=== PATIENT | male | born 1955 | race Hispanic/Latino ===

== ENCOUNTER 2020-08-23 08:26 | Inpatient (IN) | payer MEDICARE, OTHER, SELFPAY ==
[2020-08-23] VITALS (32 sets, daily range): BP systolic 115–214; BP diastolic 60–90; PULSE 65–92; RESP 13–21; TEMP 36.1–38.2; O2SAT 93–100; BMI 31.8
--- NOTE | 2020-08-23 08:54 | ED_ITS ---
HPI - General Adult General Chief complaint: Skin/Abscess/Foreign Body Stated complaint: Left foot injury Time Seen by Provider: 08/23/20 08:42 Source: patient Mode of arrival: Ambulatory Limitations: no limitations History of Present Illness HPI narrative: Patient is a 64-year-old male. Diabetic. States that he kicked a tire with his left foot approximately 3 weeks ago. At some point after that incident him before today he started having redness and drainage from his left 3rd toe. He states that it has been there for the past several days if not a couple weeks. Has not been evaluated for it. Is not on antibiotics. He states that he does have decreased sensation in his feet. Was scheduled to get a ?b kamilah button surgery ?done and was told by the surgeon that he needed to be evaluated for his toe. Patient is still ambulatory. Related Data Home Medications Medication Instructions Recorded Confirmed duloxetine 60 mg PO DAILY 08/23/20 08/23/20 fenofibrate nanocrystallized 145 mg PO DAILY 08/23/20 08/23/20 gabapentin 600 mg PO TID 08/23/20 08/23/20 glimepiride 2 mg PO DAILY 08/23/20 08/23/20 lisinopril 5 mg PO DAILY 08/23/20 08/23/20 lovastatin 10 mg PO DAILY 08/23/20 08/23/20 metformin 1,000 mg PO BID 08/23/20 08/23/20 sitagliptin [Januvia] 100 mg PO DAILY 08/23/20 08/23/20 Allergies Allergy/AdvReac Type Severity Reaction Status Date / Time codeine AdvReac Gastrointestinal Verified 08/23/20 10:04 Upset Review of Systems Constitutional Constitutional: Denies fever(s) and Denies headache(s) ENT Ears, Nose, Mouth, and Throat: Denies headache(s) Cardiovascular Cardiovascular: Denies chest pain and Denies dyspnea Respiratory Respiratory: Denies dyspnea Gastrointestinal Gastrointestinal: Denies abdominal pain Musculoskeletal Musculoskeletal: Denies arthralgias and Denies myalgias Integumentary/Breasts Comments: Wound to left 3rd toe Neurologic Neurologic: Denies behavioral changes and Denies headache(s) Psychiatric Psychiatric: Denies behavioral changes Hematologic/Lymphatic Hematologic/Lymphatic: Denies easy bleeding and Denies easy bruising Allergic/Immunologic Allergic/Immunologic: Denies urticaria Patient History Medical History Diabetes (Acute) Hypertension (Acute) Social History marital status: lives independently: Yes Smoking Status: Never smoker Exam Initial Vital Signs Initial Vital Signs: Vital Signs Pulse Rate 80 08/23/20 08:44 Blood Pressure 176/82 H 08/23/20 08:44 Pulse Oximetry 100 08/23/20 08:44 Const General: cooperative and comfortable Limitations: mental status not altered HENMT Head: normal to inspection and normocephalic Skin Other: Abscess to the distal left 3rd toe Neuro Gait: normal gait Other: Decreased sensation to the distal left 3rd toe Extrem Other: Abscess and missing nail of the left distal 3rd toe with redness extending up to the left midfoot. Psych Appearance: grossly normal and well kempt Course Orders Ordered: ED Orders 08/23/20 08:54 XR foot LT min 3V Stat 08/23/20 09:00 Wound Culture and Gram Stain Stat 08/23/20 09:44 Basic Metabolic Panel Stat C-Reactive Protein Quant Stat Complete Blood Count AUTO DIFF Stat Erythrocyte Sedimentation Rate Stat Lactate (Lactic Acid) Stat Procalcitonin Stat 08/23/20 09:50 Blood Culture Stat 08/23/20 10:30 Consult to Orthopedic Surgery Stat 08/23/20 11:34 COVID19 -ED/INPAT/OR/L&D Stat EKG-12 Lead Stat Discontinued Medications Acetaminophen (Tylenol) 650 mg PO NOW ONE Stop: 08/23/20 11:16 Last Admin: 08/23/20 11:25 Dose: 650 mg Documented by: SAIDA Vancomycin HCl (Vancomycin) 1,000 mg in 200 mls @ 200 mls/hr IV NOW ONE Stop: 08/23/20 09:57 Last Admin: 08/23/20 10:45 Dose: 200 mls/hr Documented by: ЕЛЕНА Ceftriaxone Sodium/Dextrose (Rocephin) 2 gm in 50 mls @ 100 mls/hr IV NOW ONE Stop: 08/23/20 10:04 Last Infusion: 08/23/20 10:39 Dose: 0 mls/hr Documented by: ЕЛЕНА Admin: 08/23/20 10:03 Dose: 100 mls/hr Documented by: RSTONE Vital Signs Vital signs: Vital Signs - 8 hr 08/23/20 08:44 08/23/20 08:47 08/23/20 09:00 Temperature 97.7 F 98.6 F Pulse Rate 80 74 Respiratory Rate 15 Blood Pressure 176/82 H 176/82 H Pulse Oximetry 100 99 08/23/20 09:30 08/23/20 09:49 08/23/20 10:00 Temperature Pulse Rate 79 72 75 Respiratory Rate Blood Pressure 178/81 H 178/79 H 157/74 H Pulse Oximetry 99 99 99 08/23/20 10:30 08/23/20 11:14 08/23/20 11:30 Temperature Pulse Rate 74 74 76 Respiratory Rate Blood Pressure 168/77 H 214/88 H 172/82 H Pulse Oximetry 99 99 98 Medical Decision Making Lab Data Lab results reviewed: Yes I reviewed the patient's lab results. Result diagrams: 08/23/20 09:44 08/23/20 09:44 Labs: Lab Results 08/23/20 08/23/20 08/23/20 Range/Units 09:44 09:44 09:44 WBC 14.7 H (4.5-11.0) X10^3/uL RBC 4.35 L (4.5-5.9) X10^6/uL Hgb 13.5 (13.5-17.5) g/dL Hct 40.8 L (41-53) % MCV 93.9 (80-100) fL MCH 31.2 (26-34) PG MCHC 33.2 (30-36) % RDW 13.6 (11.6-14.8) % Plt Count 245 (150-400) X10^3/uL Neut % (Auto) 75.0 (50-75) % Lymph % (Auto) 13.9 L (25-40) % [place] % (Auto) 9.4 (3-14) % Eos % (Auto) 1.2 L (2-4) % Baso % (Auto) 0.5 (0-2) % Neut # (Auto) 79332 H (0781-2260) /uL Lymph # (Auto) 2000 (8000-0567) /uL [place] # (Auto) 1400 H (0-900) /uL Eos # (Auto) 200 (0-450) /uL Baso # (Auto) 100 (0-100) /uL ESR 28 H (0-15) MM/HR Sodium (137-145) mmol/L Potassium (3.4-5.1) mmol/L Chloride (98-107) mmol/L Carbon Dioxide (22-32) mmol/L BUN (9-20) mg/dL Creatinine (0.66-1.25) mg/dL Estimated GFR (>60) mL/min BUN/Creatinine Ratio (6-22) Glucose (80-110) mg/dL Lactate 1.3 (0.7-2.1) mmol/L Calcium (8.4-10.2) mg/dL C-Reactive Protein 6.4 H (<1.0) mg/dL Procalcitonin (<0.5) ng/mL 08/23/20 08/23/20 Range/Units 09:44 09:44 WBC (4.5-11.0) X10^3/uL RBC (4.5-5.9) X10^6/uL Hgb (13.5-17.5) g/dL Hct (41-53) % MCV (80-100) fL MCH (26-34) PG MCHC (30-36) % RDW (11.6-14.8) % Plt Count (150-400) X10^3/uL Neut % (Auto) (50-75) % Lymph % (Auto) (25-40) % [place] % (Auto) (3-14) % Eos % (Auto) (2-4) % Baso % (Auto) (0-2) % Neut # (Auto) (0519-2697) /uL Lymph # (Auto) (6729-7963) /uL [place] # (Auto) (0-900) /uL Eos # (Auto) (0-450) /uL Baso # (Auto) (0-100) /uL ESR (0-15) MM/HR Sodium 135 L (137-145) mmol/L Potassium 4.9 (3.4-5.1) mmol/L Chloride 102 (98-107) mmol/L Carbon Dioxide 28 (22-32) mmol/L BUN 22 H (9-20) mg/dL Creatinine 1.20 (0.66-1.25) mg/dL Estimated GFR > 60.0 (>60) mL/min BUN/Creatinine Ratio 18.3 (6-22) Glucose 251 H (80-110) mg/dL Lactate (0.7-2.1) mmol/L Calcium 9.0 (8.4-10.2) mg/dL C-Reactive Protein (<1.0) mg/dL Procalcitonin < 0.05 (<0.5) ng/mL Imaging Data Extremity x-ray #1: Radiologist's Impression: [address] [address] XRay Report Signed Patient: Сергей Montano TMR#: [id number] : 4Acct:[id number] Age/Sex: 64 / MDate of Service: 08/23/20 Loc: ED Accession Number: [id number] Procedure: XR foot LT min 3V Ordering Provider: Ancelmo Min D.O. PROCEDURE: XR FOOT LT MIN 3V INDICATIONS: L 3rd toe trauma and infection TECHNIQUE: 3 views of the foot were acquired. COMPARISON: None. FINDINGS: Bones: There is moderate focal soft tissue swelling involving the in distal 3rd toe with underlying osseous destruction and erosion of the distal phalanx. No other prominent plantar calcaneal spur. fractures or dislocations. No suspicious bony lesions. Soft tissues: No tibiotalar joint effusion. Achilles tendon appears normal. IMPRESSION: Left 3rd toe soft tissue swelling without underlying osseous erosion/destruction of the distal phalanx. Findings are suspicious for possible underlying osteomyelitis. Dictated by: Roman Sanders M.D. on 08/23/2020 at 8:26 Approved by: Roman Sanders M.D. on 08/23/2020 at 8:28 [facility] Narrative Medical decision making narrative: Patient is a [id number] diabetic with cellulitis to his left 3rd toe. X-ray consistent with osteo. Was given antibiotics here in the ER as well as a wound culture. Dr. Abbott with orthopedics evaluated the patient in the emergency department and recommended a toe amputation. I discussed the case with Dr. hawkins with Medicine who will admit for further evaluation and treatment. Discharge Plan Departure Patient Disposition: Admitted As Inpatient Clinical Impression: Cellulitis Qualifiers: Site of cellulitis: extremity Site of cellulitis of extremity: toe Laterality: left Qualified Code(s): L03.032 - Cellulitis of left toe Osteomyelitis Qualifiers: Osteomyelitis type: unspecified type Osteomyelitis location: foot Laterality: left Qualified Code(s): M86.9 - Osteomyelitis, unspecified Admit Date/Time: 08/23/20 11:40 Admit Provider: Sally Hawkins
[2020-08-23 09:54] LABS: Add Manual Diff / Slide Review NO; Basophils Absolute Auto 100 /uL (0-100); Basophils Percent Auto 0.5 % (0-2); Eosinophils Absolute Auto 200 /uL (0-450); Eosinophils Percent Auto 1.2 % (2-4); Hematocrit 40.8 % (41-53); Hemoglobin 13.5 g/dL (13.5-17.5); Lymphocytes Absolute Auto 2000 /uL (1100-4500); Lymphocytes Percent Auto 13.9 % (25-40); Mean Corpuscular HGB Conc 33.2 % (30-36); Mean Corpuscular Hemoglobin 31.2 PG (26-34); Mean Corpuscular Volume 93.9 fL (80-100); Monocytes Absolute Auto 1400 /uL (0-900); Monocytes Percent Auto 9.4 % (3-14); Neutrophils Absolute Auto 11000 /uL (1500-7000); Platelet Count 245 X10^3/uL (150-400); Red Blood Cell Count 4.35 X10^6/uL (4.5-5.9); Red Cell Distribution Width 13.6 % (11.6-14.8); White Blood Cell Count 14.7 X10^3/uL (4.5-11.0)
[2020-08-23] MEDS: CEFTRIAXONE 2 GM/50 ML FROZ.PIGGY IV (10:03)
[2020-08-23 10:04] LABS: BUN Creatinine Ratio 18.3 (6-22); Blood Urea Nitrogen 22 mg/dL (9-20); Carbon Dioxide 28 mmol/L (22-32); Chloride 102 mmol/L (98-107); Estimated Glomerular Filt Rate > 60.0 mL/min (>60); Glucose 251 mg/dL (80-110); HEMOLYSIS < 15 (0-50); Potassium 4.9 mmol/L (3.4-5.1); Sodium 135 mmol/L (137-145)
[2020-08-23 10:05] LABS: Lactate (Lactic Acid) 1.3 mmol/L (0.7-2.1)
[2020-08-23 10:08] LABS: C-Reactive Protein Quant 6.4 mg/dL (<1.0)
[2020-08-23 10:16] LABS: Erythrocyte Sedimentation Rate 28 MM/HR (0-15)
[2020-08-23 10:18] LABS: Procalcitonin < 0.05 ng/mL (<0.5)
[2020-08-23] MEDS: VANCOMYCIN 1,000 MG/200 ML PIGGYBACK 200 MG IV ×2 (10:45→22:47)
[2020-08-23] MEDS: ACETAMINOPHEN 325 MG TABLET 650 MG PO ×2 (11:25→20:44)
--- NOTE | 2020-08-23 11:41 | PM.HP.1 ---
History of Present Illness History of Present Illness Date Patient Seen: 08/23/20 Time Patient Seen: 11:41 Chief complaint: Left foot injury Narrative: Patient is a 64-year-old male diabetic. He kicked a tire with his left foot approximately 3-4 weeks ago. At some point after that incident he started having redness and drainage from his left 3rd toe, he had been soaking it previously which had some improvement in erythema but he has stoppped doing that recently. He states that it has been there for the past several days if not a couple weeks. Has not been evaluated for it. Is not on antibiotics. He states that he does have decreased sensation in his feet. Patient is still ambulatory. No prior amputations. Patient History Medical History Diabetes (Acute) Hypertension (Acute) Family & Social History Social History: lives independently Yes Safety & Behavioral: Feels Safe in Current Yes Environment Been Physically Hurt or No Threatened By a Person Tobacco & Substance use: Smoking Status Never smoker alcohol intake frequency 0-2 drinks per day Substance Use Type marijuana Meds Home Medications and Allergies Home Medications Medication Instructions Recorded Confirmed Type duloxetine 60 mg PO DAILY 08/23/20 08/23/20 History fenofibrate nanocrystallized 145 mg PO DAILY 08/23/20 08/23/20 History gabapentin 600 mg PO TID 08/23/20 08/23/20 History glimepiride 2 mg PO DAILY 08/23/20 08/23/20 History lisinopril 5 mg PO DAILY 08/23/20 08/23/20 History lovastatin 10 mg PO DAILY 08/23/20 08/23/20 History metformin 1,000 mg PO BID 08/23/20 08/23/20 History sitagliptin [Januvia] 100 mg PO DAILY 08/23/20 08/23/20 History Allergies Allergy/AdvReac Type Severity Reaction Status Date / Time codeine AdvReac Gastrointestinal Verified 08/23/20 10:04 Upset Exam Vital Signs (past 8 hours): - 08/23/20 08:44 08/23/20 08:47 08/23/20 09:00 Temperature 97.7 F 98.6 F Pulse Rate 80 74 Respiratory Rate 15 Blood Pressure 176/82 H 176/82 H Pulse Oximetry 100 99 08/23/20 09:30 08/23/20 09:49 08/23/20 10:00 Temperature Pulse Rate 79 72 75 Respiratory Rate Blood Pressure 178/81 H 178/79 H 157/74 H Pulse Oximetry 99 99 99 08/23/20 10:30 08/23/20 11:14 08/23/20 11:30 Temperature Pulse Rate 74 74 76 Respiratory Rate Blood Pressure 168/77 H 214/88 H 172/82 H Pulse Oximetry 99 99 98 Oxygen Delivery Method Room Air Narrative Exam Narrative: Large swollen erythematus left third toe. Erythema extends to the toe on either side as well as the dorsum of the foot and small degree of the plantar surface. Drainage from the distal aspect of the toe, loss of nail. Objective Labs Result Diagrams: 08/23/20 09:44 08/23/20 09:44 Labs: Laboratory Results - last 24 hr 08/23/20 08/23/20 08/23/20 09:44 09:44 09:44 WBC 14.7 H RBC 4.35 L Hgb 13.5 Hct 40.8 L MCV 93.9 MCH 31.2 MCHC 33.2 RDW 13.6 Plt Count 245 Neut % (Auto) 75.0 Lymph % (Auto) 13.9 L [place] % (Auto) 9.4 Eos % (Auto) 1.2 L Baso % (Auto) 0.5 Neut # (Auto) 23882 H Lymph # (Auto) 2000 [place] # (Auto) 1400 H Eos # (Auto) 200 Baso # (Auto) 100 ESR 28 H Sodium Potassium Chloride Carbon Dioxide BUN Creatinine Estimated GFR BUN/Creatinine Ratio Glucose Lactate 1.3 Calcium C-Reactive Protein 6.4 H Procalcitonin 08/23/20 08/23/20 09:44 09:44 WBC RBC Hgb Hct MCV MCH MCHC RDW Plt Count Neut % (Auto) Lymph % (Auto) [place] % (Auto) Eos % (Auto) Baso % (Auto) Neut # (Auto) Lymph # (Auto) [place] # (Auto) Eos # (Auto) Baso # (Auto) ESR Sodium 135 L Potassium 4.9 Chloride 102 Carbon Dioxide 28 BUN 22 H Creatinine 1.20 Estimated GFR > 60.0 BUN/Creatinine Ratio 18.3 Glucose 251 H Lactate Calcium 9.0 C-Reactive Protein Procalcitonin < 0.05 Assessment & Plan Assessment & Plan narrative: Patient is a 64-year-old male diabetic who stubbed his toe on a tire approximately 3-4 weeks ago. He sustained a wound to the distal tip of his left middle toe. He did not seek any medical attention for this. Over last several weeks it has gotten progressively more erythematous and increasing drainage. He was seen by a surgeon in [facility] for what sounds to be evaluation for umbilical hernia he saw the toe and recommended that he seek medical attention. Patient presents to the ER at [facility] this morning for evaluation of his left middle toe. After exam and discussed with the patient I would recommend amputation of this left 3rd toe. X-rays demonstrate significant osteomyelitis type changes to the distal phalanx of the 3rd toe and in addition to the surrounding erythema and fusiform swelling of the digit I do not think that it is viable at this point. I also think that avoiding amputation may increase the risk of infection leading to amputation surrounding tissues. Plan will be to take the patient to the OR today for amputation of the 3rd digit and then admit to the hospital for IV antibiotics for management of the cellulitis. - NPO - OCTOR for left middle tow amputation - [facility] COVID-19 COVID-19 status: Result pending Time Spent With Patient Time with patient: 15-24 minutes
[2020-08-23 12:11] LABS: COVID19 -Nasal RAPID Negative (Negative)
[2020-08-23] MEDS: LACTATED RINGERS 1,000 ML 42 ML IV (12:45)
--- NOTE | 2020-08-23 13:05 | SUR.OPER ---
Supine on padded OR bed, head on pillow, arms secured on padded arm boards at <90 degrees abduction, legs uncrossed, safety belt at thigh, tape over blanket over lower right leg, left leg draped free.
--- NOTE | 2020-08-23 13:08 | PM.HP.1 ---
History of Present Illness History of Present Illness Date Patient Seen: 08/23/20 Time Patient Seen: 12:28 Chief complaint: Left foot injury Narrative: Patient is a 64-year-old male diabetic. presented in the emergency room for pain and swelling to the left foot most predominantly in the 3rd toe. Pt has recieved tylenol and denies any serious pain as he is up moving around the ER room getting ready to go to surgery and amputation of his 3rd toe left foot. Patient denies chest pain short of breath nausea vomiting diarrhea fever chills cough. He had kicked a tire with his left foot approximately 3-4 weeks ago. He reports that it has been infected ever since. At some point after that incident he started having redness and drainage from his left 3rd toe, he had been soaking it previously which had some improvement in erythema but he has stoppped doing that recently. He states that it has been there for the past several days if not a couple weeks. Has not been evaluated for it. Is not on antibiotics. He states that he does have decreased sensation in his feet. Patient is still ambulatory. No prior amputations. Patient History Medical History Diabetes (Acute) Hypertension (Acute) Family & Social History Social History: household members spouse lives independently Yes Safety & Behavioral: Feels Safe in Current Yes Environment Been Physically Hurt or No Threatened By a Person Tobacco & Substance use: Smoking Status Never smoker alcohol intake current alcohol intake frequency 0-2 drinks per day Substance Use Type marijuana Meds Home Medications and Allergies Home Medications Medication Instructions Recorded Confirmed Type duloxetine 60 mg PO DAILY 08/23/20 08/23/20 History fenofibrate nanocrystallized 145 mg PO DAILY 08/23/20 08/23/20 History gabapentin 600 mg PO TID 08/23/20 08/23/20 History glimepiride 2 mg PO DAILY 08/23/20 08/23/20 History lisinopril 5 mg PO DAILY 08/23/20 08/23/20 History lovastatin 10 mg PO DAILY 08/23/20 08/23/20 History metformin 1,000 mg PO BID 08/23/20 08/23/20 History sitagliptin [Januvia] 100 mg PO DAILY 08/23/20 08/23/20 History Allergies Allergy/AdvReac Type Severity Reaction Status Date / Time codeine AdvReac Gastrointestinal Verified 08/23/20 10:04 Upset Review of Systems Review of Systems ROS: Yes All systems reviewed with the patient and are negative except as otherwise documented Musculoskeletal Musculoskeletal: Reports arthralgias (left foot 3rd toe), Reports joint swelling and Reports numbness Integumentary/Breasts Skin/Breast: Reports change in pigmentation, Reports nail changes, Reports erythema and Reports skin swelling Neurologic Neurologic: Reports numbness Exam Vital Signs (past 8 hours): - 08/23/20 08:44 08/23/20 08:47 08/23/20 09:00 Temperature 97.7 F 98.6 F Pulse Rate 80 74 Respiratory Rate 15 Blood Pressure 176/82 H 176/82 H Pulse Oximetry 100 99 08/23/20 09:30 08/23/20 09:49 08/23/20 10:00 Temperature Pulse Rate 79 72 75 Respiratory Rate Blood Pressure 178/81 H 178/79 H 157/74 H Pulse Oximetry 99 99 99 08/23/20 10:30 08/23/20 11:14 08/23/20 11:30 Temperature Pulse Rate 74 74 76 Respiratory Rate Blood Pressure 168/77 H 214/88 H 172/82 H Pulse Oximetry 99 99 98 08/23/20 12:00 08/23/20 12:40 Temperature 96.9 F L Pulse Rate 71 79 Respiratory Rate 17 Blood Pressure 177/86 H 162/88 H Pulse Oximetry 99 99 Oxygen Delivery Method Room Air Narrative Exam Narrative: General: Alert and cooperative and comfortable adult male , appears stated age, well nourished, in no acute distress. Limitations: mental status not altered HEENT: Unable to assess. External inspection of the ears and nose showed no scars, lesions, or masses. Lips, teeth, and gums WNL. NECK: Supple and symmetric. There was no thyroid enlargement, and no tenderness, or masses were felt. CHEST: Normal AP diameter and normal contour LUNGS: Auscultation of the lungs revealed no wheezes, rhonchi, or rales. CARDIOVASCULAR: There was a regular rate and rhythm without any murmurs, gallops, rubs. Peripheral pulses were 2+ and symmetric. ABDOMEN: Soft and nontender with normal bowel sounds. No ascites was noted. MUSCULOSKELETAL: There was no tenderness or effusions noted. NEUROLOGIC: alert and orientated to time and place. Normal Gait Skin EXT: Abscess to the distal left 3rd toe. Decreased sensation to the distal left 3rd toe Abscess and missing nail of the left distal 3rd toe with redness extending up to the left midfoot. Objective Labs Result Diagrams: 08/23/20 09:44 08/23/20 09:44 Labs: Laboratory Results - last 24 hr 08/23/20 08/23/20 08/23/20 09:44 09:44 09:44 WBC 14.7 H RBC 4.35 L Hgb 13.5 Hct 40.8 L MCV 93.9 MCH 31.2 MCHC 33.2 RDW 13.6 Plt Count 245 Neut % (Auto) 75.0 Lymph % (Auto) 13.9 L [place] % (Auto) 9.4 Eos % (Auto) 1.2 L Baso % (Auto) 0.5 Neut # (Auto) 98425 H Lymph # (Auto) 2000 [place] # (Auto) 1400 H Eos # (Auto) 200 Baso # (Auto) 100 ESR 28 H Sodium Potassium Chloride Carbon Dioxide BUN Creatinine Estimated GFR BUN/Creatinine Ratio Glucose Lactate 1.3 Calcium C-Reactive Protein 6.4 H Procalcitonin COVID-19 PCR 08/23/20 08/23/20 08/23/20 09:44 09:44 11:37 WBC RBC Hgb Hct MCV MCH MCHC RDW Plt Count Neut % (Auto) Lymph % (Auto) [place] % (Auto) Eos % (Auto) Baso % (Auto) Neut # (Auto) Lymph # (Auto) [place] # (Auto) Eos # (Auto) Baso # (Auto) ESR Sodium 135 L Potassium 4.9 Chloride 102 Carbon Dioxide 28 BUN 22 H Creatinine 1.20 Estimated GFR > 60.0 BUN/Creatinine Ratio 18.3 Glucose 251 H Lactate Calcium 9.0 C-Reactive Protein Procalcitonin < 0.05 COVID-19 PCR Negative Assessment & Plan Assessment & Plan narrative: 1. Post-op Amputation Left 3rd toe diabetic foot ulceration with abscess and osteomyelitis. -Acute on Admission -surgeon Dr. Abbott for follow up -NS w/20mEq K+ -PT Consult 2. Diabetes Mellitus Type 2 -Acute on Admission, Chronic- Poorly controlled -Continue Metformin 1,000 PO BIB, Sitaglliptin (Januvia) 100mg PO QD, glimeepride -A1C, BS BID Dietary consult 3. Hypertension-STable on Admission, Chronic -Continue Lisinopril 4. Depression- stable on admission, chronic -Continue Duloxetine 60mg QD Hyperlipidemia- Stable on admission, Chronic -Continue Lovastatin 10mg QD 6. Peripheral Neuropathy -Continue Gabapentin 600mg TID Code Status: Full Code VTE: enoxaparin Diet: Diabetic/Carbo restrictive Patient was admitted to hospital due to the severity osteomyelitis the left foot 3rd toe an acute need for amputation via surgery.
--- NOTE | 2020-08-23 13:46 | SUR.PHASEI ---
Regular insulin not given in pacu. Verbal order received from DR. Zapata to only give if pt blood sugar greater than 250. Blood sugar 210 upon check in pacu.
--- NOTE | 2020-08-23 14:23 | P.OP_ITS ---
Operative Date/Time/Diagnoses Date of procedure: 08/23/20 Time of procedure: 14:23 Pre-op diagnosis: Left third toe diabetic ulcer and osteomyelitis Post-op diagnosis: same Procedure & Clinicians Procedure: Left 3rd toe transphalangeal amputation Same procedure as scheduled: Yes Indications: Left 3rd toe diabetic ulceration with abscess and osteomyelitis Surgeon: Felipe Abbott Click Yes if Unassisted: Yes Anesthesia Type: General Operative Notes Findings: Left 3rd toe diabetic foot ulceration with abscess and osteomyelitis. Parents tracking in the tendon sheath. Closure Type: primary Specimen(s): other (2x cultures) Estimated Blood Loss (mL): 20 Tourniquet time (min): 10 Procedure in detail: Patient was met in the ER where the foot was evaluated and there was a ulceration at the tip of his left 3rd toe with purulence and abscess. X-ray also demonstrated osteomyelitis of the left 3rd toe distal phalanx. I had a long conversation with the patient regarding his symptoms well as x-ray findings and exam findings which are consistent with diabetic foot ulcer with abscess and osteomyelitis. In addition he also had superficial spreading cellulitis. I discussed with him that I think the 3rd toe needs to be amputated to avoid further spread of the infection and the 3rd toe appeared nonviable. Patient agrees with this plan. I discussed the risks and benefits of surgery with him including the risk of need for future surgeries delayed wou nd healing need for future amputations, pain, etc.. The patient demonstrates understanding and wishes to proceed with left 3rd toe amputation. The left 3rd toe was marked by . Patient then brought back in the operating room transferred onto the operating room table he was induced under general anesthesia and a nonsterile tourniquet was placed on left calf the left foot was then prepped and draped in normal sterile fashion. The tourniquet was then insufflated without the use of an Esmarch. A fish-mouth type incision was planned at the base of the 3rd toe skin incision was made using 15. Blade and the distal and middle phalanx were removed along with soft tissue the head of the proximal phalanx was then stripped of soft tissue and a bone cutter was used to remove the distal articular surface of the proximal phalanx. Parents was encountered within the tendon sheath during removal of the toe however no purulence could be expressed from the proximal portion of the wound. A bone rasp were then used to smooth the cut edges of the bone. The wound bed was then irrigated with 2.5 L of normal saline. The tourniquet was then let down and electrocautery was used to gain hemostasis. A 1. Vicryl was then used to tent close the tendon sheath over the stump of the cut bone. Interrupted nylon suture was then used to loosely close the fishmouth incision. Telfa was then placed over the incision followed by Kerlix and a Coban dressing. Complications: none Post-operative Condition: stable Disposition: PACU Plan for aftercare: Nonweightbearing on the left lower extremity, Zosyn for empiric antibiotic coverage will adjust following culture results.
[2020-08-23] MEDS: LACTATED RINGERS 1,000 ML 125 ML IV (14:45)
[2020-08-23] MEDS: GABAPENTIN 600 MG TABLET PO ×2 (14:50→20:44)
[2020-08-23] MEDS: PIPERACILLIN-TAZO 3.375 GM/50 ML FROZ.PIGGY IV ×2 (16:24→21:51)
[2020-08-23] MEDS: KCL 20 MEQ IN NS 1,000 ML 50 MEQ IV (18:01)
[2020-08-23 18:12] LABS: Hematocrit 40.8 % (41-53); Hemoglobin 13.3 g/dL (13.5-17.5)
[2020-08-23] MEDS: LOVASTATIN 20 MG TABLET 10 MG PO (20:41)
[2020-08-23] MEDS: OXYCODONE IR 5 MG TABLET PO ×2 (20:42→23:51)
[2020-08-23] MEDS: DOCUSATE 100 MG CAPSULE PO (20:44)
[2020-08-23] MEDS: INSULIN ASPART 100 UNIT/ML INSULN PEN SUBCUT (20:45)
[2020-08-23] MEDS: INSULIN GLARGINE 100 UNIT/ML 3ML PEN 10 UNIT SUBCUT (20:46)
[2020-08-23] MEDS: lisinopriL 20 MG TABLET 5 MG PO (21:49)
[2020-08-24] VITALS (14 sets, daily range): BP systolic 128–146; BP diastolic 67–78; PULSE 68–92; RESP 16–18; TEMP 36.1–37.1; O2SAT 95–100
[2020-08-24] MEDS: PIPERACILLIN-TAZO 3.375 GM/50 ML FROZ.PIGGY IV ×4 (04:06→21:34)
[2020-08-24 05:35] LABS: Add Manual Diff / Slide Review NO; Basophils Absolute Auto 100 /uL (0-100); Basophils Percent Auto 0.8 % (0-2); Eosinophils Absolute Auto 300 /uL (0-450); Eosinophils Percent Auto 1.9 % (2-4); Hematocrit 40.4 % (41-53); Hemoglobin 13.1 g/dL (13.5-17.5); Lymphocytes Absolute Auto 3000 /uL (1100-4500); Lymphocytes Percent Auto 21.3 % (25-40); Mean Corpuscular HGB Conc 32.5 % (30-36); Mean Corpuscular Hemoglobin 30.8 PG (26-34); Monocytes Absolute Auto 1500 /uL (0-900); Monocytes Percent Auto 10.9 % (3-14); Neutrophils Absolute Auto 9300 /uL (1500-7000); Neutrophils Percent Auto 65.1 % (50-75); Platelet Count 264 X10^3/uL (150-400); Red Blood Cell Count 4.25 X10^6/uL (4.5-5.9); Red Cell Distribution Width 13.5 % (11.6-14.8); White Blood Cell Count 14.2 X10^3/uL (4.5-11.0)
[2020-08-24 05:42] LABS: BUN Creatinine Ratio 14.7 (6-22); Blood Urea Nitrogen 22 mg/dL (9-20); Calcium 8.5 mg/dL (8.4-10.2); Carbon Dioxide 29 mmol/L (22-32); Chloride 101 mmol/L (98-107); Cholesterol 105 mg/dL (140-199); Estimated Glomerular Filt Rate 46.8 mL/min (>60); Glucose 224 mg/dL (80-110); HDL Cholesterol 29 mg/dL (40-60); HEMOLYSIS < 15 (0-50); LDL Cholesterol Calculated 50 mg/dL (<100); Potassium 4.7 mmol/L (3.4-5.1); Sodium 135 mmol/L (137-145); Triglycerides 132 mg/dL (35-150)
[2020-08-24] MEDS: INSULIN ASPART 100 UNIT/ML INSULN PEN SUBCUT ×4 (08:56→21:35)
[2020-08-24] MEDS: FENOFIBRATE 145 MG TABLET PO (09:04)
[2020-08-24] MEDS: DULOXETINE 30 MG CAPSULE 60 MG PO (09:04)
[2020-08-24] MEDS: GABAPENTIN 600 MG TABLET PO ×3 (09:04→21:32)
[2020-08-24] MEDS: DOCUSATE 100 MG CAPSULE PO ×2 (09:04→21:32)
[2020-08-24] MEDS: lisinopriL 5 MG TABLET PO (09:05)
[2020-08-24] MEDS: ENOXAPARIN 30 MG/0.3 ML SYRINGE SUBCUT (09:06)
--- NOTE | 2020-08-24 09:59 | P.PN_ITS ---
Subjective Subjective Date Patient Seen: 08/24/20 Time Patient Seen: 09:59 Interval history: Patient is now postop day 1 from left toe transplant joint amputation patient is a poorly controlled diabetic who stubbed his toe 3-4 weeks ago on a tire. Developed a wound to the tip of his left middle toe which subsequently developed an abscess as well as osteomyelitis at the distal phalanx and spreading cellulitis. Exam Vital Signs (past 8 hours): - 08/24/20 06:00 08/24/20 06:28 08/24/20 09:05 Temperature 97.0 F L Pulse Rate 73 73 Respiratory Rate 18 Blood Pressure 142/78 H 142/78 H Pulse Oximetry 97 97 08/24/20 09:16 Temperature 97.9 F Pulse Rate 68 Respiratory Rate 16 Blood Pressure 134/69 Pulse Oximetry 95 Oxygen Delivery Method Room Air Oxygen Flow Rate 0 Narrative Exam Narrative: Dressings clean dry intact. Sensation is decreased throughout all the remaining toes as his baseline. No tenderness to palpation surrounding toes. Stable erythema Objective Labs Result Diagrams: 08/24/20 04:45 08/24/20 04:45 Labs: Laboratory Results - last 24 hr 08/23/20 08/23/20 08/23/20 09:44 09:44 09:44 WBC 14.7 H RBC 4.35 L Hgb 13.5 Hct 40.8 L MCV 93.9 MCH 31.2 MCHC 33.2 RDW 13.6 Plt Count 245 Neut % (Auto) 75.0 Lymph % (Auto) 13.9 L Webster % (Auto) 9.4 Eos % (Auto) 1.2 L Baso % (Auto) 0.5 Neut # (Auto) 05021 H Lymph # (Auto) 2000 Webster # (Auto) 1400 H Eos # (Auto) 200 Baso # (Auto) 100 ESR 28 H Sodium Potassium Chloride Carbon Dioxide BUN Creatinine Estimated GFR BUN/Creatinine Ratio Glucose Hemoglobin A1c Lactate 1.3 Calcium C-Reactive Protein 6.4 H Triglycerides Cholesterol LDL Cholesterol, Calc HDL Cholesterol Procalcitonin COVID-19 PCR 08/23/20 08/23/20 08/23/20 09:44 09:44 11:37 WBC RBC Hgb Hct MCV MCH MCHC RDW Plt Count Neut % (Auto) Lymph % (Auto) Webster % (Auto) Eos % (Auto) Baso % (Auto) Neut # (Auto) Lymph # (Auto) Webster # (Auto) Eos # (Auto) Baso # (Auto) ESR Sodium 135 L Potassium 4.9 Chloride 102 Carbon Dioxide 28 BUN 22 H Creatinine 1.20 Estimated GFR > 60.0 BUN/Creatinine Ratio 18.3 Glucose 251 H Hemoglobin A1c Lactate Calcium 9.0 C-Reactive Protein Triglycerides Cholesterol LDL Cholesterol, Calc HDL Cholesterol Procalcitonin < 0.05 COVID-19 PCR Negative 08/23/20 08/23/20 08/24/20 18:00 18:00 04:45 WBC 14.2 H RBC 4.25 L Hgb 13.3 L 13.1 L Hct 40.8 L 40.4 L MCV 95.0 MCH 30.8 MCHC 32.5 RDW 13.5 Plt Count 264 Neut % (Auto) 65.1 Lymph % (Auto) 21.3 L Webster % (Auto) 10.9 Eos % (Auto) 1.9 L Baso % (Auto) 0.8 Neut # (Auto) 9300 H Lymph # (Auto) 3000 Webster # (Auto) 1500 H Eos # (Auto) 300 Baso # (Auto) 100 ESR Sodium Potassium Chloride Carbon Dioxide BUN Creatinine Estimated GFR BUN/Creatinine Ratio Glucose Hemoglobin A1c 10.0 H Lactate Calcium C-Reactive Protein Triglycerides Cholesterol LDL Cholesterol, Calc HDL Cholesterol Procalcitonin COVID-19 PCR 08/24/20 04:45 WBC RBC Hgb Hct MCV MCH MCHC RDW Plt Count Neut % (Auto) Lymph % (Auto) Webster % (Auto) Eos % (Auto) Baso % (Auto) Neut # (Auto) Lymph # (Auto) Webster # (Auto) Eos # (Auto) Baso # (Auto) ESR Sodium 135 L Potassium 4.7 Chloride 101 Carbon Dioxide 29 BUN 22 H Creatinine 1.50 H Estimated GFR 46.8 L BUN/Creatinine Ratio 14.7 Glucose 224 H Hemoglobin A1c Lactate Calcium 8.5 C-Reactive Protein Triglycerides 132 Cholesterol 105 L LDL Cholesterol, Calc 50 HDL Cholesterol 29 L Procalcitonin COVID-19 PCR Assessment & Plan Assessment & Plan narrative: Patient is a 64-year-old diabetic male who stubbed his toe 3-4 weeks ago and developed an abscess to the tip of the left middle toe. This developed an abscess as well as osteomyelitis with near total involvement of the distal phalanx. 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 Intraop cultures as well as wound culture from presentation in the ER grew back Staph aureus. - NWB LLE - Daily dressing change, telfa followed by elvi followed by daniel. - DC Zosyn - Continue Vanco - Recommend at least 1 more day in the hospital until significant improvement of the cellulitis - follow-up with Dr. Abbott 2 weeks status post surgery Time Spent With Patient Time with patient: less than 15 minutes
[2020-08-24] MEDS: VANCOMYCIN 1,000 MG/200 ML PIGGYBACK 200 MG IV ×2 (11:18→22:57)
--- NOTE | 2020-08-24 12:25 | PT.IIE ---
Addendum entered and electronically signed by Olive Alvarez PT 08/24/20 17:12: Gait was incorrectly noted as IND on original note but was actually CGA. Original Note: Addendum entered and electronically signed by Olive Alvarez PT 08/24/20 15:15: Treatment was provided by CHRYSTAL Shaw and supervised by Olive Alvarez PT. I personally reviewed this note and agree with its contents. Original Note: Current Diagnoses Type 2 diabetes mellitus with other specified complication (08/23/20) Surgery Performed Operation Date: 08/23/20 12:30 Actual Procedures p left middle toe amputation - Felipe Abbott MD Medical History (Last Reviewed 08/23/20 @ 15:48 by ADRIENNE Christensen-) Diabetes (Acute) Hypertension (Acute) Physical Therapy Inpatient Evaluation/Re-Eval M1 PT/OT-IP Prior Functional Status Start: 08/24/20 09:20 Freq: NEEDED Status: Active Protocol: Document 08/24/20 12:21 DE (Rec: 08/24/20 13:06 PR [id number]) Medical Review Prior Functional Status Medical History Reviewed Yes Diet/Fluid Consistency Regular Communication WNL. No deficits noted. Able to make needs known. Mobility and Gait IND for all mobility and gait without AD or limitations at baseline. Activities of Daily Living and IADL's IND with all ADLs and IADLs at baseline. Social History Household Members spouse Living Arrangements Mobile home Number of Stairs To Enter/Railing? Front entrance has 2 FARIDEH with R handrail ascending. Another entrance has 1 FARIDEH with no handrail. Pt prefers to use the entrance with 1 FARIDEH. Home Environment Standard Height Toilet,Tub/ Shower Home Equipment Straight Cane,Shower Seat without Backrest,Long Handled Shoe Horn Employment Status Retired Additional Social History Comment Pt lives with spouse who will be available to help if needed . M2 PT-IP Current Condition Start: 08/24/20 09:20 Freq: NEEDED Status: Active Protocol: Document 08/24/20 12:21 DE (Rec: 08/24/20 13:06 DE [id number]) Physical Therapy Current Condition Current Condition Evaluation Date 08/24/20 Treatment Diagnosis Diabetic foot ulceration, s/p amputation; Difficulty with walking Onset Date 08/23/20 Weight Bearing Status Weight Bearing Status Non-Weight Bearing M3 PT-IP Subjective Start: 08/24/20 09:20 Freq: NEEDED Status: Active Protocol: Document 08/24/20 12:21 DE (Rec: 08/24/20 13:06 DE [id number]) Subjective Physical Therapy Visit Type Type Initial Evaluation Visit Start Time 10:40 Visit Stop Time 11:08 Total Visit Minutes 28 Notes SPT Blue led the session under direct supervision of PT Oliev throughout the entire session. Number of SIGN LETTERER Visits 0 Physical Therapy Visit Comments Patient Comments Pt is agreeable to do PT. Patient Goals To return home. Therapy Pain Assessment Pain When Pain Assessed During Mobility Pain Present Pain Present Pain Reported Location Left Foot Intensity 6 Scale Used Numeric (0 - 10) Description Aching Pain Behaviors Calling Out Pain Management Techniques Timing of Activity with Medications M4 PT-IP Mobility and Gait Start: 08/24/20 09:20 Freq: NEEDED Status: Active Protocol: Document 08/24/20 12:21 DE (Rec: 08/24/20 13:06 DE [id number]) PT-Bed Mobility Assessment Supine to Sit Supine to Sit Standby Assistance Scooting Scooting to Edge of Bed Standby Assistance PT-Transfer Assessment Sit to and From Stand Sit to and from Stand Contact Guard Assistance,Use of Upper Extremities Equipment Transfer Assistive Device Gait Belt,Front Wheeled Walker Orthotic/Prosthetic Devices or Brace: No Transfers Transfer Destination Chair Transfer Technique Stand Step Pivot Transfer Ability Level of Assist Contact Guard Assistance,Use of Upper Extremities Comments Mobility Comments Pt was lying in bed as PT and SPT arrived. Pt completed supine to sit at R EOB with SBA and use of BUE to push off the bed. Pt then performed sit to stand with CGA and FWW. Pt did not demonstrate any difficulty with sit to stand. Pt requested to use the bathroom. Pt amb ~8 ft and sat down on the toilet with CGA and FWW. Pt demonstrated hopping during amb. After successful bowel movement, pt stood up from the toilet and amb ~6 ft to the chair and sat down with CGA and FWW. Pt rested for ~ 3 min in sitting. When asked about pain, pt reported 6/10. Pt then stood up and amb ~6 ft to the sink counter to wash his hands. Pt was instructed to control his steps instead of hopping and pt was able to follow command. During hand wash, pt demonstrated some trunk lean on the counter. When asked if he could stand without leaning , pt was able to maintain balance for ~3 sec while drying his hands. Pt amb ~6 ft back to the chair and sat down. Pt was NWB on his L foot throughout the entire mobilization. Call light placed in reach. Gait Assessment Gait Gait Assistance Required: Independent Distance (Feet) 8 Able to Maintain Weight Bearing Status Yes During Gait Assistive Devices Assistive Device Gait Belt,Front Wheeled Walker Orthotic/Prosthetic Devices or Brace: No Gait Deviations General Gait Pattern Antalgic,Decreased Stride Length,Flexed Trunk Factors Limiting Gait Function Factors Limiting Gait Function Decreased Sensation,Pain,Poor Balance Comments Gait Comments See mobility comments. Stair Climbing Assessment Comments Stair Climbing Comments Not assessed. PT-Balance Assessment Sitting Balance and Reactions Static Sitting Balance Ability Normal Dynamic Sitting Balance Ability Normal Standing Balance and Reactions Static Standing Balance Ability Good Dynamic Standing Balance Ability Good M5 PT-IP Objective Assessments Start: 08/24/20 09:20 Freq: NEEDED Status: Active Protocol: Document 08/24/20 12:21 DE (Rec: 08/24/20 13:06 PR [id number]) Orientation Orientation/Cognition Level of Alertness Alert Orientation Name,Age,Birthday,Month,Date, Year,Day of Week,Place, Situation Language Function Ability No Deficits Noted Safety Awareness Understands Safety Issues Memory Description No Deficits Noted Gross Range of Motion Lower Extremity ROM Assessment Left Impaired Impairments Pt has limited dorsiflexion in L foot. Strength Lower Extremity Strength Assessment Within Functional Limits Coordination Assessment Gross Coordination Gross Coordination WNL Sensation Assessment Sensation Gross Sensation Left LE Impaired Light Touch Impaired Sensation Description Numbness Comments Sensation Comments Pt reports he has numbess in the lateral aspect of L thigh. Muscle Tone Muscle Tone WNL Yes M6 PT-IP Treatment Start: 08/24/20 09:20 Freq: NEEDED Status: Active Protocol: Document 08/24/20 12:21 DE (Rec: 08/24/20 13:06 DE [id number]) Physical Therapy Treatment Exercises Exercises Ankle Pumps Education Education Provided Precautions,Weight Bearing Status,Safety Other Treatments Other Treatment Performed Pt education was provided on precautions, WB status, safety , and role of PT. M7 PT-IP Assessment and Plan Start: 08/24/20 09:20 Freq: NEEDED Status: Active Protocol: Document 08/24/20 12:21 DE (Rec: 08/24/20 13:06 DE [id number]) PT Summary Assessment and Plan Potential Rehabilitation Potential Excellent Status of Condition at Evaluation Stable Summary Impairments Pain,Strength,Balance, Sensation,Bed Mobility, Transfers,Gait,Activity Tolerance Assessment Summary Сергей is a 64 yo male s/p amputation of L 3rd toe secondary to diabetic foot ulceration with abscess and osteomyelitis post-op day 1. At baseline, pt was IND for all mobility, amb, and ADLs without any limitations or use of assistive device. On evaluation, pt is SBA for bed mobility and CGA for all transfers and amb with use of FWW. Pt is not safe for d/c at this point. Pt will need to improve amb distance and perform 1 step with no railing in order to d/c home safely. PT anticipates that pt will d/ c home with FWW and family assistance once medically cleared, improve amb distance, and complete stair climbing. Goals Bed Mobility Goal Independent Transfer Goal Independent,Front Wheeled Walker Gait Goal Independent,Front Wheel Walker Gait Distance 50 Other Goals Pt will perform 1 step with FWW without handrail. Days to Meet Goals 5 Frequency of Treatment Frequency Of Treatment Twice a Day Treatment Plan Physical Therapy Treatment Plan Bed Mobility Training,Transfer Training,Gait Training, Therapeutic Exercise,Balance Retraining,Post Op Education, Discharge Planning Recommendations To Nursing Amount of Assist Needed 1 Person Assist Discharge Recommendations PT Discharge Recommendations Home with Assistance Equipment Needed for Home Before FWW Discharge Transportation Needs at Discharge Private Vehicle
[2020-08-24] MEDS: ACETAMINOPHEN 325 MG TABLET 650 MG PO ×2 (13:17→22:59)
[2020-08-24] MEDS: OXYCODONE IR 5 MG TABLET PO ×2 (13:18→22:59)
--- NOTE | 2020-08-24 13:29 | CM.DANOTE ---
Patient is a 64 year old male who was admitted on 08/23/20 for Left foot injury. Pt has [facility] for insurance and his PCP is Dr. Saucedo. EMR was reviewed. Per MD, pt with dx of diabetes and infection of toe. Per Ortho Consult, pt showing osteomyelitis and on IV-Abx currently and recommending amputation of 3rd toe and pt was agreeable and surgery took place yesterday afternoon. PT ordered and pending. Per Ortho MD, not anticipating senior care IV-Abx needed but Hospitalist will review and consult to determine IV-Abx vs oral abx at d/c. SW met bedside with pt and explained role and pt confirms that he lives in [place] with his and they have local supportive adult Dtr. Pt is independent at baseline and is not working and does not use equipment to ambulate. Pt states his and dtr are available for assist if needed and transport at d/c and pt currently not complaining of any pain. Plan: SW to follow closely to r/o IV-Abx at d/c and plan of home with spouse assist when medically stable. CHUN Staples Discharge Planning/Care Management CM Discharge Assessment Start: 08/24/20 13:27 Freq: Status: Active Protocol: Document 08/24/20 13:27 BF (Rec: 08/24/20 13:29 BF [id number]) Discharge Planning Assessment Assigned Marketing And Communications Officer CHUN Patel DPOA/Assigned Designee Name none Advance Directives? No History Provided By Patient,Medical Record Has Patient been admitted in last 30 No days? Prior Living Arrangements Mobile home Household Members spouse Type of transporation used prior to Drives own vehicle admit Independent with ADL's Yes Is patient alert and oriented? Yes Caregiver for Another No Barriers to Discharge No Discharge Plan Home Community Services Physical Therapy Transportation Arrangement Patient states spouse or Dtr can provide transport at d/c. Referrals Initiated None needed Whiteboard Updated in Patient Room with Yes name and ext. # of Marketing And Communications Officer Review Status In Process Please Provide Date Initial DC 08/24/20 Assessment Was Performed Next Review Type Continued Stay Review
--- NOTE | 2020-08-24 16:43 | P.PN_ITS ---
Subjective Subjective Date Patient Seen: 08/24/20 Time Patient Seen: 08:14 Interval history: Patient is a 64-year-old diabetic male who stubbed his toe 3-4 weeks ago and developed an abscess to the tip of the left middle toe. This developed an abscess as well as osteomyelitis with near total involvement of the distal phalanx. 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 Intraop cultures as well as wound culture from presentation in the ER grew back Staph aureus. Patient is resting peacfully in bed, reports only mild discomfort to the left foot. dressing in place, missing 3rd toe. Pt denies CP, SOB, Chills, Fever, Nausea, Vomiting. Pt likely to be discharged tomorrow. Exam Vital Signs (past 8 hours): - 08/24/20 09:05 08/24/20 09:16 08/24/20 10:00 Temperature 97.9 F Pulse Rate 73 68 Respiratory Rate 16 Blood Pressure 142/78 H 134/69 Pulse Oximetry 95 97 08/24/20 11:12 08/24/20 12:13 08/24/20 14:00 Temperature 98.8 F Pulse Rate 68 71 Respiratory Rate 16 16 Blood Pressure 143/77 H Pulse Oximetry 97 98 96 Oxygen Delivery Method Room Air Oxygen Flow Rate 0 Narrative Exam Narrative: General: Alert and cooperative and comfortable adult male , appears stated age, well nourished, in no acute distress. Limitations: mental status not altered HEENT: Unable to assess. External inspection of the ears and nose showed no scars, lesions, or masses. Lips, teeth, and gums WNL. NECK: Supple and symmetric. There was no thyroid enlargement, and no tenderness, or masses were felt. CHEST: Normal AP diameter and normal contour LUNGS: Auscultation of the lungs revealed no wheezes, rhonchi, or rales. CARDIOVASCULAR: There was a regular rate and rhythm without any murmurs, gallops, rubs. Peripheral pulses were 2+ and symmetric. ABDOMEN: Soft and nontender with normal bowel sounds. No ascites was noted. MUSCULOSKELETAL: There was no tenderness or effusions noted. NEUROLOGIC: alert and orientated to time and place. Normal Gait Skin Left foot Dressings clean dry intact. Sensation is decreased throughout all the remaining toes as his baseline. No tenderness to palpation surrounding toes. Stable erythema Objective Labs Result Diagrams: 08/24/20 04:45 08/24/20 04:45 Labs: Laboratory Results - last 24 hr 08/23/20 08/23/20 08/24/20 18:00 18:00 04:45 WBC 14.2 H RBC 4.25 L Hgb 13.3 L 13.1 L Hct 40.8 L 40.4 L MCV 95.0 MCH 30.8 MCHC 32.5 RDW 13.5 Plt Count 264 Neut % (Auto) 65.1 Lymph % (Auto) 21.3 L Cavalier % (Auto) 10.9 Eos % (Auto) 1.9 L Baso % (Auto) 0.8 Neut # (Auto) 9300 H Lymph # (Auto) 3000 Cavalier # (Auto) 1500 H Eos # (Auto) 300 Baso # (Auto) 100 Sodium Potassium Chloride Carbon Dioxide BUN Creatinine Estimated GFR BUN/Creatinine Ratio Glucose Hemoglobin A1c 10.0 H Calcium Triglycerides Cholesterol LDL Cholesterol, Calc HDL Cholesterol 08/24/20 04:45 WBC RBC Hgb Hct MCV MCH MCHC RDW Plt Count Neut % (Auto) Lymph % (Auto) Cavalier % (Auto) Eos % (Auto) Baso % (Auto) Neut # (Auto) Lymph # (Auto) Cavalier # (Auto) Eos # (Auto) Baso # (Auto) Sodium 135 L Potassium 4.7 Chloride 101 Carbon Dioxide 29 BUN 22 H Creatinine 1.50 H Estimated GFR 46.8 L BUN/Creatinine Ratio 14.7 Glucose 224 H Hemoglobin A1c Calcium 8.5 Triglycerides 132 Cholesterol 105 L LDL Cholesterol, Calc 50 HDL Cholesterol 29 L Assessment & Plan Assessment & Plan narrative: 1. Post-op Day 1 Amputation Left 3rd toe diabetic foot ulceration with abscess and osteomyelitis. -Acute on Admission -Toe culture positive for Staph - Daily dressing change, telfa followed by kerlex followed by cobdesiree. - DC Zosyn - Continue Vanco - Recommend at least 1 more day in the hospital until significant improvement of the cellulitis - follow-up with Dr. Abbott 2 weeks status post surgery - Pt taking oral fluids- IV stopped, Saline lock in place -PT Consult 2. Diabetes Mellitus Type 2 -Acute on Admission, Chronic- Poorly controlled -Hold- Metformin 1,000 PO BID restart after leaving the hospital, -Stop- Sitaglliptin (Januvia) 100mg PO QD,& glimeepride. -Start patient on Lantus 30 units at bed time, check BS Q 6hrs. Please provide patient the following discharge instructions : Provide prescription for Lantus 30units to start at bed time, then check morning BS, then adjust following night lantus accordingly: Am BS goal 100-120, if over 120 Titrate by adding 5 units per night of Lantus until you reach goal. If under 100 decrease by 5 units per night until you reach goal. Restart metformin 1000mg in am & PM. Pt to schedule DM appt with Dr. Nelson Saucedo at [facility], referral to podiatry ( foot exam once yearly). Eye Exam once Yearly, Repeat A1C every 3 months until 6.5. Provided Patient Diabetes & medication education to patient and . They verbalized understanding. -Pt needs referral for primary to follow up on Diabetes care -A1C 10 , BS BID Dietary consult 3. Hypertension-STable on Admission, Chronic -Continue Lisinopril 4. Depression- stable on admission, chronic -Continue Duloxetine 60mg QD Hyperlipidemia- Stable on admission, Chronic -Continue Lovastatin 10mg QD 6. Peripheral Neuropathy -Continue Gabapentin 600mg TID Code Status: Full Code VTE: enoxaparin Diet: Diabetic/Carbo restrictive Patient was admitted to hospital due to the severity osteomyelitis the left foot 3rd toe an acute need for amputation via surgery.
[2020-08-24] MEDS: KCL 20 MEQ IN NS 1,000 ML 50 MEQ IV (16:51)
--- NOTE | 2020-08-24 17:09 | PT.IPTN ---
Current Diagnoses Type 2 diabetes mellitus with other specified complication (08/23/20) Surgery Performed Operation Date: 08/23/20 12:30 Actual Procedures p left middle toe amputation - Felipe Abbott MD Physical Therapy Treatment Note M2 PT-IP Current Condition Start: 08/24/20 09:20 Freq: NEEDED Status: Active Protocol: Document 08/24/20 12:21 DE (Rec: 08/24/20 13:06 DE [id number]) Physical Therapy Current Condition Current Condition Evaluation Date 08/24/20 Treatment Diagnosis Diabetic foot ulceration, s/p amputation; Difficulty with walking Onset Date 08/23/20 Weight Bearing Status Weight Bearing Status Non-Weight Bearing M3 PT-IP Subjective Start: 08/24/20 09:20 Freq: NEEDED Status: Active Protocol: Document 08/24/20 16:39 DE (Rec: 08/24/20 17:07 DE [id number]) Subjective Physical Therapy Visit Type Type Treatment Note Visit Start Time 16:21 Visit Stop Time 16:32 Total Visit Minutes 11 Notes SPT Blue led the session under direct supervision of PT Olive throughout the entire session. Number of ORIGINATION SPECIALIST Visits 0 Physical Therapy Visit Comments Patient Comments Pt is agreeable to do PT. Patient Goals To return home. M4 PT-IP Mobility and Gait Start: 08/24/20 09:20 Freq: NEEDED Status: Active Protocol: Document 08/24/20 16:39 DE (Rec: 08/24/20 17:07 DE [id number]) PT-Transfer Assessment Sit to and From Stand Sit to and from Stand Contact Guard Assistance,Use of Upper Extremities Equipment Transfer Assistive Device Gait Belt,Front Wheeled Walker Orthotic/Prosthetic Devices or Brace: No Transfers Transfer Destination Chair Transfer Technique Stand Step Pivot Transfer Ability Level of Assist Contact Guard Assistance,Use of Upper Extremities Comments Mobility Comments Pt was sitting in chair as PT and SPT arrived. Pt completed sit to stand with CGA and FWW. Pt amb ~60 ft with CGA and FWW. As pt walked further, his stride length and gait speed slightly decreased d/t fatigue . After amb ~60 ft, pt had to stop to take a break in standing. Pt was offered to sit down on w/c and he did. Pt was then wheeled back to the room and performed stand step pivot to the chair with CGA and FWW. Pt was able to maintain NWB on LLE throughout the entire session. Call light placed within reach. Pt' s walked into the room as PT and SPT were leavhing. Gait Assessment Gait Gait Assistance Required: Contact Guard Assist Distance (Feet) 60 Able to Maintain Weight Bearing Status Yes During Gait Assistive Devices Assistive Device Gait Belt,Front Wheeled Walker Orthotic/Prosthetic Devices or Brace: No Gait Deviations General Gait Pattern Antalgic,Decreased Stride Length,Flexed Trunk Factors Limiting Gait Function Factors Limiting Gait Function Decreased Sensation,Pain,Poor Balance Comments Gait Comments See mobility comments. Stair Climbing Assessment Comments Stair Climbing Comments Not assessed. PT-Balance Assessment Sitting Balance and Reactions Static Sitting Balance Ability Normal Dynamic Sitting Balance Ability Normal Standing Balance and Reactions Static Standing Balance Ability Good Dynamic Standing Balance Ability Good M6 PT-IP Treatment Start: 08/24/20 09:20 Freq: NEEDED Status: Active Protocol: Document 08/24/20 16:39 DE (Rec: 08/24/20 17:07 DC [id number]) Physical Therapy Treatment Exercises Exercises Ankle Pumps Education Education Provided Precautions,Weight Bearing Status,Safety Other Treatments Other Treatment Performed Pt education was provided on precautions, WB status, safety , and role of PT. M7 PT-IP Assessment and Plan Start: 08/24/20 09:20 Freq: NEEDED Status: Active Protocol: Document 08/24/20 16:39 DE (Rec: 08/24/20 17:07 DC [id number]) PT Summary Assessment and Plan Potential Rehabilitation Potential Excellent Status of Condition at Evaluation Stable Summary Impairments Pain,Strength,Balance, Sensation,Bed Mobility, Transfers,Gait,Activity Tolerance Assessment Summary Pt tolerated treatment well. Pt amb ~60 ft with CGA and FWW . Pt did get slightly tired towards the end of the walk but did not demonstrate any labored breathing, loss of balance, or severe gait deviations. Pt will need to perform 1 PF step with FWW without handrail while maintaining NWB LLE in order to d/c. PT anticipates pt will d/c home with family assistance and FWW once medically cleared. Goals Bed Mobility Goal Independent Transfer Goal Independent,Front Wheeled Walker Gait Goal Independent,Front Wheel Walker Gait Distance 50 Other Goals Pt will perform 1 step with FWW without handrail. Days to Meet Goals 5 Frequency of Treatment Frequency Of Treatment Twice a Day Treatment Plan Physical Therapy Treatment Plan Bed Mobility Training,Transfer Training,Gait Training, Therapeutic Exercise,Balance Retraining,Post Op Education, Discharge Planning Other Recommendations and Next Treatment PF step with FWW without Focus handrail while maintaining NWB LLE. Recommendations To Nursing Amount of Assist Needed 1 Person Assist Discharge Recommendations PT Discharge Recommendations Home with Assistance Equipment Needed for Home Before FWW Discharge Transportation Needs at Discharge Private Vehicle Treatment was provided by Blue Terry, SPT and supervised by Olive Alvarez, PT. I personally reviewed this note and agree with its contents.
[2020-08-24] MEDS: LOVASTATIN 20 MG TABLET 10 MG PO (21:33)
[2020-08-24] MEDS: INSULIN GLARGINE 100 UNIT/ML 3ML PEN 20 UNIT SUBCUT (21:58)
--- NOTE | 2020-08-25 01:32 | PC.NURSE ---
Patient seen and assessed at 2330. Is alert and oriented. Breath sounds CTA with RA sat of 96%. HRR w/elevated BP of 140/74 which is consistent with previous documented BP. Denies nausea. BT present and states he had a BM earlier. Voiding per urinal; denies dysuria, frequency or urgency. Is able to turn himself in bed. Reports he gets up with walker and SBA as is NWB on left LE. Dressing to left foot is CDI. Wearing bilateral calf SCD's. Is on contact isolation for possible MRSA. Fall risk score is high and bed alarm is activated. Was medicated for pain at 2259 for 8/10 throbbing pain and now states it is starting to subside and is currently at 7/10. CMS is intact; has chronic neuropathy but denies any tingling/numbness in either foot at this time. rooming in.
[2020-08-25] MEDS: PIPERACILLIN-TAZO 3.375 GM/50 ML FROZ.PIGGY IV ×2 (04:00→10:17)
[2020-08-25 04:13] VITALS: BP 135/70; PULSE 63; RESP 18; TEMP 36.6; O2SAT 98
[2020-08-25] MEDS: OXYCODONE IR 5 MG TABLET PO ×2 (04:49→08:40)
[2020-08-25 06:35] LABS: Add Manual Diff / Slide Review NO; Basophils Absolute Auto 100 /uL (0-100); Basophils Percent Auto 0.9 % (0-2); Eosinophils Absolute Auto 500 /uL (0-450); Eosinophils Percent Auto 4.8 % (2-4); Hematocrit 38.4 % (41-53); Hemoglobin 12.7 g/dL (13.5-17.5); Lymphocytes Absolute Auto 2300 /uL (1100-4500); Lymphocytes Percent Auto 22.1 % (25-40); Mean Corpuscular HGB Conc 33.1 % (30-36); Mean Corpuscular Hemoglobin 31.3 PG (26-34); Mean Corpuscular Volume 94.5 fL (80-100); Monocytes Absolute Auto 900 /uL (0-900); Monocytes Percent Auto 8.9 % (3-14); Neutrophils Absolute Auto 6600 /uL (1500-7000); Neutrophils Percent Auto 63.3 % (50-75); Platelet Count 256 X10^3/uL (150-400); Red Blood Cell Count 4.07 X10^6/uL (4.5-5.9); Red Cell Distribution Width 13.1 % (11.6-14.8); White Blood Cell Count 10.4 X10^3/uL (4.5-11.0)
[2020-08-25 06:40] LABS: BUN Creatinine Ratio 12.9 (6-22); Blood Urea Nitrogen 18 mg/dL (9-20); Calcium 8.8 mg/dL (8.4-10.2); Carbon Dioxide 31 mmol/L (22-32); Chloride 103 mmol/L (98-107); Estimated Glomerular Filt Rate 51.1 mL/min (>60); Glucose 201 mg/dL (80-110); Sodium 135 mmol/L (137-145)
[2020-08-25 07:00] LABS: Potassium 5.1 mmol/L (3.4-5.1)
[2020-08-25 07:50] VITALS: BP 160/78; PULSE 62; RESP 17; TEMP 36.3; O2SAT 97
[2020-08-25 08:00] VITALS: O2SAT 97
[2020-08-25 08:07] LABS: C-Reactive Protein Quant 17.1 mg/dL (<1.0); HEMOLYSIS 51 (0-50)
[2020-08-25] MEDS: FENOFIBRATE 145 MG TABLET PO (08:39)
[2020-08-25] MEDS: ACETAMINOPHEN 325 MG TABLET 650 MG PO (08:39)
[2020-08-25] MEDS: ENOXAPARIN 30 MG/0.3 ML SYRINGE SUBCUT (08:39)
[2020-08-25 08:40] VITALS: BP 160/78; PULSE 62
[2020-08-25] MEDS: DULOXETINE 30 MG CAPSULE 60 MG PO (08:40)
[2020-08-25] MEDS: DOCUSATE 100 MG CAPSULE PO (08:40)
[2020-08-25] MEDS: lisinopriL 5 MG TABLET PO (08:40)
[2020-08-25] MEDS: GABAPENTIN 600 MG TABLET PO (08:40)
[2020-08-25] MEDS: INSULIN ASPART 100 UNIT/ML INSULN PEN SUBCUT ×2 (08:41→12:24)
--- NOTE | 2020-08-25 10:05 | PT.IPTN ---
Current Diagnoses Type 2 diabetes mellitus with other specified complication (08/23/20) Surgery Performed Operation Date: 08/23/20 12:30 Actual Procedures p left middle toe amputation - Felipe Abbott MD Physical Therapy Treatment Note M2 PT-IP Current Condition Start: 08/24/20 09:20 Freq: NEEDED Status: Active Protocol: Document 08/24/20 12:21 DE (Rec: 08/24/20 13:06 DE [id number]) Physical Therapy Current Condition Current Condition Evaluation Date 08/24/20 Treatment Diagnosis Diabetic foot ulceration, s/p amputation; Difficulty with walking Onset Date 08/23/20 Weight Bearing Status Weight Bearing Status Non-Weight Bearing M3 PT-IP Subjective Start: 08/24/20 09:20 Freq: NEEDED Status: Active Protocol: Document 08/25/20 09:42 CLB (Rec: 08/25/20 13:11 CLB [id number]) Subjective Physical Therapy Visit Type Type Treatment Note Visit Start Time 09:42 Visit Stop Time 10:05 Total Visit Minutes 23 Number of HEEL BUFFER Visits 1 Physical Therapy Visit Comments Patient Comments Pt is agreeable to do PT. Patient Goals To return home. M4 PT-IP Mobility and Gait Start: 08/24/20 09:20 Freq: NEEDED Status: Active Protocol: Document 08/25/20 09:42 CLB (Rec: 08/25/20 13:11 CLB [id number]) PT-Bed Mobility Assessment Supine to Sit Supine to Sit Standby Assistance Sit to Supine Sit to Supine Standby Assistance PT-Transfer Assessment Sit to and From Stand Sit to and from Stand Standby Assistance,Contact Guard Assistance,1 Person Assistance,Use of Upper Extremities Equipment Transfer Assistive Device Gait Belt,Front Wheeled Walker ,Axillary Crutches Orthotic/Prosthetic Devices or Brace: No Transfers Transfer Destination Bed,Chair Transfer Ability Level of Assist Standby Assistance,Contact Guard Assistance,Use of Upper Extremities Comments Mobility Comments Pt in bed upon arrival and required SBA for supine-sit. Pt stood CGA and ambulated with crutches Min A then CGA after crutches were adjusted for better fit. Pt attempted to climb one platform step with crutches but didn't feel he would be able. Pt then trialed stairs with FWW going up backwards and down forwards CGA the first time then able to perform stair climbing with SBA with cues to go slowly. Pt then ambulated with FWW SBA . Pt returned to bed SBA. Pt left in bed with all needs within reach and bed alarm on. Gait Assessment Gait Gait Assistance Required: Standby Assistance,Contact Guard Assist Distance (Feet) 60 Able to Maintain Weight Bearing Status Yes During Gait Assistive Devices Assistive Device Gait Belt,Front Wheeled Walker Orthotic/Prosthetic Devices or Brace: No Gait Deviations General Gait Pattern Antalgic,Decreased Stride Length,Flexed Trunk Factors Limiting Gait Function Factors Limiting Gait Function Decreased Sensation,Pain,Poor Balance Comments Gait Comments Pt ambulated with crutches requiring Min A then CGA but was less stable with crutches. Pt ambulated with FWW/SBA with hopping on right foot with heavy use of UE's. Stair Climbing Assessment Evaluation Level of Assist On Stairs Standby Assistance,Contact Guard Assistance Devices Stair Climbing Assistive Devices Front Wheel Walker Technique/Endurance Stair Climbing Direction Ascend and Descend Stair Climbing Technique Step to Step Number of Steps Climbed 2 Stair Climbing Set # Repetitions (reps) 2 Comments Stair Climbing Comments Pt able to climb platform step going up backwards with CGA first set then able to climb second set SBA with good sequencing and carry over. M5 PT-IP Objective Assessments Start: 08/24/20 09:20 Freq: NEEDED Status: Active Protocol: Document 08/24/20 12:21 DE (Rec: 08/24/20 13:06 DE [id number]) Orientation Orientation/Cognition Level of Alertness Alert Orientation Name,Age,Birthday,Month,Date, Year,Day of Week,Place, Situation Language Function Ability No Deficits Noted Safety Awareness Understands Safety Issues Memory Description No Deficits Noted Gross Range of Motion Lower Extremity ROM Assessment Left Impaired Impairments Pt has limited dorsiflexion in L foot. Strength Lower Extremity Strength Assessment Within Functional Limits Coordination Assessment Gross Coordination Gross Coordination WNL Sensation Assessment Sensation Gross Sensation Left LE Impaired Light Touch Impaired Sensation Description Numbness Comments Sensation Comments Pt reports he has numbess in the lateral aspect of L thigh. Muscle Tone Muscle Tone WNL Yes M6 PT-IP Treatment Start: 08/24/20 09:20 Freq: NEEDED Status: Active Protocol: Document 08/24/20 16:39 DE (Rec: 08/24/20 17:07 PA [id number]) Physical Therapy Treatment Exercises Exercises Ankle Pumps Education Education Provided Precautions,Weight Bearing Status,Safety Other Treatments Other Treatment Performed Pt education was provided on precautions, WB status, safety , and role of PT. M7 PT-IP Assessment and Plan Start: 08/24/20 09:20 Freq: NEEDED Status: Active Protocol: Document 08/25/20 09:42 CLB (Rec: 08/25/20 13:11 CLB [id number]) PT Summary Assessment and Plan Potential Rehabilitation Potential Excellent Status of Condition at Evaluation Stable Summary Impairments Pain,Strength,Balance, Sensation,Bed Mobility, Transfers,Gait,Activity Tolerance Assessment Summary Pt improved with all mobility requiring SBA for bed mobility and transfers with FWW. Pt able to climb stairs SBA-CGA with FWW. Pt able to ambulate ~60ft SBA with FWW while hopping on RLE. Pt seems able to d/c home with assist from when medically stable. Goals Bed Mobility Goal Independent Transfer Goal Independent,Front Wheeled Walker Gait Goal Independent,Front Wheel Walker Gait Distance 50 Other Goals Pt will perform 1 step with FWW without handrail. Days to Meet Goals 5 Frequency of Treatment Frequency Of Treatment Twice a Day Treatment Plan Physical Therapy Treatment Plan Bed Mobility Training,Transfer Training,Gait Training, Therapeutic Exercise,Balance Retraining,Post Op Education, Discharge Planning Recommendations To Nursing Amount of Assist Needed 1 Person Assist Discharge Recommendations PT Discharge Recommendations Home with Assistance Equipment Needed for Home Before Dispensed FWW to pt. Discharge Transportation Needs at Discharge Private Vehicle
[2020-08-25] MEDS: SODIUM CHLORIDE 0.9% FLUSH 10 ML IV (10:21)
[2020-08-25] MEDS: VANCOMYCIN 1,000 MG/200 ML PIGGYBACK 200 MG IV (11:31)
[2020-08-25 11:39] LABS: Vancomycin Trough 10.6 ug/mL (10-20)
--- NOTE | 2020-08-25 11:51 | DIET.PN ---
Dietary Progress Note Assessment: Mt. Montano is a 64-year-old male with PMHx of type 2 diabetes who stubbed his toe 3-4 weeks ago and developed an abscess to the tip of the left middle toe which required amputation. Intraop cultures as well as wound culture from presentation in the ER grew back Staph aureus. Pt reports feeling in extremities with some discomfort to left foot. He reports good appetite. Generally consumes large amounts of ramen and other soft starches. Due to poor dentition, he is unable to consume several protein options. He states he sometimes checks his glucose with numbers ranging between 200-270. HT: 66in WT: 197lb UBW: BMI: 32 Labs: A1c: 10.0 Gluc: 251, 224, 201 eGFR: 46.8, 51.1 MNA: 14 Bharat: 18 Nutrition Diagnosis: Altered Nutrition related labs related to impaired glucose metabolism, lack of previous exposure to accurate nutrition information as evidenced by pt report, dx of diabetes, previous diet high in refined carbohydrates.? Interventions: 1. Discussed pathophysiology of diabetes. Reviewed A1c and its correlation to blood glucose numbers. Discussed recommended BG ranges. 2. Discussed importance of self-monitoring, how often, and when to check. 3. Discussed impact of nutrition/diet on blood sugar control.? Discussed fed versus non-fed state.?? 4. Discussed the effect of carbohydrates/protein/fat on blood sugar control.? Stressed importance of consistent carbohydrate intake at each meal and provided instructions for recommended servings/portions of carbohydrates/protein per meal. Provided pt with educational material. 5. Reviewed carbohydrate counting and measuring carbohydrate content via serving sizes and reading nutrition labels.? Provided handouts.?? 6. Stressed importance of meal timing and not going >4-5 hours between meals. Encouraged adding protein to each meal to support glucose control. 7. Discussed ONS for increased protein and easy chew. Diet Order: CCD EER: 1800 pavan (20cal/kg) 90-107g (1-1.2) Monitoring/Evaluations: PO's, glucose, referral for outpatient diabetes program
[2020-08-25 11:53] VITALS: BP 131/68; PULSE 60; RESP 16; TEMP 36.2; O2SAT 96
[2020-08-25 12:00] VITALS: O2SAT 98
--- NOTE | 2020-08-25 12:07 | PM.PN.1 ---
Subjective Subjective Date Patient Seen: 08/25/20 Time Patient Seen: 12:07 Interval history: Patient is POD#2 left 3rd toe transphalangeal amputation with Dr. Abbott. Doing well today. Pain controlled. No complaints. Exam Vital Signs (past 8 hours): - 08/25/20 04:13 08/25/20 07:50 08/25/20 08:00 Temperature 97.9 F 97.3 F L Pulse Rate 63 62 Respiratory Rate 18 17 Blood Pressure 135/70 160/78 H Pulse Oximetry 98 97 97 08/25/20 08:40 Temperature Pulse Rate 62 Respiratory Rate Blood Pressure 160/78 H Pulse Oximetry Oxygen Delivery Method Room Air Oxygen Flow Rate 0 Narrative Exam Narrative: 64 year old male resting in bed alert and oriented in no acute distress. Dressing in place is CDI. Patient able to flex/extend the toes and ankle. Mild swelling in the toes. Sensation intact to light touch. Objective Labs Result Diagrams: 08/25/20 05:45 08/25/20 05:45 Labs: Laboratory Results - last 24 hr 08/25/20 08/25/20 08/25/20 05:45 05:45 11:00 WBC 10.4 RBC 4.07 L Hgb 12.7 L Hct 38.4 L MCV 94.5 MCH 31.3 MCHC 33.1 RDW 13.1 Plt Count 256 Neut % (Auto) 63.3 Lymph % (Auto) 22.1 L [place] % (Auto) 8.9 Eos % (Auto) 4.8 H Baso % (Auto) 0.9 Neut # (Auto) 6600 Lymph # (Auto) 2300 [place] # (Auto) 900 Eos # (Auto) 500 H Baso # (Auto) 100 Sodium 135 L Potassium 5.1 Chloride 103 Carbon Dioxide 31 BUN 18 Creatinine 1.39 H Estimated GFR 51.1 L BUN/Creatinine Ratio 12.9 Glucose 201 H Calcium 8.8 C-Reactive Protein 17.1 H Vancomycin Trough 10.6 Assessment & Plan Assessment & Plan narrative: Patient doing well postoperatively. Plan is for him to be transitioned to oral antibiotics, per medicine they have decided on Doxycycline x2 weeks. He is to remain nonweightbearing in postop shoe. Follow up with Dr. Abbott in 2 weeks for postop check up.
--- NOTE | 2020-08-25 12:37 | PM.DS.1 ---
History of Present Illness History of Present Illness Date Patient Seen: 08/25/20 Time Patient Seen: 10:30 Chief complaint: Left foot injury Narrative: As per ADRIENNE Christensen: Patient is a 64-year-old male diabetic. presented in the emergency room for pain and swelling to the left foot most predominantly in the 3rd toe. Pt has recieved tylenol and denies any serious pain as he is up moving around the ER room getting ready to go to surgery and amputation of his 3rd toe left foot. Patient denies chest pain short of breath nausea vomiting diarrhea fever chills cough. He had kicked a tire with his left foot approximately 3-4 weeks ago. He reports that it has been infected ever since. At some point after that incident he started having redness and drainage from his left 3rd toe, he had been soaking it previously which had some improvement in erythema but he has stoppped doing that recently. He states that it has been there for the past several days if not a couple weeks. Has not been evaluated for it. Is not on antibiotics. He states that he does have decreased sensation in his feet. Patient is still ambulatory. No prior amputations. Discharge Providers Provider Date of admission: 08/23/20 11:40 Discharge Date: 08/25/20 Consults: 08/23/20 10:30 Consult to Orthopedic Surgery Stat Comment: Consulting Provider: Felipe Abbott Reason for consultation: Osteomyelitis Has provider been notified: Yes 08/23/20 14:08 Consult to Discharge Planning Routine Comment: Consult to Physical Therapy Evaluate & Treat Comment: Physician Instructions: Evaluate and Treat Consult to Respiratory Therapy Evaluate & Treat Comment: Physician Instructions: Evaluate and treat 08/23/20 16:30 Consult to Dietitian, Adult Routine Comment: Reason For Exam: uncontrolled DMII Consult to Discharge Planning Routine Comment: Consult to Physical Therapy Evaluate & Treat Comment: Physician Instructions: Evaluate and Treat 08/25/20 11:28 Consult to Home Health Routine Comment: DX: Left foot injury Reason For Exam: FWW for home use Discharge provider: Jeo Nava DO Summary Hospital Course Discharge Diagnosis: 1. Left 3rd toe diabetic foot ulceration with abscess, corresponding cellulitis, and osteomyelitis, acute, present on admission, improved after amputation. 2. Type 2 diabetes, poorly controlled, chronic 3. Hypertension, chronic, stable 4. Depression, chronic, stable 5. Peripheral neuropathy, chronic, secondary to type 2 diabetes 6. Hyperlipidemia Hospital Course: Сергей Montano is a 64-year-old male with a past medical history of hypertension, depression, hyperlipidemia, and diabetes who presented with a left 3rd toe diabetic foot ulceration and abscess. He was also noted to have osteomyelitis. He underwent amputation with Orthopedic surgery. Cultures ultimately returned MSSA. Patient was initially treated with IV antibiotics, vancomycin and Zosyn initially, until cultures resulted. At discharge she was changed to doxycycline based on susceptibility. He will continue this until for another 2 weeks at this time. Patient also had poorly controlled diabetes, although control was decent with his home Lantus therapy. He does endorse continuing to have Lantus at home and will continue this at 30 units nightly. I did recommend that he follow-up with his primary care provider for further adjustment of his medications. His A1c was 10% on admission. No other medication changes were recommended. Exam Vital Signs (past 8 hours): - 08/25/20 07:50 08/25/20 08:00 08/25/20 08:40 Temperature 97.3 F L Pulse Rate 62 62 Respiratory Rate 17 Blood Pressure 160/78 H 160/78 H Pulse Oximetry 97 97 08/25/20 12:00 Temperature Pulse Rate Respiratory Rate Blood Pressure Pulse Oximetry 98 Oxygen Delivery Method Room Air Oxygen Flow Rate 0 Narrative Exam Narrative: General: Alert and cooperative and comfortable adult male , appears stated age, well nourished, in no acute distress. NECK: Supple and symmetric. There was no thyroid enlargement, and no tenderness, or masses were felt. CHEST: Normal AP diameter and normal contour LUNGS: Auscultation of the lungs revealed no wheezes, rhonchi, or rales. CARDIOVASCULAR: There was a regular rate and rhythm without any murmurs, gallops, rubs. Peripheral pulses were 2+ and symmetric. ABDOMEN: Soft and nontender with normal bowel sounds. No ascites was noted. MUSCULOSKELETAL: There was no tenderness or effusions noted. NEUROLOGIC: alert and orientated to time and place. Normal Gait Skin: Left foot Dressings clean dry intact. Sensation is decreased throughout all the remaining toes as his baseline. No tenderness to palpation surrounding toes. No significant erythema on exam today. Objective Labs Result Diagrams: 08/25/20 05:45 08/25/20 05:45 Labs: Laboratory Results - last 24 hr 08/25/20 08/25/20 08/25/20 05:45 05:45 11:00 WBC 10.4 RBC 4.07 L Hgb 12.7 L Hct 38.4 L MCV 94.5 MCH 31.3 MCHC 33.1 RDW 13.1 Plt Count 256 Neut % (Auto) 63.3 Lymph % (Auto) 22.1 L [place] % (Auto) 8.9 Eos % (Auto) 4.8 H Baso % (Auto) 0.9 Neut # (Auto) 6600 Lymph # (Auto) 2300 [place] # (Auto) 900 Eos # (Auto) 500 H Baso # (Auto) 100 Sodium 135 L Potassium 5.1 Chloride 103 Carbon Dioxide 31 BUN 18 Creatinine 1.39 H Estimated GFR 51.1 L BUN/Creatinine Ratio 12.9 Glucose 201 H Calcium 8.8 C-Reactive Protein 17.1 H Vancomycin Trough 10.6 Discharge Plan Discharge Plan Patient Disposition: Home Provider Discharge Comment: You were admitted to the hospital with an infection in your foot. Please continue antibiotics until your follow up with orthopedic surgery in approximately two weeks. Please follow up with your PCP for further diabetes control. No other medication changes are currently recommended. Discharge orders & Medications Prescriptions: New acetaminophen 325 mg Tablet 650 mg PO Q6HR 14 Days Qty: 120 RF: 0 docusate sodium [DOK] 100 mg Capsule 100 mg PO BID 14 Days Qty: 28 RF: 0 oxycodone 5 mg Tablet 5 mg PO Q6HR PRN (Reason: pain) 7 Days Qty: 20 RF: 0 doxycycline hyclate 100 mg tablet 100 mg PO BID 14 Days Qty: 28 RF: 0 Continued gabapentin 600 mg tablet 600 mg PO TID RF: 0 lovastatin 10 mg tablet 10 mg PO DAILY RF: 0 glimepiride 2 mg tablet 2 mg PO DAILY RF: 0 metformin 1,000 mg tablet 1,000 mg PO BID RF: 0 lisinopril 5 mg tablet 5 mg PO DAILY RF: 0 duloxetine 60 mg capsule,delayed release(DR/EC) 60 mg PO DAILY RF: 0 fenofibrate nanocrystallized 145 mg tablet 145 mg PO DAILY RF: 0 Januvia 100 mg tablet 100 mg PO DAILY RF: 0 Follow up/Referrals: Felipe Abbott MD [Physician] - 08/29/20 10:20 am (appointment 11/13 @ 10:20 please check in at 10:00 for your appointment with dr abbott @ [phone]) Discharge Health Status Multidrug resistant organism: No MDRO Diet/Activity/Treatments Diet: Diet as Tolerated and Carb-consistent/Diabetic Activity: As tolerated Visit Report/Discharge Packet Instructions: How to Take Care of Your Feet If You Have Diabetes, Type 2 Diabetes, Doxycycline, Oxycodone Visit Report Forms: Patient Portal/API, Stroke Signs & Symptoms Discharges patient from system. Discharge Date/Time: 08/25/20 13:20
--- NOTE | 2020-08-25 14:12 | PC.NURSE ---
Patient educated about new medications, ss of infection, diabetic education given and taking care of feet, activity. Patient given a walker to bring home and home health was ordered. Patient left facility with watch, medications from home, and wallet, along with cell phone and pleating supervisor. Patient was educated about making follow up appointment with Dr. Abbott and his PCP. Patient left facility via wheelchair with [facility] and privarte vehicle. All prescriptions were sent to [facility] in [place] via escript.
--- NOTE | 2020-08-25 16:46 | CM.DPC ---
DCP continued: Received referral from therapy that patient would benefit from FWW for home use. Spoke with provider/Dr. Nava and order obtained. No additional d/c planning needs identified. P: Home today. CHUN ARNOLD
== END 2020-08-25 13:20 | disposition home or self-care (01) | DRG 617 ==
LOC: ED 09:36 → AC 11:40
PROVIDERS: Nurse Practitioner Adult Health; Nurse Practitioner Family; Orthopaedic Surgery Adult Reconstructive Orthopaedic Surgery; Admitting Provider Internal Medicine; Emergency Provider Emergency Medicine; Referring Provider Emergency Medicine; Visit Provider Internal Medicine
PROC: 0Y6U0Z1 Detachment at Left 3rd Toe, High, Open Approach (ICD-10-PCS; principal; 2020-08-23 12:30)
DX: E11.69 Type 2 diabetes mellitus with other specified complication (principal); M86.8X7 Other osteomyelitis, ankle and foot; E11.42 Type 2 diabetes mellitus with diabetic polyneuropathy; E11.621 Type 2 diabetes mellitus with foot ulcer; L97.529 Non-pressure chronic ulcer of other part of left foot with unspecified severity; L03.032 Cellulitis of left toe; A49.01 Methicillin susceptible Staphylococcus aureus infection, unspecified site; I10 Essential (primary) hypertension; Z79.84 Long term (current) use of oral hypoglycemic drugs; F32.9 Major depressive disorder, single episode, unspecified; E78.5 Hyperlipidemia, unspecified; Z11.59 Encounter for screening for other viral diseases
CPT/HCPCS: 36415; 73630; 80048; 80061; 80202; 81003; 82962; 83036; 83605; 84145; 85014; 85018; 85025; 85651; 86140; 87040; 87070; 87075; 87077; 87147; 87186; 87205; 87635; 93005; 94760; 97116; 97162; 97530; 99285; J0330; J0696; J1650; J2405; J2543; J2704; J3010

== ENCOUNTER → 2020-09-24 10:41 | Outpatient (CLI) | payer MEDICARE, OTHER, SELFPAY ==
[2020-08-23 14:15] VITALS: BMI 31.8
== END ==
PROVIDERS: PCP Family Medicine Sports Medicine; Referring Provider Orthopaedic Surgery Adult Reconstructive Orthopaedic Surgery; Visit Provider Family Medicine
DX: E11.621 Type 2 diabetes mellitus with foot ulcer (principal); L97.526 Non-pressure chronic ulcer of other part of left foot with bone involvement without evidence of necrosis; R60.0 Localized edema; E11.40 Type 2 diabetes mellitus with diabetic neuropathy, unspecified
CPT/HCPCS: 11043; 99203

== ENCOUNTER → 2020-10-01 09:58 | Outpatient (CLI) | payer MEDICARE, OTHER, SELFPAY ==
[2020-08-23 14:15] VITALS: BMI 31.8
== END ==
PROVIDERS: PCP Family Medicine Sports Medicine; Referring Provider Family Medicine Sports Medicine; Visit Provider Family Medicine
DX: E11.621 Type 2 diabetes mellitus with foot ulcer (principal); L97.524 Non-pressure chronic ulcer of other part of left foot with necrosis of bone; E11.40 Type 2 diabetes mellitus with diabetic neuropathy, unspecified; M86.672 Other chronic osteomyelitis, left ankle and foot; R60.0 Localized edema
CPT/HCPCS: 11044; 36415; 80053; 83036; 84134; 85025; 85651; 86140; 87070; 87075; 87077; 87147; 87176; 87186; 87205; 99214

== ENCOUNTER → 2020-10-01 10:51 | Outpatient (CLI) | payer MEDICARE, OTHER, SELFPAY ==
[2020-08-23 14:15] VITALS: BMI 31.8
[2020-10-01 11:45] LABS: Add Manual Diff / Slide Review NO; Basophils Absolute Auto 100 /uL (0-100); Basophils Percent Auto 0.7 % (0-2); Eosinophils Absolute Auto 300 /uL (0-450); Eosinophils Percent Auto 2.2 % (2-4); Hematocrit 46.9 % (41-53); Hemoglobin 15.2 g/dL (13.5-17.5); Lymphocytes Absolute Auto 3300 /uL (1100-4500); Lymphocytes Percent Auto 26.8 % (25-40); Mean Corpuscular HGB Conc 32.5 % (30-36); Mean Corpuscular Hemoglobin 30.5 PG (26-34); Mean Corpuscular Volume 93.8 fL (80-100); Monocytes Absolute Auto 900 /uL (0-900); Monocytes Percent Auto 7.4 % (3-14); Neutrophils Absolute Auto 7800 /uL (1500-7000); Neutrophils Percent Auto 62.9 % (50-75); Platelet Count 217 X10^3/uL (150-400); Red Cell Distribution Width 14.2 % (11.6-14.8); White Blood Cell Count 12.4 X10^3/uL (4.5-11.0)
[2020-10-01 11:58] LABS: Hemoglobin A1C% w Est Avg Glu 9.8 % (4.0-6.0)
[2020-10-01 12:04] LABS: Alanine Aminotransferase 26 IU/L (<50); Albumin 4.3 g/dL (3.5-5.0); Albumin Globulin Ratio 1.1 (1.0-2.8); Alkaline Phosphatase 107 U/L (38-126); Aspartate Aminotransferase 25 IU/L (17-59); BUN Creatinine Ratio 24.8 (6-22); Bilirubin Total 0.5 mg/dL (0.2-1.3); Blood Urea Nitrogen 35 mg/dL (9-20); C-Reactive Protein Quant 3.5 mg/dL (<1.0); Calcium 9.5 mg/dL (8.4-10.2); Carbon Dioxide 26 mmol/L (22-32); Chloride 101 mmol/L (98-107); Estimated Glomerular Filt Rate 50.3 mL/min (>60); Globulin 3.9 g/dL (1.7-4.1); Glucose 348 mg/dL (80-110); HEMOLYSIS < 15 (0-50); Potassium 4.8 mmol/L (3.4-5.1); Sodium 136 mmol/L (137-145); Total Protein 8.2 g/dL (6.3-8.2)
[2020-10-01 12:10] LABS: Prealbumin 24.6 mg/dL (17.6-36.0)
[2020-10-01 12:29] LABS: Erythrocyte Sedimentation Rate 9 MM/HR (0-15)
== END ==
PROVIDERS: PCP Family Medicine Sports Medicine; Referring Provider Family Medicine; Visit Provider Family Medicine
DX: E11.40 Type 2 diabetes mellitus with diabetic neuropathy, unspecified (principal); L97.524 Non-pressure chronic ulcer of other part of left foot with necrosis of bone
CPT/HCPCS: 36415; 80053; 83036; 84134; 85025; 85651; 86140

== ENCOUNTER → 2020-10-08 10:02 | Outpatient (CLI) | payer MEDICARE, OTHER, SELFPAY ==
[2020-08-23 14:15] VITALS: BMI 31.8
== END ==
PROVIDERS: PCP Family Medicine Sports Medicine; Referring Provider Family Medicine Sports Medicine; Visit Provider Family Medicine
DX: E11.621 Type 2 diabetes mellitus with foot ulcer (principal); L97.524 Non-pressure chronic ulcer of other part of left foot with necrosis of bone; R60.0 Localized edema
CPT/HCPCS: 99212

== ENCOUNTER → 2020-10-22 09:04 | Outpatient (CLI) | payer MEDICARE, OTHER, SELFPAY ==
[2020-08-23 14:15] VITALS: BMI 31.8
== END ==
PROVIDERS: PCP Family Medicine Sports Medicine; Referring Provider Family Medicine Sports Medicine; Visit Provider Family Medicine
DX: E11.621 Type 2 diabetes mellitus with foot ulcer (principal); L97.521 Non-pressure chronic ulcer of other part of left foot limited to breakdown of skin; T87.89 Other complications of amputation stump; M86.172 Other acute osteomyelitis, left ankle and foot; E11.40 Type 2 diabetes mellitus with diabetic neuropathy, unspecified; Z79.2 Long term (current) use of antibiotics
CPT/HCPCS: 11042; 99214

== ENCOUNTER → 2020-10-29 08:55 | Outpatient (CLI) | payer MEDICARE, OTHER, SELFPAY ==
[2020-08-23 14:15] VITALS: BMI 31.8
[2020-10-29 09:51] LABS: Add Manual Diff / Slide Review NO; Basophils Absolute Auto 100 /uL (0-100); Basophils Percent Auto 0.8 % (0-2); Eosinophils Absolute Auto 400 /uL (0-450); Eosinophils Percent Auto 3.3 % (2-4); Hematocrit 46.9 % (41-53); Hemoglobin 15.4 g/dL (13.5-17.5); Lymphocytes Absolute Auto 3900 /uL (1100-4500); Lymphocytes Percent Auto 33.8 % (25-40); Mean Corpuscular HGB Conc 32.8 % (30-36); Mean Corpuscular Hemoglobin 30.5 PG (26-34); Mean Corpuscular Volume 92.9 fL (80-100); Monocytes Absolute Auto 1000 /uL (0-900); Monocytes Percent Auto 8.2 % (3-14); Neutrophils Absolute Auto 6300 /uL (1500-7000); Neutrophils Percent Auto 53.9 % (50-75); Platelet Count 218 X10^3/uL (150-400); Red Blood Cell Count 5.04 X10^6/uL (4.5-5.9); Red Cell Distribution Width 14.4 % (11.6-14.8); White Blood Cell Count 11.6 X10^3/uL (4.5-11.0)
[2020-10-29 10:15] LABS: Erythrocyte Sedimentation Rate 1 MM/HR (0-15)
[2020-10-29 10:16] LABS: Alanine Aminotransferase 30 IU/L (<50); Albumin 4.3 g/dL (3.5-5.0); Albumin Globulin Ratio 1.3 (1.0-2.8); Alkaline Phosphatase 102 U/L (38-126); Aspartate Aminotransferase 28 IU/L (17-59); BUN Creatinine Ratio 22.7 (6-22); Bilirubin Total 0.3 mg/dL (0.2-1.3); Blood Urea Nitrogen 34 mg/dL (9-20); Carbon Dioxide 28 mmol/L (22-32); Chloride 101 mmol/L (98-107); Estimated Glomerular Filt Rate 46.8 mL/min (>60); Globulin 3.2 g/dL (1.7-4.1); Glucose 217 mg/dL (80-110); HEMOLYSIS < 15 (0-50); Potassium 4.7 mmol/L (3.4-5.1); Sodium 136 mmol/L (137-145); Total Protein 7.5 g/dL (6.3-8.2)
[2020-10-29 10:22] LABS: C-Reactive Protein Quant < 0.5 mg/dL (<1.0)
== END ==
PROVIDERS: PCP Family Medicine Sports Medicine; Referring Provider Family Medicine; Visit Provider Family Medicine
DX: N18.30 Chronic kidney disease, stage 3 unspecified (principal); M86.172 Other acute osteomyelitis, left ankle and foot; Z79.2 Long term (current) use of antibiotics
CPT/HCPCS: 36415; 80053; 85025; 85651; 86140

== ENCOUNTER → 2020-10-29 09:54 | Outpatient (CLI) | payer MEDICARE, OTHER, SELFPAY ==
[2020-08-23 14:15] VITALS: BMI 31.8
== END ==
PROVIDERS: PCP Family Medicine Sports Medicine; Referring Provider Family Medicine Sports Medicine; Visit Provider Family Medicine
DX: E11.621 Type 2 diabetes mellitus with foot ulcer (principal); M86.172 Other acute osteomyelitis, left ankle and foot; E11.40 Type 2 diabetes mellitus with diabetic neuropathy, unspecified; Z89.422 Acquired absence of other left toe(s); Z79.2 Long term (current) use of antibiotics; N18.31 Chronic kidney disease, stage 3a
CPT/HCPCS: 99212; 99213

== ENCOUNTER 2022-07-12 16:04 | Observation (INO) | payer MEDICARE, OTHER, SELFPAY ==
[2020-08-23 14:15] VITALS: BMI 31.8
[2022-07-12] VITALS (9 sets, daily range): BP systolic 123–202; BP diastolic 70–100; PULSE 67–93; RESP 17–24; TEMP 36.2–36.9; O2SAT 95–98; BMI 30.9
--- NOTE | 2022-07-12 16:31 | DI.RAD.S_ITS ---
PROCEDURE: XR CHEST 1V INDICATIONS: chest pain TECHNIQUE: One view of the chest was acquired. COMPARISON: [facility], CT, CT ANGIO HEAD AND NECK, 07/12/2022, 16:46. FINDINGS: Surgical changes and devices: Thecal lead. Cholecystectomy clips. Lungs and pleura: Calcified right upper lobe pulmonary nodule. Low lung volumes. Prominent pulmonary markings. No pleural effusions or pneumothorax. Mediastinum: Mediastinal contours appear normal. Heart size is normal. Bones and chest wall: No suspicious bony lesions. Overlying soft tissues appear unremarkable. IMPRESSION: Low lung volumes. Prominent pulmonary markings. This could be due to fluid overload/CHF. Calcified right upper lobe pulmonary nodule. Dictated by: Mesfin Rebolledo M.D. on 07/12/2022 at 17:06 Approved by: Mesfin Rebolledo M.D. on 07/12/2022 at 17:09
--- NOTE | 2022-07-12 16:31 | DI.CT.S_ITS ---
PROCEDURE: CT ANGIO HEAD AND NECK INDICATIONS: speech facial droop left ataxia LKW unknown TECHNIQUE: Noncontrast images were performed earlier in the day and not repeated. After the administration of intravenous contrast, 1 mm thick sections acquired from the aortic arch through the [place]. Post-contrast 4.5 mm thick sections then re-acquired from the foramen magnum to the vertex. 3-dimensional ifrlrzx-uqeyeexte-kwqbihbcxw (MIP) and/or volume rendering reformats were acquired of the central intracranial vasculature and neck separately. For radiation dose reduction, the following was used: automated exposure control, adjustment of mA and/or kV according to patient size. COMPARISON: [facility], CR, XR CHEST 1V, 07/12/2022, 16:39. [facility], CT, CT HEAD/BRAIN WO CON, 07/12/2022, 16:46. FINDINGS: Image quality: Excellent. BRAIN: CSF spaces: Ventricles are normal in size and shape. Basal cisterns are patent. No extra-axial fluid collections. Brain: No midline shift. No intracranial bleeds or masses. Monreal-white matter interface appears intact. Skull and face: Calvarium and facial bones appear intact, without suspicious lesions. Orbits appear normal. Sinuses: Sinuses and mastoids are clear. HEAD CT ANGIOGRAPHY: Anterior circulation: Intracranial internal carotid arteries are normal in size and flow. The flow within the paired anterior cerebral arteries is normal and symmetric. The flow within the middle cerebral arteries is normal and symmetric. The anterior communicating artery is seen. No aneurysms are seen. Posterior circulation: Visualized portions of the vertebral arteries demonstrate normal caliber, and join to form a normal appearing basilar artery. Flow within the posterior cerebral arteries is normal and symmetric. No aneurysms are seen. NECK CT ANGIOGRAPHY: Carotid system: The great vessels demonstrate a conventional anatomy as they arise from the aortic arch. The origins of the common carotid arteries appear patent. The common carotid arteries demonstrate normal caliber and courses. The bifurcation regions demonstrate mild atherosclerotic calcification and irregularity. No hemodynamically significant stenosis can be seen at the carotid bifurcations. The more distal internal carotid arteries demonstrate normal course and caliber. Posterior circulation: The origins of the vertebral arteries both appear widely patent. The more superior extracranial portions of both vertebral arteries also demonstrate normal courses and calibers. They join to form a normal appearing basilar artery. Soft tissues: Visualized neck soft tissues demonstrate no suspicious abnormalities. Bones: No suspicious bony lesions. Visualized cervical spine appears normally aligned. IMPRESSION: No significant intracranial arterial abnormality is seen. Within the arteries of the neck, no hemodynamically significant stenosis can be seen. Any quantitative measurements of stenosis were performed using NASCET criteria. Dictated by: Kleber Gaming M.D. on 07/12/2022 at 16:10 Approved by: Kleber Gaming M.D. on 07/12/2022 at 16:11
--- NOTE | 2022-07-12 16:32 | DI.CT.S_ITS ---
PROCEDURE: CT HEAD/BRAIN WO CON INDICATIONS: left facial droop ataxia TECHNIQUE: Noncontrast 4.5 mm thick angled axial sections acquired from the foramen magnum to the vertex, with coronal and sagittal reformats. For radiation dose reduction, the following was used: automated exposure control, adjustment of mA and/or kV according to patient size. COMPARISON: None. FINDINGS: Image quality: Excellent. CSF spaces: Basal cisterns are patent. No extra-axial fluid collections. The ventricles are symmetric in size and shape. Brain: No intracranial bleeds or masses. There is cerebral volume loss for age, with resultant ventricular and sulcal prominence. There are periventricular and deep white matter chronic small vessel ischemic changes. There is intracranial internal carotid artery atherosclerosis. Skull and face: Calvarium and visualized facial bones appear intact, without suspicious lesions. Sinuses: Visualized sinuses and mastoids are clear. IMPRESSION: No acute finding. Dictated by: Tad Briceno M.D. on 07/12/2022 at 17:05 Approved by: Tad Briceno M.D. on 07/12/2022 at 17:05
[2022-07-12 16:51] LABS: Add Manual Diff / Slide Review NO; Basophils Absolute Auto 100 /uL (0-100); Basophils Percent Auto 1.1 % (0-2); Eosinophils Absolute Auto 200 /uL (0-450); Hematocrit 48.6 % (41-53); Hemoglobin 16.5 g/dL (13.5-17.5); Lymphocytes Absolute Auto 2600 /uL (1100-4500); Lymphocytes Percent Auto 26.9 % (25-40); Mean Corpuscular HGB Conc 33.8 % (30-36); Mean Corpuscular Hemoglobin 31.3 PG (26-34); Mean Corpuscular Volume 92.6 fL (80-100); Monocytes Absolute Auto 700 /uL (0-900); Neutrophils Absolute Auto 6200 /uL (1500-7000); Platelet Count 183 X10^3/uL (150-400); Red Blood Cell Count 5.25 X10^6/uL (4.5-5.9); Red Cell Distribution Width 15.3 % (11.6-14.8); White Blood Cell Count 9.8 X10^3/uL (4.5-11.0)
[2022-07-12 17:06] LABS: Prothrombin Time 10.9 SECONDS (10.1-12.7)
[2022-07-12 17:08] LABS: PTT Partial Thromboplastin Tim 30 SECONDS (26-36)
[2022-07-12 17:15] LABS: Alanine Aminotransferase 30 IU/L (<50); Albumin 3.8 g/dL (3.5-5.0); Albumin Globulin Ratio 1.1 (1.0-2.8); Alkaline Phosphatase 110 U/L (38-126); Aspartate Aminotransferase 27 IU/L (17-59); BUN Creatinine Ratio 17.7 (6-22); Bilirubin Total 0.5 mg/dL (0.2-1.3); Blood Urea Nitrogen 17 mg/dL (9-20); Calcium 8.7 mg/dL (8.4-10.2); Carbon Dioxide 22 mmol/L (22-32); Chloride 98 mmol/L (98-107); Creatine Kinase 46 U/L (55-170); Estimated Glomerular Filt Rate > 60 mL/min (>60); Globulin 3.5 g/dL (1.7-4.1); HEMOLYSIS 17 (0-50); Lipase 81 U/L (23-300); Potassium 4.5 mmol/L (3.4-5.1); Sodium 132 mmol/L (137-145); Total Protein 7.3 g/dL (6.3-8.2)
[2022-07-12 17:17] LABS: Glucose 539 mg/dL (80-110)
--- NOTE | 2022-07-12 17:25 | ED_ITS ---
HPI - Neuro Symptoms/Deficit General Chief Complaint: Neuro Symptoms/Deficit Stated Complaint: Thinks poss. stroke Time Seen by Provider: 07/12/22 16:31 Source: patient Mode of arrival: Ambulatory History of Present Illness HPI Narrative: Patient is a 66-year-old male history of diabetes hypertension presenting with concern for CVA. Last known well is unknown. Daughter who is at bedside states that she has not seen him for about a week and half all saw him maybe 2 days ago. He has had difficulty ambulating and walking some difficulty finding words and speech is sometimes slurred. He also or double facial droop but she can not remember what side at this time I do not appreciate obvious facial droop. He is able to answer questions and follow commands but overall a poor historian. Patient has a back stimulator for chronic back pain. On Anticoagulants: No Related Data Home Medications Medication Instructions Recorded Confirmed duloxetine 60 mg capsule,delayed 60 mg PO DAILY 08/23/20 08/23/20 release fenofibrate nanocrystallized 145 145 mg PO DAILY 08/23/20 08/23/20 mg tablet gabapentin 600 mg tablet 600 mg PO TID 08/23/20 08/23/20 glimepiride 2 mg tablet 2 mg PO DAILY 08/23/20 08/23/20 lisinopril 5 mg tablet 5 mg PO DAILY 08/23/20 08/23/20 lovastatin 10 mg tablet 10 mg PO DAILY 08/23/20 08/23/20 metformin 1,000 mg tablet 1,000 mg PO BID 08/23/20 08/23/20 sitagliptin 100 mg tablet (Januvia) 100 mg PO DAILY 08/23/20 08/23/20 Allergies Allergy/AdvReac Type Severity Reaction Status Date / Time codeine AdvReac Gastrointestinal Verified 07/12/22 16:28 Upset Review of Systems Review of Systems ROS Unobtainable: All systems reviewed & are unremarkable except as noted in HPI and below Hematologic/Lymphatic On Anticoagulants: No Patient History Medical History (Updated 07/12/22 @ 19:54 by Niki Grant DO) Diabetes Hypertension Social History marital status: household members: none lives independently: Yes Smoking Status: Never smoker alcohol intake: never Smoking Status: Never smoker alcohol intake frequency: 0-2 drinks per day Substance Use Type: does not use and other Exam Initial Vital Signs Initial Vital Signs: Vital Signs Temperature 98.5 F 07/12/22 16:23 Pulse Rate 93 H 07/12/22 16:23 Respiratory Rate 24 07/12/22 16:23 Blood Pressure 202/95 H 07/12/22 16:23 Pulse Oximetry 98 07/12/22 16:23 Oxygen Delivery Method 07/12/22 16:23 GENERAL: Alert 66-year-old male appear slightly unwell HEENT: Head atraumatic,EOMI, pupils reactive, face symmetric, moist mucous membranes CARDIOVASCULAR: Regular rate and rhythm without murmurs, rubs or gallops. RESPIRATORY: Breath sounds equal bilaterally, no wheezes rales or rhonchi. ABDOMEN: Soft, nontender. Normoactive bowel sounds all 4 quadrants. No guarding or rebound. EXTREMITIES: Normal range of motion, no clubbing or edema. Neurovascularly intact NEUROLOGICAL: Alert and oriented x3.Normal gait and speech. Cranial nerves II through XII grossly intact. Good sezlwe-bw-sffd, good qekw-nu-vtpy, strength equal bilaterally, no dysarthria or aphasia, sensation in tact to soft touch bilaterally, no visual changes, no facial droop speech is noted to be slightly slow SKIN: Warm, dry, no laceration, no petechiae, no rashes or lesions. Scores NIH Stroke Scale Level of Conciousness: Alert, keenly responsive Ask month/age: Answers both questions correctly. Open/close eyes, close hand: Performs both tasks correctly Best gaze horizontal: Normal Visual contreras: No visual loss Facial palsy: Normal symetrical movement Left arm drift: No drift for full 10 sec Right arm drift: No drift for full 10 sec Left leg drift: No drift for full 5 sec Right leg drift: No drift for full 5 sec Limb ataxia: Absent Sensory on face/arms/legs: Normal, no sensory loss Best language: No aphasia, normal Dysarthria: Normal Extinction or inattention: No abnormality Total NIH Stroke scale score: 0 Course Orders Ordered: ED Orders 07/12/22 16:31 CT angio head and neck Stat XR chest 1V Stat EKG-12 Lead Stat 07/12/22 16:32 CT head/brain wo con Stat 07/12/22 16:40 COVID19 -Nasal RAPID/Pre-Proc Stat Complete Blood Count AUTO DIFF Stat Comprehensive Metabolic Panel Stat Lipase Stat Partial Thromboplastin Time Stat Prothrombin Time INR Stat Troponin & CK Cardiac Panel Stat 07/12/22 17:37 UA Complete [Urinalysis and Microscopic] Stat Vital Signs Vital signs: Vital Signs - 8 hr 07/12/22 16:23 07/12/22 17:12 07/12/22 17:12 Temperature 98.5 F Pulse Rate 93 H 69 Respiratory Rate 24 Blood Pressure 202/95 H 186/100 H Pulse Oximetry 98 98 Oxygen Delivery Method Room Air Room Air 07/12/22 17:30 07/12/22 17:30 07/12/22 18:00 Temperature Pulse Rate 72 Respiratory Rate 21 Blood Pressure 143/74 H 123/70 Pulse Oximetry 98 Oxygen Delivery Method Room Air 07/12/22 18:00 Temperature Pulse Rate 71 Respiratory Rate 20 Blood Pressure Pulse Oximetry 96 Oxygen Delivery Method MDM - Neuro Symptoms/Deficit Differential Diagnosis Differential diagnosis: Likely cerebrovascular accident and transient cerebral ischemia Lab Data Result diagrams: 07/12/22 16:40 07/12/22 16:40 Labs: Lab Results 07/12/22 07/12/22 07/12/22 Range/Units 16:40 16:40 16:40 WBC 9.8 (4.5-11.0) X10^3/uL RBC 5.25 (4.5-5.9) X10^6/uL Hgb 16.5 (13.5-17.5) g/dL Hct 48.6 (41-53) % MCV 92.6 (80-100) fL MCH 31.3 (26-34) PG MCHC 33.8 (30-36) % RDW 15.3 H (11.6-14.8) % Plt Count 183 (150-400) X10^3/uL Neut % (Auto) 63.0 (50-75) % Lymph % (Auto) 26.9 (25-40) % [place] % (Auto) 7.0 (3-14) % Eos % (Auto) 2.0 (2-4) % Baso % (Auto) 1.1 (0-2) % Neut # (Auto) 6200 (3531-6362) /uL Lymph # (Auto) 2600 (8690-0650) /uL [place] # (Auto) 700 (0-900) /uL Eos # (Auto) 200 (0-450) /uL Baso # (Auto) 100 (0-100) /uL PT 10.9 (10.1-12.7) SECONDS INR 1.0 (0.9-1.3) APTT 30 (26-36) SECONDS Sodium 132 L (137-145) mmol/L Potassium 4.5 (3.4-5.1) mmol/L Chloride 98 (98-107) mmol/L Carbon Dioxide 22 (22-32) mmol/L BUN 17 (9-20) mg/dL Creatinine 0.96 (0.66-1.25) mg/dL Estimated GFR > 60 (>60) mL/min BUN/Creatinine Ratio 17.7 (6-22) Glucose 539 H* (80-110) mg/dL Calcium 8.7 (8.4-10.2) mg/dL Total Bilirubin 0.5 (0.2-1.3) mg/dL AST 27 (17-59) IU/L ALT 30 (<50) IU/L Alkaline Phosphatase 110 (38-126) U/L Total Creatine Kinase 46 L (55-170) U/L CK-MB (CK-2) TNP CK-MB (CK-2) Rel Index TNP Troponin I < 0.012 (0.01-0.034) ng/mL NT-Pro-B Natriuret Pep (<125) pg/mL Total Protein 7.3 (6.3-8.2) g/dL Albumin 3.8 (3.5-5.0) g/dL Globulin 3.5 (1.7-4.1) g/dL Albumin/Globulin Ratio 1.1 (1.0-2.8) Lipase 81 (23-300) U/L Urine Color Urine Appearance Urine pH (4.5-8.0) Ur Specific [place] (1.000-1.035) Urine Protein (Negative) Urine Glucose (UA) (Negative) g/dL Urine Ketones (NEGATIVE) Urine Occult Blood (Negative) Urine Nitrate (Negative) Urine Bilirubin (NEGATIVE) Urine Urobilinogen (0.2) E.U./dL Ur Leukocyte Esterase (NEGATIVE) Urine RBC (0-5/HPF) Urine WBC (0-5/HPF) Urine Bacteria (None) Ur Culture Indicated? SARS-CoV-2 (PCR) (Negative) 07/12/22 07/12/22 07/12/22 Range/Units 16:40 16:40 17:37 WBC (4.5-11.0) X10^3/uL RBC (4.5-5.9) X10^6/uL Hgb (13.5-17.5) g/dL Hct (41-53) % MCV (80-100) fL MCH (26-34) PG MCHC (30-36) % RDW (11.6-14.8) % Plt Count (150-400) X10^3/uL Neut % (Auto) (50-75) % Lymph % (Auto) (25-40) % [place] % (Auto) (3-14) % Eos % (Auto) (2-4) % Baso % (Auto) (0-2) % Neut # (Auto) (3909-9441) /uL Lymph # (Auto) (9100-2223) /uL [place] # (Auto) (0-900) /uL Eos # (Auto) (0-450) /uL Baso # (Auto) (0-100) /uL PT (10.1-12.7) SECONDS INR (0.9-1.3) APTT (26-36) SECONDS Sodium (137-145) mmol/L Potassium (3.4-5.1) mmol/L Chloride (98-107) mmol/L Carbon Dioxide (22-32) mmol/L BUN (9-20) mg/dL Creatinine (0.66-1.25) mg/dL Estimated GFR (>60) mL/min BUN/Creatinine Ratio (6-22) Glucose (80-110) mg/dL Calcium (8.4-10.2) mg/dL Total Bilirubin (0.2-1.3) mg/dL AST (17-59) IU/L ALT (<50) IU/L Alkaline Phosphatase (38-126) U/L Total Creatine Kinase (55-170) U/L CK-MB (CK-2) CK-MB (CK-2) Rel Index Troponin I (0.01-0.034) ng/mL NT-Pro-B Natriuret Pep 117 (<125) pg/mL Total Protein (6.3-8.2) g/dL Albumin (3.5-5.0) g/dL Globulin (1.7-4.1) g/dL Albumin/Globulin Ratio (1.0-2.8) Lipase (23-300) U/L Urine Color Yellow Urine Appearance Clear Urine pH 6.0 (4.5-8.0) Ur Specific [place] <=1.005 (1.000-1.035) Urine Protein Negative (Negative) Urine Glucose (UA) 3+ H (Negative) g/dL Urine Ketones Negative (NEGATIVE) Urine Occult Blood Negative (Negative) Urine Nitrate Negative (Negative) Urine Bilirubin Negative (NEGATIVE) Urine Urobilinogen 0.2 (0.2) E.U./dL Ur Leukocyte Esterase Negative (NEGATIVE) Urine RBC None seen (0-5/HPF) Urine WBC None seen (0-5/HPF) Urine Bacteria None seen (None) Ur Culture Indicated? Cult not indicated SARS-CoV-2 (PCR) Negative (Negative) Point of Care Testing Glucose POC 386 Imaging Data Chest x-ray: Radiologist's Impression: Signed Patient: Сергей Montano MR#: [id number] : 1955 Acct:[id number] Age/Sex: 66 / M Date of Service: 07/12/22 Loc: ED Accession Number: [id number] ?? Procedure: XR chest 1V Ordering Provider: Niki Grant D.O. PROCEDURE:? XR CHEST 1V ? INDICATIONS:? chest pain ? TECHNIQUE:? One view of the chest was acquired.? ? COMPARISON:? [facility], CT, CT ANGIO HEAD AND NECK, 07/12/2022, 16:46. ? FINDINGS:? ? Surgical changes and devices:? Thecal lead.? Cholecystectomy clips. ? Lungs and pleura:? Calcified right upper lobe pulmonary nodule.? Low lung volumes.? Prominent pulmonary markings.? No pleural effusions or pneumothorax.? ? Mediastinum:? Mediastinal contours appear normal.? Heart size is normal.? ? Bones and chest wall:? No suspicious bony lesions.? Overlying soft tissues appear unremarkable.? ? IMPRESSION:? Low lung volumes.? Prominent pulmonary markings.? This could be due to fluid overload/CHF. ? Calcified right upper lobe pulmonary nodule.? ? Dictated by: Mesfin Rebolledo M.D. on 07/12/2022 at 17:06 ? ? CT scan - head: Radiologist's Impression: Сергей cash MR#: [id number] : 1955 Acct:[id number] Age/Sex: 66 / M Date of Service: 07/12/22 Loc: ED Accession Number: [id number] ?? Procedure: CT head/brain wo con Ordering Provider: Niki Grant D.O. PROCEDURE:? CT HEAD/BRAIN WO CON ? INDICATIONS:? left facial droop ataxia ? TECHNIQUE:? Noncontrast 4.5 mm thick angled axial sections acquired from the foramen magnum to the vertex, with coronal and sagittal reformats.? For radiation dose reduction, the following was used:? automated exposure control, adjustment of mA and/or kV according to patient size.? ? COMPARISON:? None. ? FINDINGS:? Image quality:? Excellent.? ? CSF spaces:? Basal cisterns are patent.? No extra-axial fluid collections.? The ventricles are symmetric in size and shape.? ? Brain:? No intracranial bleeds or masses.? There is cerebral volume loss for age, with resultant ventricular and sulcal prominence.? There are periventricular and deep white matter chronic small vessel ischemic changes.? There is intracranial internal carotid artery atherosclerosis.? ? Skull and face:? Calvarium and visualized facial bones appear intact, without suspicious lesions.? ? Sinuses:? Visualized sinuses and mastoids are clear.? ? IMPRESSION:? No acute finding. ? ? Dictated by: Tad Briceno M.D. on 07/12/2022 at 17:05 ? ? CTA - brain/neck: Radiologist's Impression: ?Сергей Montano MR#: [id number] : 1955 Acct:[id number] Age/Sex: 66 / M Date of Service: 07/12/22 Loc: ED Accession Number: [id number] ?? Procedure: CT angio head and neck Ordering Provider: Niki Grant D.O. PROCEDURE:? CT ANGIO HEAD AND NECK ? INDICATIONS:? speech facial droop left ataxia LKW unknown ? TECHNIQUE:? Noncontrast images were performed earlier in the day and not repeated.? ? After the administration of intravenous contrast, 1 mm thick sections acquired from the aortic arch through the [place].? Post-contrast 4.5 mm thick sections then re- acquired from the foramen magnum to the vertex.? 3-dimensional nexypjn-fsstqnbuv-rmuntuoeck (M IP) and/or volume rendering reformats were acquired of the central intracranial vasculature and neck separately. For radiation dose reduction, the following was used:? automated exposure control, adjustment of mA and/or kV according to patient size.? ? COMPARISON:? [facility], CR, XR CHEST 1V, 07/12/2022, 16:39.? [facility], CT, CT HEAD/BRAIN WO CON, 07/12/2022, 16:46. ? FINDINGS:? Image quality:? Excellent.? ? BRAIN:? CSF spaces:? Ventricles are normal in size and shape.? Basal cisterns are patent.? No extra-axial fluid collections.? ? Brain:? No midline shift.? No intracranial bleeds or masses.? [place]-white matter interface appears intact.? ? Skull and face:? Calvarium and facial bones appear intact, without suspicious lesions.? Orbits appear normal.? ? Sinuses:? Sinuses and mastoids are clear.? ? HEAD CT ANGIOGRAPHY:? Anterior circulation:? Intracranial internal carotid arteries are normal in size and flow.? The flow within the paired anterior cerebral arteries is normal and symmetric.? The flow within the middle cerebral arteries is normal and symmetric.? The anterior communicating artery is seen.? No aneurysms are seen.? ? Posterior circulation:? Visualized portions of the vertebral arteries demonstrate normal caliber, and join to form a normal appearing basilar artery.? Flow within the posterior cerebral arteries is normal and symmetric.? No aneurysms are seen.? ? NECK CT ANGIOGRAPHY:? Carotid system:? The great vessels demonstrate a conventional anatomy as they arise from the aortic arch.? The origins of the common carotid arteries appear patent.? The common carotid arteries demonstrate normal caliber and courses.? The bifurcation regions demonstrate mild atherosclerotic calcification and irregularity.? No hemodynamically significant stenosis can be seen at the carotid bifurcations. The more distal internal carotid arteries demonstrate normal course and caliber.? ? Posterior circulation:? The origins of the vertebral arteries both appear widely patent.? The more superior extracranial portions of both vertebral arteries also demonstrate normal courses and calibers.? They join to form a normal appearing basilar artery.? ? Soft tissues:? Visualized neck soft tissues demonstrate no suspicious abnormalities.? ? Bones:? No suspicious bony lesions.? Visualized cervical spine appears normally aligned.? IMPRESSION:? No significant intracranial arterial abnormality is seen.? ? Within the arteries of the neck, no hemodynamically significant stenosis can be seen. ? ? Any quantitative measurements of stenosis were performed using NASCET criteria.? ? ? Dictated by: Kleber Gaming M.D. on 07/12/2022 at 16:10? ECG Data Interpretation: Sinus rhythm rate 67 SC interval 158 QRS 146 QTC 473 no branch block noted similar from previous EKG in 2019, he does have T-wave inversions noted in V2 and V3 new from previous EKG no ST elevation MDM Narrative Medical decision making narrative: Patient is not a tPA candidate last known well is unknown. He some obvious slurring speech but able to still understand him. He is able to do ataxia moves however he has difficulty ambulating. Concerns certainly for a CVA. However other causes include, hyperglycemia or infection He is found to be hyperglycemic but no sign of DKA. Urinalysis and chest x-ray are negative for infection. Dr. Nava accepts patient Discharge Plan Departure Patient Disposition: Admitted as Observation Clinical Impression: CVA (cerebral vascular accident), Acute hyperglycemia Admit Date/Time: 07/12/22 18:17 Admit Provider: Joe Nava
[2022-07-12 17:26] LABS: COVID19 -Nasal RAPID Negative (Negative)
[2022-07-12 17:27] LABS: Troponin I < 0.012 ng/mL (0.01-0.034)
[2022-07-12 18:41] LABS: Appearance Urine UA CLEAR; Bilirubin Urine UA NEGATIVE (NEGATIVE); Color Urine UA YELLOW; Glucose Urine UA 3+ g/dL (Negative); Ketones Urine UA NEGATIVE (NEGATIVE); Leukocyte Esterase Urine UA NEGATIVE (NEGATIVE); Nitrite Urine UA NEGATIVE (Negative); Occult Blood Urine UA NEGATIVE (Negative); Protein Urine UA NEGATIVE (Negative); Specific Gravity Urine UA <=1.005 (1.000-1.035); Urobilinogen Urine UA 0.2 E.U./dL (0.2)
[2022-07-12 18:54] LABS: Bacteria Urine None Seen; Culture Indicated Urine Cult Not Indicated; RBC Urine None Seen (0-5/HPF); WBC Urine None Seen (0-5/HPF)
[2022-07-12 19:24] LABS: NT-proBNP (BNP-Adult 18+) 117 pg/mL (<125)
--- NOTE | 2022-07-12 19:49 | DI.ECHO.S_ITS ---
[facility] +---------+ : : [address] : : : : [id number] : : : : Phone: [phone]+ Echocardiogram Report + + :Name: RODRIGO JONES Study Date: 07/13/2022 Height: 66 in : :[facility] ReadingLocation: Weight: 192 lb : : Gender: Male BSA: 2.0 m2 : :: 1955 Age: 66 yrs BP: 174/76 mmHg: :Reason For Study: POSSIBLE CHF/STROKE : :Ordering Physician: LOBO, : :FRANTZ Performed By: Jennie Chavez : :Referring: FRANTZ DIAMOND : + + Interpretation Summary The patient was in sinus rhythm with heart rates between 60-63 bpm during the exam. Hypertensive during exam There is mild concentric left ventricular hypertrophy. Diastolic parameters suggest probable normal left ventricular diastolic function and normal filling pressures. Right ventricular systolic function is borderline reduced. Injection of contrast documented no interatrial shunt. There is mild to moderate aortic regurgitation. No prior study for comparison. Procedure: A two-dimensional transthoracic echocardiogram with color flow and Doppler was performed. The study quality was technically adequate. There is no prior echocardiogram noted for this patient. A saline contrast injection was performed to assess for cardiac shunting. The injection was performed through an intravenous line in the left arm. The patient was in sinus rhythm with heart rates between 60-63 bpm during the exam. Hypertensive during exam. Left Ventricle: The left ventricle is normal in size. There is mild concentric left ventricular hypertrophy. The ejection fraction is estimated to be 55-60%. Diastolic parameters suggest probable normal left ventricular diastolic function and normal filling pressures. Right Ventricle: The right ventricle is at the upper limits of normal in size. Right ventricular systolic function is borderline reduced. Atria: The left atrial size is normal. Right atrial size is normal. There is no Doppler evidence for an interatrial shunt. Injection of contrast documented no interatrial shunt. Mitral Valve: The mitral valve is normal in structure and function. There is trace mitral regurgitation. Aortic Valve: The aortic valve is trileaflet. The aortic valve opens well. There is no aortic valve stenosis. There is mild to moderate aortic regurgitation. Tricuspid Valve: The tricuspid valve is normal in structure and function. There is trace tricuspid regurgitation. Pulmonic Valve: The pulmonic valve leaflets are thin and pliable; valve motion is normal. There is no pulmonic valvular regurgitation. Great Vessels: The aortic root is mildly dilated. The ascending aorta is at the upper limits of normal in size. The inferior vena cava was not well visualized. Pericardium/ Pleura There is no pericardial effusion. There is no pleural effusion. MMode/2D Measurements & Calculations LVIDd: 4.4 cm LVOT diam: 2.6 cm LVIDs: 3.3 cm Ao root diam: 4.1 cm FS: 23.7 % asc Aorta Diam: 3.8 cm EPSS: 2.0 cm Ao Arch Diam (Prox Trans): 3.4 cm IVSd: 1.1 cm LVPWd: 1.2 cm LV mccabe. diameter/BSA (cm/m^2): 2.2 LV sys. diameter/BSA (cm/m^2): 1.7 LA A2 area: 18.0 cm2 RA long axis: 4.8 cm LA A4 area: 14.1 cm2 RA area: 12.8 cm2 LA length (vol): 5.0 cm RA vol: 28.9 ml LA vol: 43.0 ml RA : 14.7 ml/m2 LA vol index: 21.9 ml/m2 RVD1 (basal): 3.9 cm RVD2 (mid): 3.4 cm TAPSE: 1.3 cm Doppler Measurements & Calculations Ao V2 max: 112.6 cm/sec LVOT Max Massimo: 93.9 cm/sec Ao V2 mean: 82.1 cm/sec LV V1 max P.5 mmHg Ao max P.1 mmHg LV V1 VTI: 19.7 cm Ao mean P.0 mmHg EDOUARD(I,D): 4.5 cm2 Ao V2 VTI: 23.4 cm EDOUARD(V,D): 4.4 cm2 sev ratio: 0.84 EDOUARD indexed to BSA (cm^2/m^2): 2.3 MV E max massimo: 66.1 cm/sec PA V2 max: 77.1 cm/sec MV A max massimo: 75.0 cm/sec PA V2 mean: 55.0 cm/sec MV E/A: 0.88 PA mean P.3 mmHg Med Peak E' Massimo: 4.9 cm/sec PA pr(Accel): 34.5 mmHg E/E' med: 13.6 Lat Peak E' Massimo: 6.7 cm/sec E/E' lat: 9.9 E/e' average: 11.7 MV dec time: 0.34 sec SV(LVOT): 105.0 ml Reading Physician:RAFI
[2022-07-12 20:29] LABS: Magnesium 2.1 mg/dL (1.6-2.3)
[2022-07-12] MEDS: SODIUM CHLORIDE 0.9% 1,000 ML 60 ML IV (21:18)
[2022-07-12] MEDS: ASPIRIN 325 MG TABLET PO (21:19)
[2022-07-12] MEDS: GABAPENTIN 600 MG TABLET PO (21:19)
[2022-07-12] MEDS: CLOPIDOGREL 75 MG TABLET PO (21:19)
[2022-07-12] MEDS: INSULIN GLARGINE 100 UNIT/ML 3ML PEN 20 UNIT SUBCUT (21:34)
[2022-07-12] MEDS: INSULIN LISPRO 100 UNIT/ML 3ML VIAL SUBCUT (22:35)
[2022-07-13] VITALS (13 sets, daily range): BP systolic 134–178; BP diastolic 73–93; PULSE 58–77; RESP 16–18; TEMP 35.4–36.3; O2SAT 95–98
--- NOTE | 2022-07-13 02:56 | PM.HP.1 ---
History of Present Illness History of Present Illness Date Patient Seen: 07/12/22 Time Patient Seen: 19:52 Chief complaint: Thinks poss. 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 Last known well is unknown.? Daughter who is at bedside states that she has not seen him for about a week and half, his saw him maybe 2 days ago.? He has had difficulty ambulating and walking some difficulty finding words and speech is sometimes slurred.? He is able to answer questions and follow commands but overall a poor historian.? Patient has a back stimulator for chronic back pain, which I was able to discern that he has lost the controller in [place]. ED workup essentially ruled out stroke,NIH:0, normal exam, Head Neck CTA was negative for any intracranial processes, Head CT was negative for any intracranial processes, patient unable to undergo an MRI due to spinal stimulator. Patient is confused, unable to accurately answer questions, incoherent thought process, unable to obtain appropriate HPI, ROS, family history or medication reconciliation during admit exam. On admit temp 98.5?, BP 148/72, HR 67, R 18, O2 saturation 96% on room air. Patient is in no distress, unable to perform NIH accurately but no facial droop weakness appreciated upon exam. Patient's glucose on admit 539-suspect hyperglycemia to be the cause of patient's confusion. Urine is positive for glucose no signs of UTI, troponins negative, chest x-ray demonstrates low lung volumes possible fluid overload/CHF-BNP normal. EKG demonstrates sinus rhythm of 67 without BBB, there is a T-wave inversion in leads V2/V3 this is new from prior EKG. Admitting patient for possible stroke versus altered mental status due to hyperglycemia. Patient History Medical History (Updated 07/13/22 @ 03:14 by JENNIFER Christensen) Chronic back pain Depression Diabetes Essential hypertension Hyperlipidemia associated with type 2 diabetes mellitus Hypertension Knowledge deficit on spinal cord stimulator Surgical History (Updated 07/13/22 @ 03:14 by JENNIFER Christensen) Back pain with history of spinal surgery Family & Social History Social History: household members none lives independently Yes Safety & Behavioral: Feels Safe in Current Yes Environment Been Physically Hurt or No Threatened By a Person Tobacco & Substance use: Smoking Status Never smoker alcohol intake never alcohol intake frequency 0-2 drinks per day Substance Use Type other,does not use Meds Home Medications and Allergies Home Medications Medication Instructions Recorded Confirmed Type duloxetine 60 mg capsule,delayed 60 mg PO DAILY 08/23/20 08/23/20 History release fenofibrate nanocrystallized 145 145 mg PO DAILY 08/23/20 07/12/22 History mg tablet gabapentin 600 mg tablet 600 mg PO TID 08/23/20 07/12/22 History glimepiride 2 mg tablet 8 mg PO DAILY 08/23/20 07/12/22 History lisinopril 5 mg tablet 5 mg PO DAILY 08/23/20 08/23/20 History lovastatin 10 mg tablet 10 mg PO DAILY 08/23/20 08/23/20 History metformin 1,000 mg tablet 1,000 mg PO BID 08/23/20 07/12/22 History sitagliptin 100 mg tablet (Januvia) 100 mg PO DAILY 08/23/20 08/23/20 History atorvastatin 20 mg tablet 20 mg PO DAILY 07/12/22 07/12/22 History empagliflozin 25 mg tablet 12.5 mg PO DAILY 07/12/22 07/12/22 History (Jardiance) insulin glargine 100 unit/mL (3 25 unit SUBCUT BEDTIME 07/12/22 07/12/22 History mL) subcutaneous pen (Lantus Solostar U-100 Insulin) polymyxin B sulfate 10,000 1 drp EYE-LEFT Q4H 07/12/22 07/12/22 History unit-trimethoprim 1 mg/mL eye drops Allergies Allergy/AdvReac Type Severity Reaction Status Date / Time codeine AdvReac Gastrointestinal Verified 07/12/22 16:28 Upset Review of Systems Review of Systems Narrative: All 12 point systems reviewed with the patient and are negative except otherwise documented. Unable to obtain accurate ROS due to patient's confusion. Exam Vital Signs (past 8 hours): - 07/12/22 19:00 07/12/22 19:00 07/12/22 19:51 Temperature 97.1 F L Pulse Rate 67 69 Respiratory Rate 18 20 Blood Pressure 148/72 H 174/76 H Pulse Oximetry 96 97 Oxygen Flow Rate 0 07/12/22 19:35 07/13/22 00:03 Temperature 97.1 F L 96.0 F L Pulse Rate 69 61 Respiratory Rate 20 17 Blood Pressure 176/76 H 174/78 H Pulse Oximetry 97 97 Oxygen Flow Rate 0 0 Oxygen Delivery Method Room Air Oxygen Flow Rate 0 Narrative Exam Narrative: General: Patient is a confused chronically ill-appearing male, who appears older than stated age, in no distress at this time. HEENT: Normocephalic, atraumatic, extraocular muscles intact, oral pharynx is clear and mucous membranes are dry. Neck is supple and symmetric, trachea is midline, no adenopathy, no thyroid enlargement, nontender, no masses palpated. Negative for JVD Chest: Breathing without nasal flaring, retractions, tachypneic or labored breathing. Lungs: Auscultation of all lung contreras are clear without adventitious sounds, wheezes, rhonchi, or rales. Cardio: regular rate and rhythm without murmur, rubs, or gallops, no carotid bruit, no cardiac pulsations present. Abdomen: Soft nontender, negative for organomegaly, or masses. Bowel sounds are present in all 4 quadrants without guarding or rebound, no CVA tenderness. Musculoskeletal: Muscle strength and tone appear equal within normal limits, no deformity, crepitus, effusions, cyanosis, clubbing or edema present. Full range of motion intact radial and pedal pulses are normal. Skin: Warm dry and intact without rashes, ulcerations or petechiae. Neuro: Alert and orientated to person and place, strength is +5/5 in all extremities, sensation to touch intact, no gross deficits noted of cranial nerves.NIH:1 Psych: Patient has a chronically appearance, confused. Objective Labs Result Diagrams: 07/12/22 16:40 07/12/22 16:40 Labs: Laboratory Results - last 24 hr 07/12/22 07/12/22 07/12/22 16:40 16:40 16:40 WBC 9.8 RBC 5.25 Hgb 16.5 Hct 48.6 MCV 92.6 MCH 31.3 MCHC 33.8 RDW 15.3 H Plt Count 183 Neut % (Auto) 63.0 Lymph % (Auto) 26.9 Ransom % (Auto) 7.0 Eos % (Auto) 2.0 Baso % (Auto) 1.1 Neut # (Auto) 6200 Lymph # (Auto) 2600 Ransom # (Auto) 700 Eos # (Auto) 200 Baso # (Auto) 100 PT 10.9 INR 1.0 APTT 30 Sodium 132 L Potassium 4.5 Chloride 98 Carbon Dioxide 22 BUN 17 Creatinine 0.96 Estimated GFR > 60 BUN/Creatinine Ratio 17.7 Glucose 539 H* Calcium 8.7 Magnesium Total Bilirubin 0.5 AST 27 ALT 30 Alkaline Phosphatase 110 Total Creatine Kinase 46 L CK-MB (CK-2) TNP CK-MB (CK-2) Rel Index TNP Troponin I < 0.012 NT-Pro-B Natriuret Pep Total Protein 7.3 Albumin 3.8 Globulin 3.5 Albumin/Globulin Ratio 1.1 Lipase 81 Urine Color Urine Appearance Urine pH Ur Specific [place] Urine Protein Urine Glucose (UA) Urine Ketones Urine Occult Blood Urine Nitrate Urine Bilirubin Urine Urobilinogen Ur Leukocyte Esterase Urine RBC Urine WBC Urine Bacteria Ur Culture Indicated? SARS-CoV-2 (PCR) 07/12/22 07/12/22 07/12/22 16:40 16:40 16:40 WBC RBC Hgb Hct MCV MCH MCHC RDW Plt Count Neut % (Auto) Lymph % (Auto) Ransom % (Auto) Eos % (Auto) Baso % (Auto) Neut # (Auto) Lymph # (Auto) Ransom # (Auto) Eos # (Auto) Baso # (Auto) PT INR APTT Sodium Potassium Chloride Carbon Dioxide BUN Creatinine Estimated GFR BUN/Creatinine Ratio Glucose Calcium Magnesium 2.1 Total Bilirubin AST ALT Alkaline Phosphatase Total Creatine Kinase CK-MB (CK-2) CK-MB (CK-2) Rel Index Troponin I NT-Pro-B Natriuret Pep 117 Total Protein Albumin Globulin Albumin/Globulin Ratio Lipase Urine Color Urine Appearance Urine pH Ur Specific [place] Urine Protein Urine Glucose (UA) Urine Ketones Urine Occult Blood Urine Nitrate Urine Bilirubin Urine Urobilinogen Ur Leukocyte Esterase Urine RBC Urine WBC Urine Bacteria Ur Culture Indicated? SARS-CoV-2 (PCR) Negative 07/12/22 17:37 WBC RBC Hgb Hct MCV MCH MCHC RDW Plt Count Neut % (Auto) Lymph % (Auto) Ransom % (Auto) Eos % (Auto) Baso % (Auto) Neut # (Auto) Lymph # (Auto) Ransom # (Auto) Eos # (Auto) Baso # (Auto) PT INR APTT Sodium Potassium Chloride Carbon Dioxide BUN Creatinine Estimated GFR BUN/Creatinine Ratio Glucose Calcium Magnesium Total Bilirubin AST ALT Alkaline Phosphatase Total Creatine Kinase CK-MB (CK-2) CK-MB (CK-2) Rel Index Troponin I NT-Pro-B Natriuret Pep Total Protein Albumin Globulin Albumin/Globulin Ratio Lipase Urine Color Yellow Urine Appearance Clear Urine pH 6.0 Ur Specific Phoenix <=1.005 Urine Protein Negative Urine Glucose (UA) 3+ H Urine Ketones Negative Urine Occult Blood Negative Urine Nitrate Negative Urine Bilirubin Negative Urine Urobilinogen 0.2 Ur Leukocyte Esterase Negative Urine RBC None seen Urine WBC None seen Urine Bacteria None seen Ur Culture Indicated? 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 Patient admitted for altered mental status stroke verses hyperglycemia. 1. Altered mental status, acute, present on admission -suspect this is likely secondary to hyperglycemia with a glucose of 139 on admit secondary to uncontrolled type 2 diabetes. -stroke rule out-NIH:1 on admit -ED workup essentially ruled out stroke,NIH:0, normal exam, Head Neck CTA was negative for any intracranial processes, Head CT was negative for any intracranial processes, patient unable to undergo an MRI due to spinal stimulator. -Plavix, ASA, Lipitor -NIH Qshift-continue to monitor for signs and symptoms of stroke -or the stats Q 4 while awake -Echo, Lipids, TSH/T4 orderd -monitor on telemedicine 2. Hyperglycemia in the setting type 2 diabetes uncontrolled on orals, with complications, peripheral neuropathy, acute on chronic, present on admission? -ComplicationLeft 3rd toe diabetic foot amputation, due to osteomyelitis, MSSA Culture -admitting blood sugar 539 -blood sugar checks Q hour until blood sugar< 300-then change to a.c. HS -patient admitted under diabetic protocols -holding Jardiance, glyburide, and metformin -ordered A1c -NS at 60 cc/HR -starting Lantus 20units now, then 20 units Lantus q.h.s. -placed on low-dose sliding scale -dietary consult: Regarding uncontrolled diabetes -patient needs close follow-up with PCP to obtain better control of diabetes. 3. Hypertension, essential, chronic, present on admission -admitting BP 148/72 -continue fenofibrate, lisinopril 4. Depression, chronic, present on admission -continue duloxetine 6. Hyperlipidemia, secondary to type 2 diabetes, chronic, present on admission -holding lovastatin, patient placed on Lipitor while in hospital 7. Chronic back pain, with spinal stimulator placement, poorly managed, chronic, present on admission -patient unable identify type of stimulator, or who placed it, was able to communicate that he had lost the control or for his stimulator somewhere in [place]. Code status:Full Surrogate decision maker: Michelle ZARCO PCR:Negative DVT/VTE prophylaxis: Lovenox and SCDs Disposition: Patient admitted for observation expected length of stay less than 2 midnights I have utilized all available immediate resources to obtain, update, or review the patient's current medications. I confirmed that the patient's advanced care plan is present, Code status is documented and/or surrogate decision maker is listed in the patient's medical record. Time Spent With Patient Critical Care time: I spent a total of [] minutes of critical care time on this patient's care today; this time is exclusive of procedural time. Scores GCS Cher coma scale eye opening: Spontaneous Trinidad coma scale verbal response: Confused Cher coma scale motor response: Obey commands Cher coma scale total score: 14 NIHSS Level of Conciousness: Not alert, but arousable by minor stim to obey, answer or respond Ask month/age: Answers both questions correctly. Open/close eyes, close hand: Performs both tasks correctly Best gaze horizontal: Normal Visual contreras: No visual loss Facial palsy: Normal symetrical movement Left arm drift: No drift for full 10 sec Right arm drift: No drift for full 10 sec Left leg drift: No drift for full 5 sec Right leg drift: No drift for full 5 sec Limb ataxia: Absent Sensory on face/arms/legs: Normal, no sensory loss Best language: No aphasia, normal Dysarthria: Normal Extinction or inattention: No abnormality Total NIH Stroke scale score: 1 Quality VTE Deep Vein Thrombosis/Pulmonary Embolism Present on Admission: No
[2022-07-13 07:39] LABS: Add Manual Diff / Slide Review NO; Basophils Absolute Auto 100 /uL (0-100); Basophils Percent Auto 0.6 % (0-2); Eosinophils Absolute Auto 400 /uL (0-450); Eosinophils Percent Auto 4.6 % (2-4); Hematocrit 45.7 % (41-53); Hemoglobin 15.5 g/dL (13.5-17.5); Lymphocytes Absolute Auto 2800 /uL (1100-4500); Lymphocytes Percent Auto 32.9 % (25-40); Mean Corpuscular Hemoglobin 31.1 PG (26-34); Mean Corpuscular Volume 91.4 fL (80-100); Monocytes Absolute Auto 600 /uL (0-900); Monocytes Percent Auto 7.6 % (3-14); Neutrophils Absolute Auto 4600 /uL (1500-7000); Neutrophils Percent Auto 54.3 % (50-75); Platelet Count 162 X10^3/uL (150-400); Red Cell Distribution Width 15.3 % (11.6-14.8); White Blood Cell Count 8.5 X10^3/uL (4.5-11.0)
[2022-07-13 07:57] LABS: BUN Creatinine Ratio 17.4 (6-22); Blood Urea Nitrogen 15 mg/dL (9-20); Calcium 8.2 mg/dL (8.4-10.2); Carbon Dioxide 26 mmol/L (22-32); Chloride 102 mmol/L (98-107); Cholesterol 225 mg/dL (140-199); Estimated Glomerular Filt Rate > 60 mL/min (>60); Glucose 246 mg/dL (80-110); HDL Cholesterol 30 mg/dL (40-60); HEMOLYSIS < 15 (0-50); Potassium 3.7 mmol/L (3.4-5.1); Sodium 137 mmol/L (137-145)
[2022-07-13 08:09] LABS: Triglycerides 659 mg/dL (35-150)
[2022-07-13] MEDS: INSULIN LISPRO 100 UNIT/ML 3ML VIAL SUBCUT ×4 (08:09→21:13)
[2022-07-13] MEDS: ENOXAPARIN 40 MG/0.4 ML SYRINGE SUBCUT (08:11)
[2022-07-13] MEDS: GABAPENTIN 600 MG TABLET PO ×2 (08:12→21:13)
[2022-07-13] MEDS: ASPIRIN EC 325 MG TABLET PO (08:12)
[2022-07-13] MEDS: FENOFIBRATE, MICRONIZED 67 MG CAPSULE 201 MG PO (08:12)
[2022-07-13] MEDS: ATORVASTATIN 20 MG TABLET PO (08:13)
[2022-07-13] MEDS: CLOPIDOGREL 75 MG TABLET PO (08:13)
[2022-07-13 08:22] LABS: TSH w/ Reflex to FT4 3.14 uIU/mL (0.47-4.68)
[2022-07-13 10:50] LABS: Hemoglobin A1C% w Est Avg Glu > 14.0 % (4.0-6.0)
--- NOTE | 2022-07-13 11:30 | ST-OP ANOTE ---
Physical, Occupational & Speech Therapy At [facility] Speech Therapy Note Orders received. Attempted SLUMS with pt. Pt was unable to complete the SLUMS as he was too confused and lethargic. Will attempt again
--- NOTE | 2022-07-13 11:36 | PT.IIE ---
Surgical History (Last Updated 07/13/22 @ 03:14 by Tamara Rosenthal [facility]) Back pain with history of spinal surgery Medical History (Last Updated 07/13/22 @ 03:14 by Tamara Rosenthal [facility]) Chronic back pain Depression Diabetes Essential hypertension Hyperlipidemia associated with type 2 diabetes mellitus Hypertension Knowledge deficit on spinal cord stimulator Physical Therapy Inpatient Evaluation/Re-Eval M1 PT/OT-IP Prior Functional Status Start: 07/13/22 13:26 Freq: NEEDED Status: Active Protocol: Document 07/13/22 11:36 AB (Rec[facility]13[facility]22 13:[facility] Medical Review Prior Functional Status Medical History Reviewed Yes Communication able to answer question but speech is unclear Mobility and Gait pt stated that he is independent with all mobilities and ambulation without AD Social History Household Members none Living Arrangements Mobile home Number of Floors (Floors) One Floor Number of Stairs To Enter/Railing? 2 steps without rails to enter Home Environment Standard Height Toilet,Walk in Shower Home Equipment Front Wheel Walker,Straight Cane,Hand Held Shower,Grab Bars Near Toilet Additional Social History Comment pt stated that his step son checks on him M2 PT-IP Current Condition Start: 07/13/22 13:26 Freq: NEEDED Status: Active Protocol: Document 07/13/22 11:36 AB (Rec: 07/13/22 13:39 [facility] Physical Therapy Current Condition Current Condition Evaluation Date 07/13/22 Treatment Diagnosis altered mental status; r/o CVA ; difficulty in walking Onset Date 07/12/22 M3 PT-IP Subjective Start: 07/13/22 13:26 Freq: NEEDED Status: Active Protocol: Document 07/13/22 11:36 AB (Rec: 07/13/22 13:39 AB [id number]) Subjective Physical Therapy Visit Type Type Initial Evaluation Visit Start Time 11:36 Visit Stop Time 11:56 Total Visit Minutes 20 Number of LUMBER PLANER Visits 0 Physical Therapy Visit Comments Patient Comments agreable to do PT M4 PT-IP Mobility and Gait Start: 07/13/22 13:26 Freq: NEEDED Status: Active Protocol: Document 07/13/22 11:36 AB (Rec: 07/13/22 13:39 AB [id number]) PT-Bed Mobility Assessment Supine to Sit Supine to Sit Standby Assistance PT-Transfer Assessment Sit to and From Stand Sit to and from Stand Moderate Assistance,1 Person Assistance,Use of Upper Extremities Equipment Transfer Assistive Device Gait Belt,Front Wheeled Walker Orthotic/Prosthetic Devices or Brace: No Transfers Transfer Destination Chair Transfer Technique ambulated Transfer Ability Level of Assist Moderate Assistance,Maximum Assistance,1 Person Assistance ,Use of Upper Extremities Comments Mobility Comments completed supine to sit SBA. Able to sit on EOB SBA. completeds sit to stand mod A and cues. requires mod A for standing blance. pt can be impulsive. ambulated in room using FWW mod to max A and max cues. increase R sided leaning and slight R knee buckling and dragging gait. pt agreed to sit on the chair. positioned on the chair. call light and table placed within reach. Gait Assessment Gait Gait Assistance Required: Moderate Assistance,Maximum Assistance,1 Person Assist Distance (Feet) 10 Able to Maintain Weight Bearing Status Yes During Gait Assistive Devices Assistive Device Gait Belt,Front Wheeled Walker Orthotic/Prosthetic Devices or Brace: No Gait Deviations General Gait Pattern Antalgic,Decreased Stride Length,Decreased Feet Clearance,Step-to Gait Factors Limiting Gait Function Factors Limiting Gait Function Decreased Activity Tolerance, Decreased Strength,Difficulty Following Directions,Limited Range of Motion,Poor Balance, Poor Safety Awareness PT-Balance Assessment Sitting Balance and Reactions Static Sitting Balance Ability Good Dynamic Sitting Balance Ability Good Standing Balance and Reactions Static Standing Balance Ability Poor Dynamic Standing Balance Ability Poor Device Used FWW M5 PT-IP Objective Assessments Start: 07/13/22 13:26 Freq: NEEDED Status: Active Protocol: Document 07/13/22 11:36 AB (Rec: 07/13/22 13:39 AB [email or web address]) Orientation Orientation/Cognition Level of Alertness Alert Orientation Name Safety Awareness Decreased Safety Awareness Memory Description Short Term Impaired Gross Range of Motion Lower Extremity ROM Assessment Within Functional Limits Strength Lower Extremity Strength Assessment Right Impaired Hip 3+/5 Knee 3+/5 Muscle Tone Muscle Tone WNL Yes M6 PT-IP Treatment Start: 07/13/22 13:26 Freq: NEEDED Status: Active Protocol: Document 07/13/22 11:36 AB (Rec: 07/13/22 13:39 AB [email or web address]) Physical Therapy Treatment Education Education Provided Safety M7 PT-IP Assessment and Plan Start: 07/13/22 13:26 Freq: NEEDED Status: Active Protocol: Document 07/13/22 11:36 AB (Rec: 07/13/22 13:39 AB [id number]) PT Summary Assessment and Plan Potential Rehabilitation Potential Fair Status of Condition at Evaluation Evolving Summary Impairments Pain,ROM,Strength,Balance, Coordination,Sensation,Tone, Cognition,Bed Mobility, Transfers,Gait,Activity Tolerance Assessment Summary pt requiring mod to max A with mobility using FWW. presents with unsteady gait with increase R sided lean and dragging gait. pt lives alone and needs to be more independent than current level to safely go home. At this time, pt will require SNF rehab. Goals Bed Mobility Goal Independent Transfer Goal Standby Assistance,Front Wheeled Walker Gait Goal Standby Assistance,Front Wheel Walker Gait Distance 150 Other Goals up/down 2 steps without rails SBA Days to Meet Goals 10 Frequency of Treatment Frequency Of Treatment Once a Day Treatment Plan Physical Therapy Treatment Plan Bed Mobility Training,Transfer Training,Gait Training, Therapeutic Exercise,Balance Retraining,Discharge Planning, Hot or Cold Pack,Neuromuscular Re-ed,Coordination Retraining ,Manual Therapy Precautions Other Precautions falls Recommendations To Nursing Amount of Assist Needed 1 Person Assist Discharge Recommendations PT Discharge Recommendations SNF Rehab Transportation Needs at Discharge Wheelchair/Cabulance
--- NOTE | 2022-07-13 14:20 | ST.IPIE ---
Visit Care Team Role Provider Type Paulino Saucedo MD Primary Care Provider Non-Staff Specialty: Family Practice Address: [address] , [place], [address] Email: Niki Grant DO Emergency Provider Physician Referring Provider Specialty: Emergency Medicine Address: [address] [place] [address], [address] Email: [email or web address] Joe Nava DO Admit Provider Physician Attending Provider Specialty: Internal Medicine Address: [address] [place] [address], [address] Email: [email or web address] Past Medical History (Last Updated 07/13/22 @ 03:14 by ADRIENNE [facility] Chronic back pain (Medical) Depression (Medical) Diabetes (Medical) Essential hypertension (Medical) Hyperlipidemia associated with type 2 diabetes mellitus (Medical) Hypertension (Medical) Knowledge deficit on spinal cord stimulator (Medical) pt reports he has lost the controller for stimulator. 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 Head CT was negative for any intracranial processes, patient unable to undergo an MRI due to spinal stimulator. Patient is confused, unable to accurately answer questions , incoherent thought process, unable to obtain appropriate HPI, ROS, family history or medication reconciliation during admit exam. atient is in no distress, unable to perform NIH accurately but no facial droop weakness appreciated upon exam. Patient's glucose on admit 539 -suspect hyperglycemia to be the cause of patient's confusion. Urine is positive for glucose. Vision Vision Status Impaired Comments pt appears to have difficulty focusing Assessment Oral Motor Examination Completed No Results Pt was edentulous. Difficulty following directions Informal Assessment Receptive Language Impairment(s) Following 1-step commands, Following 2-step commands, Reading comprehension,Picture/ Object identification, Comprehension of conversation Expressive Language Impairment(s) Sentence closure/completion, Confrontation naming,Divergent naming,Expression of complex thoughts/ideas Speech Impairment(s) Imprecise articulation Formal Assessment Standardized Test/Screener Type [facility] Mental Status ([facility]) Administration Complete Results The results of the SLUMS indicated a score of 17/30 ( moderate to severe cognitive dysfunction) Pt was oriented too [place] but thought he was in [place]. He was unaware of the day, could remember 1 of 5 words/objects and mentally calculate a word problem. He identified a triangle by putting an x on it as well as identifying the largest shape from 3 provided. His clock drawing was poorly executed and he remembered 0 of 4 questions regarding a short story read to him. Pt's s baseline is unknown at this time and it is unknown if this level of cognition is a change for the pt or not. More information from family is needed. Findings/Results Cognitive Function Moderately-severely impaired Cognitive Communication Deficits Self-awareness of Cognitive- No awareness Communication Deficits Impact on Functioning Activity Limits/Particip.Rest. Mod: Interpersonal Interactions Sev: General Tasks and Demands Household Tasks Employment Community Safety Risks Sev: Being Left Alone at Home Reacting to Emergency Managing Medication Traveling Alone in Community Prognosis Prognosis Fair Based on Cognitive status,Family support Plan of Care Speech-Language Treatment Yes Frequency 1x/day while inpatient Short Term Goals 1. ST to re-evaluate pt as status improves 2. Pt to improve orientation and awareness of situation with minimal assistance as pt status improves Discharge Recommendations Home,care home care facility, Home with Home Health
--- NOTE | 2022-07-13 14:22 | CM.DANOTE ---
Initial DCP Assessment Note Pt is a 66 yo male, resident of [place], arrives with alt mental status and concern for stroke, admitted observation with what is suspected to be Altered mental status likely secondary to hyperglycemia with a glucose of 139 on admit secondary to uncontrolled type 2 diabetes PCP: Paulino Mcfarlane: MCR/Syed Reviewed chart, pt discussed in multidisciplinary rounds this morning. Therapy is recommending SNF per the initial PT eval; patient is indp at base and currently requiring mod-max assist with therapy Attempted assessment with patient at bedside this morning and he was unable to provide any meaningful participation; speech somewhat garbled. Patient nods when asked if team can place call to spouse Needs f/u. Expect discharge home w/family and HH because patient is observation and has MCR, however needs review with spouse/family CHUN Chong Discharge Planning/Care Management CM Discharge Assessment Start: 07/13/22 14:18 Freq: Status: Active Protocol: Document 07/13/22 14:18 PHILLIP (Rec: 07/13/22 14:22 PHILLIP [id number]) Discharge Planning Assessment Assigned Chemical Educator CHUN Cm DPOA/Assigned Designee Name Michelle Santos, spouse Contact Information [phone] Advance Directives? No History Provided By Significant Other,Medical Record Prior Living Arrangements Mobile home Household Members none Type of transporation used prior to Drives own vehicle admit Independent with ADL's Yes Is patient alert and oriented? Yes Patient/Family Preference Home with Home Health Barriers to Discharge Yes Comment Currently patient requiring mod to max A with mobility using FWW w/PT, so rec is SNF Discharge Plan Home Transportation Arrangement Patient states spouse or Dtr can provide transport at d/c. Referrals Initiated None needed,Home Health Additional Comment Likely home w/family, and HH
[2022-07-13] MEDS: SODIUM CHLORIDE 0.9% 1,000 ML 60 ML IV (14:40)
--- NOTE | 2022-07-13 18:26 | PM.PN.1 ---
Subjective Subjective Date Patient Seen: 07/13/22 Interval history: Improved speech today, discussed with family and he is doing quite a bit better. He does have some lateral wall chest pain. They also report some cognitive decline over the past 6 months or so. They report they think he has not been taking his medications appropriately. Exam Vital Signs (past 8 hours): - 07/13/22 11:00 07/13/22 12:00 07/13/22 12:00 Temperature 97.1 F L Pulse Rate 63 Pulse Rate [Orthostatic Lying] 63 Pulse Rate [Orthostatic Sitting] 66 Pulse Rate [Orthostatic Standing] 76 Respiratory Rate 18 Blood Pressure 146/73 H Blood Pressure [Orthostatic Lying] 146/73 H Blood Pressure [Orthostatic Sitting] 151/93 H Blood Pressure [Orthostatic Standing] 141/78 H Pulse Oximetry 95 97 Oxygen Delivery Method Room Air Oxygen Flow Rate 0 0 07/13/22 15:00 07/13/22 16:00 Temperature Pulse Rate 64 Pulse Rate [Orthostatic Lying] Pulse Rate [Orthostatic Sitting] Pulse Rate [Orthostatic Standing] Respiratory Rate 16 Blood Pressure 162/82 H Blood Pressure [Orthostatic Lying] Blood Pressure [Orthostatic Sitting] Blood Pressure [Orthostatic Standing] Pulse Oximetry 97 98 Oxygen Delivery Method Room Air Oxygen Flow Rate 0 0 Oxygen Delivery Method Room Air Oxygen Flow Rate 0 Narrative Exam Narrative: General: Patient is a confused chronically ill-appearing male, who appears older than stated age, in no distress at this time. HEENT: Normocephalic, atraumatic, extraocular muscles intact, oral pharynx is clear and mucous membranes are dry. Neck is supple and symmetric, trachea is midline, no adenopathy Chest: Breathing without nasal flaring, retractions, tachypneic or labored breathing. Lungs: Auscultation of all lung contreras are clear without adventitious sounds, wheezes, rhonchi, or rales. Cardio: regular rate and rhythm without murmur, rubs, or gallops, no carotid bruit, no cardiac pulsations present. Abdomen: S NT ND Musculoskeletal: Muscle strength and tone appear equal within normal limits, no deformity, crepitus, effusions, cyanosis, clubbing or edema present. Full range of motion intact radial and pedal pulses are normal. Skin: Warm dry and intact without rashes, ulcerations or petechiae. Neuro: Alert and orientated to person and place, strength is +5/5 in all extremities, sensation to touch intact, no gross deficits noted of cranial nerves. Psych: calm and cooperative with stable behavior. Objective Labs Result Diagrams: 07/13/22 06:55 07/13/22 06:55 Labs: Laboratory Results - last 24 hr 07/12/22 07/12/22 07/12/22 16:40 16:40 17:37 WBC RBC Hgb Hct MCV MCH MCHC RDW Plt Count Neut % (Auto) Lymph % (Auto) [place] % (Auto) Eos % (Auto) Baso % (Auto) Neut # (Auto) Lymph # (Auto) [place] # (Auto) Eos # (Auto) Baso # (Auto) Sodium Potassium Chloride Carbon Dioxide BUN Creatinine Estimated GFR BUN/Creatinine Ratio Glucose Hemoglobin A1c Calcium Magnesium 2.1 NT-Pro-B Natriuret Pep 117 Triglycerides Cholesterol LDL Cholesterol, Calc HDL Cholesterol TSH Urine Color Yellow Urine Appearance Clear Urine pH 6.0 Ur Specific Stanton <=1.005 Urine Protein Negative Urine Glucose (UA) 3+ H Urine Ketones Negative Urine Occult Blood Negative Urine Nitrate Negative Urine Bilirubin Negative Urine Urobilinogen 0.2 Ur Leukocyte Esterase Negative Urine RBC None seen Urine WBC None seen Urine Bacteria None seen Ur Culture Indicated? Cult not indicated 07/13/22 07/13/22 07/13/22 06:55 06:55 06:55 WBC 8.5 RBC 5.00 Hgb 15.5 Hct 45.7 MCV 91.4 MCH 31.1 MCHC 34.0 RDW 15.3 H Plt Count 162 Neut % (Auto) 54.3 Lymph % (Auto) 32.9 [place] % (Auto) 7.6 Eos % (Auto) 4.6 H Baso % (Auto) 0.6 Neut # (Auto) 4600 Lymph # (Auto) 2800 [place] # (Auto) 600 Eos # (Auto) 400 Baso # (Auto) 100 Sodium 137 Potassium 3.7 Chloride 102 Carbon Dioxide 26 BUN 15 Creatinine 0.86 Estimated GFR > 60 BUN/Creatinine Ratio 17.4 Glucose 246 H D Hemoglobin A1c > 14.0 H Calcium 8.2 L Magnesium 2.0 NT-Pro-B Natriuret Pep Triglycerides 659 H Cholesterol 225 H LDL Cholesterol, Calc TNP HDL Cholesterol 30 L TSH Urine Color Urine Appearance Urine pH Ur Specific Stanton Urine Protein Urine Glucose (UA) Urine Ketones Urine Occult Blood Urine Nitrate Urine Bilirubin Urine Urobilinogen Ur Leukocyte Esterase Urine RBC Urine WBC Urine Bacteria Ur Culture Indicated? 07/13/22 06:55 WBC RBC Hgb Hct MCV MCH MCHC RDW Plt Count Neut % (Auto) Lymph % (Auto) [place] % (Auto) Eos % (Auto) Baso % (Auto) Neut # (Auto) Lymph # (Auto) [place] # (Auto) Eos # (Auto) Baso # (Auto) Sodium Potassium Chloride Carbon Dioxide BUN Creatinine Estimated GFR BUN/Creatinine Ratio Glucose Hemoglobin A1c Calcium Magnesium NT-Pro-B Natriuret Pep Triglycerides Cholesterol LDL Cholesterol, Calc HDL Cholesterol TSH 3.14 Urine Color Urine Appearance Urine pH Ur Specific Stanton Urine Protein Urine Glucose (UA) Urine Ketones Urine Occult Blood Urine Nitrate Urine Bilirubin Urine Urobilinogen Ur Leukocyte Esterase Urine RBC Urine WBC Urine Bacteria Ur Culture Indicated? [facility] Medical History (Updated 07/13/22 @ 03:14 by ADRIENNE Christensen-NAYELI) Chronic back pain Depression Diabetes Essential hypertension Hyperlipidemia associated with type 2 diabetes mellitus Hypertension Knowledge deficit on spinal cord stimulator Surgical History (Updated 07/13/22 @ 03:14 by JENNIFER Christensen) Back pain with history of spinal surgery Social History marital status: household members: none lives independently: Yes Smoking Status: Never smoker alcohol intake: never Assessment & Plan Assessment & Plan narrative: Сергей Montano is a 66-year-old male with a history of 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 Patient admitted for altered mental status stroke verses hyperglycemia. 1. acute metabolic encephalopathy in setting of likely chronic dementia, acute, present on admission -suspect this is likely secondary to hyperglycemia with a glucose of >500 on admit secondary to uncontrolled type 2 diabetes. -stroke rule out-NIH:1 on admit, unable to perform MRI given spinal stimulator. Unclear if this represents an acute CVA at this time so will manage as such as he likely needs prevention measures given his diabetes anyway. -Continue Plavix, ASA, Lipitor -NIH Qshift-continue to monitor for signs and symptoms of stroke -Echo with LVH, no shunt, EF was normal. -continue tele -infectious workup unremarkable. 2. Hyperglycemia in the setting type 2 diabetes uncontrolled on orals, with complications, peripheral neuropathy, acute on chronic, present on admission? -Complication: Left 3rd toe diabetic foot amputation, due to osteomyelitis, MSSA Culture in the past. -admitting blood sugar 539 -patient admitted under diabetic protocols -holding Jardiance, glyburide, and metformin -A1c > 14. -NS at 60 cc/HR for HHS was continued. Now stopped. -Increase to 30 Units lantus. Patient was not compliant likely with home therapies, possibly due to cognitive decline. -placed on sliding scale -dietary consult: Regarding uncontrolled diabetes -will likely need additional resources at home for DM control. -hypertriglyceridemia also likely due to lack of insulin. Should improve with treatment, but recommend repeat lipids in a few months with PCP. 3. Hypertension, essential, chronic, present on admission -admitting BP 148/72 -continue fenofibrate, lisinopril 4. Depression, chronic, present on admission -continue duloxetine 6. Hyperlipidemia, secondary to type 2 diabetes, chronic, present on admission -holding lovastatin, patient placed on Lipitor while in hospital 7. Chronic back pain, with spinal stimulator placement, poorly managed, chronic, present on admission -patient unable identify type of stimulator, or who placed it, was able to communicate that he had lost the control or for his stimulator somewhere in [place]. Code status:Full Surrogate decision maker: Michelle ZARCO PCR:Negative DVT/VTE prophylaxis: Lovenox and SCDs Disposition: likely discharge home in 1-2 days. Time Spent With Patient Critical Care time: I spent a total of [] minutes of critical care time on this patient's care today; this time is exclusive of procedural time. Quality VTE Deep Vein Thrombosis/Pulmonary Embolism Present on Admission: No
[2022-07-13] MEDS: INSULIN GLARGINE 100 UNIT/ML 3ML PEN 30 UNIT SUBCUT (21:15)
[2022-07-14] VITALS (7 sets, daily range): BP systolic 132–183; BP diastolic 68–99; PULSE 63–90; RESP 16–17; TEMP 35.7–36.2; O2SAT 95–97
[2022-07-14] MEDS: SODIUM CHLORIDE 0.9% 1,000 ML 60 ML IV (04:41)
[2022-07-14 06:17] LABS: Add Manual Diff / Slide Review NO; Basophils Absolute Auto 100 /uL (0-100); Basophils Percent Auto 0.7 % (0-2); Eosinophils Absolute Auto 300 /uL (0-450); Eosinophils Percent Auto 3.9 % (2-4); Hematocrit 46.5 % (41-53); Hemoglobin 15.7 g/dL (13.5-17.5); Lymphocytes Absolute Auto 2900 /uL (1100-4500); Lymphocytes Percent Auto 33.8 % (25-40); Mean Corpuscular HGB Conc 33.8 % (30-36); Mean Corpuscular Hemoglobin 31.3 PG (26-34); Mean Corpuscular Volume 92.6 fL (80-100); Monocytes Absolute Auto 700 /uL (0-900); Neutrophils Absolute Auto 4600 /uL (1500-7000); Neutrophils Percent Auto 53.6 % (50-75); Platelet Count 167 X10^3/uL (150-400); Red Blood Cell Count 5.02 X10^6/uL (4.5-5.9); Red Cell Distribution Width 15.3 % (11.6-14.8); White Blood Cell Count 8.6 X10^3/uL (4.5-11.0)
[2022-07-14 06:23] LABS: BUN Creatinine Ratio 18.2 (6-22); Blood Urea Nitrogen 16 mg/dL (9-20); Calcium 8.3 mg/dL (8.4-10.2); Carbon Dioxide 24 mmol/L (22-32); Chloride 105 mmol/L (98-107); Estimated Glomerular Filt Rate > 60 mL/min (>60); Glucose 199 mg/dL (80-110); HEMOLYSIS < 15 (0-50); Magnesium 1.8 mg/dL (1.6-2.3); Potassium 3.6 mmol/L (3.4-5.1); Sodium 137 mmol/L (137-145)
[2022-07-14] MEDS: INSULIN LISPRO 100 UNIT/ML 3ML VIAL SUBCUT ×2 (08:20→12:12)
[2022-07-14] MEDS: FENOFIBRATE, MICRONIZED 67 MG CAPSULE 201 MG PO (08:30)
[2022-07-14] MEDS: ENOXAPARIN 40 MG/0.4 ML SYRINGE SUBCUT (08:30)
[2022-07-14] MEDS: ATORVASTATIN 20 MG TABLET 40 MG PO (08:31)
[2022-07-14] MEDS: CLOPIDOGREL 75 MG TABLET PO (08:31)
[2022-07-14] MEDS: GABAPENTIN 600 MG TABLET PO ×2 (08:31→14:08)
[2022-07-14] MEDS: ASPIRIN EC 81 MG TABLET PO (08:36)
--- NOTE | 2022-07-14 10:57 | DIET.CONS ---
Dietary Consultation Note Admission Date: 07/12/2022 18:17 Assessment: 66y M admitted for possible stroke with hyperglycemia (>500 on admission, A1c >14) referred to nutrition for the same. RD spoke c pt at bedside this morning. Pt with some ongoing cognitive impairment, however, pt able to give rough outline of habits to RD for review. Pt lives alone in his trailer with pet sandra. Pt is , but lives in [place] with son, not with pt. Pt states he will stay with that family after d/c until stronger at which point he prefers to live alone. Usual Day: B: ramen L: 3 eggs D: meat and one Elias Light beer Lily: watermelon water though RD suspects this is [place] Watermelon drink which is high in added sugars r/t hyperglycemia Pt does all own grocery shopping. Pt states he was dx c DM2 20y ago, takes DM meds daily but has not checked BG in a long time. Pt DM Rx include: glimeperide 2mg daily metformin 1,000mg bid Januvia 100mg daily Pt endorses polydipsia and polyuria. Pts triglycerides elevated at 659 which may indicate high intake sugar sweetened beverages or etoh. RD unable to provide meaningful education to pt due to mental status, pt would benefit from home health for meal oversight and BG management help, pt would benefit from initiation of insulin therapy, however, pt unsafe to manage on own unless mental status greatly improves. Ht: 167.64 cm Wt: 86.2 kg BMI: 30.9 ) MNA: Bharat Score: 21 Diet: 07/12/22 Breakfast Carbohydrate Consistent Diet Diet Modifications: Carbohydrate level: Small (2 CHO) Bedtime snack: Yes Nutrition Percent Meal Consumed 100% 07/14/22 09:01 Percent Meal Consumed 100% 07/13/22 09:17 Labs: RBC 5.02 X10^6/uL (4.5-5.9) 07/14/22 05:34 Hgb 15.7 g/dL (13.5-17.5) 07/14/22 05:34 Hct 46.5 % (41-53) 07/14/22 05:34 Creatinine 0.88 mg/dL (0.66-1.25) 07/14/22 05:34 Hemoglobin A1c > 14.0 % (4.0-6.0) H 07/13/22 06:55 NT-Pro-B Natriuret Pep 117 pg/mL (<125) 07/12/22 16:40 Nutrition Diagnosis: 1. altered nutrition related laboratory values (A1c, BG) r/t undesirable food choices aeb pt with A1c >14, admit BG >500, pt reports drinking watermelon drink that likely high in added sugars, pt lives alone with low intake dietary fiber, high intake refined carbs. [facility]: [facility] for assistance with meal prep and DM med management, pt likely to benefit from insulin therapy. Electronically Signed by: Dorys Nolasco 07/14/22 10:57 Clinical [address] [address]
--- NOTE | 2022-07-14 11:08 | ST.IPTN ---
Visit Care Team Role Provider Type Paulino Saucedo MD Primary Care Provider Non-Staff Address: [address] , [place], [address] Niki Grant DO Emergency Provider Physician Referring Provider Address: [address] [place] [address], [address] Joe Nava DO Admit Provider Physician Attending Provider Address: [address] [place] [address], [id number] RATING SPECIALIST Treatment Note RATING SPECIALIST Treatment Note Start: 07/13/22 13:58 Freq: Status: Active Protocol: Document 07/14/22 10:49 BELL (Rec: 07/14/22 11:08 BELL [id number]) Speech Pathology Treatment Note Session Time Visit Start Time 10:10 Visit Stop Time 10:30 Total Visit Minutes 20 Setting Treatment Setting Acute Care Visit Type Note Type Re-Evaluation General Information Patient History Сергей Montano is a 66-year- old male with a history of 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 Head CT was negative for any intracranial processes, patient unable to undergo an MRI due to spinal stimulator. Patient is confused, unable to accurately answer questions , incoherent thought process, unable to obtain appropriate HPI, ROS, family history or medication reconciliation during admit exam. Patient is in no distress, unable to perform NIH accurately but no facial droop weakness appreciated upon exam. Patient's glucose on admit 539 -suspect hyperglycemia to be the cause of patient's confusion. Urine is positive for glucose. Subjective Identification Type Name,ID Wristband Observations/Patient Presentation Pt is in his room, reclined in bed, watching TV. According to records reviewed pt's family reported that pt has been demonstrating cognitive decline/dementia over the past 6 months or so. They also noted that pt has not been taking his medications as prescribed for some time. Chief Complaint(s) Cognitive Patient Knowledge/Awareness of RATING SPECIALIST Role Poor in Treatment Objective Short Term Goals 1. ST to re-evaluate pt as status improves 2. Pt to improve orientation and awareness of situation with minimal assistance as pt status improves Treatment Activities Pt was more alert and responsive today. Improved orientation today from yesterday. When asked where he was he stated [place] and then said the state was [place]. He quickly self- corrected to say the state was [place]. He initially reported the month a being August, but self-corrected and stated it is June. Pt needed a verbal cue to accurately state the day (i.e. , Yesterday was Tuesday). Short term memory remains impaired, unable to immediately recall 5 words ( he was able to remember 2 of 5 ). Recommend discharge to Skilled rehab facility, or if SNF not possible, home with Home Health. Assessment Patient Response to Treatment Good Rehab Potential Fair Impairments Identified Cognitive communication Progress Towards Goals Slow Progress Assessment of Overall Progress Improving Plan Comment daily while inpatient
--- NOTE | 2022-07-14 11:46 | PT.IPTN ---
Physical Therapy Treatment Note M2 PT-IP Current Condition Start: 07/13/22 13:26 Freq: NEEDED Status: Active Protocol: Document 07/13/22 11:36 AB (Rec: 07/13/22 13:39 AB [id number]) Physical Therapy Current Condition Current Condition Evaluation Date 07/13/22 Treatment Diagnosis altered mental status; r/o CVA ; difficulty in walking Onset Date 07/12/22 M3 PT-IP Subjective Start: 07/13/22 13:26 Freq: NEEDED Status: Active Protocol: Document 07/14/22 11:29 KS (Rec: 07/14/22 12:39 KS [id number]) Subjective Physical Therapy Visit Type Type Treatment Note Visit Start Time 11:29 Visit Stop Time 11:46 Total Visit Minutes 17 Notes BP Sitting EOB: 177/99 Standin/74 (feeling foggy) Number of SALON DESIGNER Visits 1 Physical Therapy Visit Comments Patient Comments agreable to do PT M4 PT-IP Mobility and Gait Start: 07/13/22 13:26 Freq: NEEDED Status: Active Protocol: Document 07/14/22 11:29 [place] (Rec: 07/14/22 12:39 [place] [id number]) PT-Bed Mobility Assessment Supine to Sit Supine to Sit Standby Assistance Sit to Supine Sit to Supine Standby Assistance Scooting Scooting to Edge of Bed Standby Assistance PT-Transfer Assessment Sit to and From Stand Sit to and from Stand Contact Guard Assistance,1 Person Assistance,Use of Upper Extremities Equipment Transfer Assistive Device Gait Belt,Front Wheeled Walker Orthotic/Prosthetic Devices or Brace: No Transfers Transfer Destination Bed Transfer Technique ambulated Transfer Ability Level of Assist Contact Guard Assistance, Minimal Assistance,1 Person Assistance,Use of Upper Extremities Comments Mobility Comments Pt in bed upon arrival and agreeable to mobilize. Very impuslively sat EOB and required cues to wait to stand up. Pt does not want to use FWW and ambulated ~20 ft w/o AD Min A and presented w/ unsteady gait. He then ambulated additional 40 ft w/ FWW CGA to Min A w/ improved balance but remains unsteady and impulsive and requiring FWW mgmt cues - increased risk of falls. Pt returned to bed. DIRECTOR FACILITIES MAINTENANCE arrived for BP readings - 177/99 sitting EOB, 144/74 standing and pt denied dizziness but did admit his head felt foggy. SBA for return to supine. Gait Assessment Gait Gait Assistance Required: Contact Guard Assist,Minimum Assistance,1 Person Assist Distance (Feet) 50 Able to Maintain Weight Bearing Status Yes During Gait Assistive Devices Assistive Device Gait Belt,Front Wheeled Walker Orthotic/Prosthetic Devices or Brace: No Gait Deviations General Gait Pattern Antalgic,Decreased Stride Length,Decreased Feet Clearance,Step-to Gait Factors Limiting Gait Function Factors Limiting Gait Function Decreased Activity Tolerance, Decreased Strength,Difficulty Following Directions,Limited Range of Motion,Poor Balance, Poor Safety Awareness Comments Gait Comments Please refer to mobility section for details. Pt has increased risk for falling, not safe to ambulate w/o assistance. Stair Climbing Assessment Comments Stair Climbing Comments Did not assess - pt states no stairs at wifes house and reports he is able to stay there however typically they live separately. PT-Balance Assessment Sitting Balance and Reactions Static Sitting Balance Ability Good Dynamic Sitting Balance Ability Good Standing Balance and Reactions Static Standing Balance Ability Fair Dynamic Standing Balance Ability Poor Device Used FWW M5 PT-IP Objective Assessments Start: 07/13/22 13:26 Freq: NEEDED Status: Active Protocol: Document 07/13/22 11:36 AB (Rec: 07/13/22 13:39 AB [id number]) Orientation Orientation/Cognition Level of Alertness Alert Orientation Name Safety Awareness Decreased Safety Awareness Memory Description Short Term Impaired Gross Range of Motion Lower Extremity ROM Assessment Within Functional Limits Strength Lower Extremity Strength Assessment Right Impaired Hip 3+/5 Knee 3+/5 Muscle Tone Muscle Tone WNL Yes M6 PT-IP Treatment Start: 07/13/22 13:26 Freq: NEEDED Status: Active Protocol: Document 07/14/22 11:29 [place] (Rec: 07/14/22 12:39 [place] [id number]) Physical Therapy Treatment Education Education Provided Safety M7 PT-IP Assessment and Plan Start: 07/13/22 13:26 Freq: NEEDED Status: Active Protocol: Document 07/14/22 11:29 [place] (Rec: 07/14/22 12:39 [place] [id number]) PT Summary Assessment and Plan Potential Rehabilitation Potential Fair Summary Impairments Pain,ROM,Strength,Balance, Coordination,Sensation,Tone, Cognition,Bed Mobility, Transfers,Gait,Activity Tolerance Progress Towards Goals Slow Progress due to Medical Issues Assessment Summary Pt requiring less assist today , however remains high fall risk due to poor balance and impulsivity. CGA to Min A w/ FWW w/ frequent safety cues and FWW mgmt. Pt lives alone at baseline, unclear if he can stay with his as reported. At this time, he is not safe to ambulate alone and would at least need 24/7 assist due to high fall risk. If that is not a possibility, he will require SNF. Goals Bed Mobility Goal Independent Transfer Goal Standby Assistance,Front Wheeled Walker Gait Goal Standby Assistance,Front Wheel Walker Gait Distance 150 Other Goals up/down 2 steps without rails SBA Days to Meet Goals 10 Frequency of Treatment Frequency Of Treatment Once a Day Treatment Plan Physical Therapy Treatment Plan Bed Mobility Training,Transfer Training,Gait Training, Therapeutic Exercise,Balance Retraining,Discharge Planning, Hot or Cold Pack,Neuromuscular Re-ed,Coordination Retraining ,Manual Therapy Precautions Other Precautions falls Recommendations To Nursing Amount of Assist Needed 1 Person Assist Discharge Recommendations PT Discharge Recommendations Home with 24/7 Assist Available,Home Health,SNF Rehab Transportation Needs at Discharge Private Vehicle,Wheelchair/ Cabulance
--- NOTE | 2022-07-14 12:26 | CM.DPC ---
Addendum entered by Ade Guidry R.N. 07/14/22 15:28: Spoke to patient's daughter, Judit. She will leaf size picker patient at discharge, and patient will be staying with her on [facility]. Discussed home health services, they have no preferences upon any home health agencies. [facility] is on calendar for this week. Called Susannah at [facility], and faxed her over the face sheet, face to face, orders, H&P, and therapy notes. They will just need DC Summary. Gave agueda Sánchez nurse, daughter's phone number, for it will take he an hour to get here, and gave hospitalist the note. Original Note: DCP Cont: P.T. indicated that patient needs some assist when going home. Did see patient walk to the rest room with his FWW. Patient does live in a trailer, not with spouse. Attempted to reach patient's spouse, Michelle Santos, but her phone is not taking messages. Patient indicated, can call his son, Randy Lieberman. His phone number is: [phone]. Did reach son, Randy. Stated that patient lives in a trailer on his property in [place], spouse is next door. He also gave his daughter, Judit's phone number. Her number is: [phone]. Son indicated, he should be able to stay with his spouse, or daughter. He will reach out to other family members to see if he will stay wih spouse versus daughter. Mentioned that patient may benefit with home health as well. If patient is medically ready for discharge today, can contact him. He indicated that patient is his step father. He also mentioned that patient's may be driving, which is why she is not taking calls at this time. P: DCP to continue to follow. Patient does have supportive family members at home, it is still undermined who he will be staying with at discharge. May also consider home health. Ade Guidry RN/Electrical Linesworker
--- NOTE | 2022-07-14 13:34 | OT.IP.EVAL ---
Past Medical History (Last Updated 07/13/22 @ 03:14 by Tamara Rosenthal [facility]) Chronic back pain Depression Diabetes Essential hypertension Hyperlipidemia associated with type 2 diabetes mellitus Hypertension Knowledge deficit on spinal cord stimulator Surgical History (Last Updated 07/13/22 @ 03:14 by Tamara Rosenthal [facility]) Back pain with history of spinal surgery Occupational Therapy Inpatient Evaluation/Re-Eval M1 PT/OT-IP Prior Functional Status Start: 07/13/22 13:26 Freq: NEEDED Status: Active Protocol: Document 07/14/22 13:37 [facility] (Rec: 07/14/22 14:03 [facility] [id number]) Medical Review Prior Functional Status Medical History Reviewed Yes Communication able to answer question but speech is unclear Mobility and Gait pt stated that he is independent with all mobilities and ambulation without AD Activities of Daily Living and IADL's Pt states able to care for himself prior for all ADl and IADL needs without a device. Pt states also was able to drive. Prior Functional Level (Other details) Information on home set-up based on 's house in which pt plans to live with initially. Social History Household Members spouse,none Living Arrangements House Number of Stairs To Enter/Railing? Pt's spouse house has no steps to enter. Home Environment Standard Height Toilet,Walk in Shower Home Equipment Front Wheel Walker,Straight Cane,Shower Seat with Backrest ,Hand Held Shower,Grab Bars Near Toilet,Grab Bars In Shower Additional Social History Comment Pt plans to go to his 's house to live with initially. M2 OT-IP Current Condition Start: 07/14/22 13:37 Freq: Status: Active Protocol: Document 07/14/22 13:37 [facility] (Rec: 07/14/22 14:03 [facility] [id number]) Occupational Therapy Current Condition Current Condition Evaluation Date 07/14/22 Treatment Diagnosis altered mental status, r/o CVA Diagnosis Onset Date 07/12/22 M3 OT- IP Subjective and Pain Start: 07/14/22 13:37 Freq: Status: Active Protocol: Document 07/14/22 13:37 [facility] (Rec: 07/14/22 14:03 [facility] [id number]) OT- Subjective Occupational Therapy Visit Type Type Initial Evaluation Visit Start Time 13:08 Visit Stop Time 13:34 Total Visit Minutes 26 Occupational Therapy Visit Comments Patient Comments Pt agreed to get up for OT eval. Patient/Caregiver Goals To go home. OT Pain Assessment Pain When Pain Assessed At Rest Pain Present Pain Present Pain Reported Location Left Ribs Intensity 10 Scale Used Numeric (0 - 10) M4 OT- IP ADL's Start: 07/14/22 13:37 Freq: Status: Active Protocol: Document 07/14/22 13:37 [facility] (Rec: 07/14/22 14:03 [facility] [id number]) OT JEV-Pkoy-Tgfexza Devices Self-Feeding Devices Plate Guard Comments OT Self-Feeding Comments NOt at meal time. OT ADL-Grooming Comments OT Grooming Comments Pt refusing. OT ADL-Oral Care Comments Oral Care Comments Pt refused as pt states has no teeth. Suggested would still be good to rinse out his mouth , pt still not wanting to do any oral care needs. OT ADL-Dressing General Eval Lower Body Dressing Ability Standby Assistance Areas Needing Assistance Shoes Comments OT Dressing Comments Pt able to put in his shoes while seated with increased time and CGA for balance when leaning forwards. OT ADL-Toileting General Evaluation Toileting Ability Minimal Assistance Areas Needing Assistance Manage Clothing Comments OT Toileting Comments KAYLA to help put on his brief over his shoes. Pt was incontinent, brief was wet and still having to use the bathroom. OT ADL-Bathing Comments OT Bathing Comments Pt refusing to shower at this time. M5 OT- IP IADL's Start: 07/14/22 13:37 Freq: Status: Active Protocol: Document 07/14/22 13:37 [facility] (Rec: 07/14/22 14:03 [facility] [id number]) OT-Instrumental Activities of Daily Living Deficits IADL Deficits Identified Deficits Home Safety Awareness Awareness of Need for Assistance at Home Decreased Awareness Ability to Problem Solve Emergency Able to Problem Solve Situations Home Safety Comments Pt is a bit impulsive and decreased safety awareness and would benefit from 24/ available assist at home for his safety for ADL,IADL, and mobility needs. Medication Management Medication Management Comments At this time concerns for pt's ability to perform safely, suggest pt to have assist. Money Management Money Management Comments At this time concerns for pt's ability to perform safely, suggest pt to have assist. Meal Preparation Meal Preparation Comments At this time concerns for pt's ability to perform safely, suggest pt to have assist. Latex Foam Worker Latex Foam Worker Comments At this time concerns for pt's ability to perform safely, suggest pt to have assist. Driving Driving Concerns Identified Regarding Safety Driving Comments Pt is well aware that he is not safe to drive at this time . M6 OT- IP Functional Cognition Start: 07/14/22 13:37 Freq: Status: Active Protocol: Document 07/14/22 13:37 [facility] (Rec: 07/14/22 14:03 [facility] [id number]) Cognitive Factors Limiting Selfcare Function Cognitive Ability Level of Alertness Alert Patient Orientation Name,Place,Situation Attention Span Ability Capable of Focused Attention, Capable of Sustained Attention Ability to Follow Commands Able to Follow One Step Commands Memory Description Working Impaired Safety Awareness Underestimates Need for Assistance Executive Function Ability Unable to Organize Plans Cognitive Comments Cognitive Assessment Comments Pt able to answer home safety situations with increased time . Pt a bit impulsive and decreased safety awareness for ADL needs as insisting on standing to [place] his brief and putting on his shoes. Pt needing cues to sit down due to decreased dynamic balance at this time. Attempted to do [place] Making A with the pt and needing increased time to find and numbers in sequence and at times missing some numbers. Suggested no driving at this time and pt agreed but also states plans to drive when feeling better. OT- Vision and Hearing OT- Hearing Assessment OT- Hearing Assessment WFL OT- Vision Assessment Visual Acuity WFL Visual Attentiveness WFL Occular Pursuits WFL Visual Convergence WFL Visual Fay WFL Diplopia Absent M7 OT- IP Mobility and Balance Start: 07/14/22 13:37 Freq: Status: Active Protocol: Document 07/14/22 13:37 [facility] (Rec: 07/14/22 14:03 [facility] [id number]) OT- Bed Mobility Assessment Supine to Sit Supine to Sit Assist Independent Sit to Supine Sit to Supine Assist Independent OT-Transfer Assessment Sit to and From Stand Sit to and from Stand Standby Assistance Transfers Transfer Ability Standby Assistance Technique Transfer Destination Bed,Chair,Toilet Transfer Technique Stand Step Pivot Devices Transfer Assistive Devices None Comments Mobility Comments Pt able to do be mobility independently on his own and SBA in the room with no device . Pt however had his shoes on. OT- Balance Assessment Sitting Balance and Reactions Static Sitting Balance Ability Normal Dynamic Sitting Balance Ability Good Standing Balance and Reactions Static Standing Balance Ability Fair Dynamic Standing Balance Ability Poor M8 OT- IP Objective Assessments Start: 07/14/22 13:37 Freq: Status: Active Protocol: Document 07/14/22 13:37 [facility] (Rec: 07/14/22 14:03 [facility] [id number]) OT Gross Range of Motion Upper Extremity Range of Motion ROM Impairments groosly WFL L>R OT Strength Upper Extremity Strength Assessment Right Impaired Comments Strength Comments RUE 4-/5 to 4/5 LUE 4/5 to 4+/5 OT- Coordination Assessment Upper Extremity Finger to Nose Test Within Functional Limits Comments Coordination Comments Pt decreased for diadochokinesis right hand lagging behind. OT-Muscle Tone Assessment Muscle Tone WNL Yes OT Sensation Assessment Location Right Upper Extremity Light Touch Intact/Normal Deep Pressure Intact/Normal Left Upper Extremity Light Touch Intact/Normal Deep Pressure Intact/Normal Comments Summary Comments RUE pt states feels numb during light touch. Edema Edema Absent M9 OT- IP Assessment and Plan Start: 07/14/22 13:37 Freq: Status: Active Protocol: Document 07/14/22 13:37 [facility] (Rec: 07/14/22 14:03 [facility] [id number]) OT Summary Assessment and Plan Potential Rehabilitation Potential Good Analytic Complexity at Evaluation Moderate Summary OT Impairments Pain,Balance,Coordination, Sensation,Functional Cognition ,Functional Mobility,Dressing, Toileting,Bathing,Toilet Transfers,Shower Transfers Progress Towards Goals Slow Progress due to Pain,Slow Progress due to Medical Issues,Slow Progress due to Cognition Assessment Summary Pt MOD complexity and main barriers are decreased dynamic balance, coordination for right hand, decreased initiation at times for pt , decreased safety awareness, and decreased executive functioning. Pt would benefit from home health and to have 24/7 assist at home due to pt is a bit impulsive, poor safety awareness, and dynamic balance at this time. Pt aware his is not thinking as well at this time and knows not to drive. Goals Self-Feeding Goal Independent Grooming Goal Independent Dressing Goal Independent Toileting Goal Independent Bathing Goal Independent Toilet Transfer Goal Independent Shower Transfer Goal Independent Days to Meet Goals 10 Frequency of Treatment Frequency Of Treatment Once a Day Treatment Plan OT Treatment Plan ADL Training,Functional Cognition Training,Functional Mobility,Patient/Family Education,Discharge Planning Other Treatment Recommendations and Next shower Treatment Focus Discharge Recommendations OT Discharge Recommendations Home with 24/7 Assist Available,Home Health Transportation Needs at Discharge Private Vehicle
[2022-07-14] MEDS: ACETAMINOPHEN 325 MG TABLET 975 MG PO (14:07)
--- NOTE | 2022-07-14 15:39 | PM.DS.1 ---
History of Present Illness History of Present Illness Date Patient Seen: 07/14/22 Chief complaint: Thinks poss. 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 Last known well is unknown.? Daughter who is at bedside states that she has not seen him for about a week and half, his saw him maybe 2 days ago.? He has had difficulty ambulating and walking some difficulty finding words and speech is sometimes slurred.? He is able to answer questions and follow commands but overall a poor historian.? Patient has a back stimulator for chronic back pain, which I was able to discern that he has lost the controller in [place]. ED workup essentially ruled out stroke,NIH:0, normal exam, Head Neck CTA was negative for any intracranial processes, Head CT was negative for any intracranial processes, patient unable to undergo an MRI due to spinal stimulator. Patient is confused, unable to accurately answer questions, incoherent thought process, unable to obtain appropriate HPI, ROS, family history or medication reconciliation during admit exam. On admit temp 98.5?, BP 148/72, HR 67, R 18, O2 saturation 96% on room air. Patient is in no distress, unable to perform NIH accurately but no facial droop weakness appreciated upon exam. Patient's glucose on admit 539-suspect hyperglycemia to be the cause of patient's confusion. Urine is positive for glucose no signs of UTI, troponins negative, chest x-ray demonstrates low lung volumes possible fluid overload/CHF-BNP normal. EKG demonstrates sinus rhythm of 67 without BBB, there is a T-wave inversion in leads V2/V3 this is new from prior EKG. Admitting patient for possible stroke versus altered mental status due to hyperglycemia. Discharge Providers Provider Date of admission: 07/12/22 18:17 Discharge Date: 07/14/22 Primary care physician: Paulino Saucedo MD Consults: 07/12/22 19:41 Consult to Dietitian, Adult Urgent Comment: Reason For Exam: uncontrolled DM, BMI 31 07/12/22 19:50 Consult to Occupational Therapy Evaluate & Treat Comment: Physician Instructions: Evaluate and treat Consult to Physical Therapy Evaluate & Treat Comment: Physician Instructions: Evaluate and Treat Consult to Speech Therapy Evaluate & Treat Comment: Physician Instructions: Evaluate and treat 07/14/22 15:22 Consult to Home Health Routine Comment: Reason For Exam: Home Health RN, P.T, O.T. Discharge provider: Joe Nava DO Summary Hospital Course Discharge Diagnosis: Please see hospital course by problem list noted below. 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 He was found to have an acute encephalopathy, likely secondary to his hyperglycemia and in the setting of chronic dementia. It is possible an acute infarct occurred as well, however given his spinal stimulator MRI was unable to be performed. 1. acute metabolic encephalopathy in setting of likely chronic dementia, acute, present on admission -suspect this is likely secondary to hyperglycemia with a glucose of >500 on admit secondary to uncontrolled type 2 diabetes. -stroke rule out-NIH:1 on admit, unable to perform MRI given spinal stimulator. Unclear if this represents an acute CVA at this time so will manage as such as he likely needs prevention measures given his diabetes anyway. -Continued Plavix, ASA, Lipitor for possible secondary prevention as we are not able to definitively rule out an acute infarction. -Echo with LVH, no shunt, EF was normal. -infectious workup unremarkable. 2. Hyperglycemia in the setting type 2 diabetes uncontrolled on orals, with complications, peripheral neuropathy, acute on chronic, present on admission? -Complication: Left 3rd toe diabetic foot amputation, due to osteomyelitis, MSSA Culture in the past. -admitting blood sugar 539, A1c > 14. He was started on IV fluids for his hyperglycemia and encephalopathy. He improved quickly with insulin therapy and fluids, fluids were then stopped. -Increase to 30 Units lantus. Patient was not compliant likely with home therapies, probably due to cognitive decline. Recommend comprehensive medication review for him and his family to find ways to increase his compliance with home therapy. -hypertriglyceridemia also likely due to lack of insulin. Should improve with treatment, but recommend repeat lipids in a few months with PCP. 3. Hypertension, essential, chronic, present on admission -continued fenofibrate, lisinopril 4. Depression, chronic, present on admission -continued duloxetine 6. Hyperlipidemia, secondary to type 2 diabetes, chronic, present on admission -held lovastatin, patient placed on Lipitor while in hospital 7. Chronic back pain, with spinal stimulator placement, poorly managed, chronic, present on admission -patient unable identify type of stimulator, or who placed it, was able to communicate that he had lost the control or for his stimulator somewhere in [place]. Time Spent with Patient Time spent: Greater than 30 minutes Exam Vital Signs (past 8 hours): - 07/14/22 08:20 07/14/22 08:20 07/14/22 11:00 Temperature 96.3 F L Pulse Rate 70 Pulse Rate [Orthostatic Lying] Pulse Rate [Orthostatic Sitting] Pulse Rate [Orthostatic Standing] Respiratory Rate 17 Blood Pressure 132/68 Blood Pressure [Orthostatic Lying] Blood Pressure [Orthostatic Sitting] Blood Pressure [Orthostatic Standing] Pulse Oximetry 95 96 Oxygen Delivery Method Room Air Room Air Oxygen Flow Rate 0 07/14/22 11:28 07/14/22 11:00 07/14/22 15:00 Temperature 96.6 F L Pulse Rate 68 Pulse Rate [Orthostatic Lying] 70 Pulse Rate [Orthostatic Sitting] 78 Pulse Rate [Orthostatic Standing] 82 Respiratory Rate 16 Blood Pressure 148/80 H Blood Pressure [Orthostatic Lying] 132/68 Blood Pressure [Orthostatic Sitting] 177/99 H Blood Pressure [Orthostatic Standing] 144/74 H Pulse Oximetry 96 95 Oxygen Delivery Method Room Air Oxygen Flow Rate 0 07/14/22 15:00 Temperature Pulse Rate Pulse Rate [Orthostatic Lying] 68 Pulse Rate [Orthostatic Sitting] 73 Pulse Rate [Orthostatic Standing] 82 Respiratory Rate Blood Pressure Blood Pressure [Orthostatic Lying] 148/80 H Blood Pressure [Orthostatic Sitting] 147/78 H Blood Pressure [Orthostatic Standing] 135/80 Pulse Oximetry Oxygen Delivery Method Oxygen Flow Rate Oxygen Delivery Method Room Air Oxygen Flow Rate 0 Narrative Exam Narrative: General: Patient is a confused chronically ill-appearing male, who appears older than stated age, in no distress at this time. HEENT: Normocephalic, atraumatic, extraocular muscles intact, oral pharynx is clear and mucous membranes are dry. Neck is supple and symmetric, trachea is midline, no adenopathy Chest: Breathing without nasal flaring, retractions, tachypneic or labored breathing. Lungs: Auscultation of all lung contreras are clear without adventitious sounds, wheezes, rhonchi, or rales. Cardio: regular rate and rhythm without murmur, rubs, or gallops, no carotid bruit, no cardiac pulsations present. Abdomen: S NT ND Musculoskeletal: Muscle strength and tone appear equal within normal limits, no deformity, crepitus, effusions, cyanosis, clubbing or edema present. Full range of motion intact radial and pedal pulses are normal. Skin: Warm dry and intact without rashes, ulcerations or petechiae. Neuro: Alert and orientated to person and place, strength is +5/5 in all extremities, sensation to touch intact, no gross deficits noted of cranial nerves. Psych: calm and cooperative with stable behavior. Objective Labs Result Diagrams: 07/14/22 05:34 07/14/22 05:34 Labs: Laboratory Results - last 24 hr 07/14/22 07/14/22 05:34 05:34 WBC 8.6 RBC 5.02 Hgb 15.7 Hct 46.5 MCV 92.6 MCH 31.3 MCHC 33.8 RDW 15.3 H Plt Count 167 Neut % (Auto) 53.6 Lymph % (Auto) 33.8 [place] % (Auto) 8.0 Eos % (Auto) 3.9 Baso % (Auto) 0.7 Neut # (Auto) 4600 Lymph # (Auto) 2900 [place] # (Auto) 700 Eos # (Auto) 300 Baso # (Auto) 100 Sodium 137 Potassium 3.6 Chloride 105 Carbon Dioxide 24 BUN 16 Creatinine 0.88 Estimated GFR > 60 BUN/Creatinine Ratio 18.2 Glucose 199 H Calcium 8.3 L Magnesium 1.8 COUNTS INCLUDE 234 BEDS AT THE [facility] Medical History (Updated 07/13/22 @ 03:14 by JENNIFER Christensen) Chronic back pain Depression Diabetes Essential hypertension Hyperlipidemia associated with type 2 diabetes mellitus Hypertension Knowledge deficit on spinal cord stimulator Surgical History (Updated 07/13/22 @ 03:14 by JENNIFER Christensen) Back pain with history of spinal surgery Social History marital status: household members: spouse and none lives independently: Yes Smoking Status: Never smoker alcohol intake: never Discharge Plan Discharge Plan Patient Disposition: Home Provider Discharge Comment: You were admitted to the hospital with some confusion. Probably due to high blood sugar, you possibly also had a stroke, though MRI could not be performed. Please follow up with your PCP as soon as possible after hospitalization. Home health on discharge to assess home needs. Discharge orders & Medications Prescriptions: New clopidogrel 75 mg Tablet 75 mg PO DAILY 20 Days Qty: 20 0RF aspirin 81 mg Tablet,Delayed Release (Dr/Ec) 81 mg PO DAILY 30 Days Qty: 30 0RF atorvastatin 40 mg tablet 40 mg PO BEDTIME 30 Days Qty: 30 0RF Continued Jardiance 25 mg tablet 12.5 mg PO DAILY Label Comments: TAKE 1/2 (ONE-HALF) TABLET BY MOUTH ONCE DAILY insulin glargine [Lantus Solostar U-100 Insulin] 100 unit/mL (3 mL) insulin pen 25 unit SUBCUT BEDTIME Label Comments: INJECT 25 UNITS SUBCUTANEOUSLY NIGHTLY polymyxin B sulf-trimethoprim 10,000 unit- 1 mg/mL drops 1 drp EYE-LEFT Q4H Label Comments: INSTILL 1 DROP INTO AFFECTED EYE EVERY 4 HOURS gabapentin 600 mg tablet 600 mg PO TID Label Comments: TAKE 1 TABLET BY MOUTH THREE TIMES DAILY glimepiride 2 mg tablet 8 mg PO DAILY Label Comments: takes 2x 4mg tab/day metformin 1,000 mg tablet 1,000 mg PO BID Label Comments: TAKE 1 TABLET BY MOUTH TWICE DAILY WITH MEALS duloxetine 60 mg capsule,delayed release(DR/EC) 60 mg PO DAILY Label Comments: TAKE 1 CAPSULE BY MOUTH ONCE DAILY fenofibrate nanocrystallized 145 mg tablet 145 mg PO DAILY Label Comments: TAKE 1 TABLET BY MOUTH ONCE DAILY Januvia 100 mg tablet 100 mg PO DAILY Label Comments: TAKE 1 TABLET BY MOUTH ONCE DAILY Discontinued atorvastatin 20 mg tablet 20 mg PO DAILY Label Comments: TAKE 1 TABLET BY MOUTH ONCE DAILY Medication counseling provided by Pharmacist: Yes Follow up/Referrals: Paulino Saucedo MD [Primary Care Provider] - Diet/Activity/Treatments Diet: Diet as Tolerated and Carb-consistent/Diabetic Activity: As tolerated Visit Report/Discharge Packet Instructions: Strokes: Prevention (Alternative Therapy), Type 2 Diabetes, DI for Stroke-Ischemic, How to Prevent Falls Discharge Data Primary Care Provider: Paulino Saucedo Attending Provider: Joe Nava VTE Deep Vein Thrombosis/Pulmonary Embolism Present on Admission: No
== END 2022-07-14 17:06 | disposition home or self-care (01) ==
LOC: ED 16:31 → AC 18:17
PROVIDERS: Nurse Practitioner Family; Admitting Provider Internal Medicine; Emergency Provider Emergency Medicine; PCP Family Medicine Sports Medicine; Referring Provider Emergency Medicine; Visit Provider Internal Medicine
DX: R29.818 Other symptoms and signs involving the nervous system (principal); I10 Essential (primary) hypertension; Z79.84 Long term (current) use of oral hypoglycemic drugs; R29.700 NIHSS score 0; E11.42 Type 2 diabetes mellitus with diabetic polyneuropathy; G93.41 Metabolic encephalopathy; E78.5 Hyperlipidemia, unspecified; F32.A Depression, unspecified; M54.9 Dorsalgia, unspecified; G89.29 Other chronic pain; Z96.82 Presence of neurostimulator; Z20.822 Contact with and (suspected) exposure to COVID-19
CPT/HCPCS: 36415; 70450; 70496; 70498; 71045; 80048; 80053; 80061; 81001; 82550; 82962; 83036; 83690; 83735; 83880; 84443; 84484; 85025; 85610; 85730; 87635; 92507; 92523; 93005; 93306; 96360; 96361; 96372; 97162; 97166; 97530; 99284; C9803; G0378; J1650; J1815; Q9967

== ENCOUNTER 2022-12-21 14:37 | Inpatient (IN) | payer MEDICARE, OTHER, SELFPAY ==
[2022-07-12 18:40] VITALS: BMI 30.9
[2022-12-21] VITALS (16 sets, daily range): BP systolic 127–146; BP diastolic 69–76; PULSE 72–85; RESP 18; TEMP 36.4; O2SAT 91–100; BMI 29.3
--- NOTE | 2022-12-21 14:57 | DI.RAD.S_ITS ---
PROCEDURE: XR FOOT RT MIN 3V INDICATIONS: wound on second toe TECHNIQUE: 3 views of the foot were acquired. COMPARISON: [facility], CR, XR FOOT LT MIN 3V, 08/23/2020, 8:56. FINDINGS: Bones: Slight osteopenia along the lateral base of the 2nd distal phalanx. Soft tissues: No tibiotalar joint effusion. Achilles tendon appears normal. IMPRESSION: Slight osteopenia along the lateral base of the 2nd distal phalanx, concerning for early osteomyelitis. Dictated by: Charlie March M.D. on 12/21/2022 at 16:40 Approved by: Charlie March M.D. on 12/21/2022 at 16:41
[2022-12-21 15:11] LABS: Add Manual Diff / Slide Review NO; Basophils Absolute Auto 100 /uL (0-100); Eosinophils Absolute Auto 200 /uL (0-450); Eosinophils Percent Auto 1.4 % (2-4); Hematocrit 42.1 % (41-53); Hemoglobin 13.8 g/dL (13.5-17.5); Lymphocytes Absolute Auto 2200 /uL (1100-4500); Lymphocytes Percent Auto 16.7 % (25-40); Mean Corpuscular HGB Conc 32.8 % (30-36); Mean Corpuscular Hemoglobin 32.2 PG (26-34); Mean Corpuscular Volume 98.1 fL (80-100); Monocytes Absolute Auto 1300 /uL (0-900); Monocytes Percent Auto 10.2 % (3-14); Neutrophils Absolute Auto 9300 /uL (1500-7000); Neutrophils Percent Auto 70.7 % (50-75); Platelet Count 272 X10^3/uL (150-400); Red Blood Cell Count 4.29 X10^6/uL (4.5-5.9); Red Cell Distribution Width 13.2 % (11.6-14.8); White Blood Cell Count 13.2 X10^3/uL (4.5-11.0)
[2022-12-21 15:23] LABS: Alanine Aminotransferase 24 IU/L (<50); Albumin 4.3 g/dL (3.5-5.0); Albumin Globulin Ratio 1.1 (1.0-2.8); Alkaline Phosphatase 83 U/L (38-126); Aspartate Aminotransferase 29 IU/L (17-59); BUN Creatinine Ratio 22.7 (6-22); Bilirubin Total 0.6 mg/dL (0.2-1.3); Blood Urea Nitrogen 30 mg/dL (9-20); Calcium 9.1 mg/dL (8.4-10.2); Carbon Dioxide 28 mmol/L (22-32); Chloride 95 mmol/L (98-107); Estimated Glomerular Filt Rate 58 mL/min (>60); Globulin 3.8 g/dL (1.7-4.1); Glucose 138 mg/dL (80-110); HEMOLYSIS < 15 (0-50); Potassium 4.8 mmol/L (3.4-5.1); Sodium 131 mmol/L (137-145); Total Protein 8.1 g/dL (6.3-8.2)
--- NOTE | 2022-12-21 18:28 | ED_ITS ---
HPI - Wound/Laceration General Chief Complaint: Wound/Laceration Stated Complaint: 2nd toe on RT foot is putrid Time Seen by Provider: 12/21/22 18:03 Source: patient and family Mode of arrival: Ambulatory Limitations: no limitations History of Present Illness HPI narrative: Patient is a 67-year-old male. Is a zlu-gopyjge-sanqvlayo diabetic although patient's states that they do have insulin available that they give him occasionally specifically around times when his diet changes such as the holidays. He does have neuropathy. He is here for evaluation of discolored and red 2nd toe on his right foot. They were sent to the emergency department by home health. Unsure as to how long it has looked like this although the redness on the top of his foot was outlined by the home health nurse today. Patient states he does not feel any discomfort in this toe. His just learned about the discoloration today as well. The patient reports no ankle pain. He has had to have a toe amputated in the past because of infections secondary to his diabetes. He denies any fevers. Not currently on any antibiotics. Denies any trauma to his foot. Related Data Home Medications Medication Instructions Recorded Confirmed duloxetine 60 mg capsule,delayed 60 mg PO DAILY 08/23/20 12/21/22 release glimepiride 2 mg tablet 8 mg PO DAILY 08/23/20 12/21/22 metformin 1,000 mg tablet 1,000 mg PO BID 08/23/20 12/21/22 insulin glargine 100 unit/mL (3 25 unit SUBCUT BEDTIME 07/12/22 07/12/22 mL) subcutaneous pen (Lantus Solostar U-100 Insulin) aspirin 81 mg tablet,delayed 81 mg PO DAILY 11/24/22 12/21/22 release atorvastatin 40 mg tablet 40 mg PO DAILY 11/24/22 12/21/22 clopidogrel 75 mg tablet 75 mg PO DAILY 11/24/22 12/21/22 fenofibrate nanocrystallized 145 145 mg PO DAILY 11/24/22 12/21/22 mg tablet gabapentin 600 mg tablet 600 mg PO TID 11/24/22 12/21/22 lisinopril 5 mg tablet 5 mg PO DAILY 11/24/22 12/21/22 Previous Rx's Medication Instructions Recorded 4 wheel walker with seat #1 ea 11/24/22 Allergies Allergy/AdvReac Type Severity Reaction Status Date / Time codeine AdvReac Gastrointestinal Verified 11/24/22 12:42 Upset Review of Systems Constitutional Constitutional: Reports system reviewed and no additional complaints, except as documented Musculoskeletal Musculoskeletal: Reports system reviewed and no additional complaints, except as documented Integumentary/Breasts Skin/Breast: Reports system reviewed and no additional complaints, except as documented Neurologic Neurologic: Reports system reviewed and no additional complaints, except as documented Hematologic/Lymphatic On Anticoagulants: No Patient History Medical History Aphasia Chronic back pain Depression Diabetes Diabetic peripheral neuropathy associated with type 2 diabetes mellitus Essential hypertension Fall at home Gait instability Hypertension Knowledge deficit on spinal cord stimulator Type 2 diabetes mellitus without complication, with no history of insulin use Surgical History Back pain with history of spinal surgery Social History marital status: household members: spouse and none lives independently: Yes Smoking Status: Former smoker alcohol intake: never Smoking Status: Never smoker alcohol intake frequency: 0-2 drinks per day Substance Use Type: does not use and other Exam Initial Vital Signs Initial Vital Signs: Vital Signs Temperature 97.6 F 12/21/22 14:46 Pulse Rate 82 12/21/22 14:46 Respiratory Rate 18 12/21/22 14:46 Blood Pressure 144/72 H 12/21/22 14:46 Pulse Oximetry 100 12/21/22 14:46 Oxygen Delivery Method Room Air 12/21/22 14:46 HENMN Head: normal to inspection Cardio Pulses: dorsalis pedis present on the right Skin Other: Patient has redness on the dorsum of his right foot. Has a complete discoloration/black 2nd toe of his right foot. Neuro Other: Patient reports decreased/limited sensation to the toes of his right foot. Extrem Other: Second toe of right foot has obvious gangrene. Is foul-smelling. Course Orders Ordered: ED Orders 12/21/22 18:37 Consult to Orthopedic Surgery Stat Acetaminophen (Acetaminophen 325 Mg Tablet) 650 mg PO Q6H PRN PRN Reason: Fever/Mild Pain (1-3) Hydrocodone Bitart/Acetaminophen (Hydrocodone/Acet 5/325 Tablet) 1 tab PO Q4H PRN PRN Reason: Pain, Moderate (4-6) Atorvastatin Calcium (Atorvastatin 20 Mg Tablet) 40 mg PO DAILY [facility] Duloxetine HCl (Duloxetine 30 Mg Capsule) 60 mg PO DAILY [facility] Heparin Sodium (Porcine) (Heparin 5,000 Unit/Ml Vial) 5,000 unit SUBCUT BID [facility] Last Admin: 12/21/22 22:13 Dose: 5,000 unit Documented By: AKJemal Vancomycin HCl/Dextrose (Vancomycin) 1,500 mg in 300 mls @ 200 mls/hr IV Q24H [facility]1983 Ceftriaxone Sodium 2,000 mg/ (Sodium Chloride) 100 mls @ 200 mls/hr IV Q24H [facility] Sodium Chloride (Normal Saline 0.9%) 250 mls @ 21 mls/hr IV Q24H PRN PRN Reason: Flush Naloxone HCl (Naloxone 0.4 Mg/Ml Vial) 0.2 mg IV Q2MIN PRN PRN Reason: Opiate Reversal Ondansetron HCl (Ondansetron 4 Mg/2 Ml Inj) 4 mg IV Q8HR PRN PRN Reason: Nausea And Vomiting Sodium Chloride (Sodium Chloride 0.9% Flush) 10 ml IV PRN PRN PRN Reason: Flush Sodium Chloride (Sodium Chloride 0.9% Flush) 10 ml IV BID [facility] Vancomycin HCl (Vancomycin Per Pharmacy) 1 request [facility] Stop: 12/21/22 21:30 Discontinued Medications Sodium Chloride (Normal Saline 0.9%) 1,000 mls @ 125 mls/hr IV CONT [facility] Last Infusion: 12/21/22 21:11 Dose: 0 mls/hr Documented By: Admin: 12/21/22 18:41 Dose: 125 mls/hr Documented By: RB Vancomycin HCl (Vancomycin) 1,000 mg in 200 mls @ 200 mls/hr IV NOW ONE Stop: 12/21/22 19:27 Last Infusion: 12/21/22 20:33 Dose: 0 mls/hr Documented By: Admin: 12/21/22 19:20 Dose: 200 mls/hr Documented By: RB Ceftriaxone Sodium 1,000 mg/ (Sodium Chloride) 100 mls @ 200 mls/hr IV NOW ONE Stop: 12/21/22 18:29 Last Infusion: 12/21/22 19:17 Dose: 0 mls/hr Documented By: Admin: 12/21/22 18:40 Dose: 200 mls/hr Documented By: RB Ceftriaxone Sodium 1,000 mg/ (Sodium Chloride) 100 mls @ 200 mls/hr IV Q24H [facility] Vital Signs Vital signs: Vital Signs - 8 hr 12/21/22 19:00 12/21/22 19:30 Pulse Rate 81 76 Pulse Oximetry 98 98 MDM - Wound/Laceration Lab Data Attestation: I reviewed the patient's lab results. 12/21/22 15:02 12/21/22 15:02 Labs: Lab Results 12/21/22 12/21/22 12/21/22 Range/Units 15:02 15:02 15:02 WBC 13.2 H (4.5-11.0) X10^3/uL RBC 4.29 L (4.5-5.9) X10^6/uL Hgb 13.8 (13.5-17.5) g/dL Hct 42.1 (41-53) % MCV 98.1 (80-100) fL MCH 32.2 (26-34) PG MCHC 32.8 (30-36) % RDW 13.2 (11.6-14.8) % Plt Count 272 (150-400) X10^3/uL Neut % (Auto) 70.7 (50-75) % Lymph % (Auto) 16.7 L (25-40) % [place] % (Auto) 10.2 (3-14) % Eos % (Auto) 1.4 L (2-4) % Baso % (Auto) 1.0 (0-2) % Neut # (Auto) 9300 H (7815-3053) /uL Lymph # (Auto) 2200 (6529-5301) /uL [place] # (Auto) 1300 H (0-900) /uL Eos # (Auto) 200 (0-450) /uL Baso # (Auto) 100 (0-100) /uL ESR 42 H (0-15) MM/HR Sodium 131 L (137-145) mmol/L Potassium 4.8 (3.4-5.1) mmol/L Chloride 95 L (98-107) mmol/L Carbon Dioxide 28 (22-32) mmol/L BUN 30 H (9-20) mg/dL Creatinine 1.32 H (0.66-1.25) mg/dL Estimated GFR 58 L (>60) mL/min BUN/Creatinine Ratio 22.7 H (6-22) Glucose 138 H (80-110) mg/dL Calcium 9.1 (8.4-10.2) mg/dL Total Bilirubin 0.6 (0.2-1.3) mg/dL AST 29 (17-59) IU/L ALT 24 (<50) IU/L Alkaline Phosphatase 83 (38-126) U/L C-Reactive Protein (<1.0) mg/dL Total Protein 8.1 (6.3-8.2) g/dL Albumin 4.3 (3.5-5.0) g/dL Globulin 3.8 (1.7-4.1) g/dL Albumin/Globulin Ratio 1.1 (1.0-2.8) Procalcitonin (<0.5) ng/mL 12/21/22 Range/Units 15:02 WBC (4.5-11.0) X10^3/uL RBC (4.5-5.9) X10^6/uL Hgb (13.5-17.5) g/dL Hct (41-53) % MCV (80-100) fL MCH (26-34) PG MCHC (30-36) % RDW (11.6-14.8) % Plt Count (150-400) X10^3/uL Neut % (Auto) (50-75) % Lymph % (Auto) (25-40) % [place] % (Auto) (3-14) % Eos % (Auto) (2-4) % Baso % (Auto) (0-2) % Neut # (Auto) (2444-7015) /uL Lymph # (Auto) (7861-1267) /uL [place] # (Auto) (0-900) /uL Eos # (Auto) (0-450) /uL Baso # (Auto) (0-100) /uL ESR (0-15) MM/HR Sodium (137-145) mmol/L Potassium (3.4-5.1) mmol/L Chloride (98-107) mmol/L Carbon Dioxide (22-32) mmol/L BUN (9-20) mg/dL Creatinine (0.66-1.25) mg/dL Estimated GFR (>60) mL/min BUN/Creatinine Ratio (6-22) Glucose (80-110) mg/dL Calcium (8.4-10.2) mg/dL Total Bilirubin (0.2-1.3) mg/dL AST (17-59) IU/L ALT (<50) IU/L Alkaline Phosphatase (38-126) U/L C-Reactive Protein 7.9 H (<1.0) mg/dL Total Protein (6.3-8.2) g/dL Albumin (3.5-5.0) g/dL Globulin (1.7-4.1) g/dL Albumin/Globulin Ratio (1.0-2.8) Procalcitonin 0.32 (<0.5) ng/mL Imaging Data Extremity x-ray #1: Radiologist's Impression: PROCEDURE:? XR FOOT RT MIN 3V ? INDICATIONS:? wound on second toe ? TECHNIQUE:? 3 views of the foot were acquired.? ? COMPARISON:? [facility], CR, XR FOOT LT MIN 3V, 08/23/2020, 8:56. ? FINDINGS:? ? Bones:? Slight osteopenia along the lateral base of the 2nd distal phalanx. ? Soft tissues:? No tibiotalar joint effusion.? Achilles tendon appears normal.? ? ? IMPRESSION:? Slight osteopenia along the lateral base of the 2nd distal phalanx, concerning for early osteomyelitis.? MDM Narrative Medical decision making narrative: Patient has fairly obvious necrosis to the 2nd toe of his right foot with what appears to be cellulitic changes to the dorsum of the foot. He is limited sensation in this area. X-ray concerning for osteo. Patient started on antibiotics. Cultures obtained. Discussed the case with Dr. Fleming on-call with orthopedics who recommended a MRI. Discussed the case with Dr. Radford on-call for Hospital Medicine who will admit. The request for MRI was relayed to admitting provider. Discussed the need for admission with the patient and at bedside. They expressed understanding and agreement. Discharge Plan Departure Patient Disposition: Admitted As Inpatient Clinical Impression: Osteomyelitis, Cellulitis Admit Date/Time: 12/21/22 19:40 Admit Provider: Janusz Radford
[2022-12-21] MEDS: cefTRIAXone 1,000 MG in SODIUM CHLORIDE 0.9% 100 ML 200 MG IV (18:40)
[2022-12-21] MEDS: SODIUM CHLORIDE 0.9% 1,000 ML 125 ML IV (18:41)
[2022-12-21 18:47] LABS: C-Reactive Protein Quant 7.9 mg/dL (<1.0)
[2022-12-21 18:55] LABS: Erythrocyte Sedimentation Rate 42 MM/HR (0-15)
[2022-12-21 19:01] LABS: Procalcitonin 0.32 ng/mL (<0.5)
[2022-12-21] MEDS: VANCOMYCIN 1,000 MG/200 ML PIGGYBACK 200 MG IV (19:20)
--- NOTE | 2022-12-21 19:36 | PC.NURSE ---
Patient arrives with a second toe on her right foot completely black from knuckle through the top of the digit. From the knuckle down the skin is red with slightly bumpy. Patient redness is encircled using a skin marker. Patient has neuropathy in his legs and denies having any pain.
[2022-12-21 20:36] LABS: COVID19 -Nasal RAPID Negative (Negative)
[2022-12-21] MEDS: HEPARIN 5,000 UNIT/ML VIAL 5000 UNIT SUBCUT (22:13)
--- NOTE | 2022-12-21 22:23 | PC.WOUNDPHOT ---
Addendum entered by Natty Veronica RShannon 12/21/22 22:24: more Addendum entered by Natty Veronica R.N. 12/21/22 22:23: 2 Original Note:
--- NOTE | 2022-12-21 23:04 | PC.ADMIT ---
Addendum entered by Natty Veronica R.N. 12/22/22 03:10: Patient's nail of right 2nd toe is now bent forward away from toe and patient picking at toe so covered with non adherent pad and wrapped with kerlix. Original Note: [address] Admission Note: The patient,Сергей Montano,67 y/o, was given written information regarding hospital policies, unit procedures and contact persons. Patient's smoking status: Former smoker. Vital Signs - 8 hr 12/21/22 17:47 12/21/22 18:00 12/21/22 18:30 Temperature Pulse Rate 80 80 85 Respiratory Rate Blood Pressure Pulse Oximetry 98 100 97 Oxygen Delivery Method 12/21/22 19:00 12/21/22 19:30 12/21/22 19:43 Temperature Pulse Rate 81 76 Respiratory Rate Blood Pressure 142/70 H Pulse Oximetry 98 98 Oxygen Delivery Method 12/21/22 19:43 12/21/22 19:45 12/21/22 19:45 Temperature Pulse Rate 77 74 Respiratory Rate Blood Pressure 137/69 Pulse Oximetry 99 100 Oxygen Delivery Method 12/21/22 20:00 12/21/22 20:00 12/21/22 20:15 Temperature Pulse Rate 73 Respiratory Rate Blood Pressure 136/71 127/69 Pulse Oximetry 99 Oxygen Delivery Method 12/21/22 20:15 12/21/22 20:27 12/21/22 20:30 Temperature Pulse Rate 72 72 Respiratory Rate Blood Pressure 128/70 Pulse Oximetry 99 98 Oxygen Delivery Method 12/21/22 20:33 12/21/22 20:45 12/21/22 20:45 Temperature Pulse Rate 73 72 Respiratory Rate Blood Pressure 129/73 Pulse Oximetry 91 99 Oxygen Delivery Method 12/21/22 21:00 12/21/22 21:00 12/21/22 22:07 Temperature Pulse Rate 77 Respiratory Rate Blood Pressure 134/76 Pulse Oximetry 100 99 Oxygen Delivery Method Room Air 12/21/22 22:07 12/21/22 22:58 Temperature 97.6 F Pulse Rate 74 Respiratory Rate 18 Blood Pressure 146/69 H Pulse Oximetry 99 Oxygen Delivery Method Room Air Patient admitted earlier to room 214. Assisted to bathroom to urinate. Is oriented to self, birthdate, age, year, place and situation. Is very soft spoken and has some word finding difficulty as well as delayed responses which is normal per . Breath sounds CTA with RA sat of 99%. HRR w/BP of 146/69. Denies nausea. BT present and abdomen is soft. Denies dysuria, frequency or urgency with urination and is continent of B&B per patient. Is able to turn himself in bed. Has amputated left 3rd toe. Right 2nd toe is blackened with redness extending from toe to ankle anteriorly; was outlined in ER. Scabbed abrasions to right knee and lateral lower leg. Has neuropathy in bilateral LE but is able to feel when touched. Denies pain. Oriented to call light and bed controls. Fall risk score is high and bed alarm is activated.
--- NOTE | 2022-12-21 23:48 | PM.HP.1 ---
History of Present Illness History of Present Illness Date Patient Seen: 12/21/22 Time Patient Seen: 22:30 Chief complaint: 2nd toe on RT foot is putrid Narrative: Mr. Montano is a 67M with PMH Type 2 Diabetes intermittently using insulin, depression, HTN who presents to the hospital with an erythematous foot and black toe. He notes that he has had a black 2nd toe on his right foot for he says the last day. Prior to this he had redness for some prolonged period of time, which he is unable to quantify. He has a remote history of osteomyelitis in his left 3rd toe and is s/p amputation. He is supposed to take insulin, but does this inconsistently. His last a1c was greater than assay in June of 2022. He has had progressing redness up his foot over the last few days, he thinks 3 days approximately. His was unaware of any issues with his toe. He was told to come in by home health. He has no pain, no fever/chills. In the ED workup was done, vitals notable for afebrile, blood pressure 140s/70s. Labs notable for WBC 13.2, hgb 13.8. Na 131, creatinine 1.32. ESR 42, CRP 7.9. Procal 0.32. Foot xray read as slight osteopenia along lateral base of 2nd distal phalanx concerning for osteomyelitis. He was given antibiotics and admitted for further treatment. Patient History Medical History Aphasia Chronic back pain Depression Diabetes Diabetic peripheral neuropathy associated with type 2 diabetes mellitus Essential hypertension Fall at home Gait instability Hypertension Knowledge deficit on spinal cord stimulator Type 2 diabetes mellitus without complication, with no history of insulin use Surgical History Back pain with history of spinal surgery Family & Social History Social History: household members spouse,none lives independently Yes Safety & Behavioral: Feels Safe in Current Yes Environment Been Physically Hurt or No Threatened By a Person Tobacco & Substance use: Smoking Status Former smoker alcohol intake never alcohol intake frequency 0-2 drinks per day Substance Use Type other,does not use Meds Home Medications and Allergies Home Medications Medication Instructions Recorded Confirmed Type duloxetine 60 mg capsule,delayed 60 mg PO DAILY 08/23/20 12/21/22 History release glimepiride 2 mg tablet 8 mg PO DAILY 08/23/20 12/21/22 History metformin 1,000 mg tablet 1,000 mg PO BID 08/23/20 12/21/22 History insulin glargine 100 unit/mL (3 25 unit SUBCUT BEDTIME 07/12/22 07/12/22 History mL) subcutaneous pen (Lantus Solostar U-100 Insulin) 4 wheel walker with seat #1 ea 11/24/22 11/24/22 Rx aspirin 81 mg tablet,delayed 81 mg PO DAILY 11/24/22 12/21/22 History release atorvastatin 40 mg tablet 40 mg PO DAILY 11/24/22 12/21/22 History clopidogrel 75 mg tablet 75 mg PO DAILY 11/24/22 12/21/22 History fenofibrate nanocrystallized 145 145 mg PO DAILY 11/24/22 12/21/22 History mg tablet gabapentin 600 mg tablet 600 mg PO TID 11/24/22 12/21/22 History lisinopril 5 mg tablet 5 mg PO DAILY 11/24/22 12/21/22 History Allergies Allergy/AdvReac Type Severity Reaction Status Date / Time codeine AdvReac Gastrointestinal Verified 11/24/22 12:42 Upset Review of Systems Review of Systems Narrative: 14 systems reviewed and negative aside from what is noted in HPI Exam Vital Signs (past 8 hours): - 12/21/22 17:47 12/21/22 18:00 12/21/22 18:30 Temperature Pulse Rate 80 80 85 Respiratory Rate Blood Pressure Pulse Oximetry 98 100 97 Oxygen Delivery Method 12/21/22 19:00 12/21/22 19:30 12/21/22 19:43 Temperature Pulse Rate 81 76 Respiratory Rate Blood Pressure 142/70 H Pulse Oximetry 98 98 Oxygen Delivery Method 12/21/22 19:43 12/21/22 19:45 12/21/22 19:45 Temperature Pulse Rate 77 74 Respiratory Rate Blood Pressure 137/69 Pulse Oximetry 99 100 Oxygen Delivery Method 12/21/22 20:00 12/21/22 20:00 12/21/22 20:15 Temperature Pulse Rate 73 Respiratory Rate Blood Pressure 136/71 127/69 Pulse Oximetry 99 Oxygen Delivery Method 12/21/22 20:15 12/21/22 20:27 12/21/22 20:30 Temperature Pulse Rate 72 72 Respiratory Rate Blood Pressure 128/70 Pulse Oximetry 99 98 Oxygen Delivery Method 12/21/22 20:33 12/21/22 20:45 12/21/22 20:45 Temperature Pulse Rate 73 72 Respiratory Rate Blood Pressure 129/73 Pulse Oximetry 91 99 Oxygen Delivery Method 12/21/22 21:00 12/21/22 21:00 12/21/22 22:07 Temperature Pulse Rate 77 Respiratory Rate Blood Pressure 134/76 Pulse Oximetry 100 99 Oxygen Delivery Method Room Air 12/21/22 22:07 12/21/22 22:58 Temperature 97.6 F Pulse Rate 74 Respiratory Rate 18 Blood Pressure 146/69 H Pulse Oximetry 99 Oxygen Delivery Method Room Air Oxygen Delivery Method Room Air Narrative Exam Narrative: GEN: no acute distress HEENT: moist mucous membranes, PERRL NECK: trachea midline, no JVD PULM: clear bilaterally, no wheezes, rhonchi rales CV: regular rate and rhythm, no murmurs ABD: soft, nontender, nondistended, no organoemgaly EXT: warm and well perfused, right foot with 2nd toe distal half of toe with black necrotic tissue, more proximally there is erythema and warmth that extends up to forefoot, very poor sensation NEURO: awake, alert, oriented, no focal deficits noted Objective Labs 12/22/22 05:50 12/22/22 05:50 Labs: Laboratory Results - last 24 hr 12/21/22 12/21/22 12/21/22 15:02 15:02 15:02 WBC 13.2 H RBC 4.29 L Hgb 13.8 Hct 42.1 MCV 98.1 MCH 32.2 MCHC 32.8 RDW 13.2 Plt Count 272 Neut % (Auto) 70.7 Lymph % (Auto) 16.7 L [place] % (Auto) 10.2 Eos % (Auto) 1.4 L Baso % (Auto) 1.0 Neut # (Auto) 9300 H Lymph # (Auto) 2200 [place] # (Auto) 1300 H Eos # (Auto) 200 Baso # (Auto) 100 ESR 42 H Sodium 131 L Potassium 4.8 Chloride 95 L Carbon Dioxide 28 BUN 30 H Creatinine 1.32 H Estimated GFR 58 L BUN/Creatinine Ratio 22.7 H Glucose 138 H Calcium 9.1 Total Bilirubin 0.6 AST 29 ALT 24 Alkaline Phosphatase 83 C-Reactive Protein Total Protein 8.1 Albumin 4.3 Globulin 3.8 Albumin/Globulin Ratio 1.1 Procalcitonin SARS-CoV-2 (PCR) 12/21/22 12/21/22 15:02 20:19 WBC RBC Hgb Hct MCV MCH MCHC RDW Plt Count Neut % (Auto) Lymph % (Auto) [place] % (Auto) Eos % (Auto) Baso % (Auto) Neut # (Auto) Lymph # (Auto) [place] # (Auto) Eos # (Auto) Baso # (Auto) ESR Sodium Potassium Chloride Carbon Dioxide BUN Creatinine Estimated GFR BUN/Creatinine Ratio Glucose Calcium Total Bilirubin AST ALT Alkaline Phosphatase C-Reactive Protein 7.9 H Total Protein Albumin Globulin Albumin/Globulin Ratio Procalcitonin 0.32 SARS-CoV-2 (PCR) Negative Assessment & Plan Assessment & Plan narrative: 1. Right lower extremity cellulities with diabetic infected 2nd toe with necrosis and probable osteomyelitis -start antibiotics with vancomycin and ceftriaxone 2gm daily -follow up cultures -xray concerning for 2nd toe osteomyelitis -ordered for right foot MRI to further evaluate for osteomyelitis -consult orthopedic surgery for consideration of amputation 2. Type 2 Diabetes on insulin, poorly controlled -check a1c -patient inconsistently uses insulin -for now insulin sliding scale -hold oral medications given li -will likely need long acting insulin 3. LI -likely secondary to infection -hold glimperide, lisinopril, metformin for now 4. 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 Hypertension -restart tiffany inhibitor once li improved 6. Depression -continue duloxetine 7. Chronic back pain, s/p spinal stimular I have discussed plan with patient. I have discussed care of patient with ED physician and bedside nurse. I have reviewed labs and xray imaging CODE: Full Proxy: Judit Lieberman, daughter Time Spent With Patient Critical Care time: I spent a total of [] minutes of critical care time on this patient's care today; this time is exclusive of procedural time. Quality MIPS - Meds 'Current medications' to include all prescriptions, [id number] products, herbals, cannabis/cannabidiol products, and vitamin/mineral/dietary (nutritional) supplements. I have utilized all available resources to obtain, update, or review the patient?s current medications. [If Yes, STOP here]: Yes
[2022-12-22] VITALS (16 sets, daily range): BP systolic 104–156; BP diastolic 51–83; PULSE 64–82; RESP 14–20; TEMP 36.2–36.7; O2SAT 95–99; BMI 29.3
[2022-12-22 06:09] LABS: Add Manual Diff / Slide Review NO; Basophils Absolute Auto 100 /uL (0-100); Eosinophils Absolute Auto 300 /uL (0-450); Eosinophils Percent Auto 2.9 % (2-4); Hemoglobin 12.9 g/dL (13.5-17.5); Lymphocytes Absolute Auto 2400 /uL (1100-4500); Lymphocytes Percent Auto 21.5 % (25-40); Mean Corpuscular HGB Conc 33.9 % (30-36); Mean Corpuscular Volume 97.4 fL (80-100); Monocytes Absolute Auto 1200 /uL (0-900); Monocytes Percent Auto 10.9 % (3-14); Neutrophils Absolute Auto 7000 /uL (1500-7000); Neutrophils Percent Auto 63.7 % (50-75); Platelet Count 263 X10^3/uL (150-400); Red Cell Distribution Width 13.4 % (11.6-14.8)
[2022-12-22 06:15] LABS: Hemoglobin A1C% w Est Avg Glu 4.9 % (4.0-6.0)
[2022-12-22 06:17] LABS: Blood Urea Nitrogen 24 mg/dL (9-20); Calcium 8.5 mg/dL (8.4-10.2); Carbon Dioxide 26 mmol/L (22-32); Chloride 101 mmol/L (98-107); Estimated Glomerular Filt Rate > 60 mL/min (>60); Glucose 151 mg/dL (80-110); HEMOLYSIS < 15 (0-50); Sodium 134 mmol/L (137-145)
[2022-12-22] MEDS: SODIUM CHLORIDE 0.9% FLUSH 10 ML IV ×3 (06:20→19:45)
[2022-12-22] MEDS: SODIUM CHLORIDE 0.9% 250 ML 21 ML IV (06:20)
[2022-12-22] MEDS: VANCOMYCIN 1,500 MG/300 ML PIGGYBACK 200 MG IV (06:20)
--- NOTE | 2022-12-22 07:31 | DI.MRI.S_ITS ---
PROCEDURE: MR FOOT RT WO/W CON INDICATIONS: r/o osteo TECHNIQUE: Noncontrast sagittal T1 spin echo and T2 fast spin echo with fat saturation, long-axis T1 spin echo and T2 fast spin echo with fat saturation; short-axis T1 spin echo, proton density fast spin echo, and T2 fast spin echo with fat saturation through the forefoot. Post-contrast short axis, long axis, and sagittal T1 spin echo with fat saturation through the forefoot. COMPARISON: [facility], CR, XR FOOT RT MIN 3V, 12/21/2022, 15:41. FINDINGS: Image quality: There is motion artifact Bones: Scattered degenerative changes. Soft tissue indistinctness surrounding the 2nd toe knee, without clear delineation of the scan overlying the bone. However, there is no convincing low T1 signal. There is some signal void in the area, that may be due to gas. No other areas of suspicious edema or enhancement. Soft tissues: No drainable abscess is identified. There is soft tissue loss in the tip of the 2nd toe. Subcutaneous edema and high T2 signal in the plantar musculature, possibly myositis or myopathy. IMPRESSION: There is soft tissue loss surrounding the second toe distal phalanx with artifact and signal void limiting evaluation of the underlying bone, that may be due to gas. Findings remain concerning for osteomyelitis especially if clinically the wound probes to bone. No definite involvement of the middle phalanx. Dictated by: Ben Lopez M.D. on 12/22/2022 at 13:40 Approved by: Ben Lopez M.D. on 12/22/2022 at 13:52
--- NOTE | 2022-12-22 07:35 | P.CONS_ITS ---
History of Present Illness Consult details Date Patient Seen: 12/22/22 Time Patient Seen: 07:20 Chief complaint: 2nd toe on RT foot is putrid Reason for consult: Diabetic gangrene right 2nd toe Requesting provider: Ancelmo Min Narrative: еСргей Montano is a 67-year-old gentleman with diabetes mellitus. His right 2nd toe has recently begun to turn black and become increasingly putrid smelling. He presented to the emergency room yesterday evening with a black toe and redness extending over the dorsum of his foot. He was admitted to the medical service for diabetes management and an orthopedic consult was obtained for the foot. Meds Home Medications and Allergies Home Medications Medication Instructions Recorded Confirmed Type duloxetine 60 mg capsule,delayed 60 mg PO DAILY 08/23/20 12/21/22 History release glimepiride 2 mg tablet 8 mg PO DAILY 08/23/20 12/21/22 History metformin 1,000 mg tablet 1,000 mg PO BID 08/23/20 12/21/22 History insulin glargine 100 unit/mL (3 25 unit SUBCUT BEDTIME 07/12/22 07/12/22 History mL) subcutaneous pen (Lantus Solostar U-100 Insulin) 4 wheel walker with seat #1 ea 11/24/22 11/24/22 Rx aspirin 81 mg tablet,delayed 81 mg PO DAILY 11/24/22 12/21/22 History release atorvastatin 40 mg tablet 40 mg PO DAILY 11/24/22 12/21/22 History clopidogrel 75 mg tablet 75 mg PO DAILY 11/24/22 12/21/22 History fenofibrate nanocrystallized 145 145 mg PO DAILY 11/24/22 12/21/22 History mg tablet gabapentin 600 mg tablet 600 mg PO TID 11/24/22 12/21/22 History lisinopril 5 mg tablet 5 mg PO DAILY 11/24/22 12/21/22 History Allergies Allergy/AdvReac Type Severity Reaction Status Date / Time codeine AdvReac Gastrointestinal Verified 11/24/22 12:42 Upset Review of Systems Review of Systems Narrative: The patient reports no significant changes in his normal medical status. Exam Vital Signs (past 8 hours): - 12/22/22 02:00 12/22/22 02:00 12/22/22 06:00 Temperature 97.8 F 97.7 F Pulse Rate 82 79 Respiratory Rate 17 17 Blood Pressure 104/59 L 111/60 Pulse Oximetry 96 96 96 Oxygen Delivery Method Room Air Oxygen Flow Rate 0 0 0 12/22/22 06:00 Temperature Pulse Rate Respiratory Rate Blood Pressure Pulse Oximetry 96 Oxygen Delivery Method Room Air Oxygen Flow Rate 0 Oxygen Delivery Method Room Air Oxygen Flow Rate 0 Narrative Exam Narrative: The right 2nd toe is blackish purple to the base of the toe. There is a distinctly necrotic odor. There is erythema extending over the 2nd metatarsal on the dorsum of the foot. There is minimal swelling of the foot itself. He has trace positive pulses in the dorsalis pedis and posterior tibial arteries. Objective Labs 12/22/22 05:50 12/22/22 05:50 Labs: Laboratory Results - last 24 hr 12/21/22 12/21/22 12/21/22 15:02 15:02 15:02 WBC 13.2 H RBC 4.29 L Hgb 13.8 Hct 42.1 MCV 98.1 MCH 32.2 MCHC 32.8 RDW 13.2 Plt Count 272 Neut % (Auto) 70.7 Lymph % (Auto) 16.7 L [place] % (Auto) 10.2 Eos % (Auto) 1.4 L Baso % (Auto) 1.0 Neut # (Auto) 9300 H Lymph # (Auto) 2200 [place] # (Auto) 1300 H Eos # (Auto) 200 Baso # (Auto) 100 ESR 42 H Sodium 131 L Potassium 4.8 Chloride 95 L Carbon Dioxide 28 BUN 30 H Creatinine 1.32 H Estimated GFR 58 L BUN/Creatinine Ratio 22.7 H Glucose 138 H Hemoglobin A1c Calcium 9.1 Total Bilirubin 0.6 AST 29 ALT 24 Alkaline Phosphatase 83 C-Reactive Protein Total Protein 8.1 Albumin 4.3 Globulin 3.8 Albumin/Globulin Ratio 1.1 Procalcitonin SARS-CoV-2 (PCR) 12/21/22 12/21/22 12/22/22 15:02 20:19 05:50 WBC 11.0 RBC 3.90 L Hgb 12.9 L Hct 38.0 L MCV 97.4 MCH 33.0 MCHC 33.9 RDW 13.4 Plt Count 263 Neut % (Auto) 63.7 Lymph % (Auto) 21.5 L [place] % (Auto) 10.9 Eos % (Auto) 2.9 Baso % (Auto) 1.0 Neut # (Auto) 7000 Lymph # (Auto) 2400 [place] # (Auto) 1200 H Eos # (Auto) 300 Baso # (Auto) 100 ESR Sodium Potassium Chloride Carbon Dioxide BUN Creatinine Estimated GFR BUN/Creatinine Ratio Glucose Hemoglobin A1c Calcium Total Bilirubin AST ALT Alkaline Phosphatase C-Reactive Protein 7.9 H Total Protein Albumin Globulin Albumin/Globulin Ratio Procalcitonin 0.32 SARS-CoV-2 (PCR) Negative 12/22/22 12/22/22 05:50 05:50 WBC RBC Hgb Hct MCV MCH MCHC RDW Plt Count Neut % (Auto) Lymph % (Auto) [place] % (Auto) Eos % (Auto) Baso % (Auto) Neut # (Auto) Lymph # (Auto) [place] # (Auto) Eos # (Auto) Baso # (Auto) ESR Sodium 134 L Potassium 4.0 Chloride 101 Carbon Dioxide 26 BUN 24 H Creatinine 1.00 Estimated GFR > 60 BUN/Creatinine Ratio 24.0 H Glucose 151 H Hemoglobin A1c 4.9 Calcium 8.5 Total Bilirubin AST ALT Alkaline Phosphatase C-Reactive Protein Total Protein Albumin Globulin Albumin/Globulin Ratio Procalcitonin SARS-CoV-2 (PCR) Radiographs of the foot were obtained in the emergency room last night. These were interpreted by the radiologist as showing a periosteal reaction in the distal phalanx potentially consistent with osteomyelitis. I do not see any evidence for more proximal osteomyelitis. [facility] Medical History Aphasia Chronic back pain Depression Diabetes Diabetic peripheral neuropathy associated with type 2 diabetes mellitus Essential hypertension Fall at home Gait instability Hypertension Knowledge deficit on spinal cord stimulator Type 2 diabetes mellitus without complication, with no history of insulin use Surgical History Back pain with history of spinal surgery Social History marital status: household members: spouse and none lives independently: Yes Tobacco & Substance Use Smoking Status: Former smoker alcohol intake: never Assessment & Plan Assessment & Plan narrative: The patient has a necrotic 2nd right toe. There is likely underlying osteomyelitis in the digit itself. We will obtain an MRI to ascertain whether the infection extends into the foot more proximally. If there is no proximal infection, a digital amputation will be performed later this evening. If the infection does extend proximally consideration will have to be given to mid foot or below-knee amputation. I have made the patient NPO for likely surgery later this evening. I will return for formal consent after the MRI has been obtained and the surgical plan has been solidified. Time Spent With Patient Time with patient: less than 30 minutes Critical Care time: I spent a total of [] minutes of critical care time on this patient's care today; this time is exclusive of procedural time.
[2022-12-22] MEDS: DULOXETINE 30 MG CAPSULE 60 MG PO (09:27)
[2022-12-22] MEDS: ATORVASTATIN 20 MG TABLET 40 MG PO (09:27)
--- NOTE | 2022-12-22 10:17 | PC.NURSE ---
Day shift: Dr Nava made aware of gram pos cocci in first bottle per lab.
[2022-12-22 10:52] LABS: Acinetobacter baumannii Not Detected (Not Detect); Candida albicans Not Detected (Not Detect); Candida glabrata Not Detected (Not Detect); Candida krusei Not Detected (Not Detect); Candida parapsilosis Not Detected (Not Detect); Candida tropicalis Not Detected (Not Detect); E. coli Not Detected (Not Detect); Enterobacter cloacae complex Not Detected (Not Detect); Enterobacteriaceae species Not Detected (Not Detect); Enterococcus species Not Detected (Not Detect); Haemophilus influenzae Not Detected (Not Detect); Listeria monocytogenes Not Detected (Not Detect); Methicillin-resistant gene Not Detected (Not Detect); Neisseria meningitidis Not Detected (Not Detect); Proteus species Not Detected (Not Detect); Pseudomonas aeruginosa Not Detected (Not Detect); Serratia marcescens Not Detected (Not Detect); Staphylococcus species Detected (Not Detect); Streptococcus agalactiae (Gr B Not Detected (Not Detect); Streptococcus pneumonia Not Detected (Not Detect); Streptococcus pyogenes (Gr A) Not Detected (Not Detect); Streptococcus species Not Detected (Not Detect)
--- NOTE | 2022-12-22 11:36 | P.PN_ITS ---
Subjective Subjective Interval history: 67 M admitted with a diabetic foot infection on his R 2nd toe, plan for a mputation later with orthopedics. MRI pending. He denies pain today. Blood cultures 1/4 positive thus far, possibly contaminant but asked for speciation and sensitivities to determine if will need longer antibiotic duration in this clinical setting with necrotic foot. Exam Vital Signs (past 8 hours): - 12/22/22 06:00 12/22/22 06:00 12/22/22 08:07 Temperature 97.7 F 97.9 F Pulse Rate 79 67 Respiratory Rate 17 18 Blood Pressure 111/60 124/65 Pulse Oximetry 96 96 98 Oxygen Delivery Method Room Air Oxygen Flow Rate 0 0 0 12/22/22 10:24 Temperature Pulse Rate Respiratory Rate Blood Pressure Pulse Oximetry 96 Oxygen Delivery Method Room Air Oxygen Flow Rate Oxygen Delivery Method Room Air Oxygen Flow Rate 0 Narrative Exam Narrative: GEN: no acute distress HEENT: moist mucous membranes, PERRL NECK: trachea midline, no JVD PULM: clear bilaterally, no wheezes, rhonchi, rales CV: regular rate and rhythm, no murmurs ABD: soft, nontender, nondistended, no organoemgaly EXT: right foot with 2nd toe distal half of toe with black necrotic tissue, more proximally there is erythema and warmth that extends up to forefoot, very poor sensation NEURO: awake, alert, oriented, no focal deficits noted other than poor sensation to light touch bilateral lower extremities. Objective Labs 12/22/22 05:50 12/22/22 05:50 Labs: Laboratory Results - last 24 hr 12/21/22 12/21/22 12/21/22 15:02 15:02 15:02 WBC 13.2 H RBC 4.29 L Hgb 13.8 Hct 42.1 MCV 98.1 MCH 32.2 MCHC 32.8 RDW 13.2 Plt Count 272 Neut % (Auto) 70.7 Lymph % (Auto) 16.7 L [place] % (Auto) 10.2 Eos % (Auto) 1.4 L Baso % (Auto) 1.0 Neut # (Auto) 9300 H Lymph # (Auto) 2200 [place] # (Auto) 1300 H Eos # (Auto) 200 Baso # (Auto) 100 ESR 42 H Sodium 131 L Potassium 4.8 Chloride 95 L Carbon Dioxide 28 BUN 30 H Creatinine 1.32 H Estimated GFR 58 L BUN/Creatinine Ratio 22.7 H Glucose 138 H Hemoglobin A1c Calcium 9.1 Total Bilirubin 0.6 AST 29 ALT 24 Alkaline Phosphatase 83 C-Reactive Protein Total Protein 8.1 Albumin 4.3 Globulin 3.8 Albumin/Globulin Ratio 1.1 Procalcitonin A. baumannii (PCR) [place] albicans (PCR) C. glabrata (PCR) C. krusei (PCR) C. parapsilosis (PCR) C. tropicalis (PCR) SARS-CoV-2 (PCR) Enterobacteriac sp PCR E. cloacae complex PCR Enterococcus sp PCR E. coli (PCR) H. influenzae (PCR) Klebsiella oxytoca PCR Klebsiella pneumoniae List. monocytogenes PCR N. meningitidis (PCR) Proteus species (PCR) Serratia marcescens PCR Staphylococcus sp PCR Staph aureus (PCR) mecA-Methicil Res Gene Streptococcus sp PCR Group A Strep (PCR) Strep agalactiae (PCR) Strep pneumoniae (PCR) P. aeruginosa (PCR) KPC-Carbap Res Gene PCR 12/21/22 12/21/22 12/21/22 15:02 15:02 20:19 WBC RBC Hgb Hct MCV MCH MCHC RDW Plt Count Neut % (Auto) Lymph % (Auto) [place] % (Auto) Eos % (Auto) Baso % (Auto) Neut # (Auto) Lymph # (Auto) [place] # (Auto) Eos # (Auto) Baso # (Auto) ESR Sodium Potassium Chloride Carbon Dioxide BUN Creatinine Estimated GFR BUN/Creatinine Ratio Glucose Hemoglobin A1c Calcium Total Bilirubin AST ALT Alkaline Phosphatase C-Reactive Protein 7.9 H Total Protein Albumin Globulin Albumin/Globulin Ratio Procalcitonin 0.32 A. baumannii (PCR) Not detected [place] albicans (PCR) Not detected C. glabrata (PCR) Not detected C. krusei (PCR) Not detected C. parapsilosis (PCR) Not detected C. tropicalis (PCR) Not detected SARS-CoV-2 (PCR) Negative Enterobacteriac sp PCR Not detected E. cloacae complex PCR Not detected Enterococcus sp PCR Not detected E. coli (PCR) Not detected H. influenzae (PCR) Not detected Klebsiella oxytoca PCR Not detected Klebsiella pneumoniae Not detected List. monocytogenes PCR Not detected N. meningitidis (PCR) Not detected Proteus species (PCR) Not detected Serratia marcescens PCR Not detected Staphylococcus sp PCR Detected H Staph aureus (PCR) Detected H mecA-Methicil Res Gene Not detected Streptococcus sp PCR Not detected Group A Strep (PCR) Not detected Strep agalactiae (PCR) Not detected Strep pneumoniae (PCR) Not detected P. aeruginosa (PCR) Not detected KPC-Carbap Res Gene PCR Not Reportable 12/22/22 12/22/22 12/22/22 05:50 05:50 05:50 WBC 11.0 RBC 3.90 L Hgb 12.9 L Hct 38.0 L MCV 97.4 MCH 33.0 MCHC 33.9 RDW 13.4 Plt Count 263 Neut % (Auto) 63.7 Lymph % (Auto) 21.5 L [place] % (Auto) 10.9 Eos % (Auto) 2.9 Baso % (Auto) 1.0 Neut # (Auto) 7000 Lymph # (Auto) 2400 [place] # (Auto) 1200 H Eos # (Auto) 300 Baso # (Auto) 100 ESR Sodium 134 L Potassium 4.0 Chloride 101 Carbon Dioxide 26 BUN 24 H Creatinine 1.00 Estimated GFR > 60 BUN/Creatinine Ratio 24.0 H Glucose 151 H Hemoglobin A1c 4.9 Calcium 8.5 Total Bilirubin AST ALT Alkaline Phosphatase C-Reactive Protein Total Protein Albumin Globulin Albumin/Globulin Ratio Procalcitonin A. baumannii (PCR) [place] albicans (PCR) C. glabrata (PCR) C. krusei (PCR) C. parapsilosis (PCR) C. tropicalis (PCR) SARS-CoV-2 (PCR) Enterobacteriac sp PCR E. cloacae complex PCR Enterococcus sp PCR E. coli (PCR) H. influenzae (PCR) Klebsiella oxytoca PCR Klebsiella pneumoniae List. monocytogenes PCR N. meningitidis (PCR) Proteus species (PCR) Serratia marcescens PCR Staphylococcus sp PCR Staph aureus (PCR) mecA-Methicil Res Gene Streptococcus sp PCR Group A Strep (PCR) Strep agalactiae (PCR) Strep pneumoniae (PCR) P. aeruginosa (PCR) KPC-Carbap Res Gene PCR [facility] Medical History Aphasia Chronic back pain Depression Diabetes Diabetic peripheral neuropathy associated with type 2 diabetes mellitus Essential hypertension Fall at home Gait instability Hypertension Knowledge deficit on spinal cord stimulator Type 2 diabetes mellitus without complication, with no history of insulin use Surgical History Back pain with history of spinal surgery Social History marital status: household members: spouse and none lives independently: Yes Smoking Status: Former smoker alcohol intake: never Assessment & Plan Assessment & Plan narrative: 1. Right lower extremity cellulities with diabetic infected 2nd toe with necrosis and probable osteomyelitis -continue antibiotics with vancomycin and ceftriaxone 2gm daily -follow up cultures, blood with 1/4 positive, possible contaminant but in this clinical scenario may indicate blood stream infection with necrosis. -xray concerning for 2nd toe osteomyelitis -ordered for right foot MRI to further evaluate for osteomyelitis -plan for amputation later today, continue NPO, IV fluids 2. Type 2 Diabetes on insulin, poorly controlled -A1c 4.9%, some concern for hypoglycemia at home. -patient inconsistently uses insulin, will continue only sliding scale for now given A1c. -for now insulin sliding scale -hold oral medications given li -will likely need long acting insulin 3. LI -likely secondary to infection -hold glimperide, lisinopril, metformin for now 4. 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 Hypertension -restart tiffany inhibitor once li improved and after surgery, likely tomorrow. 6. Depression -continue duloxetine 7. Chronic back pain, s/p spinal stimular I have discussed plan with patient. Reviewed imaging, plan of care with orthopedics, and relevant blood work along with ordering continued laboratory evaluations. CODE: Full Proxy: Judit Sheltonle, daughter Time Spent With Patient Critical Care time: I spent a total of [] minutes of critical care time on this patient's care today; this time is exclusive of procedural time.
--- NOTE | 2022-12-22 15:32 | CM.DANOTE ---
Patient is a 67 yo male who was admitted on 12/21/22 for Osteomyelitis. Pt has MCR for insurance and his PCP is Dr Eriberto Candelaria. EMR was reviewed. Per MD, pt admitted with necrotic toe and has remote hx of toe amputation in the past and has type 2 Diabetes. Per Ortho Consult, pt with osteomyelits and awaiting MRI results to determine toe amputation, partial foot amputation, BKA. Pt may need ferry terminal agent IV-Abx pending MRI results and surgery needs. SW met bedside with pt, who is not the best historian but able to participate and provide some information and he confirms he still does live in a trailer, not with spouse but on his step son's property [address] ([phone]) in [place]. Spouse is next door living with their Dtr Judit ([phone]). Pt denies any hx of SNF but confirms he is currently open with [facility] for nursing. Pt is not currently driving and typically his step son drives him or his Dtr and spouse can drive. SW discussed potential for ferry terminal agent IV-Abx and maybe SNF need but pt wants to wait until after surgery to determine plan and would be agreeable with SW coordinating with his family. He is hopeful for home with [facility]. SW called K[facility] at [facility] and confirmed pt is open with HH RN/PT. Updated her on plan of surgery but unknown how much will need to be amputated. Faxed clinicals to review and follow for possible [facility] at d/c pending needs. Plan: SW to follow for plan of surgery this evening and then to determine d/c planning needs based on amount needed to be amputated and if IV-Abx needed at d/c. CHUN Staples Discharge Planning/Care Management CM Discharge Assessment Start: 12/22/22 15:25 Freq: Status: Active Protocol: Document 12/22/22 15:26 BF (Rec: 12/22/22 15:31 BF [id number]) Discharge Planning Assessment Assigned Quarry Worker CHUN Patel DPOA/Assigned Designee Name Dtr Judit Advance Directives? No Advance Directives on File No History Provided By Patient,Significant Other, Medical Record Has Patient been admitted in last 30 No days? Prior Living Arrangements Mobile home Household Members none Type of transporation used prior to Relies on Others admit Comment Step son drives currently Independent with ADL's Yes: somewhat Is patient alert and oriented? Yes: somewhat Needs Assistance With Managing Medications,Home Chores / Shopping Caregiver for Another No Community Services used prior to Physical Therapy,Home Health admission: Nurse Comment Open with [facility] since Dec 02 2022 Patient/Family Preference Custodial Facility,Home with Home Health Comment SNF vs HH pending surgery and IV-Abx needs Barriers to Discharge No Discharge Plan Custodial Facility Transportation Arrangement Patient states spouse or Dtr can provide transport at d/c if safe for home Referrals Initiated Custodial,Home Health Additional Comment Pending surgery and antibiotic needs at d/c Whiteboard Updated in Patient Room with Yes name and ext. # of Quarry Worker Review Status In Process Please Provide Date Initial DC 12/22/22 Assessment Was Performed Next Review Type Continued Stay Review
--- NOTE | 2022-12-22 17:02 | PC.NURSE ---
Day shift: Pt off unit for procedure at approx 1700.
[2022-12-22] MEDS: LACTATED RINGERS 1,000 ML 42 ML IV (17:24)
--- NOTE | 2022-12-22 17:35 | PC.NURSE ---
Day shift:talked with Matthew in pharmacy and he said OK to hang IV antibiotics when Pt back in room and there is no need to re-time them.
--- NOTE | 2022-12-22 18:36 | SUR.OPER ---
Supine on padded OR bed, head on pillow, Foam wedge under patients torso per Anesthesia. Bilateral arms secured on padded arm boards at <90 degrees abduction, padded with folded blanket and gel pad under bilateral arms. legs uncrossed, safety belt at hips, tape over blanket over left lower legs. Right leg in control of the Surgeon
[2022-12-22] MEDS: BUPIVACAINE 0.25% (PF) VIAL 10 ML SUBCUT (18:41)
--- NOTE | 2022-12-22 19:04 | PM.OP.1 ---
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 Same procedure as scheduled: Yes Indications: The patient is a 67-year-old gentleman with diabetes mellitus who has had progressive necrosis of the 2nd toe of his right foot. He presented to the emergency room last night with a necrotic toe. Orthopedic consultation was obtained for amputation. He agreed to this after discussion the risks benefits and alternatives. Risks discussed included but were not limited to: Potential failure of healing with need for further surgery, potential failure to eradicate the infection, chronic pain, deep venous thrombosis, pulmonary embolism, stroke, myocardial infarction, permanent paralysis and . Surgeon: Raji Fleming Click Yes if Unassisted: Yes Anesthesia Type: General and Local Operative Notes Findings: Necrotic 2nd toe of the right foot. Closure Type: primary Specimen(s): other (Two culture swabs were sent from the base of the wound.) Prosthetic devices, grafts, tissues, transplants, or devices: None Estimated Blood Loss (mL): 0 Blood products transfused: none Tourniquet time (min): 15 Procedure in detail: The patient was taken to the operating room and placed on the operating room table in a supine position where he underwent the induction of a general anesthetic. As the toe was visibly necrotic, it was not marked specifically. A tourniquet was placed around his proximal calf on the right. A time stamp assembler-out was performed. The leg was prepared from the toes to the tourniquet with Betadine in the usual fashion and draped through sterile drapes. The leg was elevated to exsanguinated and the tourniquet inflated to 250 mmHg. A digital block was performed with 10 mL of 0.25% Marcaine without epinephrine. An elliptical incision was created in the web spaces on either side of the 2nd toe and carried to the base of the proximal phalangeal shaft. The periosteum was elevated to the metatarsophalangeal joint and this joint was disarticulated. The toe was removed. Culture swabs were taken from the base of the wound. The wound was then extensively irrigated with sterile saline solution. Hemostasis was obtained with electrocautery. A [id number] repair of the elliptical incision was performed with 3-0 nylon horizontal mattress sutures. Dressings of Xeroform, sterile gauze, sterile fluffs, Kerlix and bias-cut stockinette was applied. The tourniquet was deflated during dressing placement for total tourniquet time of 15 minutes. The patient was then transported to the recovery room in good condition having tolerated the procedure well. Complications: none Post-operative Condition: stable Disposition: PACU Plan for aftercare: The patient will be maintained in the hospital for IV antibiotics as he is undergoing a workup for potential sepsis. He will follow up my office in 2-3 weeks for suture removal.
[2022-12-22] MEDS: cefTRIAXone 2,000 MG in SODIUM CHLORIDE 0.9% 100 ML 200 MG IV (19:42)
[2022-12-22] MEDS: VANCOMYCIN 1,000 MG/200 ML PIGGYBACK 200 MG IV (20:28)
[2022-12-22] MEDS: GABAPENTIN 600 MG TABLET PO (20:39)
[2022-12-22] MEDS: HEPARIN 5,000 UNIT/ML VIAL 5000 UNIT SUBCUT (20:39)
[2022-12-22] MEDS: METFORMIN HCL 500 MG TABLET 1000 MG PO (20:39)
[2022-12-23] VITALS (10 sets, daily range): BP systolic 108–128; BP diastolic 52–74; PULSE 68–84; RESP 16–18; TEMP 36.2–36.7; O2SAT 97–99
--- NOTE | 2022-12-23 00:17 | PC.NURSE ---
Patient returned from PACU during shift change. Is alert and oriented to self, place and situation. Soft spoken with delayed responses and some word finding difficulty. Breath sounds CTA with RA sat of 97%. HRR. Denies nausea and given dinner upon return and tolerated well. BT present and had large BM. Voiding without dysuria. Is able to turn himself in bed. Assisted to BSC with walker and 1 assist. Instructed to bear weight only on heel of right foot per order but patient forgetful. Dressing to right foot intact with some bright red blood around toes on plantar surface. Toes warm to touch and able to wiggle them; capillary refill < 2 sec. Denies pain in foot. Does have chronic neuropathy in bilateral feet. Calf SCD placed to left leg but tolerated only a couple hours and then refused to have back on. Fall risk score is high and patient does not call for staff assist and tries to get out of bed on his own; bed alarm is activated.
[2022-12-23] MEDS: VANCOMYCIN TROUGH 1 REQUEST MISC (05:30)
[2022-12-23 05:49] LABS: Alanine Aminotransferase 26 IU/L (<50); Albumin 3.4 g/dL (3.5-5.0); Alkaline Phosphatase 66 U/L (38-126); Aspartate Aminotransferase 28 IU/L (17-59); BUN Creatinine Ratio 20.8 (6-22); Bilirubin Total 0.3 mg/dL (0.2-1.3); Blood Urea Nitrogen 21 mg/dL (9-20); Calcium 8.3 mg/dL (8.4-10.2); Carbon Dioxide 25 mmol/L (22-32); Chloride 102 mmol/L (98-107); Estimated Glomerular Filt Rate > 60 mL/min (>60); Globulin 3.5 g/dL (1.7-4.1); Glucose 146 mg/dL (80-110); HEMOLYSIS < 15 (0-50); Magnesium 1.7 mg/dL (1.6-2.3); Potassium 4.1 mmol/L (3.4-5.1); Sodium 135 mmol/L (137-145); Total Protein 6.9 g/dL (6.3-8.2)
[2022-12-23 05:52] LABS: Add Manual Diff / Slide Review NO; Basophils Absolute Auto 100 /uL (0-100); Eosinophils Absolute Auto 500 /uL (0-450); Eosinophils Percent Auto 4.8 % (2-4); Hematocrit 36.5 % (41-53); Hemoglobin 12.4 g/dL (13.5-17.5); Lymphocytes Absolute Auto 2100 /uL (1100-4500); Lymphocytes Percent Auto 19.9 % (25-40); Mean Corpuscular HGB Conc 33.9 % (30-36); Mean Corpuscular Hemoglobin 32.8 PG (26-34); Mean Corpuscular Volume 96.9 fL (80-100); Monocytes Absolute Auto 1100 /uL (0-900); Monocytes Percent Auto 10.9 % (3-14); Neutrophils Absolute Auto 6700 /uL (1500-7000); Neutrophils Percent Auto 63.4 % (50-75); Platelet Count 251 X10^3/uL (150-400); Red Blood Cell Count 3.77 X10^6/uL (4.5-5.9); Red Cell Distribution Width 13.3 % (11.6-14.8); White Blood Cell Count 10.5 X10^3/uL (4.5-11.0)
[2022-12-23 06:00] LABS: Vancomycin Trough 15.2 ug/mL (10-20)
[2022-12-23] MEDS: VANCOMYCIN 1,000 MG/200 ML PIGGYBACK 200 MG IV ×2 (06:06→18:10)
[2022-12-23] MEDS: DULOXETINE 30 MG CAPSULE 60 MG PO (09:51)
[2022-12-23] MEDS: HEPARIN 5,000 UNIT/ML VIAL 5000 UNIT SUBCUT ×2 (09:51→21:14)
[2022-12-23] MEDS: ATORVASTATIN 20 MG TABLET 40 MG PO (09:52)
[2022-12-23] MEDS: GABAPENTIN 600 MG TABLET PO ×3 (09:52→21:14)
[2022-12-23] MEDS: FENOFIBRATE, MICRONIZED 67 MG CAPSULE 201 MG PO (09:52)
[2022-12-23] MEDS: METFORMIN HCL 500 MG TABLET 1000 MG PO ×2 (09:53→21:14)
[2022-12-23] MEDS: SODIUM CHLORIDE 0.9% FLUSH 10 ML IV ×2 (09:53→21:54)
[2022-12-23] MEDS: GLIMEPIRIDE 2 MG TABLET 8 MG PO (09:53)
[2022-12-23] MEDS: MAGNESIUM CHLORIDE 64 MG TABLET 128 MG PO (10:33)
[2022-12-23 10:43] LABS: Vancomycin Peak 24.5 ug/mL (20-40)
--- NOTE | 2022-12-23 14:43 | PM.PN.1 ---
Subjective Subjective Interval history: 67 M admitted with a diabetic foot infection on his R 2nd toe, now s/p amputation. Patient with no complaints today. Denies fever, chills, chest pain, palpitations, or abdominal pain. Exam Vital Signs (past 8 hours): - 12/23/22 07:00 12/23/22 11:00 12/23/22 09:42 Temperature 98.1 F Pulse Rate 77 Respiratory Rate 18 Blood Pressure 120/69 Pulse Oximetry 99 99 99 Oxygen Delivery Method Room Air Room Air Oxygen Flow Rate 0 0 0 12/23/22 14:00 Temperature 97.9 F Pulse Rate 84 Respiratory Rate 18 Blood Pressure 128/74 Pulse Oximetry 97 Oxygen Delivery Method Oxygen Flow Rate 0 Oxygen Delivery Method Room Air Oxygen Flow Rate 0 Narrative Exam Narrative: GEN: no acute distress HEENT: moist mucous membranes, PERRL NECK: trachea midline, no JVD PULM: clear bilaterally, no wheezes, rhonchi, rales CV: regular rate and rhythm, no murmurs ABD: soft, nontender, nondistended, no organoemgaly EXT: right foot wrapped, sanguinous drainage on dressing, NEURO: awake, alert, oriented, no focal deficits noted other than poor sensation to light touch bilateral lower extremities. Objective Labs 12/23/22 05:30 12/23/22 05:30 Labs: Laboratory Results - last 24 hr 12/23/22 12/23/22 12/23/22 05:30 05:30 05:30 WBC 10.5 RBC 3.77 L Hgb 12.4 L Hct 36.5 L MCV 96.9 MCH 32.8 MCHC 33.9 RDW 13.3 Plt Count 251 Neut % (Auto) 63.4 Lymph % (Auto) 19.9 L [place] % (Auto) 10.9 Eos % (Auto) 4.8 H Baso % (Auto) 1.0 Neut # (Auto) 6700 Lymph # (Auto) 2100 [place] # (Auto) 1100 H Eos # (Auto) 500 H Baso # (Auto) 100 Sodium 135 L Potassium 4.1 Chloride 102 Carbon Dioxide 25 BUN 21 H Creatinine 1.01 Estimated GFR > 60 BUN/Creatinine Ratio 20.8 Glucose 146 H Calcium 8.3 L Magnesium 1.7 Total Bilirubin 0.3 AST 28 ALT 26 Alkaline Phosphatase 66 Total Protein 6.9 Albumin 3.4 L Globulin 3.5 Albumin/Globulin Ratio 1.0 Vancomycin Peak Vancomycin Trough 15.2 12/23/22 09:50 WBC RBC Hgb Hct MCV MCH MCHC RDW Plt Count Neut % (Auto) Lymph % (Auto) [place] % (Auto) Eos % (Auto) Baso % (Auto) Neut # (Auto) Lymph # (Auto) [place] # (Auto) Eos # (Auto) Baso # (Auto) Sodium Potassium Chloride Carbon Dioxide BUN Creatinine Estimated GFR BUN/Creatinine Ratio Glucose Calcium Magnesium Total Bilirubin AST ALT Alkaline Phosphatase Total Protein Albumin Globulin Albumin/Globulin Ratio Vancomycin Peak 24.5 Vancomycin Trough [facility] Medical History Aphasia Chronic back pain Depression Diabetes Diabetic peripheral neuropathy associated with type 2 diabetes mellitus Essential hypertension Fall at home Gait instability Hypertension Knowledge deficit on spinal cord stimulator Type 2 diabetes mellitus without complication, with no history of insulin use Surgical History Back pain with history of spinal surgery Social History marital status: household members: none lives independently: Yes Smoking Status: Former smoker alcohol intake: never Assessment & Plan Assessment & Plan narrative: 1. Right lower extremity cellulities with diabetic infected 2nd toe with necrosis and probable osteomyelitis -continue antibiotics with vancomycin and ceftriaxone 2gm daily -follow up cultures, blood with 1/4 positive, possible contaminant but in this clinical scenario may indicate blood stream infection with necrosis. -xray concerning for 2nd toe osteomyelitis, but now with amputation. -now s/p amputation with orthopedics. Continue antibiotics for now, if no bacteremia consider shorter duration after amputation. 2. Type 2 Diabetes on insulin, poorly controlled -A1c 4.9%, some concern for hypoglycemia at home. -patient inconsistently uses insulin, will continue only sliding scale for now given A1c. -for now insulin sliding scale -hold oral medications given li -consider stopping insulin with his A1c. 3. LI -likely secondary to infection, improved today from 1.3 to 1.0. -hold glimperide, lisinopril, metformin for now 4. 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 Hypertension -restart tiffany inhibitor once li improved and after surgery, likely tomorrow. 6. Depression -continue duloxetine 7. Chronic back pain, s/p spinal stimular I have discussed plan with patient. Reviewed imaging, plan of care with orthopedics, and relevant blood work along with ordering continued laboratory evaluations. CODE: Full Proxy: Judit Mio, daughter Time Spent With Patient Critical Care time: I spent a total of [] minutes of critical care time on this patient's care today; this time is exclusive of procedural time.
--- NOTE | 2022-12-23 15:27 | CM.DPC ---
DCP Cont: Per MD, pt was taken to OR last night and had toe amputation but did not need to do further partial foot amputation. Pt remains on IV-Abx and some concern for sepsis so awaiting further cultures to determine if IV-Abx needed at d/c and duration if needed. PT ordered and pending. Per RN, pt able to bear weight on his heel but somewhat forgetful on precautions. Plan: SW to follow closely on possible need for IV-Abx and to determine how pt does with PT eval to confirm if pt needs SNF vs home with family and [facility]. Amanda Patel, TRADE PROMOTION ANALYST
--- NOTE | 2022-12-23 16:00 | PT.IIE ---
Current Diagnoses Type 2 diabetes mellitus with other skin complications (12/21/22) Surgery Performed Operation Date: 12/22/22 16:45 Actual Procedures p 2nd Toe Amputation (Right) - Raji Fleming MD Surgical History (Last Reviewed 12/22/22 @ 07:37 by Raji Fleming MD) Back pain with history of spinal surgery Medical History (Last Reviewed 12/22/22 @ 07:37 by Raji Fleming MD) Aphasia Chronic back pain Depression Diabetes Diabetic peripheral neuropathy associated with type 2 diabetes mellitus Essential hypertension Fall at home Gait instability Hypertension Knowledge deficit on spinal cord stimulator Type 2 diabetes mellitus without complication, with no history of insulin use Physical Therapy Inpatient Evaluation/Re-Eval M1 PT/OT-IP Prior Functional Status Start: 12/23/22 15:25 Freq: NEEDED Status: Active Protocol: Document 12/23/22 16:00 DLM (Rec: 12/23/22 16:19 DLM [id number]) Medical Review Prior Functional Status Medical History Reviewed Yes Diet/Fluid Consistency Regular Communication hx aphasia Mobility and Gait Independent in home with FWW Activities of Daily Living and IADL's Independent toileting, unable to get more details at this time Social History Household Members spouse Living Arrangements Mobile home Number of Floors (Floors) One Floor Number of Stairs To Enter/Railing? one Home Environment Standard Height Toilet,Walk in Shower Home Equipment Front Wheel Walker,Four Wheel Walker,Shower Seat with Backrest,Grab Bars In Shower Additional Social History Comment he reports his is at home to help, he reports his Son drives him to appointments M2 PT-IP Current Condition Start: 12/23/22 15:25 Freq: NEEDED Status: Active Protocol: Document 12/23/22 16:00 DLM (Rec: 12/23/22 16:19 DLM [id number]) Physical Therapy Current Condition Current Condition Evaluation Date 12/23/22 Treatment Diagnosis right second toe amputation, impaired gait Onset Date 12/21/22 M3 PT-IP Subjective Start: 12/23/22 15:25 Freq: NEEDED Status: Active Protocol: Document 12/23/22 16:00 DLM (Rec: 12/23/22 16:19 DLM [id number]) Subjective Physical Therapy Visit Type Type Initial Evaluation Visit Start Time 15:20 Visit Stop Time 16:00 Total Visit Minutes 40 Number of ANODIC TREATER Visits 0 Physical Therapy Visit Comments Patient Comments He reports no pain at this time. He reports he wore a post-op shoe on left foot after surgery on that foot Patient Goals he did not state Therapy Pain Assessment Pain When Pain Assessed During Mobility Pain Present Pain Present Denied Pain M4 PT-IP Mobility and Gait Start: 12/23/22 15:25 Freq: NEEDED Status: Active Protocol: Document 12/23/22 16:00 DLM (Rec: 12/23/22 16:19 DL [id number]) PT-Bed Mobility Assessment Rolling Level of Assist Independent Supine to Sit Supine to Sit Independent Sit to Supine Sit to Supine Independent Scooting Scooting to Edge of Bed Independent Scooting Up and Down in Bed Independent PT-Transfer Assessment Sit to and From Stand Sit to and from Stand Independent,Use of Upper Extremities Equipment Transfer Assistive Device Gait Belt,Front Wheeled Walker Transfers Transfer Destination Bed Transfer Technique Stand Step Pivot Transfer Ability Level of Assist Standby Assistance,Use of Upper Extremities Comments Mobility Comments bed alarm in use, nursing reports he gets up without assistance to use the bathroom Gait Assessment Gait Gait Assistance Required: Standby Assistance Distance (Feet) 80 Able to Maintain Weight Bearing Status No During Gait Assistive Devices Assistive Device Gait Belt,Front Wheeled Walker Gait Deviations General Gait Pattern Antalgic Comments Gait Comments he has difficulty clearing right foot for swing phase of gait with post-op shoe in place and often drags the toe of the shoe, he is not able to keep his weight on his heel, he is eager to ambulate in the [place] this visit, he has no pain in right foot to help him protect the foot PT-Balance Assessment Sitting Balance and Reactions Static Sitting Balance Ability Normal Dynamic Sitting Balance Ability Normal Standing Balance and Reactions Static Standing Balance Ability Good Dynamic Standing Balance Ability Good Device Used FWW M5 PT-IP Objective Assessments Start: 12/23/22 15:25 Freq: NEEDED Status: Active Protocol: Document 12/23/22 16:00 DLM (Rec: 12/23/22 16:19 DL [id number]) Orientation Orientation/Cognition Level of Alertness Alert Orientation Name,Month,Year,Place, Situation Safety Awareness Decreased Safety Awareness Comments his speech can be difficult to understand, he will repeat things to improve communication Gross Range of Motion Upper Extremity ROM Assessment Within Functional Limits Lower Extremity ROM Assessment Within Functional Limits Strength Upper Extremity Strength Assessment Within Functional Limits Lower Extremity Strength Assessment Within Functional Limits Coordination Assessment Gross Coordination Gross Coordination WNL Sensation Assessment Sensation Gross Sensation Right LE Impaired,Left LE Impaired Light Touch Impaired Muscle Tone Muscle Tone WNL Yes M6 PT-IP Treatment Start: 12/23/22 15:25 Freq: NEEDED Status: Active Protocol: Document 12/23/22 16:00 DLM (Rec: 12/23/22 16:19 DLM [id number]) Physical Therapy Treatment Education Education Provided Weight Bearing Status,Safety Equipment Issued Equipment Type and Company [place] [employer] post-op shoe issued size large, pt reports his shoe size is 10 mens Other Treatments Other Treatment Performed no family present to discuss discharge issues M7 PT-IP Assessment and Plan Start: 12/23/22 15:25 Freq: NEEDED Status: Active Protocol: Document 12/23/22 16:00 DLM (Rec: 12/23/22 16:19 DLM [id number]) PT Summary Assessment and Plan Potential Rehabilitation Potential Good Status of Condition at Evaluation Evolving Summary Impairments Transfers,Gait Progress Towards Goals Safe For Discharge Assessment Summary Mikey is resting in bed and wakes up easily to participate in physical therapy. He has no pain in his right foot post -op amputation of 2nd toe. Post-op shoe issued to help protect his right foot. He is able to ambulate with the FWW but is unable to keep his weight on his heel of right foot and has difficulty clearing the floor with the post-op shoe. He will need family support at home to manage his fall risks and to protect his right foot. He has no pain in right foot to help with right foot protection. Recommend home health at discharge to continue safety education in his home environment to decreased his fall risks. Will discharge physical therapy while in the hospital. Recommend he have nursing supervision when up to decrease his fall risks and help protect his right foot. Goals Other Goals training completed this visit Frequency of Treatment Frequency Of Treatment Discharge Treatment Plan Other Recommendations and Next Treatment training completed this visit, Focus recommend nursing reinforce use of post-op shoe and protection of right foot during gait, limit gait to basic ADL's to protect his foot Precautions Other Precautions wound right foot Weight Bearing Status Weight Bearing Status Partial Weight Bearing Allowed Weight Bearing Amount (enter % weight bear on right heel to or #) (%) protect wound, post-op shoe ordered Recommendations To Nursing Amount of Assist Needed Standby Assistance Discharge Recommendations PT Discharge Recommendations Home with Assistance,Home Health Other Discharge Recommendations assistance from family Transportation Needs at Discharge Private Vehicle
[2022-12-23] MEDS: cefTRIAXone 2,000 MG in SODIUM CHLORIDE 0.9% 100 ML 200 MG IV (17:29)
[2022-12-24] VITALS (12 sets, daily range): BP systolic 117–143; BP diastolic 63–71; PULSE 64–78; RESP 16–18; TEMP 36.1–36.9; O2SAT 95–100
[2022-12-24 05:33] LABS: Bacteria Urine None Seen; Culture Indicated Urine Cult Not Indicated; RBC Urine 5-10/HPF (0-5/HPF); WBC Urine 0-1/HPF (0-5/HPF)
[2022-12-24] MEDS: VANCOMYCIN 1,000 MG/200 ML PIGGYBACK 200 MG IV (05:43)
[2022-12-24 05:59] LABS: Add Manual Diff / Slide Review NO; Basophils Absolute Auto 100 /uL (0-100); Basophils Percent Auto 0.5 % (0-2); Eosinophils Absolute Auto 500 /uL (0-450); Eosinophils Percent Auto 4.9 % (2-4); Hematocrit 35.8 % (41-53); Lymphocytes Absolute Auto 2600 /uL (1100-4500); Lymphocytes Percent Auto 24.7 % (25-40); Mean Corpuscular HGB Conc 33.5 % (30-36); Mean Corpuscular Hemoglobin 32.5 PG (26-34); Monocytes Absolute Auto 900 /uL (0-900); Monocytes Percent Auto 8.7 % (3-14); Neutrophils Absolute Auto 6400 /uL (1500-7000); Neutrophils Percent Auto 61.2 % (50-75); Platelet Count 281 X10^3/uL (150-400); Red Blood Cell Count 3.69 X10^6/uL (4.5-5.9); Red Cell Distribution Width 13.2 % (11.6-14.8); White Blood Cell Count 10.5 X10^3/uL (4.5-11.0)
[2022-12-24 06:02] LABS: Alanine Aminotransferase 23 IU/L (<50); Albumin 3.2 g/dL (3.5-5.0); Alkaline Phosphatase 61 U/L (38-126); Aspartate Aminotransferase 22 IU/L (17-59); BUN Creatinine Ratio 19.6 (6-22); Bilirubin Total 0.3 mg/dL (0.2-1.3); Blood Urea Nitrogen 21 mg/dL (9-20); Calcium 8.5 mg/dL (8.4-10.2); Carbon Dioxide 26 mmol/L (22-32); Chloride 103 mmol/L (98-107); Estimated Glomerular Filt Rate > 60 mL/min (>60); Globulin 3.3 g/dL (1.7-4.1); Glucose 49 mg/dL (80-110); HEMOLYSIS < 15 (0-50); Magnesium 1.7 mg/dL (1.6-2.3); Potassium 3.8 mmol/L (3.4-5.1); Sodium 136 mmol/L (137-145); Total Protein 6.5 g/dL (6.3-8.2)
[2022-12-24] MEDS: ATORVASTATIN 20 MG TABLET 40 MG PO (07:48)
[2022-12-24] MEDS: GABAPENTIN 600 MG TABLET PO ×3 (07:48→20:22)
[2022-12-24] MEDS: FENOFIBRATE, MICRONIZED 67 MG CAPSULE 201 MG PO (07:48)
[2022-12-24] MEDS: DULOXETINE 30 MG CAPSULE 60 MG PO (07:48)
[2022-12-24] MEDS: HEPARIN 5,000 UNIT/ML VIAL 5000 UNIT SUBCUT ×2 (07:49→20:21)
[2022-12-24] MEDS: SODIUM CHLORIDE 0.9% FLUSH 10 ML IV ×2 (07:52→20:25)
[2022-12-24] MEDS: METFORMIN HCL 500 MG TABLET 1000 MG PO ×2 (10:08→17:05)
[2022-12-24] MEDS: MAGNESIUM CHLORIDE 64 MG TABLET 128 MG PO (10:32)
[2022-12-24] MEDS: INSULIN LISPRO 100 UNIT/ML 3ML VIAL SUBCUT ×3 (11:24→20:21)
--- NOTE | 2022-12-24 14:20 | P.PN_ITS ---
Subjective Subjective Date Patient Seen: 12/24/22 Time Patient Seen: 09:15 Interval history: The patient has no complaints regarding his toe amputation. He is working with physical therapy and utilizing a postop shoe. Denies any new numbness or tingling. Exam Vital Signs (past 8 hours): - 12/24/22 07:34 12/24/22 07:45 12/24/22 11:13 Temperature 97.0 F L Pulse Rate 64 Respiratory Rate 18 Blood Pressure 122/63 Pulse Oximetry 96 99 97 Oxygen Delivery Method Room Air Room Air Oxygen Flow Rate 0 12/24/22 12:33 Temperature 98.1 F Pulse Rate 78 Respiratory Rate 18 Blood Pressure 143/71 H Pulse Oximetry 99 Oxygen Delivery Method Oxygen Flow Rate 0 Oxygen Delivery Method Room Air Oxygen Flow Rate 0 Narrative Exam Narrative: Pleasant 67year old male, resting comfortably in bed, no acute distress. Left foot dressing is saturated with dried blood. Dressing was changed today, no active signs of bleeding, mild surrounding erythema, no induration or zaid pus. Bliateral lower extremities: motor functions are grossly intact, sensation is grossly intact to light touch, calves are soft and nontender to palpation. Objective Labs 12/24/22 05:30 12/24/22 05:30 Labs: Laboratory Results - last 24 hr 12/24/22 12/24/22 12/24/22 04:25 05:30 05:30 WBC 10.5 RBC 3.69 L Hgb 12.0 L Hct 35.8 L MCV 97.0 MCH 32.5 MCHC 33.5 RDW 13.2 Plt Count 281 Neut % (Auto) 61.2 Lymph % (Auto) 24.7 L [place] % (Auto) 8.7 Eos % (Auto) 4.9 H Baso % (Auto) 0.5 Neut # (Auto) 6400 Lymph # (Auto) 2600 [place] # (Auto) 900 Eos # (Auto) 500 H Baso # (Auto) 100 Sodium 136 L Potassium 3.8 Chloride 103 Carbon Dioxide 26 BUN 21 H Creatinine 1.07 Estimated GFR > 60 BUN/Creatinine Ratio 19.6 Glucose 49 L Calcium 8.5 Magnesium 1.7 Total Bilirubin 0.3 AST 22 ALT 23 Alkaline Phosphatase 61 Total Protein 6.5 Albumin 3.2 L Globulin 3.3 Albumin/Globulin Ratio 1.0 Urine RBC 5-10/hpf H Urine WBC 0-1/hpf Urine Bacteria None seen Ur Culture Indicated? Cult not indicated PFSH Medical History Aphasia Chronic back pain Depression Diabetes Diabetic peripheral neuropathy associated with type 2 diabetes mellitus Essential hypertension Fall at home Gait instability Hypertension Knowledge deficit on spinal cord stimulator Type 2 diabetes mellitus without complication, with no history of insulin use Surgical History Back pain with history of spinal surgery Social History marital status: household members: spouse lives independently: Yes Smoking Status: Former smoker alcohol intake: never Assessment & Plan Post-op Postoperative Procedures: Procedures Operation Date: 12/22/22 16:45 Actual Procedure Side Surgeon p 2nd Toe Amputation Right Raji Fleming MD Postoperative day: 2 Postoperative status: doing well Postoperative status narrative: -stable status post right 2nd toe amputation -h/o poorly controlled diabetes, LI, HTN Postoperative plan narrative: The patient will be maintained in the hospital for IV antibiotics as he is undergoing a workup for potential sepsis. 1. Right lower extremity cellulitis with diabetic infected 2nd toe with necrosis and probable osteomyelitis -continue antibiotics with vancomycin and ceftriaxone 2gm daily -follow up cultures, blood with 1/4 positive, possible contaminant but in this clinical scenario may indicate blood stream infection with necrosis. -xray concerning for 2nd toe osteomyelitis, now s/p amputation. -now s/p amputation with orthopedics. Continue antibiotics for now, if no bacteremia consider shorter duration after amputation. 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 Appreciate Hospitalist's help managing all medical issues -follow up with ortho in 2-3 weeks for suture removal. -disposition, per primary team
--- NOTE | 2022-12-24 16:49 | PM.PN.1 ---
Subjective Subjective Interval history: 67-year-old gentleman with type 2 diabetes who intermittently uses insulin, chronic back pain status post spinal stimulator placement, depression, and hypertension who was admitted with a gangrenous right 2nd toe and associated right lower extremity cellulitis. Was also found to have LI. Previous history of left 3rd toe amputation. Blood cultures drawn on December 21 were positive for MSSA in 2/. Patient underwent amputation of the right 2nd toe on 12/22/2022. Last echocardiogram done in June of 2022 did not reveal any valvular disease. Follow-up blood cultures being drawn today. Patient reports he is not having any pain at his surgical site. He states he has no history of difficulty emptying his bladder or previously requiring a catheter. He states he is moving his bowels regularly. No new complaints. Exam Vital Signs (past 8 hours): - 12/24/22 11:13 12/24/22 12:33 12/24/22 16:07 Temperature 98.1 F Pulse Rate 78 Respiratory Rate 18 Blood Pressure 143/71 H Pulse Oximetry 97 99 96 Oxygen Delivery Method Room Air Room Air Oxygen Flow Rate 0 Oxygen Delivery Method Room Air Oxygen Flow Rate 0 Narrative Exam Narrative: GEN: Elderly male, Alert and oriented x 3, NAD HEENT:NC, Face symmetric CHEST: Respiratory excursions symmetric, CTAB CV: RRR, no M/R/G ABD: Soft, NT/ND, BT present in all 4 quadrants, no organomegaly or masses EXTR: warm, well perfused, no C/C/E, there is a blister noted on his right great toe, remainder of his foot and ankle could not be visualized secondary to surgical dressing SKIN: warm and dry, no rash NEURO: Alert and oriented x 3, nonfocal Objective Labs 12/24/22 05:30 12/24/22 05:30 Labs: Laboratory Results - last 24 hr 12/24/22 12/24/22 12/24/22 04:25 05:30 05:30 WBC 10.5 RBC 3.69 L Hgb 12.0 L Hct 35.8 L MCV 97.0 MCH 32.5 MCHC 33.5 RDW 13.2 Plt Count 281 Neut % (Auto) 61.2 Lymph % (Auto) 24.7 L [place] % (Auto) 8.7 Eos % (Auto) 4.9 H Baso % (Auto) 0.5 Neut # (Auto) 6400 Lymph # (Auto) 2600 [place] # (Auto) 900 Eos # (Auto) 500 H Baso # (Auto) 100 Sodium 136 L Potassium 3.8 Chloride 103 Carbon Dioxide 26 BUN 21 H Creatinine 1.07 Estimated GFR > 60 BUN/Creatinine Ratio 19.6 Glucose 49 L Calcium 8.5 Magnesium 1.7 Total Bilirubin 0.3 AST 22 ALT 23 Alkaline Phosphatase 61 Total Protein 6.5 Albumin 3.2 L Globulin 3.3 Albumin/Globulin Ratio 1.0 Urine RBC 5-10/hpf H Urine WBC 0-1/hpf Urine Bacteria None seen Ur Culture Indicated? Cult not indicated PFSH Medical History Aphasia Chronic back pain Depression Diabetes Diabetic peripheral neuropathy associated with type 2 diabetes mellitus Essential hypertension Fall at home Gait instability Hypertension Knowledge deficit on spinal cord stimulator Type 2 diabetes mellitus without complication, with no history of insulin use Surgical History Back pain with history of spinal surgery Social History marital status: household members: spouse lives independently: Yes Smoking Status: Former smoker alcohol intake: never Assessment & Plan Assessment & Plan narrative: 1. Right lower extremity cellulitis with necrosis/probable osteomyelitis of the right 2nd toe Now postoperative day 2 from amputation. Blood cultures drawn December 21 were positive in 2/4 bottles. Follow-up cultures to be obtained today. Should those cultures remain positive, he will definitely require an echocardiogram. He is on both Rocephin and vancomycin. Vancomycin will be discontinued. Will need a total of 14 days of IV Rocephin once daily from today's date (assuming his bacteremia has cleared). 2. Diabetes mellitus type 2 complicated by both hypo and hyperglycemia He does use insulin intermittently. His A1c was 4.9%. This is highly inconsistent with prior A1cs. His last A1c in June of 2022 was greater than 14, prior to that it averaged at about 10%. Will repeat a hemoglobin A1c. Blood sugar this morning was 50. It increased up to 160 with treatment. Overall blood sugars have ranged from the 130s to mid 200s. Again, this is not consistent with an A1c of 4.9%. It appears he is on metformin a 1000 mg twice daily and glimepiride 8 mg daily at baseline. Continue controlled carb diet. 3. LI Appears to have resolved. 4. Hypertension Blood pressures are normotensive. Lisinopril held due to his LI. As we are starting Flomax tonight, will defer restarting lisinopril today. 5. Depression Continue duloxetine 6. Chronic back pain Status post spinal stimulator. 7. Urinary retention Overnight, patient required Akers catheterization due to urinary retention. Will obtain a UA and culture if indicated. Add Flomax. Voiding trial tomorrow. Code status full Prophylaxis On heparin Disposition Home with home health. Time Spent With Patient Critical Care time: I spent a total of [] minutes of critical care time on this patient's care today; this time is exclusive of procedural time.
[2022-12-24] MEDS: cefTRIAXone 2,000 MG in SODIUM CHLORIDE 0.9% 100 ML 100 MG IV (17:06)
[2022-12-24] MEDS: TAMSULOSIN 0.4 MG CAPSULE PO (17:11)
--- NOTE | 2022-12-24 17:51 | DIET.PN1 ---
Dietary Progress Note Assessment: 67 y/o M with T2Dm s/p left third toe amputation. Significant change in hgA1c from >14% to 4.9% over 5-6 months. BG while hospitalized is not consistent with such a low HgA1c, however BG he reports at home do seem low. Reports FBG of 60-70s (never >100mg/dl). Also checks a BG in the afternoon but he is unable to tell me the results. Potential for chronic hypoglycemia at home resulting in very low HgA1c. States his provides him juice if BG are low, but unclear what that number is. Per EMR, home meds include Metformin 1000mg BID, glimepiride 8mg (admission notes indicate potential for insulin prn at home, but this is not reflected in PCP rx). Though he would benefit from DM education OP, he tells me today that he is sick of diabetes and knows it like the back of my hand. Diet recall indicates 2 meals per day of mostly protein and vegetables. Endorses weight loss of 40#, though this seems to be over 3 years. States the weight loss is due to eating healthier. -3.7kg over six months (4.2%) -- not significant Reports UBW as 200# (91kg). In 2020, EMR indicates 195# (89kg). May benefit from reduction in OP DM meds if HgA1c check is again <6%. Ht: 167.64 cm Wt: 82.554 kg BMI: 29.3 Last BM: 12/22/22 (12/22/22 21:00) MNA: 9 Bharat Score: 21 Diet: 12/22/22 Dinner Carbohydrate Consistent Diet Diet Modifications: May Advance Diet as Tolerated: No Safety Tray needed?: No Carbohydrate level: Medium (3 CHO) Bedtime snack: Yes Nutrition Percent Meal Consumed 100% 12/24/22 13:19 Percent Meal Consumed 100% 12/24/22 09:20 Percent Meal Consumed 100% 12/23/22 17:43 Percent Meal Consumed 100% 12/23/22 13:00 Labs: RBC 3.69 X10^6/uL (4.5-5.9) L 12/24/22 05:30 Hgb 12.0 g/dL (13.5-17.5) L 12/24/22 05:30 Hct 35.8 % (41-53) L 12/24/22 05:30 Creatinine 1.07 mg/dL (0.66-1.25) 12/24/22 05:30 Hemoglobin A1c 4.9 % (4.0-6.0) 12/22/22 05:50 Monitoring/Evaluations: consult prn Electronically Signed by: Krysten Costa 12/24/22 17:51 Clinical Dietitian [address] [id number]
[2022-12-24 19:58] LABS: Appearance Urine UA CLEAR; Bilirubin Urine UA NEGATIVE (NEGATIVE); Color Urine UA YELLOW; Glucose Urine UA 1+ g/dL (Negative); Ketones Urine UA NEGATIVE (NEGATIVE); Leukocyte Esterase Urine UA NEGATIVE (NEGATIVE); Nitrite Urine UA NEGATIVE (Negative); Occult Blood Urine UA 1+ (Negative); Protein Urine UA TRACE (Negative); Specific Gravity Urine UA 1.025 (1.000-1.035); Urobilinogen Urine UA 0.2 E.U./dL (0.2)
[2022-12-24 20:05] LABS: Bacteria Urine Occasional (0-1); Culture Indicated Urine Cult Not Indicated; Mucus Urine 1+ (Negative); RBC Urine 10-30/HPF (0-5/HPF); WBC Urine 1-5/HPF (0-5/HPF)
[2022-12-25] VITALS (10 sets, daily range): BP systolic 109–125; BP diastolic 58–69; PULSE 64–89; RESP 16; TEMP 35.9–37.3; O2SAT 96–99
[2022-12-25 05:43] LABS: Add Manual Diff / Slide Review NO; Basophils Absolute Auto 100 /uL (0-100); Basophils Percent Auto 0.8 % (0-2); Eosinophils Absolute Auto 600 /uL (0-450); Eosinophils Percent Auto 5.6 % (2-4); Hematocrit 37.1 % (41-53); Hemoglobin 12.6 g/dL (13.5-17.5); Lymphocytes Absolute Auto 3300 /uL (1100-4500); Lymphocytes Percent Auto 32.9 % (25-40); Mean Corpuscular HGB Conc 34.1 % (30-36); Mean Corpuscular Volume 96.8 fL (80-100); Monocytes Absolute Auto 700 /uL (0-900); Monocytes Percent Auto 7.4 % (3-14); Neutrophils Absolute Auto 5400 /uL (1500-7000); Neutrophils Percent Auto 53.3 % (50-75); Platelet Count 279 X10^3/uL (150-400); Red Blood Cell Count 3.83 X10^6/uL (4.5-5.9); White Blood Cell Count 10.1 X10^3/uL (4.5-11.0)
[2022-12-25 05:47] LABS: Alanine Aminotransferase 25 IU/L (<50); Albumin 3.4 g/dL (3.5-5.0); Albumin Globulin Ratio 1.1 (1.0-2.8); Alkaline Phosphatase 87 U/L (38-126); Aspartate Aminotransferase 24 IU/L (17-59); Bilirubin Total 0.3 mg/dL (0.2-1.3); Blood Urea Nitrogen 20 mg/dL (9-20); Calcium 9.2 mg/dL (8.4-10.2); Carbon Dioxide 28 mmol/L (22-32); Chloride 102 mmol/L (98-107); Estimated Glomerular Filt Rate > 60 mL/min (>60); Globulin 3.2 g/dL (1.7-4.1); Glucose 154 mg/dL (80-110); HEMOLYSIS 16 (0-50); Magnesium 1.7 mg/dL (1.6-2.3); Potassium 4.4 mmol/L (3.4-5.1); Sodium 136 mmol/L (137-145); Total Protein 6.6 g/dL (6.3-8.2)
[2022-12-25 08:01] LABS: Hemoglobin A1C% w Est Avg Glu 5.1 % (4.0-6.0)
[2022-12-25] MEDS: MAGNESIUM CHLORIDE 64 MG TABLET 128 MG PO (08:34)
[2022-12-25] MEDS: METFORMIN HCL 500 MG TABLET 1000 MG PO (08:34)
[2022-12-25] MEDS: INSULIN LISPRO 100 UNIT/ML 3ML VIAL SUBCUT ×4 (08:34→21:33)
--- NOTE | 2022-12-25 09:50 | P.PN_ITS ---
Subjective Subjective Date Patient Seen: 12/25/22 Time Patient Seen: 09:50 Interval history: Patient currently has no complaints about his toe or his foot. He is resting comfortably in bed, awaiting final culture results. Exam Vital Signs (past 8 hours): - 12/25/22 04:00 12/25/22 05:28 Temperature 97.1 F L Pulse Rate 64 Respiratory Rate 16 Blood Pressure 125/67 Pulse Oximetry 96 98 Oxygen Delivery Method Room Air Oxygen Delivery Method Room Air Oxygen Flow Rate 0 Narrative Exam Narrative: Pleasant 67-year-old male, resting comfortably in bed, no acute distress. Jose D ateral lower extremity: He is able to wiggle his toes, sensation is grossly intact to light touch bilaterally, calves are soft and nontender to palpation. Left foot dressing is clean, dry, intact. Postoperative shoe is in place Objective Labs 12/25/22 05:12 12/25/22 05:12 Labs: Laboratory Results - last 24 hr 12/24/22 12/25/22 12/25/22 17:10 05:12 05:12 WBC 10.1 RBC 3.83 L Hgb 12.6 L Hct 37.1 L MCV 96.8 MCH 33.0 MCHC 34.1 RDW 13.0 Plt Count 279 Neut % (Auto) 53.3 Lymph % (Auto) 32.9 [place] % (Auto) 7.4 Eos % (Auto) 5.6 H Baso % (Auto) 0.8 Neut # (Auto) 5400 Lymph # (Auto) 3300 [place] # (Auto) 700 Eos # (Auto) 600 H Baso # (Auto) 100 Sodium 136 L Potassium 4.4 Chloride 102 Carbon Dioxide 28 BUN 20 Creatinine 1.00 Estimated GFR > 60 BUN/Creatinine Ratio 20.0 Glucose 154 H D Hemoglobin A1c Calcium 9.2 Magnesium 1.7 Total Bilirubin 0.3 AST 24 ALT 25 Alkaline Phosphatase 87 Total Protein 6.6 Albumin 3.4 L Globulin 3.2 Albumin/Globulin Ratio 1.1 Urine Color Yellow Urine Appearance Clear Urine pH 5.0 Ur Specific [place] 1.025 Urine Protein Trace H Urine Glucose (UA) 1+ H Urine Ketones Negative Urine Occult Blood 1+ H Urine Nitrate Negative Urine Bilirubin Negative Urine Urobilinogen 0.2 Ur Leukocyte Esterase Negative Urine RBC 10-30/hpf H Urine WBC 1-5/hpf Urine Bacteria Occasional (0-1) Urine Mucus 1+ H Ur Culture Indicated? Cult not indicated 12/25/22 05:12 WBC RBC Hgb Hct MCV MCH MCHC RDW Plt Count Neut % (Auto) Lymph % (Auto) [place] % (Auto) Eos % (Auto) Baso % (Auto) Neut # (Auto) Lymph # (Auto) [place] # (Auto) Eos # (Auto) Baso # (Auto) Sodium Potassium Chloride Carbon Dioxide BUN Creatinine Estimated GFR BUN/Creatinine Ratio Glucose Hemoglobin A1c 5.1 Calcium Magnesium Total Bilirubin AST ALT Alkaline Phosphatase Total Protein Albumin Globulin Albumin/Globulin Ratio Urine Color Urine Appearance Urine pH Ur Specific [place] Urine Protein Urine Glucose (UA) Urine Ketones Urine Occult Blood Urine Nitrate Urine Bilirubin Urine Urobilinogen Ur Leukocyte Esterase Urine RBC Urine WBC Urine Bacteria Urine Mucus Ur Culture Indicated? [facility] Medical History Aphasia Chronic back pain Depression Diabetes Diabetic peripheral neuropathy associated with type 2 diabetes mellitus Essential hypertension Fall at home Gait instability Hypertension Knowledge deficit on spinal cord stimulator Type 2 diabetes mellitus without complication, with no history of insulin use Surgical History Back pain with history of spinal surgery Social History marital status: household members: spouse lives independently: Yes Smoking Status: Former smoker alcohol intake: never Assessment & Plan Post-op Postoperative Procedures: Procedures Operation Date: 12/22/22 16:45 Actual Procedure Side Surgeon p 2nd Toe Amputation Right Raji Fleming MD Postoperative day: 3 Postoperative status: doing well Postoperative status narrative: -stable status post right 2nd toe amputation -h/o poorly controlled diabetes, LI, HTN Postoperative plan narrative: The patient will be maintained in the hospital for IV antibiotics as he is undergoing a workup for potential sepsis. Vancomycin has been discontinued. Per hospitalist's note, patient will need Rocephin IV infusions daily times 14 days minimum. 1. Right lower extremity cellulitis with diabetic infected 2nd toe with necrosis and probable osteomyelitis -continue antibiotics with vancomycin and ceftriaxone 2gm daily -follow up cultures, blood with 2/4 positive, possible contaminant but in this clinical scenario may indicate blood stream infection with necrosis. -xray concerning for 2nd toe osteomyelitis, now s/p amputation. -now s/p amputation with orthopedics. Continue antibiotics for now, if no bacteremia consider shorter duration after amputation. 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 Appreciate Hospitalist's help managing all medical issues -follow up with ortho in 2-3 weeks for suture removal. -disposition, per primary team -orthopedics to sign off at this point. Please do not hesitate to re-consult for any questions or concerns.
[2022-12-25] MEDS: GLIMEPIRIDE 2 MG TABLET 8 MG PO (10:09)
[2022-12-25] MEDS: DULOXETINE 30 MG CAPSULE 60 MG PO (10:09)
[2022-12-25] MEDS: TAMSULOSIN 0.4 MG CAPSULE PO (10:09)
[2022-12-25] MEDS: HEPARIN 5,000 UNIT/ML VIAL 5000 UNIT SUBCUT ×2 (10:09→21:32)
[2022-12-25] MEDS: FENOFIBRATE, MICRONIZED 67 MG CAPSULE 201 MG PO (10:09)
[2022-12-25] MEDS: GABAPENTIN 600 MG TABLET PO ×3 (10:10→21:32)
[2022-12-25] MEDS: ATORVASTATIN 20 MG TABLET 40 MG PO (10:10)
[2022-12-25] MEDS: SODIUM CHLORIDE 0.9% FLUSH 10 ML IV ×2 (10:10→21:35)
--- NOTE | 2022-12-25 12:53 | CM.DPNOTE ---
Discharge Planning Note: Note that ortho has signed off for now. Per Dr Poon's notes state that patient will need 2 weeks of daily IV Rocephin. Blood culture preliminary is staph aureus, final pending. Spoke with patient's spouse Michelle Tom: [phone] who may be up with son Randy today. Initially broached the subject that patient will most likely need 2 weeks of IVABs and queried if she thought she or family member would be able to administer daily IV infusions if taught and managed by a company. She adamantly refused. Discussed SNF which she is amenable to. [facility] choice [facility], will fax referral. Plan: Continue to follow for dc needs. Follow up with [facility]. Follow up with Michelle to keep her updated. Palma Santos RN/DCP
--- NOTE | 2022-12-25 16:40 | P.PN_ITS ---
Subjective Subjective Interval history: 67-year-old gentleman with type 2 diabetes who intermittently uses insulin, chronic back pain status post spinal stimulator placement, depression, and hypertension who was admitted with a gangrenous right 2nd toe and associated right lower extremity cellulitis.? Was also found to have LI.? 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 Blood cultures drawn on December 21 were positive for MSSA in 2/.? Patient underwent amputation of the right 2nd toe on 12/22/2022.? Last echocardiogram done in June of 2022 did not reveal any valvular disease.? Follow-up blood cultures were ordered yesterday but were not drawn until today. Patient reports he is not having any pain at his surgical site.? Akers Catheter remains in place. He states that approximately a year ago he weighed 260 lb. He has been making a concerted effort to lose weight. He is now 160 lb. With that weight loss, his diabetes control has improved dramatically. Exam Vital Signs (past 8 hours): - 12/25/22 09:00 12/25/22 12:00 12/25/22 09:45 Temperature 96.7 F L Pulse Rate 67 Respiratory Rate 16 Blood Pressure 109/61 Pulse Oximetry 99 98 Oxygen Delivery Method Room Air Room Air 12/25/22 15:40 Temperature 99.1 F Pulse Rate 89 Respiratory Rate 16 Blood Pressure 109/58 L Pulse Oximetry 98 Oxygen Delivery Method Oxygen Delivery Method Room Air Oxygen Flow Rate 0 Narrative Exam Narrative: GEN:? Elderly male, Alert and oriented x 3, NAD HEENT:NC, Face symmetric CHEST: Respiratory excursions symmetric, CTAB CV: RRR, no M/R/G ABD: Soft, NT/ND, BT present in all 4 quadrants, no organomegaly or masses EXTR: warm, well perfused, no C/C/E, there is a blister noted on his right great toe, remainder of his foot and ankle could not be visualized secondary to surgical dressing SKIN: warm and dry, no rash NEURO: Alert and oriented x 3, nonfocal Objective Labs 12/25/22 05:12 12/25/22 05:12 Labs: Laboratory Results - last 24 hr 12/24/22 12/25/22 12/25/22 17:10 05:12 05:12 WBC 10.1 RBC 3.83 L Hgb 12.6 L Hct 37.1 L MCV 96.8 MCH 33.0 MCHC 34.1 RDW 13.0 Plt Count 279 Neut % (Auto) 53.3 Lymph % (Auto) 32.9 Ector % (Auto) 7.4 Eos % (Auto) 5.6 H Baso % (Auto) 0.8 Neut # (Auto) 5400 Lymph # (Auto) 3300 Ector # (Auto) 700 Eos # (Auto) 600 H Baso # (Auto) 100 Sodium 136 L Potassium 4.4 Chloride 102 Carbon Dioxide 28 BUN 20 Creatinine 1.00 Estimated GFR > 60 BUN/Creatinine Ratio 20.0 Glucose 154 H D Hemoglobin A1c Calcium 9.2 Magnesium 1.7 Total Bilirubin 0.3 AST 24 ALT 25 Alkaline Phosphatase 87 Total Protein 6.6 Albumin 3.4 L Globulin 3.2 Albumin/Globulin Ratio 1.1 Urine Color Yellow Urine Appearance Clear Urine pH 5.0 Ur Specific [place] 1.025 Urine Protein Trace H Urine Glucose (UA) 1+ H Urine Ketones Negative Urine Occult Blood 1+ H Urine Nitrate Negative Urine Bilirubin Negative Urine Urobilinogen 0.2 Ur Leukocyte Esterase Negative Urine RBC 10-30/hpf H Urine WBC 1-5/hpf Urine Bacteria Occasional (0-1) Urine Mucus 1+ H Ur Culture Indicated? Cult not indicated 12/25/22 05:12 WBC RBC Hgb Hct MCV MCH MCHC RDW Plt Count Neut % (Auto) Lymph % (Auto) Ector % (Auto) Eos % (Auto) Baso % (Auto) Neut # (Auto) Lymph # (Auto) Ector # (Auto) Eos # (Auto) Baso # (Auto) Sodium Potassium Chloride Carbon Dioxide BUN Creatinine Estimated GFR BUN/Creatinine Ratio Glucose Hemoglobin A1c 5.1 Calcium Magnesium Total Bilirubin AST ALT Alkaline Phosphatase Total Protein Albumin Globulin Albumin/Globulin Ratio Urine Color Urine Appearance Urine pH Ur Specific [place] Urine Protein Urine Glucose (UA) Urine Ketones Urine Occult Blood Urine Nitrate Urine Bilirubin Urine Urobilinogen Ur Leukocyte Esterase Urine RBC Urine WBC Urine Bacteria Urine Mucus Ur Culture Indicated? [facility] Medical History Aphasia Chronic back pain Depression Diabetes Diabetic peripheral neuropathy associated with type 2 diabetes mellitus Essential hypertension Fall at home Gait instability Hypertension Knowledge deficit on spinal cord stimulator Type 2 diabetes mellitus without complication, with no history of insulin use Surgical History Back pain with history of spinal surgery Social History marital status: household members: spouse lives independently: Yes Smoking Status: Former smoker alcohol intake: never Assessment & Plan Assessment & Plan narrative: 1. Right lower extremity cellulitis with necrosis/probable osteomyelitis of the right 2nd toe Now postoperative day 3 from amputation.? Blood cultures drawn December 21 were positive in 2/4 bottles.? Follow-up cultures were drawn today.? Should those cultures remain positive, he will definitely require an echocardiogram.? Vancomy nestor was discontinued yesterday. He remains on Rocephin. Will need a total of 14 days of IV Rocephin once daily from today's date (assuming his bacteremia has cleared). 2. Diabetes mellitus type 2 complicated by both hypo and hyperglycemia He does use insulin intermittently.? His A1c was 4.9%, which was highly inconsistent with his prior hemoglobin A1cs which were greater than 14% in June and averaging around 10 prior to that. Repeat A1c was done this morning and is 5.1%. After discussing with him it is likely his profound weight loss is contributing to his drastic glycemic improvement. As he has had some hypoglycemia here, we will cut his oral antidiabetic agents in half. Glimepi ride will be decreased from 8 mg daily to 4 mg daily and metformin will be decreased to 500 mg twice daily. Will continue to monitor his fingersticks while he is here. 3. LI Appears to have resolved. 4. Hypertension Blood pressures remain normotensive.? Lisinopril held due to his LI.? Flomax w as initiated last night which can impact blood pressure. His blood pressures today have been in the 109 systolic range. Given that, we will continue to hold lisinopril for now. 5. Depression Continue duloxetine 6. Chronic back pain Status post spinal stimulator. 7. Urinary retention UA revealed no evidence of UTI. Flomax was added. As he is now likely going to a SNF for rehab and IV antibiotics, will continue the Akers catheter for another 24 hours to allow the Flomax to take effect. Plan a voiding trial tomorrow or the next day. Code status full Prophylaxis On heparin Disposition Family feels IV antibiotic infusions are more than they can handle. SNF referrals are being done and pending at this time. Time Spent With Patient Critical Care time: I spent a total of [] minutes of critical care time on this patient's care today; this time is exclusive of procedural time.
[2022-12-25] MEDS: METFORMIN HCL 500 MG TABLET PO (17:04)
[2022-12-25] MEDS: cefTRIAXone 2,000 MG in SODIUM CHLORIDE 0.9% 100 ML 100 MG IV (17:05)
[2022-12-26] VITALS (12 sets, daily range): BP systolic 106–136; BP diastolic 60–74; PULSE 63–96; RESP 16–18; TEMP 36–37.4; O2SAT 95–100
[2022-12-26] MEDS: METFORMIN HCL 500 MG TABLET PO ×2 (08:36→16:18)
[2022-12-26] MEDS: GABAPENTIN 600 MG TABLET PO ×3 (08:36→20:21)
[2022-12-26] MEDS: FENOFIBRATE, MICRONIZED 67 MG CAPSULE 201 MG PO (08:37)
[2022-12-26] MEDS: TAMSULOSIN 0.4 MG CAPSULE PO (08:37)
[2022-12-26] MEDS: DULOXETINE 30 MG CAPSULE 60 MG PO (08:37)
[2022-12-26] MEDS: ATORVASTATIN 20 MG TABLET 40 MG PO (08:37)
[2022-12-26] MEDS: GLIMEPIRIDE 2 MG TABLET 4 MG PO (08:37)
[2022-12-26] MEDS: SODIUM CHLORIDE 0.9% FLUSH 10 ML IV ×2 (08:38→20:19)
[2022-12-26] MEDS: HEPARIN 5,000 UNIT/ML VIAL 5000 UNIT SUBCUT ×2 (08:38→20:19)
[2022-12-26] MEDS: INSULIN LISPRO 100 UNIT/ML 3ML VIAL SUBCUT ×3 (12:39→20:24)
--- NOTE | 2022-12-26 12:45 | PC.NURSE ---
patient is a/o, voices needs. SBA mobility and transfers. pod 4 amputation of 2nd toe on R foot. tolerating post surgery walking boot. gauze to incision is intact, + CSM. patient is quiet, sitting up in chair watching tv, eating his lunch. denies pain/discomfort, LS clear, tolerating RA. glucochecks : 64 this AM, and 244 at lunch. SSI given at lunch, appetite is good. call light w/in reach. anticipate d/c to SNF([facility]) tomorrow. report to QUINN Montano.
--- NOTE | 2022-12-26 14:14 | P.PN_ITS ---
Subjective Subjective Interval history: 67-year-old gentleman with type 2 diabetes who intermittently uses insulin, chronic back pain status post spinal stimulator placement, depression, and hypertension who was admitted with a gangrenous right 2nd toe and associated right lower extremity cellulitis.? Was also found to have LI.? 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 Blood cultures drawn on December 21 were positive for MSSA in 2/.? Patient underwent amputation of the right 2nd toe on 12/22/2022.? Last echocardiogram done in June of 2022 did not reveal any valvular disease.? Follow-up blood cultures were ordered on 12/24 but were not drawn until 12/25. Patient reports he is not having any pain at his surgical site.? Akers Catheter remains in place.? Yesterday he told me he is lost approximately 100 lb in the past year, having gone from 260 lb to 160 lb. With that weight loss, his diabetes control has dramatically improved. He understands that we are pending acceptance to a rehab facility, as he will need 2 weeks of IV antibiotics and can not do it at home. He denies any new complaints. Exam Vital Signs (past 8 hours): - 12/26/22 06:23 12/26/22 09:00 12/26/22 11:58 Temperature 97.6 F Pulse Rate 63 Respiratory Rate 18 Blood Pressure 136/71 Pulse Oximetry 100 95 95 Oxygen Delivery Method Room Air Room Air Oxygen Flow Rate 0 0 12/26/22 09:48 12/26/22 13:21 Temperature 96.8 F L 97.0 F L Pulse Rate 87 96 H Respiratory Rate 16 16 Blood Pressure 130/72 106/63 Pulse Oximetry 96 100 Oxygen Delivery Method Oxygen Flow Rate Oxygen Delivery Method Room Air Oxygen Flow Rate 0 Narrative Exam Narrative: GEN:? Elderly male, Alert and oriented x 3, NAD HEENT:NC, Face symmetric CHEST: Respiratory excursions symmetric, CTAB CV: RRR, no M/R/G ABD: Soft, NT/ND, BT present in all 4 quadrants, no organomegaly or masses EXTR: warm, well perfused, no C/C/E, there is a blister noted on his right great toe, remainder of his foot and ankle could not be visualized secondary to surgical dressing SKIN: warm and dry, no rash NEURO: Alert and oriented x 3, nonfocal Objective Labs 12/25/22 05:12 12/25/22 05:12 [facility] Medical History Aphasia Chronic back pain Depression Diabetes Diabetic peripheral neuropathy associated with type 2 diabetes mellitus Essential hypertension Fall at home Gait instability Hypertension Knowledge deficit on spinal cord stimulator Type 2 diabetes mellitus without complication, with no history of insulin use Surgical History Back pain with history of spinal surgery Social History marital status: household members: spouse lives independently: Yes Smoking Status: Former smoker alcohol intake: never Assessment & Plan Assessment & Plan narrative: 1. Right lower extremity cellulitis with necrosis/probable osteomyelitis of the right 2nd toe Now postoperative day 4 from amputation.? Blood cultures drawn December 21 were positive in 2/4 bottles for MSSA.? Follow-up cultures were drawn yesterday and remain negative to date.? Should those cultures also be positive, he will require an echocardiogram.? He remains on Rocephin.? Will need a total of 14 days of IV Rocephin once daily from yesterday's date (assuming his bacteremia has cleared). 2. Diabetes mellitus type 2 complicated by both hypo and hyperglycemia He does use insulin intermittently.? His A1c was 4.9%, which was highly inconsistent with his prior hemoglobin A1cs which were greater than 14% in June and averaging around 10 prior to that.? Repeat A1c was done yesterday morning and is 5.1%.? After discussing with him it is likely his profound weight loss is contributing to his drastic glycemic improvement.? As he has had some hypoglycemia here, his glimepiride was decreased from 8 mg daily to 4 mg daily and metformin was decreased from 1000 mg twice daily. Blood sugars have ranged from 162-225 in the past 24 hours but he has not had any hypoglycemia. 3. LI Appears to have resolved. 4. Hypertension Blood pressures remain normotensive.? Lisinopril held due to his LI.? Flomax was initiated on December 24 which can impact blood pressure.? His blood pressures today have remained in the low normal range.? Given that, we will continue to hold lisinopril for now. 5. Depression Continue duloxetine 6. Chronic back pain Status post spinal stimulator. 7. Urinary retention UA revealed no evidence of UTI.? Flomax was added.? As he is now likely going to a SNF for rehab and IV antibiotics, will continue the Akers catheter for another 24 hours to allow the Flomax to take effect.? Plan a voiding trial tomorrow morning. Code status full Prophylaxis On heparin Disposition Family feels IV antibiotic infusions are more than they can handle.? SNF referrals are being done and pending at this time. Time Spent With Patient Critical Care time: I spent a total of [] minutes of critical care time on this patient's care today; this time is exclusive of procedural time.
[2022-12-26] MEDS: cefTRIAXone 2,000 MG in SODIUM CHLORIDE 0.9% 100 ML 100 MG IV (18:37)
[2022-12-27] VITALS (7 sets, daily range): BP systolic 107–132; BP diastolic 60–67; PULSE 73–76; RESP 17–18; TEMP 36.2–37.1; O2SAT 97–98
--- NOTE | 2022-12-27 07:13 | PM.PN.1 ---
Exam Vital Signs (past 8 hours): - 12/27/22 00:11 12/27/22 04:00 12/27/22 04:00 Temperature 98.6 F 97.2 F L Pulse Rate 76 73 Respiratory Rate 18 18 Blood Pressure 107/64 122/66 Pulse Oximetry 97 97 97 Oxygen Delivery Method Room Air Oxygen Flow Rate 0 0 Oxygen Delivery Method Room Air Oxygen Flow Rate 0 Narrative Exam Narrative: GEN:? Elderly male, Alert and oriented x 3, NAD HEENT:NC, Face symmetric CHEST: Respiratory excursions symmetric, CTAB CV: RRR, no M/R/G ABD: Soft, NT/ND, BT present in all 4 quadrants, no organomegaly or masses EXTR: warm, well perfused, no C/C/E, there is a blister noted on his right great toe, remainder of his foot and ankle could not be visualized secondary to surgical dressing SKIN: warm and dry, no rash NEURO: Alert and oriented x 3, nonfocal Objective Labs 12/25/22 05:12 12/25/22 05:12 [facility] Medical History Aphasia Chronic back pain Depression Diabetes Diabetic peripheral neuropathy associated with type 2 diabetes mellitus Essential hypertension Fall at home Gait instability Hypertension Knowledge deficit on spinal cord stimulator Type 2 diabetes mellitus without complication, with no history of insulin use Surgical History Back pain with history of spinal surgery Social History marital status: household members: spouse lives independently: Yes Smoking Status: Former smoker alcohol intake: never Assessment & Plan Assessment & Plan narrative: 1. Right lower extremity cellulitis with necrosis/probable osteomyelitis of the right 2nd toe Now postoperative day 5 from amputation.? Blood cultures drawn December 21 were positive in 2/4 bottles for MSSA.? Follow-up cultures were drawn yesterday and remain negative to date.? Should those cultures also be positive, he will require an echocardiogram.? He remains on Rocephin.? Will need a total of 14 days of IV Rocephin once daily from 12/25 to stop on 01/08. 2. Diabetes mellitus type 2 complicated by both hypo and hyperglycemia He does use insulin intermittently.? His A1c was 4.9%, which was highly inconsistent with his prior hemoglobin A1cs which were greater than 14% in June and averaging around 10 prior to that.? Repeat A1c was done yesterday morning and is 5.1%.? After discussing with him it is likely his profound weight loss is contributing to his drastic glycemic improvement.? As he has had some hypoglycemia here, his glimepiride was decreased from 8 mg daily to 4 mg daily and metformin was decreased from 1000 mg twice daily. Blood sugars have ranged from 162-225 in the past 24 hours but he has not had any hypoglycemia. 3. LI Appears to have resolved. 4. Hypertension Blood pressures remain normotensive.? Lisinopril held due to his LI.? Flomax was initiated on December 24 which can impact blood pressure.? His blood pressures today have remained in the low normal range.? Given that, we will continue to hold lisinopril for now. 5. Depression Continue duloxetine 6. Chronic back pain Status post spinal stimulator. 7. Urinary retention UA revealed no evidence of UTI.? Flomax was added.? As he is now likely going to a SNF for rehab and IV antibiotics, will continue the Akers catheter for another 24 hours to allow the Flomax to take effect.? Plan a voiding trial tomorrow morning. Code status full Prophylaxis On heparin Disposition Family feels IV antibiotic infusions are more than they can handle.? SNF referrals are being done and pending at this time. Time Spent With Patient Critical Care time: I spent a total of [] minutes of critical care time on this patient's care today; this time is exclusive of procedural time.
--- NOTE | 2022-12-27 07:30 | DI.ECHO.S_ITS ---
[place] +---------+ Hospital +---------+ : : [address] : : : : [id number] : : : : Phone: [phone]---------+ Echocardiogram Report + + :Name: RODRIGO JONES Study Date: 12/27/2022 Height: 66 in : :[facility] ReadingLocation: Weight: 180 lb : : Gender: Male BSA: 1.9 m2 : :: 1955 Age: 67 yrs BP: 132/60 mmHg: :Reason For Study: ENDOCARDITIS : :Ordering Physician: BERYL, : :NIKITA Verdin Performed By: TAISHA NICHOLS : :Referring: NIKITA CORDOBA : + + Interpretation Summary The ejection fraction is estimated to be 45-50%. There are no obvious focal wall motion abnormalities noted but poor endocardial definition reduces the sensitivity for the detection of such. There is mild aortic regurgitation. There is mild aortic valve sclerosis. The aortic root is mildly dilated. This study was not good enough to r/o endocarditis. Consider TOSHA if clinically indicated. Procedure: A two-dimensional transthoracic echocardiogram with color flow and Doppler was performed. Comparison is made with the echocardiogram of 07/13/2022. The study quality was technically difficult. The patient was in sinus rhythm with heart rates between 63-70 bpm during the exam. Left Ventricle: The left ventricle is normal in size. There is mild concentric left ventricular hypertrophy. Left ventricular systolic function is mildly reduced. The ejection fraction is estimated to be 45-50%. There are no obvious focal wall motion abnormalities noted but poor endocardial definition reduces the sensitivity for the detection of such. Right Ventricle: The right ventricle is not well visualized. Right ventricular systolic function is mildly reduced. Atria: The left atrium grossly appears normal in size. The right atrium is normal in size. There is no Doppler evidence for an interatrial shunt. Mitral Valve: The mitral valve is normal in structure and function. There is no mitral regurgitation noted. Aortic Valve: The aortic valve is trileaflet. The aortic valve opens well. There is mild aortic valve sclerosis. There is no aortic valve stenosis. There is mild aortic regurgitation. Tricuspid Valve: The tricuspid valve is normal in structure and function. No tricuspid regurgitation. Pulmonary artery pressures cannot be estimated because of the lack of a measurable TR jet velocity. Pulmonic Valve: The pulmonic valve is not well seen, but is grossly normal. There is no pulmonic valvular regurgitation. Great Vessels: The aortic root is mildly dilated. The ascending aorta is at the upper limits of normal in size. The IVC was not well visualized secondary to technical limitations making central venous pressures difficult to estimate. Pericardium/ Pleura There is no pericardial effusion. There is no pleural effusion. MMode/2D Measurements & Calculations LVIDd: 3.8 cm LVOT diam: 2.4 cm LVIDs: 2.2 cm Ao root diam: 3.7 cm FS: 42.1 % asc Aorta Diam: 3.9 cm IVSd: 0.90 cm Ao Arch Diam (Prox Trans): 3.0 cm LVPWd: 0.80 cm LV mccabe. diameter/BSA (cm/m^2): 2.0 LV sys. diameter/BSA (cm/m^2): 1.2 LA A2 area: 8.8 cm2 RA long axis: 4.0 cm LA A4 area: 11.1 cm2 LA length (vol): 3.8 cm LA vol: 21.8 ml LA vol index: 11.4 ml/m2 LVLs ap4: 7.1 cm LVLd ap2: 8.0 cm LVLs ap2: 6.7 cm TAPSE_phl: 1.1 cm Doppler Measurements & Calculations Ao V2 max: 89.6 cm/sec LVOT Max Massimo: 73.1 cm/sec Ao V2 mean: 66.3 cm/sec LV V1 max P.1 mmHg Ao max P.2 mmHg LV V1 VTI: 14.3 cm Ao mean P.0 mmHg EDOUARD(I,D): 3.4 cm2 Ao V2 VTI: 18.8 cm EDOUARD(V,D): 3.7 cm2 sev ratio: 0.76 EDOUARD indexed to BSA (cm^2/m^2): 1.8 AI P1/2t: 632.4 msec AI dec slope: 113.0 cm/sec2 MV E max massimo: 59.6 cm/sec PA V2 max: 76.0 cm/sec MV A max massimo: 72.8 cm/sec PA V2 mean: 56.0 cm/sec MV E/A: 0.82 PA mean P.0 mmHg Med Peak E' Massimo: 5.0 cm/sec PA pr(Accel): 12.4 mmHg E/E' med: 11.8 Lat Peak E' Massimo: 7.5 cm/sec E/E' lat: 8.0 E/e' average: 9.9 MV dec time: 0.29 sec SV(LVOT): 64.7 ml AV P1/2t-pr_phl: 635.0 msec AV VR_phl: 0.82 EDOUARD(VTI)/BSA_phl: 1.8 MV P1/2t-pr_phl: 86.0 msec Reading Physician:09:52 AM
[2022-12-27] MEDS: INSULIN LISPRO 100 UNIT/ML 3ML VIAL SUBCUT ×2 (08:54→12:51)
[2022-12-27] MEDS: DULOXETINE 30 MG CAPSULE 60 MG PO (09:20)
[2022-12-27] MEDS: ATORVASTATIN 20 MG TABLET 40 MG PO (09:20)
[2022-12-27] MEDS: GLIMEPIRIDE 2 MG TABLET 4 MG PO (09:20)
[2022-12-27] MEDS: GABAPENTIN 600 MG TABLET PO (09:20)
[2022-12-27] MEDS: METFORMIN HCL 500 MG TABLET PO (09:20)
[2022-12-27] MEDS: TAMSULOSIN 0.4 MG CAPSULE PO (09:20)
[2022-12-27] MEDS: HEPARIN 5,000 UNIT/ML VIAL 5000 UNIT SUBCUT (09:21)
[2022-12-27] MEDS: SODIUM CHLORIDE 0.9% FLUSH 10 ML IV (09:22)
[2022-12-27] MEDS: FENOFIBRATE, MICRONIZED 67 MG CAPSULE 201 MG PO (09:26)
--- NOTE | 2022-12-27 10:56 | CM.DPC ---
Addendum entered by CHUN Staples 12/27/22 12:43: HARJINDER faxed signed med list, scripts, PASRR, d/c summary, MD orders to [facility] to review. Awaiting confirmation of transport time. PICC placed and pt infusing IV-Abx BF Addendum entered by CHUN Staples 12/27/22 11:31: ADD: Return call from [facility] at [facility] and they can accept pt today and likely provide transport around [phone] and will keep SW updated on exact time. Per patrol captain, PICC to be placed in the next 15 min. HARJINDER updated MD who consulted ID MD Dr. Washington after Echo and she is agreeable to follow pt for IV-Abx labs at d/ and referral faxed to her and pt stable for d/c to SNF and will write d/c orders and summary. HARJINDER met bedside with pt and family and updated on above and they are very appreciative that pt accepted at [facility] and to d/c to their facility today. HARJINDER updated patrol captain and RN. Plan: Patient to d/c to [facility] SNF today via facility van around [phone] and SW to fax d/c packet. CHUN Staples Original Note: DCP Cont: Per MD, pt had an Echo today and awaiting results and PICC to be placed for 2 weeks IV-Abx Ancef Q8 and likely could be stable for d/c. HARJINDER left ms for [facility] to inquire if they have reviewed and could accept if pt stable for d/c today and called [facility] as backup and they confirm they could likely accept pt today if needed. HARJINDER called pt's spouse and updated on possible d/c today or tomorrow and she confirms she feels SNF needed and not home infusion and SW discussed waiting to hear back from [facility] as that is their first preference due to location but would be agreeable to [facility] if [facility] not an option at d/c. HARJINDER spoke to [facility] at [facility] and emailed her the referral to review. PASRR completed in anticipation of SNF today vs tomorrow pending PICC placement and Echo. Plan: SW to follow for [facility] and [facility] review to determine SNF at d/c today vs tomorrow. CHUN Staples
--- NOTE | 2022-12-27 12:09 | PM.DS.1 ---
History of Present Illness History of Present Illness Date Patient Seen: 12/27/22 Time Patient Seen: 12:09 Chief complaint: 2nd toe on RT foot is putrid Narrative: Mr. Montano is a 67M with PMH Type 2 Diabetes intermittently using insulin, depression, HTN who presents to the hospital with an erythematous foot and black toe. He notes that he has had a black 2nd toe on his right foot for he says the last day. Prior to this he had redness for some prolonged period of time, which he is unable to quantify. He has a remote history of osteomyelitis in his left 3rd toe and is s/p amputation. He is supposed to take insulin, but does this inconsistently. His last a1c was greater than assay in June of 2022. He has had progressing redness up his foot over the last few days, he thinks 3 days approximately. His was unaware of any issues with his toe. He was told to come in by home health. He has no pain, no fever/chills. In the ED workup was done, vitals notable for afebrile, blood pressure 140s/70s. Labs notable for WBC 13.2, hgb 13.8. Na 131, creatinine 1.32. ESR 42, CRP 7.9. Procal 0.32. Foot xray read as slight osteopenia along lateral base of 2nd distal phalanx concerning for osteomyelitis. He was given antibiotics and admitted for further treatment. Discharge Providers Provider Date of admission: 12/21/22 19:40 Discharge Date: 12/27/22 Primary care physician: Eriberto Candelaria DO Consults: 12/21/22 18:37 Consult to Orthopedic Surgery Stat Comment: Consulting Provider: Raji Fleming Reason for consultation: donald Has provider been notified: Yes 12/22/22 19:36 Consult to Discharge Planning Routine Comment: Consult to Physical Therapy Evaluate & Treat Comment: Physician Instructions: Evaluate and Treat Discharge provider: Richie Garner DO Summary Hospital Course Discharge Diagnosis: 1. Right lower extremity cellulitis with necrosis/probable osteomyelitis of the right 2nd toe, MSSA bacteremia Now postoperative day 5 from amputation.? Blood cultures drawn December 21 were positive in 2/4 bottles for MSSA.? Follow-up cultures were drawn on 12/25 and remain negative to date.? TTE negative for endocarditis but was a poor study. Due to blood cultures clearing and patient improving clinically did not pursue transfer for TOSHA. PICC placed for IV abx. He will continue Ancef for MSSA at 2g q8h until 01/08. Referral faxed to infectious [facility] [place] to get an appt with Dr. Washington in the next couple weeks. He will see ortho in clinic in 2 weeks. 2. Diabetes mellitus type 2 complicated by both hypo and hyperglycemia He does use insulin intermittently.? His A1c was 4.9%, which was highly inconsistent with his prior hemoglobin A1cs which were greater than 14% in June and averaging around 10 prior to that.? Repeat A1c was done yesterday morning and is 5.1%.? After discussing with him it is likely his profound weight loss is contributing to his drastic glycemic improvement.? His home metformin was continued and glimiperide was discontinued on discharge. F/u with PCP for ongoing diabetes management and possibly stopping metformin. 3. LI Appears to have resolved. 4. Hypertension Blood pressures remain normotensive.? Lisinopril held due to his LI.? Flomax was initiated on December 24 which can impact blood pressure.? His blood pressures today have remained in the low normal range.? Resumed lisinopril on discharge. 5. Depression Continue duloxetine 6. Chronic back pain Status post spinal stimulator. 7. Urinary retention UA revealed no evidence of UTI.? Flomax was added.? Able to void after removal of abdalla. Flomax continued on discharge. 8. HFrEF -Unclear if patient has prior history of CHF but echo returned with EF 45-50%. Started metoprolol, already on lisinopril, and will need cardiology referral from PCP. 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 Elderly male, Alert and oriented x 3, NAD HEENT:NC, Face symmetric CHEST: Respiratory excursions symmetric, CTAB CV: RRR, no M/R/G ABD: Soft, NT/ND, BT present in all 4 quadrants, no organomegaly or masses EXTR: warm, well perfused, no C/C/E, there is a blister noted on his right great toe, remainder of his foot and ankle could not be visualized secondary to surgical dressing SKIN: warm and dry, no rash NEURO: Alert and oriented x 3, nonfocal Objective Labs 12/25/22 05:12 12/25/22 05:12 [facility] Medical History Aphasia Chronic back pain Depression Diabetes Diabetic peripheral neuropathy associated with type 2 diabetes mellitus Essential hypertension Fall at home Gait instability Hypertension Knowledge deficit on spinal cord stimulator Type 2 diabetes mellitus without complication, with no history of insulin use Surgical History Back pain with history of spinal surgery Social History marital status: household members: spouse lives independently: Yes Smoking Status: Former smoker alcohol intake: never Discharge Plan Discharge Plan Patient Disposition: SNF Other facility: [facility] Discharge orders & Medications Prescriptions: New tamsulosin [Flomax] 0.4 mg Capsule 0.4 mg PO BEDTIME Qty: 30 0RF metoprolol succinate 25 mg Tablet Extended Release 24 Hr 25 mg PO DAILY Qty: 30 0RF Continued aspirin 81 mg tablet,delayed release (DR/EC) 81 mg PO DAILY fenofibrate nanocrystallized 145 mg tablet 145 mg PO DAILY atorvastatin 40 mg tablet 40 mg PO DAILY clopidogrel 75 mg tablet 75 mg PO DAILY gabapentin 600 mg tablet 600 mg PO TID lisinopril 5 mg tablet 5 mg PO DAILY (DME) 4 wheel walker with seat See Rx Instructions .Route .MEDSUPPLY Qty: 1 0RF Rx Instructions: As directed metformin 1,000 mg tablet 1,000 mg PO BID Patient Comments: TAKE 1 TABLET BY MOUTH TWICE DAILY WITH MEALS duloxetine 60 mg capsule,delayed release(DR/EC) 60 mg PO DAILY Patient Comments: TAKE 1 CAPSULE BY MOUTH ONCE DAILY Discontinued glimepiride 2 mg tablet 8 mg PO DAILY Patient Comments: takes 2x 4mg tab/day Follow up/Referrals: Lluvia Washington MD [Non-Staff] - 2 Weeks Raji Fleming MD [Physician] - (Please call to set up a postoperative wound check appointment for 2-3 weeks from surgery.) Eriberto Candelaria DO [Primary Care Provider] - 2 Weeks Other Ambulatory Orders: Referral to: (Schedule) Timeframe: 3 Weeks Location: Outside Services Ordered By: Richie Garner Discharge Health Status Multidrug resistant organism: No MDRO Diet/Activity/Treatments Diet: Carb-consistent/Diabetic Liquid consistency: Normal/Thin Food texture: Regular Catheter: 2-way Abdalla Skin/Wound/Dressing Care Other wound treatment: -keep dressing in place until next appointment. Keep dressing clean and dry. Please call the office if dressing becomes wet or saturated. Use the postoperative shoe to protect her toe. [facility] Reason for rehabilitation: Post-operative therapy Rehab type: Physical therapy and Occupational therapy Restrictions to mobility: -weightbearing as tolerated on left lower extremity, focus on putting most of her weight on your heel on your left leg. Visit Report/Discharge Packet Instructions: DI for Toe Amputation Stand Alone Forms: Patient Portal/API, Dr. Gabriel Discharge, Surgery Discharge Discharge Data Primary Care Provider: Eriberto Candelaria
--- NOTE | 2022-12-27 12:17 | DI.RAD.S_ITS ---
PROCEDURE: XR CHEST FOR PICC 1V INDICATIONS: PICC placement TECHNIQUE: One view of the chest was acquired. COMPARISON: [facility], , XR CHEST 1V, 07/12/2022, 16:39. FINDINGS: Surgical changes and devices: Right upper extremity approach PICC tip projects over the low right atrium. Interspinous lead tips project over the T10 endplate. Lungs and pleura: Lungs are clear. No pleural effusions or pneumothorax. Mediastinum: Mediastinal contours appear normal. Heart size is normal. Bones and chest wall: No suspicious bony lesions. Overlying soft tissues appear unremarkable. IMPRESSION: Right upper extremity approach PICC tip projects over the low right atrium. Dictated by: Charlie March M.D. on 12/27/2022 at 12:42 Approved by: Charlie March M.D. on 12/27/2022 at 12:43
[2022-12-27] MEDS: lisinopriL 5 MG TABLET PO (12:50)
[2022-12-27] MEDS: CEFAZOLIN 2 GM/100 ML PREMIX 100 ML IV (12:50)
[2022-12-27] MEDS: METOPROLOL ER 25 MG TABLET PO (12:50)
--- NOTE | 2022-12-27 14:07 | DI.RAD.S_ITS ---
PROCEDURE: XR CHEST 1V INDICATIONS: verify PICC - drawn back, reassess placement TECHNIQUE: One view of the chest was acquired. COMPARISON: [facility], JCALYN, XR CHEST FOR PICC 1V, 12/27/2022, 12:21. [facility], CR, XR CHEST 1V, 07/12/2022, 16:39. FINDINGS: Surgical changes and devices: Interval retraction of the right upper extremity PICC. The tip projects over the low SVC. Lungs and pleura: Lungs are clear. No pleural effusions or pneumothorax. Mediastinum: Mediastinal contours appear normal. Heart size is normal. Bones and chest wall: No suspicious bony lesions. Overlying soft tissues appear unremarkable. IMPRESSION: Right upper approach PICC tip projects over the low SVC. Dictated by: Charlie March M.D. on 12/27/2022 at 14:51 Approved by: Charlie March M.D. on 12/27/2022 at 14:51
--- NOTE | 2022-12-27 14:42 | PC.NURSE ---
Pt discharged to [facility] rehab at 1430, escorted off floor in wheelchair, accompanied by facility designee. PIV removed but PICC line in place, discharge packet and prescriptions to go with patient. Report called to Eyal at 1445, questions answered. Pt left the floor with all belongings.
== END 2022-12-27 14:55 | disposition home or self-care (01) | DRG 617 ==
LOC: ED 19:32 → AC 19:41
PROVIDERS: Emergency Medicine; Family Medicine; Internal Medicine; Nurse Practitioner Family; Orthopaedic Surgery; Admitting Provider Internal Medicine; Emergency Provider Emergency Medicine; PCP Family Medicine; Referring Provider Emergency Medicine; Visit Provider Internal Medicine
PROC: 0Y6R0Z0 Detachment at Right 2nd Toe, Complete, Open Approach (ICD-10-PCS; principal; 2022-12-22 16:45)
DX: E11.69 Type 2 diabetes mellitus with other specified complication (principal); E11.52 Type 2 diabetes mellitus with diabetic peripheral angiopathy with gangrene; M86.9 Osteomyelitis, unspecified; I96 Gangrene, not elsewhere classified; I50.20 Unspecified systolic (congestive) heart failure; L03.031 Cellulitis of right toe; N17.9 Acute kidney failure, unspecified; E11.65 Type 2 diabetes mellitus with hyperglycemia; F32.A Depression, unspecified; I11.0 Hypertensive heart disease with heart failure; G89.29 Other chronic pain; M54.9 Dorsalgia, unspecified; E11.649 Type 2 diabetes mellitus with hypoglycemia without coma; R33.9 Retention of urine, unspecified; B95.61 Methicillin susceptible Staphylococcus aureus infection as the cause of diseases classified elsewhere; Z79.84 Long term (current) use of oral hypoglycemic drugs; Z20.822 Contact with and (suspected) exposure to COVID-19; Z87.891 Personal history of nicotine dependence; Z79.4 Long term (current) use of insulin
CPT/HCPCS: 36415; 71045; 73630; 73720; 80048; 80053; 80202; 81001; 81015; 82962; 83036; 83735; 84145; 85025; 85651; 86140; 87040; 87070; 87075; 87077; 87147; 87150; 87186; 87205; 87635; 93306; 96365; 96367; 97162; 99284; C9803; J0690; J0696; J1644; J1815; J2704; J3010; J3490

== ENCOUNTER → 2023-02-01 08:51 | Outpatient (CLI) | payer MEDICARE, OTHER, SELFPAY ==
[2022-12-22 11:04] VITALS: BMI 29.3
== END ==
PROVIDERS: PCP Family Medicine; Referring Provider Orthopaedic Surgery; Visit Provider Surgery
DX: E11.622 Type 2 diabetes mellitus with other skin ulcer (principal); Z89.421 Acquired absence of other right toe(s); E11.621 Type 2 diabetes mellitus with foot ulcer; T87.81 Dehiscence of amputation stump; L97.512 Non-pressure chronic ulcer of other part of right foot with fat layer exposed; E11.40 Type 2 diabetes mellitus with diabetic neuropathy, unspecified
CPT/HCPCS: 11042; 73630; 87070; 87077; 87186; 87205; 99213; 99214

== ENCOUNTER → 2023-02-01 11:00 | Outpatient (CLI) | payer MEDICARE, OTHER, SELFPAY ==
[2022-12-22 11:04] VITALS: BMI 29.3
--- NOTE | 2023-02-01 11:05 | DI.RAD.S_ITS ---
PROCEDURE: XR FOOT RT MIN 3V INDICATIONS: Eval for osteo r second toe amp site TECHNIQUE: 3 views of the foot were acquired. COMPARISON: [facility], CR, XR FOOT RT MIN 3V, 12/21/2022, 15:41. [facility], CR, XR FOOT LT MIN 3V, 08/23/2020, 8:56. FINDINGS: Bones: Interval amputation of the 2nd ray, beyond the metatarsal. No subcutaneous gas. No bony erosion. Plantar and Achilles calcaneal enthesophytes. Soft tissues: No tibiotalar joint effusion. Achilles tendon appears normal. IMPRESSION: Interval 2nd ray amputation, without complication. No radiographic evidence of osteomyelitis at this time. Dictated by: Charlie March M.D. on 02/04/2023 at 14:49 Approved by: Charlie March M.D. on 02/04/2023 at 14:50
== END ==
PROVIDERS: PCP Family Medicine; Referring Provider Surgery; Visit Provider Surgery
DX: E11.622 Type 2 diabetes mellitus with other skin ulcer (principal); Z89.421 Acquired absence of other right toe(s)
CPT/HCPCS: 73630

== ENCOUNTER → 2023-02-09 15:38 | Outpatient (CLI) | payer MEDICARE, OTHER, SELFPAY ==
[2022-12-22 11:04] VITALS: BMI 29.3
== END ==
PROVIDERS: PCP Family Medicine; Referring Provider Family Medicine; Visit Provider Nurse Practitioner Family
DX: E11.621 Type 2 diabetes mellitus with foot ulcer (principal); T87.81 Dehiscence of amputation stump; L97.512 Non-pressure chronic ulcer of other part of right foot with fat layer exposed; E11.40 Type 2 diabetes mellitus with diabetic neuropathy, unspecified
CPT/HCPCS: 11042; 99213

== ENCOUNTER → 2023-02-16 13:00 | Outpatient (CLI) | payer MEDICARE, OTHER, SELFPAY ==
[2022-12-22 11:04] VITALS: BMI 29.3
== END ==
PROVIDERS: PCP Family Medicine; Referring Provider Orthopaedic Surgery; Visit Provider Surgery
DX: T87.81 Dehiscence of amputation stump (principal); E11.628 Type 2 diabetes mellitus with other skin complications; E11.42 Type 2 diabetes mellitus with diabetic polyneuropathy
CPT/HCPCS: 11042

== ENCOUNTER → 2023-02-23 09:47 | Outpatient (CLI) | payer MEDICARE, OTHER, SELFPAY ==
[2022-12-22 11:04] VITALS: BMI 29.3
== END ==
PROVIDERS: PCP Family Medicine; Referring Provider Orthopaedic Surgery; Visit Provider Surgery
DX: T87.89 Other complications of amputation stump (principal); E11.628 Type 2 diabetes mellitus with other skin complications; E11.42 Type 2 diabetes mellitus with diabetic polyneuropathy
CPT/HCPCS: 11042

== ENCOUNTER → 2023-03-02 10:52 | Outpatient (CLI) | payer MEDICARE, OTHER, SELFPAY ==
[2022-12-22 11:04] VITALS: BMI 29.3
== END ==
PROVIDERS: PCP Family Medicine; Referring Provider Family Medicine; Visit Provider Surgery
DX: E11.621 Type 2 diabetes mellitus with foot ulcer (principal); T87.89 Other complications of amputation stump; L97.512 Non-pressure chronic ulcer of other part of right foot with fat layer exposed
CPT/HCPCS: 11042; 99212; 99213

== ENCOUNTER → 2023-03-09 13:03 | Outpatient (CLI) | payer MEDICARE, OTHER, SELFPAY ==
[2022-12-22 11:04] VITALS: BMI 29.3
== END ==
PROVIDERS: PCP Family Medicine; Referring Provider Orthopaedic Surgery; Visit Provider Surgery
DX: E11.621 Type 2 diabetes mellitus with foot ulcer (principal); T87.89 Other complications of amputation stump; L97.512 Non-pressure chronic ulcer of other part of right foot with fat layer exposed; M86.171 Other acute osteomyelitis, right ankle and foot; Z89.421 Acquired absence of other right toe(s)
CPT/HCPCS: 11042

== ENCOUNTER → 2023-03-23 12:56 | Outpatient (CLI) | payer MEDICARE, OTHER, SELFPAY ==
[2022-12-22 11:04] VITALS: BMI 29.3
== END ==
PROVIDERS: PCP Family Medicine; Referring Provider Orthopaedic Surgery; Visit Provider Surgery
DX: E11.621 Type 2 diabetes mellitus with foot ulcer (principal); T87.89 Other complications of amputation stump; L97.512 Non-pressure chronic ulcer of other part of right foot with fat layer exposed
CPT/HCPCS: 97597

== ENCOUNTER → 2023-03-30 10:39 | Outpatient (CLI) | payer MEDICARE, OTHER, SELFPAY ==
[2022-12-22 11:04] VITALS: BMI 29.3
== END ==
PROVIDERS: PCP Family Medicine; Referring Provider Orthopaedic Surgery; Visit Provider Surgery
DX: T87.89 Other complications of amputation stump (principal); E11.42 Type 2 diabetes mellitus with diabetic polyneuropathy; E11.621 Type 2 diabetes mellitus with foot ulcer; L97.512 Non-pressure chronic ulcer of other part of right foot with fat layer exposed
CPT/HCPCS: 36415; 83036; 97602; 99213

== ENCOUNTER → 2023-03-30 11:43 | Outpatient (CLI) | payer MEDICARE, OTHER, SELFPAY ==
[2022-12-22 11:04] VITALS: BMI 29.3
[2023-03-31 03:36] LABS: Labcorp Hemoglobin (Hb) A1c 5.8 % (4.8-5.6)
== END ==
PROVIDERS: PCP Family Medicine; Referring Provider Family Medicine; Visit Provider Family Medicine
DX: E11.42 Type 2 diabetes mellitus with diabetic polyneuropathy (principal)
CPT/HCPCS: 36415; 83036

== ENCOUNTER → 2023-04-06 10:54 | Outpatient (CLI) | payer MEDICARE, OTHER, SELFPAY ==
[2022-12-22 11:04] VITALS: BMI 29.3
== END ==
PROVIDERS: PCP Family Medicine; Referring Provider Orthopaedic Surgery; Visit Provider Surgery
DX: T87.89 Other complications of amputation stump (principal); E11.40 Type 2 diabetes mellitus with diabetic neuropathy, unspecified
CPT/HCPCS: 99213

== ENCOUNTER → 2023-04-22 13:02 | Outpatient (CLI) | payer MEDICARE, OTHER, SELFPAY ==
[2022-12-22 11:04] VITALS: BMI 29.3
== END ==
PROVIDERS: PCP Family Medicine; Referring Provider Family Medicine; Visit Provider Physician Assistant
DX: L53.8 Other specified erythematous conditions (principal); B35.1 Tinea unguium; Z89.421 Acquired absence of other right toe(s); Z89.422 Acquired absence of other left toe(s)
CPT/HCPCS: 99212; 99213

== ENCOUNTER → 2023-05-25 12:08 | Outpatient (CLI) | payer MEDICARE, OTHER, SELFPAY ==
[2022-12-22 11:04] VITALS: BMI 29.3
== END ==
PROVIDERS: PCP Family Medicine; Visit Provider Nurse Practitioner Family
DX: L03.90 Cellulitis, unspecified (principal)
CPT/HCPCS: 87070; 87075; 87205

== ENCOUNTER → 2023-05-25 12:13 | Outpatient (CLI) | payer MEDICARE, OTHER, SELFPAY ==
[2022-12-22 11:04] VITALS: BMI 29.3
--- NOTE | 2023-05-25 12:17 | DI.RAD.S_ITS ---
PROCEDURE: XR TOE RT MIN 2V INDICATIONS: Great toe infection TECHNIQUE: Frontal view of the foot and two views of the 1st toe COMPARISON: [facility], CR, XR FOOT RT MIN 3V, 02/01/2023, 11:03. FINDINGS: Bones: Prior amputation of the 2nd digit at the level of the MTP joint. Lucency and cortical indistinctness of the 1st digit distal phalanx tuft is present, most conspicuous on the lateral view. On the frontal view, lucency through the tuft appears curvilinear. Polyarticular degenerative changes of the foot redemonstrated. Soft tissues: No suspicious soft tissue densities. IMPRESSION: Erosive change at the tuft of the 1st digit distal phalanx is suspicious for osteomyelitis in the appropriate clinical setting. On one view of the exam, lucency through this region appears linear, raising the possibility of a recent minimally displaced fracture. Correlation for history of recent trauma and or area of infection may be helpful. Dictated by: Yehuda Salmeron M.D. on 05/25/2023 at 15:20 Approved by: Yehuda Salmeron M.D. on 05/25/2023 at 15:26
== END ==
PROVIDERS: PCP Family Medicine; Referring Provider Nurse Practitioner Family; Visit Provider Nurse Practitioner Family
DX: L08.9 Local infection of the skin and subcutaneous tissue, unspecified (principal); Z89.421 Acquired absence of other right toe(s)
CPT/HCPCS: 73660; 87070; 87075; 87205

== ENCOUNTER 2023-05-25 19:52 | Inpatient (IN) | payer MEDICARE, OTHER, SELFPAY ==
[2022-12-22 11:04] VITALS: BMI 29.3
[2023-05-25 19:57] VITALS: BP 125/68; PULSE 78; RESP 18; TEMP 36.9; O2SAT 98; BMI 25.8
[2023-05-25 20:27] VITALS: BP 132/74; PULSE 69; RESP 18; O2SAT 98
[2023-05-25 21:00] VITALS: BP 125/67; PULSE 65; RESP 18; O2SAT 99
--- NOTE | 2023-05-25 21:01 | PC.NURSE ---
Patient is missing second digit toe on right foot and third digit toe on left foot. Patient's right foot great toe is cold and blackened. reports patient lost the second digit toe on right foot about one month ago for similar symptoms.
[2023-05-25 21:31] VITALS: BP 121/62; PULSE 65; RESP 18; O2SAT 97
[2023-05-25 22:26] LABS: Add Manual Diff / Slide Review NO; Basophils Absolute Auto 100 /uL (0-100); Basophils Percent Auto 0.7 % (0-2); Eosinophils Absolute Auto 800 /uL (0-450); Eosinophils Percent Auto 6.6 % (2-4); Hematocrit 42.9 % (41-53); Hemoglobin 14.3 g/dL (13.5-17.5); Lymphocytes Absolute Auto 3400 /uL (1100-4500); Lymphocytes Percent Auto 28.6 % (25-40); Mean Corpuscular HGB Conc 33.2 % (30-36); Mean Corpuscular Hemoglobin 30.7 PG (26-34); Mean Corpuscular Volume 92.4 fL (80-100); Monocytes Absolute Auto 700 /uL (0-900); Monocytes Percent Auto 6.1 % (3-14); Neutrophils Absolute Auto 6900 /uL (1500-7000); Platelet Count 285 X10^3/uL (150-400); Red Blood Cell Count 4.65 X10^6/uL (4.5-5.9); Red Cell Distribution Width 14.8 % (11.6-14.8)
[2023-05-25 22:44] LABS: Lactate (Lactic Acid) 1.2 mmol/L (0.7-2.1)
[2023-05-25 22:46] LABS: Alanine Aminotransferase 23 IU/L (<50); Albumin 4.3 g/dL (3.5-5.0); Albumin Globulin Ratio 1.2 (1.0-2.8); Alkaline Phosphatase 76 U/L (38-126); Aspartate Aminotransferase 29 IU/L (17-59); Bilirubin Total 0.4 mg/dL (0.2-1.3); Blood Urea Nitrogen 31 mg/dL (9-20); Calcium 9.5 mg/dL (8.4-10.2); Carbon Dioxide 27 mmol/L (22-32); Chloride 102 mmol/L (98-107); Estimated Glomerular Filt Rate 57 mL/min (>60); Globulin 3.7 g/dL (1.7-4.1); Glucose 99 mg/dL (80-110); HEMOLYSIS < 15 (0-50); Potassium 4.4 mmol/L (3.4-5.1); Sodium 137 mmol/L (137-145)
[2023-05-25 22:53] LABS: Erythrocyte Sedimentation Rate 21 MM/HR (0-15)
[2023-05-25 23:00] VITALS: BP 118/59; PULSE 65; RESP 18; O2SAT 97
[2023-05-25 23:10] LABS: C-Reactive Protein Quant 1.1 mg/dL (<1.0)
--- NOTE | 2023-05-25 23:14 | ED.EXTPRO ---
HPI - Extremity Problem General Chief complaint: Extremity Problem,Nontraumatic Stated complaint: rt grt toe has a bone infection Time Seen by Provider: 05/25/23 23:14 Source: patient Mode of arrival: Ambulatory History of Present Illness HPI Narrative: Patient 67-year-old male history of insulin-dependent diabetes CVA previous toe infection and osteomyelitis presents today with right great toe infection. Was seen evaluated at walk-in clinic earlier had an x-ray which showed osteomyelitis. Patient says that the toe has only been that way for 2 days. According to records does not check his feet every day he states he did stub his toe couple of days ago does not remember any other specific trauma he denies any fever. Related Data Home Medications Medication Instructions Recorded Confirmed duloxetine 60 mg capsule,delayed 60 mg PO DAILY 08/23/20 03/30/23 release metformin 1,000 mg tablet 1,000 mg PO BID 08/23/20 03/30/23 aspirin 81 mg tablet,delayed 81 mg PO DAILY 11/24/22 03/30/23 release atorvastatin 40 mg tablet 40 mg PO DAILY 11/24/22 03/30/23 clopidogrel 75 mg tablet 75 mg PO DAILY 11/24/22 03/30/23 fenofibrate nanocrystallized 145 145 mg PO DAILY 11/24/22 03/30/23 mg tablet gabapentin 600 mg tablet 600 mg PO TID 11/24/22 03/30/23 lisinopril 5 mg tablet 5 mg PO DAILY 11/24/22 03/30/23 Previous Rx's Medication Instructions Recorded 4 wheel walker with seat #1 ea 11/24/22 insulin lispro 100 unit/mL 1 sliding scale dose SUBCUT 02/08/23 subcutaneous pen (Humalog KwikPen USEASDIRECTD #15 mL (U-100) Insulin) glimepiride 4 mg tablet 4 mg PO BID diabetes #180 tabs 04/04/23 Diabetic Shoes #2 ea 04/25/23 clindamycin HCl 300 mg capsule 300 mg PO QID 14 days #56 caps 05/25/23 mupirocin 2 % topical ointment 1 applic topical TID #22 grams 05/25/23 Allergies Allergy/AdvReac Type Severity Reaction Status Date / Time codeine AdvReac Gastrointestinal Verified 03/30/23 11:18 Upset Review of Systems Review of Systems ROS Unobtainable: All systems reviewed & are unremarkable except as noted in HPI and below Patient History Medical History Aphasia Chronic back pain CVA (cerebral vascular accident) (~2020) Depression Diabetes (~2009) Diabetic peripheral neuropathy associated with type 2 diabetes mellitus Essential hypertension Fall at home Gait instability Hyperlipidemia Hypertension Knowledge deficit on spinal cord stimulator Surgical History Anesthesia Back pain with history of spinal surgery History of cholecystectomy (~1989) Social History marital status: household members: spouse lives independently: Yes Smoking Status: Former smoker alcohol intake: never Smoking Status: Former smoker alcohol intake frequency: 0-2 drinks per day Substance Use Type: does not use and other Exam Initial Vital Signs Initial Vital Signs: Vital Signs Temperature 98.5 F 05/25/23 19:57 Pulse Rate 78 05/25/23 19:57 Respiratory Rate 18 05/25/23 19:57 Blood Pressure 125/68 05/25/23 19:57 Pulse Oximetry 98 05/25/23 19:57 Oxygen Delivery Method Room Air 05/25/23 19:57 GENERAL: Alert 67-year-old male and in no acute distress. HEENT: Head atraumatic,EOMI, pupils reactive, face symmetric, moist mucous membranes CARDIOVASCULAR: Regular rate and rhythm without murmurs, rubs or gallops. RESPIRATORY: Breath sounds equal bilaterally, no wheezes rales or rhonchi. ABDOMEN: Soft, nontender. Normoactive bowel sounds all 4 quadrants. No guarding or rebound. EXTREMITIES: Normal range of motion, no clubbing or edema. Neurovascularly intact NEUROLOGICAL: Alert and oriented x4. SKIN: Right great toe mild erythema wishes localized around the nail does not extend into the foot. There is a dry area that is slightly black 2nd digit is noted to be missing her previous amputations on the same Course Orders Ordered: ED Orders 05/25/23 20:15 CBC Auto Diff [Complete Blood Count AUTO DIFF] Stat CMP [Comprehensive Metabolic Panel] Stat CRP [C-Reactive Protein Quant] Stat ESR [Erythrocyte Sedimentation Rate] Stat Lactate (Lactic Acid) Stat Procalcitonin Stat 05/25/23 22:48 Blood Culture Stat Acetaminophen (Acetaminophen 325 Mg Tablet) 650 mg PO Q6H [facility] Last Admin: 05/26/23 01:51 Dose: Not Given Documented By: AT Aspirin (Aspirin Ec 81 Mg Tablet) 81 mg PO DAILY [facility] Atorvastatin Calcium (Atorvastatin 20 Mg Tablet) 40 mg PO DAILY [facility] Dextrose (Dextrose 50 % In Water 25 Gm/50 Ml Syringe) 25 gm IV PRN PRN PRN Reason: Hypoglycemia Duloxetine HCl (Duloxetine 30 Mg Capsule) 60 mg PO DAILY [facility] Enoxaparin Sodium (Enoxaparin 40 Mg/0.4 Ml Syringe) 40 mg SUBCUT DAILY [facility] Fenofibrate (Fenofibrate, Micronized 67 Mg Capsule) 201 mg PO DAILY [facility] Gabapentin (Gabapentin 600 Mg Tablet) 600 mg PO TID [facility] Ceftriaxone Sodium 2,000 mg/ (Sodium Chloride) 100 mls @ 200 mls/hr IV Q24H [facility] Metronidazole (Flagyl) 500 mg in 100 mls @ 100 mls/hr IV Q8H [facility] Insulin Human Regular (Insulin Regular 100 Unit/Ml 3 Ml Vial) 0 unit SUBCUT ACHS ASHLEY; Protocol Naloxone HCl (Naloxone 0.4 Mg/Ml Vial) 0.2 mg IV Q2MIN PRN PRN Reason: Opiate Reversal Discontinued Medications Clopidogrel Bisulfate (Clopidogrel 75 Mg Tablet) 75 mg PO DAILY [facility] Ceftriaxone Sodium 2,000 mg/ (Sodium Chloride) 100 mls @ 200 mls/hr IV NOW ONE Stop: 05/26/23 00:17 Last Infusion: 05/26/23 02:33 Dose: 0 mls/hr Documented By: Admin: 05/26/23 01:45 Dose: 200 mls/hr Documented By: AT Metronidazole (Flagyl) 500 mg in 100 mls @ 100 mls/hr IV NOW ONE Stop: 05/26/23 01:15 Last Infusion: 05/26/23 03:32 Dose: 0 mls/hr Documented By: Admin: 05/26/23 02:27 Dose: 100 mls/hr Documented By: AT Ceftriaxone Sodium 2,000 mg/ (Sodium Chloride) 100 mls @ 200 mls/hr IV Q24H [facility] Metronidazole (Flagyl) 500 mg in 100 mls @ 100 mls/hr IV Q8H [facility] Non-Formulary Medication (Insulin Lispro [Humalog Kwikpen Insulin]) 1 sliding scale dose SUBCUT USEASDIRECTD [facility] Vital Signs Vital signs: Vital Signs - 8 hr 05/25/23 21:00 05/25/23 21:31 05/25/23 23:00 Pulse Rate 65 65 65 Respiratory Rate 18 18 18 Blood Pressure 125/67 121/62 118/59 L Pulse Oximetry 99 97 97 Oxygen Delivery Method Room Air Room Air Room Air 05/25/23 23:30 05/26/23 00:00 Pulse Rate 66 63 Respiratory Rate 18 18 Blood Pressure 138/65 100/54 L Pulse Oximetry 98 96 Oxygen Delivery Method Room Air Room Air MDM - Extremity (Nontraumatic) Lab Data 05/25/23 20:15 05/25/23 20:15 Labs: Lab Results 05/25/23 05/25/23 05/25/23 Range/Units 20:15 20:15 20:15 WBC 12.0 H (4.5-11.0) X10^3/uL RBC 4.65 (4.5-5.9) X10^6/uL Hgb 14.3 (13.5-17.5) g/dL Hct 42.9 (41-53) % MCV 92.4 (80-100) fL MCH 30.7 (26-34) PG MCHC 33.2 (30-36) % RDW 14.8 (11.6-14.8) % Plt Count 285 (150-400) X10^3/uL Neut % (Auto) 58.0 (50-75) % Lymph % (Auto) 28.6 (25-40) % [place] % (Auto) 6.1 (3-14) % Eos % (Auto) 6.6 H (2-4) % Baso % (Auto) 0.7 (0-2) % Neut # (Auto) 6900 (2418-8802) /uL Lymph # (Auto) 3400 (4445-5920) /uL [place] # (Auto) 700 (0-900) /uL Eos # (Auto) 800 H (0-450) /uL Baso # (Auto) 100 (0-100) /uL ESR 21 H (0-15) MM/HR PT (10.1-12.7) SECONDS INR (0.9-1.3) Sodium 137 (137-145) mmol/L Potassium 4.4 (3.4-5.1) mmol/L Chloride 102 (98-107) mmol/L Carbon Dioxide 27 (22-32) mmol/L BUN 31 H (9-20) mg/dL Creatinine 1.35 H (0.66-1.25) mg/dL Estimated GFR 57 L (>60) mL/min BUN/Creatinine Ratio 23.0 H (6-22) Glucose 99 (80-110) mg/dL Lactate 1.2 (0.7-2.1) mmol/L Calcium 9.5 (8.4-10.2) mg/dL Total Bilirubin 0.4 (0.2-1.3) mg/dL AST 29 (17-59) IU/L ALT 23 (<50) IU/L Alkaline Phosphatase 76 (38-126) U/L C-Reactive Protein 1.1 H (<1.0) mg/dL Total Protein 8.0 (6.3-8.2) g/dL Albumin 4.3 (3.5-5.0) g/dL Globulin 3.7 (1.7-4.1) g/dL Albumin/Globulin Ratio 1.2 (1.0-2.8) Procalcitonin 0.10 (<0.5) ng/mL 05/25/23 Range/Units 20:15 WBC (4.5-11.0) X10^3/uL RBC (4.5-5.9) X10^6/uL Hgb (13.5-17.5) g/dL Hct (41-53) % MCV (80-100) fL MCH (26-34) PG MCHC (30-36) % RDW (11.6-14.8) % Plt Count (150-400) X10^3/uL Neut % (Auto) (50-75) % Lymph % (Auto) (25-40) % [place] % (Auto) (3-14) % Eos % (Auto) (2-4) % Baso % (Auto) (0-2) % Neut # (Auto) (3360-5096) /uL Lymph # (Auto) (4637-3686) /uL [place] # (Auto) (0-900) /uL Eos # (Auto) (0-450) /uL Baso # (Auto) (0-100) /uL ESR (0-15) MM/HR PT 11.5 (10.1-12.7) SECONDS INR 1.0 (0.9-1.3) Sodium (137-145) mmol/L Potassium (3.4-5.1) mmol/L Chloride (98-107) mmol/L Carbon Dioxide (22-32) mmol/L BUN (9-20) mg/dL Creatinine (0.66-1.25) mg/dL Estimated GFR (>60) mL/min BUN/Creatinine Ratio (6-22) Glucose (80-110) mg/dL Lactate (0.7-2.1) mmol/L Calcium (8.4-10.2) mg/dL Total Bilirubin (0.2-1.3) mg/dL AST (17-59) IU/L ALT (<50) IU/L Alkaline Phosphatase (38-126) U/L C-Reactive Protein (<1.0) mg/dL Total Protein (6.3-8.2) g/dL Albumin (3.5-5.0) g/dL Globulin (1.7-4.1) g/dL Albumin/Globulin Ratio (1.0-2.8) Procalcitonin (<0.5) ng/mL Point of Care Testing Glucose POC 79 Imaging Data Extremity x-ray #1: Radiologist's Impression: PROCEDURE:? XR TOE RT MIN 2V ? INDICATIONS:? Great toe infection ? TECHNIQUE:? Frontal view of the foot and two views of the 1st toe ? COMPARISON:? [facility], CR, XR FOOT RT MIN 3V, 02/01/2023, 11:03. ? FINDINGS:? ? Bones:? Prior amputation of the 2nd digit at the level of the MTP joint.? Lucency and cortical indistinctness of the 1st digit distal phalanx tuft is present, most conspicuous on the lateral view.? On the frontal view, lucency through the tuft appears curvilinear.? Polyarticular degenerative changes of the foot redemonstrated. ? Soft tissues:? No suspicious soft tissue densities.? ? IMPRESSION:? Erosive change at the tuft of the 1st digit distal phalanx is suspicious for osteomyelitis in the appropriate clinical setting.? On one view of the exam, lucency through this region appears linear, raising the possibility of a recent minimally displaced fracture.? Correlation for history of recent trauma and or area of infection may be helpful.? ? Dictated by: Yehuda Salmeron M.D. on 05/25/2023 at 15:20 ? ? Approved by: Yehuda Salmeron M.D. on 05/25/2023 at 15:26 ? MDM Narrative Medical decision making narrative: Patient insulin-dependent diabetic for presents today with probable osteomyelitis. I suspect that the toe has been infected longer than 2 days. He is erosive changes on x-ray is black and erythematos, consistent with a dry gangrenous toe. Labs show a mild leukocytosis 12 elevated ESR and CRP so they are not as elevated as they were previously. He is not showing signs of severe sepsis. Given Rocephin and Flagyl. I called and spoke with Dr. Castañeda on-call orthopedics who agrees with medical admission and will evaluate in consult tomorrow Dr.. Connelly, accepts patient Discharge Plan Departure Patient Disposition: Admitted As Inpatient Clinical Impression: Osteomyelitis Admit Date/Time: 05/26/23 00:18 Admit Provider: Foster Connelly
[2023-05-25 23:30] VITALS: BP 138/65; PULSE 66; RESP 18; O2SAT 98
[2023-05-26] VITALS (14 sets, daily range): BP systolic 100–169; BP diastolic 54–84; PULSE 61–78; RESP 11–18; TEMP 36–36.5; O2SAT 96–100; BMI 25.8
--- NOTE | 2023-05-26 00:12 | P.HP_ITS ---
History of Present Illness History of Present Illness Chief complaint: rt grt toe has a bone infection Narrative: 67 y male with hx od DM2 on sulfonylurea, DLD, Diabetic neuropathy, prior RIGHT 2nd toe amputation presents from urgent care. Also has PMHx of CVA no residual deficits currently on aspirin + plavix. CKD 3 by history, He states 2 days ago he noticed his RIGHT great toe was black and red. Denies significant pain. No fevers or chills. No chest pains or shortness of breath. [facility] but per ER report shoes osteomyelitis. ER: stable course. Started on ceftriaxone + flagyl. [facility] Medical History Aphasia Chronic back pain CVA (cerebral vascular accident) (~2020) Depression Diabetes (~2009) Diabetic peripheral neuropathy associated with type 2 diabetes mellitus Essential hypertension Fall at home Gait instability Hyperlipidemia Hypertension Knowledge deficit on spinal cord stimulator Surgical History Anesthesia Back pain with history of spinal surgery History of cholecystectomy (~1989) Social History marital status: household members: spouse lives independently: Yes Smoking Status: Former smoker alcohol intake: never Meds Home Medications and Allergies Home Medications Medication Instructions Recorded Confirmed Type duloxetine 60 mg capsule,delayed 60 mg PO DAILY 08/23/20 03/30/23 History release metformin 1,000 mg tablet 1,000 mg PO BID 08/23/20 03/30/23 History 4 wheel walker with seat #1 ea 11/24/22 03/30/23 Rx aspirin 81 mg tablet,delayed 81 mg PO DAILY 11/24/22 03/30/23 History release atorvastatin 40 mg tablet 40 mg PO DAILY 11/24/22 03/30/23 History clopidogrel 75 mg tablet 75 mg PO DAILY 11/24/22 03/30/23 History fenofibrate nanocrystallized 145 145 mg PO DAILY 11/24/22 03/30/23 History mg tablet gabapentin 600 mg tablet 600 mg PO TID 11/24/22 03/30/23 History lisinopril 5 mg tablet 5 mg PO DAILY 11/24/22 03/30/23 History insulin lispro 100 unit/mL 1 sliding scale dose SUBCUT 02/08/23 03/30/23 Rx subcutaneous pen (Humalog KwfrantzPen USEASDIRECTD #15 mL (U-100) Insulin) glimepiride 4 mg tablet 4 mg PO BID diabetes #180 tabs 04/04/23 Rx Diabetic Shoes #2 ea 04/25/23 Rx clindamycin HCl 300 mg capsule 300 mg PO QID 14 days #56 caps 05/25/23 05/25/23 Rx mupirocin 2 % topical ointment 1 applic topical TID #22 grams 05/25/23 05/25/23 Rx Allergies Allergy/AdvReac Type Severity Reaction Status Date / Time codeine AdvReac Gastrointestinal Verified 03/30/23 11:18 Upset Review of Systems Review of Systems Narrative: 14 point review of systems performed at bedside tele and negative Exam Vital Signs (past 8 hours): - 05/25/23 19:57 05/25/23 20:27 05/25/23 21:00 Temperature 98.5 F Pulse Rate 78 69 65 Respiratory Rate 18 18 18 Blood Pressure 125/68 132/74 125/67 Pulse Oximetry 98 98 99 Oxygen Delivery Method Room Air Room Air Room Air 05/25/23 21:31 05/25/23 23:00 Temperature Pulse Rate 65 65 Respiratory Rate 18 18 Blood Pressure 121/62 118/59 L Pulse Oximetry 97 97 Oxygen Delivery Method Room Air Room Air Oxygen Delivery Method Room Air Narrative Exam Narrative: HEENT NC AT CVS S1 S2 + no murmur Lungs clear and no wheeze Abd soft, bs + EXT: WWP. However RIGHT foot 2nd toe s/p amputation and now RIGHT great toe black wit dry gangrene Objective ECG Impression: None Labs 05/25/23 20:15 05/25/23 20:15 Labs: Laboratory Results - last 24 hr 05/25/23 05/25/23 05/25/23 20:15 20:15 20:15 WBC 12.0 H RBC 4.65 Hgb 14.3 Hct 42.9 MCV 92.4 MCH 30.7 MCHC 33.2 RDW 14.8 Plt Count 285 Neut % (Auto) 58.0 Lymph % (Auto) 28.6 [place] % (Auto) 6.1 Eos % (Auto) 6.6 H Baso % (Auto) 0.7 Neut # (Auto) 6900 Lymph # (Auto) 3400 [place] # (Auto) 700 Eos # (Auto) 800 H Baso # (Auto) 100 ESR 21 H Sodium 137 Potassium 4.4 Chloride 102 Carbon Dioxide 27 BUN 31 H Creatinine 1.35 H Estimated GFR 57 L BUN/Creatinine Ratio 23.0 H Glucose 99 Lactate 1.2 Calcium 9.5 Total Bilirubin 0.4 AST 29 ALT 23 Alkaline Phosphatase 76 C-Reactive Protein 1.1 H Total Protein 8.0 Albumin 4.3 Globulin 3.7 Albumin/Globulin Ratio 1.2 Procalcitonin 0.10 Assessment & Plan Assessment & Plan narrative: ACUTE: * RIGHT great toe dry gangere with xray showing osteomyelitis. NPO. Start ceftriaxone + flagyl IV. ER attending will consult Orthopedics in AM for operative management. Of not - on aspirin + plavix. Will hold plavix and continue aspirin for now. CHRONIC: * DM2. Sliding scale insulin and accuchecks. Hold metformin + sulfonylurea. * Hx of CVA and PAD on aspirin + plavix * HTN on lisinopril * DM Neuropathy on duloxetine * DLD on fenofibrate CONSULTS: ORTHO ER attending will call DVT proph: Lovenox 40 Full code NPO after midnight Time Spent With Patient Time with patient: 50 to 69 minutes with 50% spent counseling/coordinating care Quality VTE Deep Vein Thrombosis/Pulmonary Embolism Present on Admission: No
[2023-05-26 00:54] LABS: Prothrombin Time 11.5 SECONDS (10.1-12.7)
[2023-05-26] MEDS: cefTRIAXone 2,000 MG in SODIUM CHLORIDE 0.9% 100 ML 200 MG IV (01:45)
[2023-05-26] MEDS: metroNIDAZOLE 500 MG/100 ML PIGGYBACK 100 MG IV ×2 (02:27→08:45)
[2023-05-26 06:28] LABS: Add Manual Diff / Slide Review NO; Basophils Absolute Auto 100 /uL (0-100); Basophils Percent Auto 0.9 % (0-2); Eosinophils Absolute Auto 700 /uL (0-450); Eosinophils Percent Auto 7.4 % (2-4); Hematocrit 40.8 % (41-53); Hemoglobin 13.6 g/dL (13.5-17.5); Lymphocytes Absolute Auto 3100 /uL (1100-4500); Mean Corpuscular HGB Conc 33.4 % (30-36); Mean Corpuscular Hemoglobin 30.7 PG (26-34); Mean Corpuscular Volume 92.1 fL (80-100); Monocytes Absolute Auto 800 /uL (0-900); Monocytes Percent Auto 8.2 % (3-14); Neutrophils Absolute Auto 5300 /uL (1500-7000); Neutrophils Percent Auto 52.5 % (50-75); Platelet Count 249 X10^3/uL (150-400); Red Blood Cell Count 4.44 X10^6/uL (4.5-5.9); Red Cell Distribution Width 14.6 % (11.6-14.8)
[2023-05-26 06:45] LABS: BUN Creatinine Ratio 24.6 (6-22); Blood Urea Nitrogen 28 mg/dL (9-20); Calcium 8.9 mg/dL (8.4-10.2); Carbon Dioxide 25 mmol/L (22-32); Chloride 105 mmol/L (98-107); Estimated Glomerular Filt Rate > 60 mL/min (>60); Glucose 92 mg/dL (80-110); HEMOLYSIS < 15 (0-50); Potassium 3.9 mmol/L (3.4-5.1); Sodium 138 mmol/L (137-145)
[2023-05-26] MEDS: ASPIRIN EC 81 MG TABLET PO ×2 (08:45→20:30)
[2023-05-26] MEDS: ENOXAPARIN 40 MG/0.4 ML SYRINGE SUBCUT (08:45)
[2023-05-26] MEDS: FENOFIBRATE, MICRONIZED 67 MG CAPSULE 201 MG PO (08:45)
[2023-05-26] MEDS: ATORVASTATIN 20 MG TABLET 40 MG PO (08:45)
[2023-05-26] MEDS: GABAPENTIN 600 MG TABLET PO ×2 (08:45→15:04)
[2023-05-26] MEDS: DULOXETINE 30 MG CAPSULE 60 MG PO (08:45)
--- NOTE | 2023-05-26 09:07 | CM.DANOTE ---
DCP: Chart review for case, met with patient at bedside, they agree to case management assessment. Completed DCP assessment based on information available. Patient is a 67 year old admitted for right great toe infection/osteo. Confirms his home address and states he has been walking with a cane. Speech is quiet and difficult to understand, confirms that he understands plan of care for toe. Confirms he is diabetic, states checks blood sugar twice daily, but does not understand normal blood glucose parameters. Likely benefit from further health teaching after MD/surgery plan of care. CM team following for possible LT IV ABX. PCP: Eriberto Candelaria, seen last Tuesday Payer: Medicare DME: Cane, likely needs 4WW DCP: Home w/HH v. SNF Sheyla Vogel RN, CM Discharge Planning/Care Management CM Discharge Assessment Start: 05/26/23 09:00 Freq: Status: Active Protocol: Document 05/26/23 09:00 BQ (Rec: 05/26/23 09:02 BQ [id number]) Discharge Planning Assessment Assigned Collar Shaper Operator Sheyla Vogel RN, CM Advance Directives? No Advance Directives on File No History Provided By Patient,Medical Record Has Patient been admitted in last 30 No days? Prior Living Arrangements House Household Members spouse Type of transporation used prior to Drives own vehicle admit Independent with ADL's Yes Is patient alert and oriented? Yes Caregiver for Another No DME Already Rented / Owned Cane Patient/Family Preference Home with Home Health Comment Need PT/OT Recs Barriers to Discharge Yes Discharge Plan Home with Home Health Additional Comment Pending surgery and antibiotic needs at d/c Medicare Choice List Provided Yes Whiteboard Updated in Patient Room with Yes name and ext. # of Collar Shaper Operator Review Status In Process Next Review Type Continued Stay Review
--- NOTE | 2023-05-26 14:22 | PM.HP.1 ---
History of Present Illness History of Present Illness Chief complaint: rt grt toe has a bone infection Narrative: Mr. Montano is a 67M with PMH Type 2 Diabetes intermittently using insulin, depression, HTN who presented with a right 1st toe infection yesterday to the walk-in clinic. He did not notice anything until yesterday, and denies pain. He may have stubbed his toe a couple of days ago. No fever, chills, abdominal pain, nausea, vomiting. He was sent to the ER after imaging showed necrotic changes of the 1st distal phalynx on his R foot. He has no other complaints today. Discussed with orthopedics, will perform a partial toe amputation today. He is on ceftriaxone only after review of his prior infectious etiologies including multiple gram negative bacteria and MSSA. [facility] Medical History Aphasia Chronic back pain CVA (cerebral vascular accident) (~2020) Depression Diabetes (~2009) Diabetic peripheral neuropathy associated with type 2 diabetes mellitus Essential hypertension Fall at home Gait instability Hyperlipidemia Hypertension Knowledge deficit on spinal cord stimulator Surgical History Anesthesia Back pain with history of spinal surgery History of cholecystectomy (~1989) Social History marital status: household members: spouse lives independently: Yes Smoking Status: Former smoker alcohol intake: never Meds Home Medications and Allergies Home Medications Medication Instructions Recorded Confirmed Type duloxetine 60 mg capsule,delayed 60 mg PO DAILY 08/23/20 05/26/23 History release metformin 1,000 mg tablet 1,000 mg PO BID 08/23/20 05/26/23 History 4 wheel walker with seat #1 ea 11/24/22 05/26/23 Rx aspirin 81 mg tablet,delayed 81 mg PO DAILY 11/24/22 05/26/23 History release atorvastatin 40 mg tablet 40 mg PO DAILY 11/24/22 05/26/23 History clopidogrel 75 mg tablet 75 mg PO DAILY 11/24/22 05/26/23 History fenofibrate nanocrystallized 145 145 mg PO DAILY 11/24/22 05/26/23 History mg tablet gabapentin 600 mg tablet 600 mg PO TID 11/24/22 05/26/23 History lisinopril 5 mg tablet 5 mg PO DAILY 11/24/22 05/26/23 History insulin lispro 100 unit/mL 1 sliding scale dose SUBCUT 02/08/23 05/26/23 Rx subcutaneous pen (Humalog KwikPen USEASDIRECTD #15 mL (U-100) Insulin) glimepiride 4 mg tablet 4 mg PO BID diabetes #180 tabs 04/04/23 05/26/23 Rx Diabetic Shoes #2 ea 04/25/23 05/26/23 Rx mupirocin 2 % topical ointment 1 applic topical TID #22 grams 05/25/23 05/26/23 Rx Allergies Allergy/AdvReac Type Severity Reaction Status Date / Time codeine AdvReac Gastrointestinal Verified 03/30/23 11:18 Upset Review of Systems Review of Systems Narrative: All other systems reviewed with the patient and are negative unless otherwise stated. Exam Vital Signs (past 8 hours): - 05/26/23 08:00 05/26/23 12:00 Temperature 97.2 F L 97.3 F L Pulse Rate 66 66 Respiratory Rate 16 16 Blood Pressure 124/66 145/69 H Pulse Oximetry 96 99 Oxygen Flow Rate 0 0 Oxygen Delivery Method Room Air Oxygen Flow Rate 0 Narrative Exam Narrative: General:? Patient is well developed and well nourished, in no distress at this time. HEENT:? Normocephalic, atraumatic, extraocular muscles intact, oral pharynx is clear and mucous membranes are moist. Neck: supple and symmetric, trachea is midline, no cervical adenopathy. Negative for JVD Chest:? Normal AP diameter and contour without kyphoscoliosis, no tachypnea, equal chest rise bilaterally. Lungs:? CTA b/l no wheezing rhonchi or rales. Cardio:?RRR no m/r/g. Abdomen: S NT ND. No CVA tenderness. Musculoskeletal:? Muscle strength and tone are equal within normal limits, no deformity. Extremities: No edema. necrotic distal R 1st toe with mild surrounding erthema. left foot with prior 3rd digit amputation well healing. Skin:? Pale,? Warm to touch,dry and intact without rashes, ulcerations or petechiae.? Neuro:? Alert and orientated x3,? sensation to light touch diminished in lower extremities, no gross deficits noted of cranial nerves. Psych:? Patient has a well-kept appearance, appropriate affect, mental status attitude thought context and judgment are appropriate for age. Objective Labs 05/26/23 05:43 05/26/23 05:43 Labs: Laboratory Results - last 24 hr 05/25/23 05/25/23 05/25/23 20:15 20:15 20:15 WBC 12.0 H RBC 4.65 Hgb 14.3 Hct 42.9 MCV 92.4 MCH 30.7 MCHC 33.2 RDW 14.8 Plt Count 285 Neut % (Auto) 58.0 Lymph % (Auto) 28.6 [place] % (Auto) 6.1 Eos % (Auto) 6.6 H Baso % (Auto) 0.7 Neut # (Auto) 6900 Lymph # (Auto) 3400 [place] # (Auto) 700 Eos # (Auto) 800 H Baso # (Auto) 100 ESR 21 H PT INR Sodium 137 Potassium 4.4 Chloride 102 Carbon Dioxide 27 BUN 31 H Creatinine 1.35 H Estimated GFR 57 L BUN/Creatinine Ratio 23.0 H Glucose 99 Lactate 1.2 Calcium 9.5 Total Bilirubin 0.4 AST 29 ALT 23 Alkaline Phosphatase 76 C-Reactive Protein 1.1 H Total Protein 8.0 Albumin 4.3 Globulin 3.7 Albumin/Globulin Ratio 1.2 Procalcitonin 0.10 05/25/23 05/26/23 05/26/23 20:15 05:43 05:43 WBC 10.0 RBC 4.44 L Hgb 13.6 Hct 40.8 L MCV 92.1 MCH 30.7 MCHC 33.4 RDW 14.6 Plt Count 249 Neut % (Auto) 52.5 Lymph % (Auto) 31.0 [place] % (Auto) 8.2 Eos % (Auto) 7.4 H Baso % (Auto) 0.9 Neut # (Auto) 5300 Lymph # (Auto) 3100 [place] # (Auto) 800 Eos # (Auto) 700 H Baso # (Auto) 100 ESR PT 11.5 INR 1.0 Sodium 138 Potassium 3.9 Chloride 105 Carbon Dioxide 25 BUN 28 H Creatinine 1.14 Estimated GFR > 60 BUN/Creatinine Ratio 24.6 H Glucose 92 Lactate Calcium 8.9 Total Bilirubin AST ALT Alkaline Phosphatase C-Reactive Protein Total Protein Albumin Globulin Albumin/Globulin Ratio Procalcitonin Assessment & Plan Assessment & Plan narrative: 1. Right 1st toe osteomyelitis, diabetic foot infection with cellulitis and dry gangrene - discussed with orthopedics, plan for partial toe amputation today. - mild elevations in ESR and CRP - continue ceftriaxone based on previous cultures. - can likely discharge on oral therapy if amputation removes infected bone. 2. Type 2 Diabetes on insulin, controlled -check a1c -controlled A1c as of 2 months ago. - hold oral medications for now, ordered for sliding scale. 3. LI -likely secondary to infection -hold glimperide, lisinopril, metformin for now 4. 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 Hypertension -restart tiffany inhibitor once li improved 6. Depression -continue duloxetine 7. Chronic back pain, s/p spinal stimulator. Code: Full, surrogate spouse Dispo: Admit inpatient, possible discharge home in a couple of days after amputation. Discussed with orthopedic provider today, overnight provider as well. I have reviewed patient's imaging, documentation and labs personally. Ordered follow up blood work as well. I have utilized all available immediate resources to obtain, update, or review the patient's current medications. Quality VTE Deep Vein Thrombosis/Pulmonary Embolism Present on Admission: No
--- NOTE | 2023-05-26 16:26 | PM.HP.1 ---
History of Present Illness History of Present Illness Date Patient Seen: 05/26/23 Time Patient Seen: 14:30 Chief complaint: rt grt toe has a bone infection Narrative: 67-year-old gentleman with a known history of poorly controlled diabetes who has had previous toe amputations including a right 2nd great toe and left 3rd toe due to diabetic foot ulcers in the past. Says that he noticed the tip of his right toe went black a couple days ago. He presented to an urgent care clinic and he was noted to have a necrotic area at the distal tip of his toe. X-rays showed evidence of some bone loss at the distal tip of his toe. He was admitted for a diabetic foot ulcer and probable osteomyelitis of his right great toe and placed on IV antibiotics. [facility] Medical History Aphasia Chronic back pain CVA (cerebral vascular accident) (~2020) Depression Diabetes (~2009) Diabetic peripheral neuropathy associated with type 2 diabetes mellitus Essential hypertension Fall at home Gait instability Hyperlipidemia Hypertension Knowledge deficit on spinal cord stimulator Surgical History Anesthesia Back pain with history of spinal surgery History of cholecystectomy (~1989) Social History marital status: household members: spouse lives independently: Yes Smoking Status: Former smoker alcohol intake: never Meds Home Medications and Allergies Home Medications Medication Instructions Recorded Confirmed Type duloxetine 60 mg capsule,delayed 60 mg PO DAILY 08/23/20 05/26/23 History release metformin 1,000 mg tablet 1,000 mg PO BID 08/23/20 05/26/23 History 4 wheel walker with seat #1 ea 11/24/22 05/26/23 Rx aspirin 81 mg tablet,delayed 81 mg PO DAILY 11/24/22 05/26/23 History release atorvastatin 40 mg tablet 40 mg PO DAILY 11/24/22 05/26/23 History clopidogrel 75 mg tablet 75 mg PO DAILY 11/24/22 05/26/23 History fenofibrate nanocrystallized 145 145 mg PO DAILY 11/24/22 05/26/23 History mg tablet gabapentin 600 mg tablet 600 mg PO TID 11/24/22 05/26/23 History lisinopril 5 mg tablet 5 mg PO DAILY 11/24/22 05/26/23 History insulin lispro 100 unit/mL 1 sliding scale dose SUBCUT 02/08/23 05/26/23 Rx subcutaneous pen (Humalog MichaelPen USEASDIRECTD #15 mL (U-100) Insulin) glimepiride 4 mg tablet 4 mg PO BID diabetes #180 tabs 04/04/23 05/26/23 Rx Diabetic Shoes #2 ea 04/25/23 05/26/23 Rx mupirocin 2 % topical ointment 1 applic topical TID #22 grams 05/25/23 05/26/23 Rx Allergies Allergy/AdvReac Type Severity Reaction Status Date / Time codeine AdvReac Gastrointestinal Verified 03/30/23 11:18 Upset Review of Systems Review of Systems Narrative: Notes his diabetes has been a little better under control does note significant numbness in bilateral lower extremities, he denies a history of new cardiac or respiratory pain Exam Vital Signs (past 8 hours): - 05/26/23 12:00 Temperature 97.3 F L Pulse Rate 66 Respiratory Rate 16 Blood Pressure 145/69 H Pulse Oximetry 99 Oxygen Flow Rate 0 Oxygen Delivery Method Room Air Oxygen Flow Rate 0 Narrative Exam Narrative: HEENT is benign he is resting but arousable in bed lungs are remarkable for occasional crackle cor is slightly irregular abdomen is benign examination of his right lower extremity shows a necrotic tip at the distal aspect of his toe he is as a surgical amputation of the 2nd toe at the MTP level there are multiple abrasions on bilateral lower extremities which are partially healed there is slight erythema along the distal phalanx but it really does not extend proximal to the IP joint, he has mild pain with range of motion in the IP joint there is no significant proximal streaking in his foot at the MTP joint to the mid heel is benign has decreased sensation in bilateral feet left foot is remarkable for multiple abrasions with a surgical amputation of his 3rd toe but no active diabetic foot ulcers Objective Labs 05/26/23 05:43 05/26/23 05:43 Labs: Laboratory Results - last 24 hr 05/25/23 05/25/23 05/25/23 20:15 20:15 20:15 WBC 12.0 H RBC 4.65 Hgb 14.3 Hct 42.9 MCV 92.4 MCH 30.7 MCHC 33.2 RDW 14.8 Plt Count 285 Neut % (Auto) 58.0 Lymph % (Auto) 28.6 [place] % (Auto) 6.1 Eos % (Auto) 6.6 H Baso % (Auto) 0.7 Neut # (Auto) 6900 Lymph # (Auto) 3400 [place] # (Auto) 700 Eos # (Auto) 800 H Baso # (Auto) 100 ESR 21 H PT INR Sodium 137 Potassium 4.4 Chloride 102 Carbon Dioxide 27 BUN 31 H Creatinine 1.35 H Estimated GFR 57 L BUN/Creatinine Ratio 23.0 H Glucose 99 Lactate 1.2 Calcium 9.5 Total Bilirubin 0.4 AST 29 ALT 23 Alkaline Phosphatase 76 C-Reactive Protein 1.1 H Total Protein 8.0 Albumin 4.3 Globulin 3.7 Albumin/Globulin Ratio 1.2 Procalcitonin 0.10 05/25/23 05/26/23 05/26/23 20:15 05:43 05:43 WBC 10.0 RBC 4.44 L Hgb 13.6 Hct 40.8 L MCV 92.1 MCH 30.7 MCHC 33.4 RDW 14.6 Plt Count 249 Neut % (Auto) 52.5 Lymph % (Auto) 31.0 [place] % (Auto) 8.2 Eos % (Auto) 7.4 H Baso % (Auto) 0.9 Neut # (Auto) 5300 Lymph # (Auto) 3100 [place] # (Auto) 800 Eos # (Auto) 700 H Baso # (Auto) 100 ESR PT 11.5 INR 1.0 Sodium 138 Potassium 3.9 Chloride 105 Carbon Dioxide 25 BUN 28 H Creatinine 1.14 Estimated GFR > 60 BUN/Creatinine Ratio 24.6 H Glucose 92 Lactate Calcium 8.9 Total Bilirubin AST ALT Alkaline Phosphatase C-Reactive Protein Total Protein Albumin Globulin Albumin/Globulin Ratio Procalcitonin Assessment & Plan Assessment and plan (1) Diabetes: Status: Acute (2) Osteomyelitis: Status: Acute (3) Diabetic peripheral neuropathy associated with type 2 diabetes mellitus: Status: Acute (4) Osteomyelitis: Problem details: -absent Lt 3rd toe Qualifiers: Laterality: left Osteomyelitis location: foot Osteomyelitis type: unspecified type Qualified Code(s): M86.9 - Osteomyelitis, unspecified Status: Acute (5) Diabetic foot ulcer associated with diabetes mellitus due to underlying condition: Status: Acute Plan He has a necrotic tip to the distal aspect of his right great toe. His x-rays show evidence of osteomyelitis at the distal tip just in the tuft. He has had problems with diabetic foot ulcers in the past resulting in loss of his lesser toes. He clearly has a necrotic distal tip of his toe I have recommended partial amputation of the right great toe. I will also send cultures of the bone as his x-rays are suggestive of an underlying osteomyelitis. All of his nails look like they have persistent fungal infections. He does not have a known hist ory of embolic phenomenon. He does have some capillary refill around his foot and palpable dorsalis pedis and posterior tibial pulses with a relatively insensate foot. Vascular issues appear to be likely microvascular. Procedure alternatives risks benefits and complications discussed in detail. Limits of the procedure as well as concerns regarding amputation and diabetic foot ulcers as well as failure to heal amputation at any given level requiring multiple repeat potential operations was discussed in detail. Quality VTE Deep Vein Thrombosis/Pulmonary Embolism Present on Admission: No
--- NOTE | 2023-05-26 16:34 | PM.OP.1 ---
Operative Date/Time/Diagnoses Date of procedure: 05/26/23 Time of procedure: 16:50 Pre-op diagnosis: Necrotic right great toe tip with osteomyelitis and diabetic foot ulcer Post-op diagnosis: same Procedure & Clinicians Procedure: Partial amputation right great toe Same procedure as scheduled: Yes Indications: This is a 67-year-old gentleman with poorly controlled diabetes and a history of multiple diabetic foot ulcers and loss of his lesser toes both on the right left foot in the past who developed a necrotic right great toe tip. His x-rays also suggested osteomyelitis of the distal tip. He is brought the operating room for partial toe tip amputation. Procedure options risks benefits and complications discussed in detail. Concerns regarding underlying healing and wound complications including potentially multiple operations revision at a higher level was discussed with the patient. At this point he has a black distal tip of his toe and I think it is reasonable to proceed with partial surgical amputation. Surgeon: Isabela Castañeda Click Yes if Unassisted: Yes Anesthesia Type: General and Sedation Operative Notes Findings: Necrotic distal tip of his toe, adequate bleeding at the surgical amputation level, soft bone of the distal tip Closure Type: primary Specimen(s): other (Bone from the distal phalanx for culture and sensitivity) Estimated Blood Loss (mL): 20 Blood products transfused: none Tourniquet time (min): 0 Procedure in detail: Patient is brought to the operating room he underwent the induction of a anesthesia. A time-out was performed. He was prepped and draped in a standard sterile fashion. He was on preoperative antibiotics. A time-out was performed. Patient had a necrotic tip to his distal right great toe tip. A high-thigh tourniquet was applied but not elevated. An incision was made proximal to the necrotic tip. The patient's nail was removed. Dissection was carried out down to the distal phalanx. The distal phalanx was partially removed and bone was sent for culture and sensitivity. First I removed the nail and then I removed portion of the distal tuft for toe amputation by dissecting the soft tissues off of the bone. Necrotic tissue was removed the remaining edge for repair appeared viable with adequate blood flow. There was no gross deep purulence. Soft necrotic distal tip bone was removed. The bone was sent for culture and sensitivity. The wounds meticulously irrigated with normal saline. Dense digital block was performed. The wound was closed loosely with 3-0 nylon. Wound was dressed sterilely. Complications: none Post-operative Condition: stable Disposition: Acute Care Plan for aftercare: Postop shoe. Weightbearing as tolerated right lower extremity. Continue IV antibiotics. Okay to switch to orals as long as clinically improving. Check cultures.
--- NOTE | 2023-05-26 16:59 | SUR.OPER ---
Supine on padded OR bed, head on pillow, arms secured on padded arm boards at <90 degrees abduction, legs uncrossed, safety belt at thigh, tape over blanket over lower legs.
[2023-05-26] MEDS: BUPIVACAINE 0.5% (PF) 30 ML VIAL 10 ML INJ (17:17)
[2023-05-26] MEDS: LACTATED RINGERS 1,000 ML 42 ML IV (18:34)
[2023-05-26] MEDS: METFORMIN HCL 500 MG TABLET 1000 MG PO (20:30)
[2023-05-26] MEDS: GLIMEPIRIDE 2 MG TABLET 4 MG PO (20:30)
--- NOTE | 2023-05-26 20:54 | PC.NURSE ---
NO CURRENT ORDERS FOR TELE, REMOVED FROM PT
[2023-05-27] VITALS: BP 101/56; PULSE 65; RESP 18; TEMP 35.7; O2SAT 97
[2023-05-27 04:16] VITALS: BP 123/60; PULSE 62; RESP 18; TEMP 35.9; O2SAT 97
[2023-05-27 06:21] LABS: Add Manual Diff / Slide Review NO; Basophils Absolute Auto 100 /uL (0-100); Basophils Percent Auto 0.7 % (0-2); Eosinophils Absolute Auto 500 /uL (0-450); Eosinophils Percent Auto 5.6 % (2-4); Hemoglobin 12.7 g/dL (13.5-17.5); Lymphocytes Absolute Auto 2500 /uL (1100-4500); Lymphocytes Percent Auto 28.1 % (25-40); Mean Corpuscular HGB Conc 33.4 % (30-36); Mean Corpuscular Hemoglobin 30.8 PG (26-34); Mean Corpuscular Volume 92.1 fL (80-100); Monocytes Absolute Auto 700 /uL (0-900); Monocytes Percent Auto 7.7 % (3-14); Neutrophils Absolute Auto 5200 /uL (1500-7000); Neutrophils Percent Auto 57.9 % (50-75); Platelet Count 231 X10^3/uL (150-400); Red Blood Cell Count 4.12 X10^6/uL (4.5-5.9); Red Cell Distribution Width 14.5 % (11.6-14.8); White Blood Cell Count 8.9 X10^3/uL (4.5-11.0)
[2023-05-27 06:50] LABS: BUN Creatinine Ratio 23.2 (6-22); Blood Urea Nitrogen 26 mg/dL (9-20); Calcium 8.7 mg/dL (8.4-10.2); Carbon Dioxide 26 mmol/L (22-32); Chloride 106 mmol/L (98-107); Estimated Glomerular Filt Rate > 60 mL/min (>60); Glucose 50 mg/dL (80-110); HEMOLYSIS < 15 (0-50); Potassium 3.9 mmol/L (3.4-5.1); Sodium 138 mmol/L (137-145)
--- NOTE | 2023-05-27 07:44 | P.PN_ITS ---
Subjective Subjective Date Patient Seen: 05/27/23 Time Patient Seen: 10:33 Interval history: Lying in bed, comfortable, no pain. Exam Vital Signs (past 8 hours): - 05/27/23 00:00 05/27/23 04:16 Temperature 96.3 F L 96.6 F L Pulse Rate 65 62 Respiratory Rate 18 18 Blood Pressure 101/56 L 123/60 Pulse Oximetry 97 97 Oxygen Flow Rate 0 0 Oxygen Delivery Method Room Air Oxygen Flow Rate 0 Narrative Exam Narrative: Pt able to wiggle toes, DF and PF at ankle. Dressing placed intraoperatively is CDI. Objective Labs 05/27/23 05:47 05/27/23 05:47 Labs: Laboratory Results - last 24 hr 05/27/23 05/27/23 05:47 05:47 WBC 8.9 RBC 4.12 L Hgb 12.7 L Hct 38.0 L MCV 92.1 MCH 30.8 MCHC 33.4 RDW 14.5 Plt Count 231 Neut % (Auto) 57.9 Lymph % (Auto) 28.1 [place] % (Auto) 7.7 Eos % (Auto) 5.6 H Baso % (Auto) 0.7 Neut # (Auto) 5200 Lymph # (Auto) 2500 [place] # (Auto) 700 Eos # (Auto) 500 H Baso # (Auto) 100 Sodium 138 Potassium 3.9 Chloride 106 Carbon Dioxide 26 BUN 26 H Creatinine 1.12 Estimated GFR > 60 BUN/Creatinine Ratio 23.2 H Glucose 50 L Calcium 8.7 PFSH Medical History Aphasia Chronic back pain CVA (cerebral vascular accident) (~2020) Depression Diabetes (~2009) Diabetic peripheral neuropathy associated with type 2 diabetes mellitus Essential hypertension Fall at home Gait instability Hyperlipidemia Hypertension Knowledge deficit on spinal cord stimulator Surgical History Anesthesia Back pain with history of spinal surgery History of cholecystectomy (~1989) Social History marital status: household members: spouse lives independently: Yes Smoking Status: Former smoker alcohol intake: never Assessment & Plan Post-op Assessment and plan (1) Diabetic foot ulcer associated with diabetes mellitus due to underlying condition: Assessment and Plan narrative: Postop shoe.? Weightbearing as tolerated right lower extremity.? Continue IV antibiotics.? Okay to switch to orals as long as clinically improving.? Cultures sent intraoperatively still pending. F/u with ortho for suture removal in 2-3 weeks. Postoperative Procedures: Procedures Operation Date: 05/26/23 19:15 Actual Procedure Side Surgeon p partial amputation great toe Right Isabela Velvet Castañeda MD Postoperative day: 1 Quality VTE Deep Vein Thrombosis/Pulmonary Embolism Present on Admission: No
[2023-05-27 07:46] VITALS: BP 139/67; PULSE 68; RESP 18; TEMP 36.2; O2SAT 93
[2023-05-27 08:02] VITALS: BP 139/67; PULSE 68
[2023-05-27] MEDS: lisinopriL 5 MG TABLET PO (08:02)
[2023-05-27] MEDS: METFORMIN HCL 500 MG TABLET 1000 MG PO (08:02)
[2023-05-27] MEDS: ASPIRIN EC 81 MG TABLET PO (08:04)
--- NOTE | 2023-05-27 11:10 | PM.PN.1 ---
Subjective Subjective Interval history: Mr. Montano is a 67M with PMH Type 2 Diabetes intermittently using insulin, depression, HTN who presented with a right 1st toe infection yesterday to the walk-in clinic and is now POD #1 s/p partial amputation Exam Vital Signs (past 8 hours): - 05/27/23 04:16 05/27/23 07:46 05/27/23 08:02 Temperature 96.6 F L 97.2 F L Pulse Rate 62 68 68 Respiratory Rate 18 18 Blood Pressure 123/60 139/67 139/67 Pulse Oximetry 97 93 Oxygen Flow Rate 0 0 Oxygen Delivery Method Room Air Oxygen Flow Rate 0 Narrative Exam Narrative: General:? Patient is well developed and well nourished, in no distress at this time. HEENT:? Normocephalic, atraumatic, extraocular muscles intact, oral pharynx is clear and mucous membranes are moist. Neck: supple and symmetric, trachea is midline, no cervical adenopathy. Negative for JVD Chest:? Normal AP diameter and contour without kyphoscoliosis, no tachypnea, equal chest rise bilaterally. Lungs:? CTA b/l no wheezing rhonchi or rales. Cardio:?RRR no m/r/g. Abdomen: S NT ND. No CVA tenderness. Musculoskeletal:? Muscle strength and tone are equal within normal limits, no deformity. Extremities: No edema. R foot bandages c/d/ileft foot with prior 3rd digit amputation well healing. Skin:? Pale,? Warm to touch,dry and intact without rashes, ulcerations or petechiae.? Neuro:? Alert and orientated x3,? sensation to light touch diminished in lower extremities, no gross deficits noted of cranial nerves. Psych:? Patient has a well-kept appearance, appropriate affect, mental status attitude thought context and judgment are appropriate for age. Objective Labs 05/27/23 05:47 05/27/23 05:47 Labs: Laboratory Results - last 24 hr 05/27/23 05/27/23 05:47 05:47 WBC 8.9 RBC 4.12 L Hgb 12.7 L Hct 38.0 L MCV 92.1 MCH 30.8 MCHC 33.4 RDW 14.5 Plt Count 231 Neut % (Auto) 57.9 Lymph % (Auto) 28.1 [place] % (Auto) 7.7 Eos % (Auto) 5.6 H Baso % (Auto) 0.7 Neut # (Auto) 5200 Lymph # (Auto) 2500 [place] # (Auto) 700 Eos # (Auto) 500 H Baso # (Auto) 100 Sodium 138 Potassium 3.9 Chloride 106 Carbon Dioxide 26 BUN 26 H Creatinine 1.12 Estimated GFR > 60 BUN/Creatinine Ratio 23.2 H Glucose 50 L Calcium 8.7 PFSH Medical History Aphasia Chronic back pain CVA (cerebral vascular accident) (~2020) Depression Diabetes (~2009) Diabetic peripheral neuropathy associated with type 2 diabetes mellitus Essential hypertension Fall at home Gait instability Hyperlipidemia Hypertension Knowledge deficit on spinal cord stimulator Surgical History Anesthesia Back pain with history of spinal surgery History of cholecystectomy (~1989) Social History marital status: household members: spouse lives independently: Yes Smoking Status: Former smoker alcohol intake: never Assessment & Plan Assessment & Plan narrative: 1. Right 1st toe osteomyelitis, diabetic foot infection with cellulitis and dry gangrene - now POD #1 s/p partial R 1st to amputation - mild elevations in ESR and CRP on admission, with XR imaging evidence of osteo. - continue ceftriaxone based on previous cultures, wound culture with MSSA, follow up operative cultures for antibiotics on discharge. 5-7 days should be sufficient for therapy after amputation. 2. Type 2 Diabetes on insulin, controlled -A1c from today pending -controlled A1c as of 2 months ago. - hold oral medications for now, ordered for sliding scale. 3. LI -likely secondary to infection -hold glimperide, metformin for now -okay to restart lisinopril 4. 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 Hypertension -okay to restart lisinopril 6. Depression -continue duloxetine 7. Chronic back pain, s/p spinal stimulator. Code: Full, surrogate spouse Dispo: Admit inpatient, possible discharge home once operative cultures result. Discussed today with patient, case management, and staff. I have reviewed patients current documentation, culture data, labs, and imaging. Quality VTE Deep Vein Thrombosis/Pulmonary Embolism Present on Admission: No
--- NOTE | 2023-05-27 13:02 | PT.IIE ---
Current Diagnoses Diabetes mellitus due to underlying condition with foot ulcer (05/26/23) Type 2 diabetes mellitus with diabetic polyneuropathy (05/26/23) Type 2 diabetes mellitus without complications (05/26/23) Non-pressure chronic ulcer of other part of unspecified foot with unspecified severity (05/26/23) Other acute osteomyelitis, right ankle and foot (05/26/23) Osteomyelitis, unspecified (05/26/23) Surgery Performed Operation Date: 05/26/23 19:15 Actual Procedures p partial amputation great toe(Right) - Isabela Castañeda MD Surgical History (Last Reviewed 05/26/23 @ 14:27 by Joe Nava DO) Anesthesia Back pain with history of spinal surgery History of cholecystectomy (~1989) Medical History (Last Reviewed 05/26/23 @ 14:27 by Joe Nava DO) Aphasia Chronic back pain CVA (cerebral vascular accident) (~2020) Depression Diabetes (~2009) Diabetic peripheral neuropathy associated with type 2 diabetes mellitus Essential hypertension Fall at home Gait instability Hyperlipidemia Hypertension Knowledge deficit on spinal cord stimulator Physical Therapy Inpatient Evaluation/Re-Eval M1 PT/OT-IP Prior Functional Status Start: 05/27/23 07:59 Freq: NEEDED Status: Active Protocol: Document 05/27/23 12:20 MB (Rec: 05/27/23 13:01 MB [id number]) Medical Review Prior Functional Status Medical History Reviewed Yes Communication Unsure what is pt's baseline diet. Pt has poor dentition and is a poor historian. PT asks nsg if he needs an translator and interpreter and she states that she asked pt if he needed an translator and interpreter and he stated that he does not and prefers Azerbaijani. Pt does not understand any questions or instructions in Azerbaijani. This PT is bilingual and he understands more in Serbian but he is confused. Recommend professional conference interpreter for treatments. Mobility and Gait Pt states that he uses a 4WRW in the house and a w/c when he leaves the house. Activities of Daily Living and IADL's Pt is not clear about how much help he needed at baseline. Prior Functional Level (Other details) Pt states that he and his live with his daughter in a single story home without steps in [place]. He states that his daughter does the driving and takes him to appointments. He uses the 4WRW in the house and w/c when leaving the house. Social History Household Members spouse,children Living Arrangements House Number of Floors (Floors) One Floor Number of Stairs To Enter/Railing? 0 Home Environment Standard Height Toilet Home Equipment Front Wheel Walker,Straight Cane,Manual Wheelchair Employment Status Retired M2 PT-IP Current Condition Start: 05/27/23 07:59 Freq: NEEDED Status: Active Protocol: Document 05/27/23 12:20 MB (Rec: 05/27/23 13:01 MB [id number]) Physical Therapy Current Condition Current Condition Evaluation Date 05/27/23 Treatment Diagnosis R partial great toe amputation , another right toe amputation recently Onset Date Amputation 05/26/23 M3 PT-IP Subjective Start: 05/27/23 07:59 Freq: NEEDED Status: Active Protocol: Document 05/27/23 12:20 MB (Rec: 05/27/23 13:01 MB [id number]) Subjective Physical Therapy Visit Type Type Initial Evaluation Visit Start Time 12:20 Visit Stop Time 12:31 Total Visit Minutes 11 Number of SALES REPRESENTATIVE LE[employer]ER [employer] Visits 0 Physical Therapy Visit Comments Patient Comments I need to get in the bed. Therapy Pain Assessment Pain When Pain Assessed At Rest Pain Present Pain Present Denied Pain M4 PT-IP Mobility and Gait Start: 05/27/23 07:59 Freq: NEEDED Status: Active Protocol: Document 05/27/23 12:20 MB (Rec: 05/27/23 13:01 [id number]) PT-Bed Mobility Assessment Sit to Supine Sit to Supine Independent Scooting Scooting to Edge of Bed Independent PT-Transfer Assessment Sit to and From Stand Sit to and from Stand Standby Assistance Equipment Transfer Assistive Device None Orthotic/Prosthetic Devices or Brace: No Comments Mobility Comments Pt getting up out of chair and removing chair alarm from his gown without it going off upon PT arrival. Gait Assessment Gait Gait Assistance Required: Minimum Assistance Distance (Feet) 10 Able to Maintain Weight Bearing Status Yes During Gait Assistive Devices Assistive Device None Orthotic/Prosthetic Devices or Brace: No Gait Deviations General Gait Pattern Decreased Stride Length, Decreased Feet Clearance, Flexed Trunk,Wide Based Gait Factors Limiting Gait Function Factors Limiting Gait Function Decreased Sensation,Decreased Strength,Difficulty Following Directions,Poor Balance,Poor Safety Awareness Comments Gait Comments Pt already up upon PT arrival and PT offers pt PT's left hand for PSYCHOTHERAPIST COUNSELOR/min A to gait from the chair to the bed. Pt has dressing on right foot and nsg states that the surgeon did not order a post-op shoe for pt. Gait is with short steps and decreased heel strike and toe push-up and step-to type pattern with wide GUERRERO. PT-Balance Assessment Sitting Balance and Reactions Static Sitting Balance Ability Good Dynamic Sitting Balance Ability Good Standing Balance and Reactions Static Standing Balance Ability Fair Dynamic Standing Balance Ability Fair Device Used PSYCHOTHERAPIST COUNSELOR only M5 PT-IP Objective Assessments Start: 05/27/23 07:59 Freq: NEEDED Status: Active Protocol: Document 05/27/23 12:20 MB (Rec: 05/27/23 13:01 [id number]) Orientation Orientation/Cognition Level of Alertness Confusional State Orientation Name Language Function Ability Azerbaijani as Second Language Safety Awareness Decreased Safety Awareness Memory Description Short Term Impaired,Half-Way Impaired Comments When pt does not understand Azerbaijani, PT communicates in Serbian and pt is able to state his year of but not the month or date. He does not know the current month, date, or day of week. He does not know the town. He is oriented to hospital and is aware of his partial amputation of right great toe. Gross Range of Motion Upper Extremity ROM Assessment Within Functional Limits Lower Extremity ROM Assessment Bilaterally Impaired Impairments Pt with B feet with toe amputations. Strength Lower Extremity Strength Assessment Bilaterally Impaired Comments Strength Comments No MMT ankles and toes given diabetic wounds, amputation Coordination Assessment Gross Coordination Gross Coordination Impaired Sensation Assessment Sensation Gross Sensation Right LE Impaired,Left LE Impaired Comments Sensation Comments No feeling in feet and toes M6 PT-IP Treatment Start: 05/27/23 07:59 Freq: NEEDED Status: Active Protocol: Document 05/27/23 12:20 MB (Rec: 05/27/23 13:01 [id number]) Physical Therapy Treatment Education Education Provided Safety M7 PT-IP Assessment and Plan Start: 05/27/23 07:59 Freq: NEEDED Status: Active Protocol: Document 05/27/23 12:20 MB (Rec: 05/27/23 13:01 [id number]) PT Summary Assessment and Plan Potential Rehabilitation Potential Poor Status of Condition at Evaluation Unstable Summary Impairments ROM,Balance,Sensation, Cognition,Transfers,Gait Progress Towards Goals Slow Progress - Other Assessment Summary Pt is a 67 y/o male presenting with history of DM, diabetic foot wounds and several toe amputations. He underwent partial right great toe amputation for osteo last date . PT inquires about pt's primary language to nsg and pt and both state that he does not need an translator and interpreter yet pt does not understand any of PT 's questions in [place]. This PT is bilingual and so con't questioning in Serbian and pt is able to answer some questions and con't with confusion. He is a poor historian. He has poor awareness of situation and is taking the chair alarm off his gown and getting up upon PT arrival. He does not have a surgical shoe and is ambulating on dressed right foot without AD in the room. Pt likely also has low vision given decreased tracking with PT. He has little to no sensation in his feet and does not follow sensory commands. Pt is at ongoing high risk for diabetic wound issues, infection and falls. Goals Bed Mobility Goal Independent Transfer Goal Independent,Front Wheeled Walker Gait Goal Independent,Front Wheel Walker Gait Distance 50 Other Goals Will limit gait distance d/t history of multiple toe amputations d/t diabetic wounds and new surgical wound right foot. Days to Meet Goals 5 Frequency of Treatment Frequency Of Treatment Once a Day Treatment Plan Physical Therapy Treatment Plan Bed Mobility Training,Transfer Training,Gait Training, Therapeutic Exercise,Balance Retraining,Post Op Education, Discharge Planning Weight Bearing Status Weight Bearing Status Weight Bear as Tolerated Recommendations To Nursing Amount of Assist Needed Standby Assistance,1 Person Assist Discharge Recommendations PT Discharge Recommendations Home with 24/ Assist Available,Home Health Transportation Needs at Discharge Private Vehicle
--- NOTE | 2023-05-27 13:03 | PT-IP ANOTE ---
Pt does not understand Khmer well and is a primary Kenyan speaker. Recommend professional center receptionist for communication.
[2023-05-27 15:35] VITALS: BP 115/60; PULSE 68; RESP 18; TEMP 36; O2SAT 97
[2023-05-27] MEDS: MUPIROCIN 22 GM OINT 1 APPLIC TOP (15:43)
[2023-05-27] MEDS: CLOPIDOGREL 75 MG TABLET PO (16:40)
[2023-05-27] MEDS: cefTRIAXone 2,000 MG in SODIUM CHLORIDE 0.9% 100 ML 200 MG IV (16:40)
[2023-05-27 20:06] VITALS: BP 147/71; PULSE 68; RESP 16; TEMP 36.9; O2SAT 99
[2023-05-27] MEDS: ATORVASTATIN 20 MG TABLET 40 MG PO (20:51)
[2023-05-27] MEDS: GABAPENTIN 600 MG TABLET PO (20:51)
[2023-05-27] MEDS: SODIUM CHLORIDE 0.9% FLUSH 10 ML IV (20:51)
[2023-05-27 22:11] LABS: x Labcorp Estim. Avg Glu (eAG) 126 mg/dL (.)
[2023-05-28 05:27] LABS: Add Manual Diff / Slide Review NO; Basophils Absolute Auto 100 /uL (0-100); Basophils Percent Auto 0.6 % (0-2); Eosinophils Absolute Auto 700 /uL (0-450); Eosinophils Percent Auto 6.2 % (2-4); Hematocrit 38.2 % (41-53); Hemoglobin 12.9 g/dL (13.5-17.5); Lymphocytes Absolute Auto 2800 /uL (1100-4500); Lymphocytes Percent Auto 26.6 % (25-40); Mean Corpuscular HGB Conc 33.9 % (30-36); Mean Corpuscular Hemoglobin 30.8 PG (26-34); Mean Corpuscular Volume 90.8 fL (80-100); Monocytes Absolute Auto 1000 /uL (0-900); Monocytes Percent Auto 9.5 % (3-14); Neutrophils Absolute Auto 6100 /uL (1500-7000); Neutrophils Percent Auto 57.1 % (50-75); Platelet Count 244 X10^3/uL (150-400); Red Blood Cell Count 4.21 X10^6/uL (4.5-5.9); Red Cell Distribution Width 14.6 % (11.6-14.8); White Blood Cell Count 10.6 X10^3/uL (4.5-11.0)
[2023-05-28 06:18] LABS: BUN Creatinine Ratio 24.3 (6-22); Blood Urea Nitrogen 26 mg/dL (9-20); Calcium 9.1 mg/dL (8.4-10.2); Carbon Dioxide 24 mmol/L (22-32); Chloride 105 mmol/L (98-107); Estimated Glomerular Filt Rate > 60 mL/min (>60); Glucose 162 mg/dL (80-110); HEMOLYSIS < 15 (0-50); Sodium 137 mmol/L (137-145)
[2023-05-28 08:00] VITALS: BP 104/73; PULSE 77; RESP 17; TEMP 36.1; O2SAT 98
[2023-05-28 08:24] VITALS: BP 104/73
[2023-05-28] MEDS: CLOPIDOGREL 75 MG TABLET PO (08:24)
[2023-05-28] MEDS: ASPIRIN EC 81 MG TABLET PO (08:24)
[2023-05-28] MEDS: lisinopriL 5 MG TABLET PO (08:24)
[2023-05-28] MEDS: GABAPENTIN 600 MG TABLET PO ×3 (08:24→20:51)
[2023-05-28] MEDS: DULOXETINE 30 MG CAPSULE 60 MG PO (08:24)
--- NOTE | 2023-05-28 09:23 | PM.PNPO.1 ---
Subjective Subjective Date Patient Seen: 05/28/23 Time Patient Seen: 09:24 Interval history: Pt sitting up in bed, eating breakfast, c/o some pain in the ball of the foot. Otherwise doing well and anxious to go home. Exam Vital Signs (past 8 hours): - 05/28/23 08:24 05/28/23 08:00 Temperature 97.0 F L Pulse Rate 77 Respiratory Rate 17 Blood Pressure 104/73 104/73 Pulse Oximetry 98 Oxygen Flow Rate 0 Oxygen Delivery Method Room Air Oxygen Flow Rate 0 Narrative Exam Narrative: Pt able to wiggle toes, decreased sensation in foot d/t neuropathy. Dressing placed intraoperatively loose and w/ bloody drainage. Objective Labs 05/28/23 05:00 05/28/23 05:00 Labs: Laboratory Results - last 24 hr 05/27/23 05/28/23 05/28/23 05:47 05:00 05:00 WBC 10.6 RBC 4.21 L Hgb 12.9 L Hct 38.2 L MCV 90.8 MCH 30.8 MCHC 33.9 RDW 14.6 Plt Count 244 Neut % (Auto) 57.1 Lymph % (Auto) 26.6 [place] % (Auto) 9.5 Eos % (Auto) 6.2 H Baso % (Auto) 0.6 Neut # (Auto) 6100 Lymph # (Auto) 2800 [place] # (Auto) 1000 H Eos # (Auto) 700 H Baso # (Auto) 100 Sodium 137 Potassium 4.0 Chloride 105 Carbon Dioxide 24 BUN 26 H Creatinine 1.07 Estimated GFR > 60 BUN/Creatinine Ratio 24.3 H Glucose 162 H D Hgb A1c (Ref Lab) 6.0 H Estim Average Glucose 126 Calcium 9.1 PFSH Medical History Aphasia Chronic back pain CVA (cerebral vascular accident) (~2020) Depression Diabetes (~2009) Diabetic peripheral neuropathy associated with type 2 diabetes mellitus Essential hypertension Fall at home Gait instability Hyperlipidemia Hypertension Knowledge deficit on spinal cord stimulator Surgical History Anesthesia Back pain with history of spinal surgery History of cholecystectomy (~1989) Social History marital status: household members: spouse and children lives independently: Yes Smoking Status: Former smoker alcohol intake: never Assessment & Plan Post-op Assessment and plan (1) Diabetic foot ulcer associated with diabetes mellitus due to underlying condition: Assessment and Plan narrative: Dressing change prior to discharge. Postop shoe.? Weightbearing as tolerated right lower extremity.? Continue IV antibiotics.? Okay to switch to orals as long as clinically improving.? Cultures sent intraoperatively still pending.? F/u with ortho for suture removal in 2-3 weeks. Postoperative Procedures: Procedures Operation Date: 05/26/23 19:15 Actual Procedure Side Surgeon p partial amputation great toe Right Isabela Velvet Castañeda MD Postoperative day: 2 Quality VTE Deep Vein Thrombosis/Pulmonary Embolism Present on Admission: No
--- NOTE | 2023-05-28 09:45 | PT.IPTN ---
Current Diagnoses Diabetes mellitus due to underlying condition with foot ulcer (05/26/23) Type 2 diabetes mellitus with diabetic polyneuropathy (05/26/23) Type 2 diabetes mellitus without complications (05/26/23) Non-pressure chronic ulcer of other part of unspecified foot with unspecified severity (05/26/23) Other acute osteomyelitis, right ankle and foot (05/26/23) Osteomyelitis, unspecified (05/26/23) Surgery Performed Operation Date: 05/26/23 19:15 Actual Procedures p partial amputation great toe(Right) - Isabela Castañeda MD Physical Therapy Treatment Note M2 PT-IP Current Condition Start: 05/27/23 07:59 Freq: NEEDED Status: Active Protocol: Document 05/27/23 12:20 MB (Rec: 05/27/23 13:01 MB [id number]) Physical Therapy Current Condition Current Condition Evaluation Date 05/27/23 Treatment Diagnosis R partial great toe amputation , another right toe amputation recently Onset Date Amputation 05/26/23 M3 PT-IP Subjective Start: 05/27/23 07:59 Freq: NEEDED Status: Active Protocol: Document 05/28/23 10:06 TS (Rec: 05/28/23 10:26 TS [id number]) Subjective Physical Therapy Visit Type Type Treatment Note Visit Start Time 09:45 Visit Stop Time 10:05 Total Visit Minutes 20 Number of GRIP ASSEMBLER Visits 1 Physical Therapy Visit Comments Patient Comments Pt found resting in bed, pt able to answer therapist questions about PLOF, home environment, assistance at home and current pain levels. Pt agreeable to PT. M4 PT-IP Mobility and Gait Start: 05/27/23 07:59 Freq: NEEDED Status: Active Protocol: Document 05/28/23 10:06 TS (Rec: 05/28/23 10:26 TS [id number]) PT-Bed Mobility Assessment Supine to Sit Supine to Sit Independent Sit to Supine Sit to Supine Independent Scooting Scooting to Edge of Bed Independent Scooting Up and Down in Bed Independent PT-Transfer Assessment Sit to and From Stand Sit to and from Stand Standby Assistance Equipment Transfer Assistive Device None,Gait Belt,Front Wheeled Walker Orthotic/Prosthetic Devices or Brace: No Comments Mobility Comments Pt found resting in bed, agreeable to PT. Supine to sit Ind with BUE support pushing from bed for uprighting trunk. He performed sit to stand with no AD SBA, impulsive to stand before therapist was ready. Pt ambulated ~100' with SPC [place], pt unsteady/swaying with gait, bumps into [place] on R side, pt c/o R knee pain, denied pain in R foot, pt ambulated back to room. Sit to stand with FWW SBA, pt ambulated in room ~25' SBA, more stable on feet than with cane, educated pt on using FWW while here in hospital. Sit to supine Ind with BUE support and HOB elevated. Pt was left in bed with bed alarm on, call light nearby, all needs met. Gait Assessment Gait Gait Assistance Required: Minimum Assistance Distance (Feet) 125 Able to Maintain Weight Bearing Status Yes During Gait Assistive Devices Assistive Device Straight Cane,Front Wheeled Walker Orthotic/Prosthetic Devices or Brace: No Gait Deviations General Gait Pattern Decreased Stride Length, Decreased Feet Clearance, Flexed Trunk,Wide Based Gait Factors Limiting Gait Function Factors Limiting Gait Function Decreased Sensation,Decreased Strength,Difficulty Following Directions,Poor Balance,Poor Safety Awareness Comments Gait Comments See mobility comments. PT-Balance Assessment Sitting Balance and Reactions Static Sitting Balance Ability Good Dynamic Sitting Balance Ability Good Standing Balance and Reactions Static Standing Balance Ability Fair Dynamic Standing Balance Ability Fair Device Used FWW/SPC M5 PT-IP Objective Assessments Start: 05/27/23 07:59 Freq: NEEDED Status: Active Protocol: Document 05/27/23 12:20 MB (Rec: 05/27/23 13:01 MB [id number]) Orientation Orientation/Cognition Level of Alertness Confusional State Orientation Name Language Function Ability Frisian as Second Language Safety Awareness Decreased Safety Awareness Memory Description Short Term Impaired,Fpc Impaired Comments When pt does not understand Frisian, PT communicates in Qatari and pt is able to state his year of but not the month or date. He does not know the current month, date, or day of week. He does not know the town. He is oriented to hospital and is aware of his partial amputation of right great toe. Gross Range of Motion Upper Extremity ROM Assessment Within Functional Limits Lower Extremity ROM Assessment Bilaterally Impaired Impairments Pt with B feet with toe amputations. Strength Lower Extremity Strength Assessment Bilaterally Impaired Comments Strength Comments No MMT ankles and toes given diabetic wounds, amputation Coordination Assessment Gross Coordination Gross Coordination Impaired Sensation Assessment Sensation Gross Sensation Right LE Impaired,Left LE Impaired Comments Sensation Comments No feeling in feet and toes M6 PT-IP Treatment Start: 05/27/23 07:59 Freq: NEEDED Status: Active Protocol: Document 05/28/23 10:06 TS (Rec: 05/28/23 10:26 TS [id number]) Physical Therapy Treatment Education Education Provided Safety M7 PT-IP Assessment and Plan Start: 05/27/23 07:59 Freq: NEEDED Status: Active Protocol: Document 05/28/23 10:06 TS (Rec: 05/28/23 10:26 TS [id number]) PT Summary Assessment and Plan Potential Rehabilitation Potential Fair Summary Impairments ROM,Balance,Sensation, Cognition,Transfers,Gait Progress Towards Goals Progressing Toward Goals Assessment Summary Pt is making some progress with his mobility this morning . He is Ind for all bed mobility with BUE support. He performed sit to stand x2 SBA, x1 no AD, x1 w/FWW, pt was impulsive to stand before therapist was ready. He ambulated ~100' w/SPC, pt is unsteady and is bumping into [place] on R side. Pt ambulated in room w/FWW SBA ~25', balance is much improved with FWW. Provided education to benefits of suing FWW while here in hospital. Pt denied any pain in R foot but c/o R knee pain with gait. Pt did well in answering questions from therapist w/out an spanish interpreter/translator. PT is recommending home with 24/7 and HHPT. Goals Bed Mobility Goal Independent Transfer Goal Independent,Front Wheeled Walker Gait Goal Independent,Front Wheel Walker Gait Distance 50 Other Goals Will limit gait distance d/t history of multiple toe amputations d/t diabetic wounds and new surgical wound right foot. Days to Meet Goals 5 Frequency of Treatment Frequency Of Treatment Once a Day Treatment Plan Physical Therapy Treatment Plan Bed Mobility Training,Transfer Training,Gait Training, Therapeutic Exercise,Balance Retraining,Post Op Education, Discharge Planning Weight Bearing Status Weight Bearing Status Weight Bear as Tolerated Recommendations To Nursing Amount of Assist Needed Standby Assistance Discharge Recommendations PT Discharge Recommendations Home with 24/7 Assist Available,Home Health Transportation Needs at Discharge Private Vehicle
[2023-05-28] MEDS: SODIUM CHLORIDE 0.9% FLUSH 10 ML IV ×2 (11:54→20:51)
[2023-05-28] MEDS: MUPIROCIN 22 GM OINT 1 APPLIC TOP ×2 (11:55→15:37)
[2023-05-28] MEDS: INSULIN LISPRO 100 UNIT/ML 3ML VIAL SUBCUT ×2 (12:08→20:51)
--- NOTE | 2023-05-28 13:31 | PM.PN.1 ---
Subjective Subjective Interval history: Patient has no complaints. Intraoperative toe culture growing heavy growth staph aureus. Exam Vital Signs (past 8 hours): - 05/28/23 08:24 05/28/23 08:00 Temperature 97.0 F L Pulse Rate 77 Respiratory Rate 17 Blood Pressure 104/73 104/73 Pulse Oximetry 98 Oxygen Flow Rate 0 Oxygen Delivery Method Room Air Oxygen Flow Rate 0 Narrative Exam Narrative: General:? Patient is well developed and well nourished, in no distress at this time. HEENT:? Normocephalic, atraumatic, extraocular muscles intact, oral pharynx is clear and mucous membranes are moist. Neck: supple and symmetric, trachea is midline, no cervical adenopathy. Negative for JVD Chest:? Normal AP diameter and contour without kyphoscoliosis, no tachypnea, equal chest rise bilaterally. Lungs:? CTA b/l no wheezing rhonchi or rales. Cardio:?RRR no m/r/g. Abdomen: S NT ND. No CVA tenderness. Musculoskeletal:? Muscle strength and tone are equal within normal limits, no deformity. Extremities: No edema. R foot bandages c/d/ileft foot with prior 3rd digit amputation well healing. Skin:? Pale,? Warm to touch,dry and intact without rashes, ulcerations or petechiae.? Neuro:? Alert and orientated x3,? sensation to light touch diminished in lower extremities, no gross deficits noted of cranial nerves. Psych:? Patient has a well-kept appearance, appropriate affect, mental status attitude thought context and judgment are appropriate for age. Objective Labs 05/28/23 05:00 05/28/23 05:00 Labs: Laboratory Results - last 24 hr 05/27/23 05/28/23 05/28/23 05:47 05:00 05:00 WBC 10.6 RBC 4.21 L Hgb 12.9 L Hct 38.2 L MCV 90.8 MCH 30.8 MCHC 33.9 RDW 14.6 Plt Count 244 Neut % (Auto) 57.1 Lymph % (Auto) 26.6 Harney % (Auto) 9.5 Eos % (Auto) 6.2 H Baso % (Auto) 0.6 Neut # (Auto) 6100 Lymph # (Auto) 2800 Harney # (Auto) 1000 H Eos # (Auto) 700 H Baso # (Auto) 100 Sodium 137 Potassium 4.0 Chloride 105 Carbon Dioxide 24 BUN 26 H Creatinine 1.07 Estimated GFR > 60 BUN/Creatinine Ratio 24.3 H Glucose 162 H D Hgb A1c (Ref Lab) 6.0 H Estim Average Glucose 126 Calcium 9.1 PFSH Medical History Aphasia Chronic back pain CVA (cerebral vascular accident) (~2020) Depression Diabetes (~2009) Diabetic peripheral neuropathy associated with type 2 diabetes mellitus Essential hypertension Fall at home Gait instability Hyperlipidemia Hypertension Knowledge deficit on spinal cord stimulator Surgical History Anesthesia Back pain with history of spinal surgery History of cholecystectomy (~1989) Social History marital status: household members: spouse and children lives independently: Yes Smoking Status: Former smoker alcohol intake: never Assessment & Plan Assessment & Plan narrative: 1. Right 1st toe osteomyelitis, diabetic foot infection with cellulitis and dry gangrene - now POD #2 s/p partial R 1st toe amputation - mild elevations in ESR and CRP on admission, with XR imaging evidence of osteo. - intraop wound cultures growing MSSA - spoke with Dr. Isabela mcneill who recommends at least 2 weeks of IV abx and they will f/u with in clinic to assess if needs longer course - stop rocephin, start ancef 2g q8h - PICC ordered - HVAC SALES REPRESENTATIVE to arrange outpatient IV abx 2. Type 2 Diabetes on insulin, controlled -A1c from today pending -controlled A1c as of 2 months ago. -hold oral medications for now, ordered for sliding scale. 3. LI, resolved -likely secondary to infection -hold glimperide, metformin for now -okay to restart lisinopril 4. 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 Hypertension -okay to restart lisinopril 6. Depression -continue duloxetine 7. Chronic back pain, s/p spinal stimulator. Code: Full, surrogate spouse Dispo: Pending outpatient IV abx setup. Quality VTE Deep Vein Thrombosis/Pulmonary Embolism Present on Admission: No
--- NOTE | 2023-05-28 14:39 | CM.DPC ---
CM team recieved consult to coordinate IV ABX Ancef 2 gm IV Q8 hours for right 1st toe infection s/p partial amputation. Packet sent to [facility] for review.
[2023-05-28] MEDS: CEFAZOLIN 2 GM/100 ML PREMIX 100 ML IV ×2 (15:34→22:08)
--- NOTE | 2023-05-28 16:18 | PC.NURSE ---
Addendum entered by Mary Ramos R.N. 05/28/23 16:30: (cont) Lunch CBG = 265 (5u S/S) and dinner CBG = 138. Call light w/in reach, bed alarm on for pt safety, Contiue w/plan of care Original Note: Pt resting at intervals Denied discomfort each time he was asked.. Dsg to the right foot changed, remains CDI HL LFA intact/patent.Order for PICC placed per MD. CBG = 152 (0 coverage
[2023-05-28 20:14] VITALS: BP 145/73; PULSE 75; RESP 18; TEMP 36.6; O2SAT 98
[2023-05-28] MEDS: ATORVASTATIN 20 MG TABLET 40 MG PO (20:51)
--- NOTE | 2023-05-29 00:24 | DI.RAD.S_ITS ---
PROCEDURE: XR CHEST FOR PICC 1V INDICATIONS: PICC line placement. COMPARISON: [facility], CR, XR CHEST 1V, 12/27/2022, 14:10. [facility], CR, XR CHEST FOR PICC 1V, 12/27/2022, 12:21. FINDINGS: PICC was placed by the intravenous therapy team from the left side. Fluoroscopic spot film demonstrates the tip of PICC projecting to the area of distal SVC. No other change. IMPRESSION: Tip of PICC projects to the area of distal SVC. Dictated by: Austin Price M.D. on 05/29/2023 at 1:26 Approved by: Austin Price M.D. on 05/29/2023 at 1:27
--- NOTE | 2023-05-29 02:16 | PC.NURSE ---
p0t had a single lumen picc place tonight. tolerated well.
[2023-05-29] MEDS: CEFAZOLIN 2 GM/100 ML PREMIX 100 ML IV ×3 (05:57→21:27)
[2023-05-29 06:27] LABS: Add Manual Diff / Slide Review NO; Basophils Absolute Auto 100 /uL (0-100); Basophils Percent Auto 0.9 % (0-2); Eosinophils Absolute Auto 700 /uL (0-450); Eosinophils Percent Auto 5.8 % (2-4); Hematocrit 36.7 % (41-53); Hemoglobin 12.2 g/dL (13.5-17.5); Lymphocytes Absolute Auto 3000 /uL (1100-4500); Lymphocytes Percent Auto 25.3 % (25-40); Mean Corpuscular HGB Conc 33.3 % (30-36); Mean Corpuscular Hemoglobin 30.7 PG (26-34); Mean Corpuscular Volume 92.3 fL (80-100); Monocytes Absolute Auto 1100 /uL (0-900); Monocytes Percent Auto 9.3 % (3-14); Neutrophils Absolute Auto 7100 /uL (1500-7000); Neutrophils Percent Auto 58.7 % (50-75); Platelet Count 222 X10^3/uL (150-400); Red Blood Cell Count 3.98 X10^6/uL (4.5-5.9); Red Cell Distribution Width 14.8 % (11.6-14.8)
[2023-05-29 06:35] LABS: BUN Creatinine Ratio 33.7 (6-22); Blood Urea Nitrogen 31 mg/dL (9-20); Calcium 8.7 mg/dL (8.4-10.2); Carbon Dioxide 23 mmol/L (22-32); Chloride 106 mmol/L (98-107); Estimated Glomerular Filt Rate > 60 mL/min (>60); Glucose 201 mg/dL (80-110); HEMOLYSIS 45 (0-50); Sodium 136 mmol/L (137-145)
[2023-05-29] MEDS: MUPIROCIN 22 GM OINT 1 APPLIC TOP ×3 (08:00→21:39)
[2023-05-29 08:01] VITALS: BP 121/71; PULSE 73
[2023-05-29] MEDS: DULOXETINE 30 MG CAPSULE 60 MG PO (08:01)
[2023-05-29] MEDS: ASPIRIN EC 81 MG TABLET PO (08:01)
[2023-05-29] MEDS: FENOFIBRATE, MICRONIZED 67 MG CAPSULE 134 MG PO (08:01)
[2023-05-29] MEDS: lisinopriL 5 MG TABLET PO (08:01)
[2023-05-29] MEDS: CLOPIDOGREL 75 MG TABLET PO (08:01)
[2023-05-29] MEDS: GABAPENTIN 600 MG TABLET PO ×3 (08:01→21:02)
[2023-05-29] MEDS: INSULIN LISPRO 100 UNIT/ML 3ML VIAL SUBCUT ×4 (08:04→21:03)
--- NOTE | 2023-05-29 08:40 | CM.DPC ---
Addendum entered by Sheyla Vogel R.N. 05/29/23 10:47: Met with patient and at bedside to discuss DCP. is concerned about being able to perform home infusion, but willing to try.She outlines very bad experience at [facility] and does not want him to return. Patient is ambulating full loops in hallway and wants to go home as soon as possible. CM team will FU with [facility] tomorrow for proposed SOC 05/29. Original Note: Patient now has PICC for DCP home with new IV Ancef 2 grams every 8 hours. Call to pharmacist at [facility]. They have no nursing for SOC today. Likely tomorrow.
[2023-05-29 09:20] VITALS: BP 121/71; PULSE 73; RESP 16; TEMP 36.1; O2SAT 96
--- NOTE | 2023-05-29 11:25 | P.PN_ITS ---
Subjective Subjective Interval history: He notes he is doing reasonably well. He has minimal pain. He has been up with physical therapy. Exam Vital Signs (past 8 hours): - 05/29/23 08:01 05/29/23 09:20 Temperature 97 F L Pulse Rate 73 73 Respiratory Rate 16 Blood Pressure 121/71 121/71 Pulse Oximetry 96 Oxygen Delivery Method Room Air Oxygen Flow Rate 0 Narrative Exam Narrative: Right lower extremity exam is benign on the leg hindfoot and midfoot his right great toe there is slight erythema there is no significant fluctuance the skin does appear to be viable sutures are intact he is minimal pain with gentle range of motion in the IP joint, there is no ascending cellulitis or evidence of fluctuance Objective Labs 05/29/23 06:12 05/29/23 06:12 Labs: Laboratory Results - last 24 hr 05/29/23 05/29/23 06:12 06:12 WBC 12.0 H RBC 3.98 L Hgb 12.2 L Hct 36.7 L MCV 92.3 MCH 30.7 MCHC 33.3 RDW 14.8 Plt Count 222 Neut % (Auto) 58.7 Lymph % (Auto) 25.3 [place] % (Auto) 9.3 Eos % (Auto) 5.8 H Baso % (Auto) 0.9 Neut # (Auto) 7100 H Lymph # (Auto) 3000 [place] # (Auto) 1100 H Eos # (Auto) 700 H Baso # (Auto) 100 Sodium 136 L Potassium 4.0 Chloride 106 Carbon Dioxide 23 BUN 31 H Creatinine 0.92 Estimated GFR > 60 BUN/Creatinine Ratio 33.7 H Glucose 201 H Calcium 8.7 PFSH Medical History Aphasia Chronic back pain CVA (cerebral vascular accident) (~2020) Depression Diabetes (~2009) Diabetic peripheral neuropathy associated with type 2 diabetes mellitus Essential hypertension Fall at home Gait instability Hyperlipidemia Hypertension Knowledge deficit on spinal cord stimulator Surgical History Anesthesia Back pain with history of spinal surgery History of cholecystectomy (~1989) Social History marital status: household members: spouse and children lives independently: Yes Smoking Status: Former smoker alcohol intake: never Assessment & Plan Post-op Postoperative Procedures: Procedures Operation Date: 05/26/23 19:15 Actual Procedure Side Surgeon p partial amputation great toe Right Isabela Castañeda MD Postoperative day: 3 Postoperative status: doing well Postoperative status narrative: He is doing reasonably well but his white count is slightly elevated today in comparison to previously. Exam is relatively benign but he does have some residual erythema and cellulitis around the tip of his toe. There is no new necrotic area. There is no specific fluctuance. Cultures are positive for staph aureus methicillin sensitive. Postoperative plan narrative: I have recommended that we continue IV antibiotics. I think we should repeat his white blood cell count tomorrow. He needs to continue on IV antibiotics. His exam is relatively benign today. If he has progressive elevating white blood cell count may consider supplemental workup with an MRI scan of his right foot with focus on his toe specifically looking at the IP joint. He also needs a postoperative shoe for ambulation and a new dressing change. At this point there does not appear to be anything that requires additional operative intervention. He clearly requires ongoing antibiotics. Quality VTE Deep Vein Thrombosis/Pulmonary Embolism Present on Admission: No
--- NOTE | 2023-05-29 13:26 | PT.IPTN ---
Current Diagnoses Diabetes mellitus due to underlying condition with foot ulcer (05/26/23) Type 2 diabetes mellitus with diabetic polyneuropathy (05/26/23) Type 2 diabetes mellitus without complications (05/26/23) Non-pressure chronic ulcer of other part of unspecified foot with unspecified severity (05/26/23) Other acute osteomyelitis, right ankle and foot (05/26/23) Osteomyelitis, unspecified (05/26/23) Surgery Performed Operation Date: 05/26/23 19:15 Actual Procedures p partial amputation great toe(Right) - Isabela Castañeda MD Physical Therapy Treatment Note M2 PT-IP Current Condition Start: 05/27/23 07:59 Freq: NEEDED Status: Active Protocol: Document 05/27/23 12:20 MB (Rec: 05/27/23 13:01 MB [id number]) Physical Therapy Current Condition Current Condition Evaluation Date 05/27/23 Treatment Diagnosis R partial great toe amputation , another right toe amputation recently Onset Date Amputation 05/26/23 M3 PT-IP Subjective Start: 05/27/23 07:59 Freq: NEEDED Status: Active Protocol: Document 05/29/23 13:54 AB (Rec: 05/29/23 14:05 AB [id number]) Subjective Physical Therapy Visit Type Type Treatment Note Visit Start Time 13:26 Visit Stop Time 13:51 Total Visit Minutes 25 Number of RAW CHEESE WORKER Visits 1 Physical Therapy Visit Comments Patient Comments Pt presents seated in chair and is agreeable to PT this afternoon. He denies having any pain or other symptoms currently. Patient Goals Pt states he is ready to go home to his family. Therapy Pain Assessment Pain When Pain Assessed At Rest Pain Present Pain Present Denied Pain M4 PT-IP Mobility and Gait Start: 05/27/23 07:59 Freq: NEEDED Status: Active Protocol: Document 05/29/23 13:54 AB (Rec: 05/29/23 14:05 AB [id number]) PT-Bed Mobility Assessment Rolling Type of Rolling Roll to Left Level of Assist Independent Sit to Supine Sit to Supine Independent PT-Transfer Assessment Sit to and From Stand Sit to and from Stand Independent Equipment Transfer Assistive Device Front Wheeled Walker Transfers Transfer Destination Bed,Chair Transfer Technique Stand Step Pivot Transfer Ability Level of Assist Independent Comments Mobility Comments Pt requires verbal cues regarding proper hand placement to ensure safety with transfers. Gait Assessment Gait Gait Assistance Required: Standby Assistance Distance (Feet) 150 Assistive Devices Assistive Device Front Wheeled Walker Gait Deviations General Gait Pattern Decreased Stride Length,Flexed Trunk Factors Limiting Gait Function Factors Limiting Gait Function Decreased Activity Tolerance, Decreased Strength Comments Gait Comments The pt demonstrates improved dynamic balance when ambulating, as he has no instances of LOB and requires only SBA assistance. He manages FWW well, however he requires occasional verbal cues to maintain FWW close to him to avoid forward flex trunk. PT-Balance Assessment Sitting Balance and Reactions Static Sitting Balance Ability Normal Dynamic Sitting Balance Ability Normal Standing Balance and Reactions Static Standing Balance Ability Normal Dynamic Standing Balance Ability Good M5 PT-IP Objective Assessments Start: 05/27/23 07:59 Freq: NEEDED Status: Active Protocol: Document 05/27/23 12:20 MB (Rec: 05/27/23 13:01 MB [id number]) Orientation Orientation/Cognition Level of Alertness Confusional State Orientation Name Language Function Ability Spanish as Second Language Safety Awareness Decreased Safety Awareness Memory Description Short Term Impaired,Dump Motorman Impaired Comments When pt does not understand Spanish, PT communicates in Kiswahili and pt is able to state his year of but not the month or date. He does not know the current month, date, or day of week. He does not know the town. He is oriented to hospital and is aware of his partial amputation of right great toe. Gross Range of Motion Upper Extremity ROM Assessment Within Functional Limits Lower Extremity ROM Assessment Bilaterally Impaired Impairments Pt with B feet with toe amputations. Strength Lower Extremity Strength Assessment Bilaterally Impaired Comments Strength Comments No MMT ankles and toes given diabetic wounds, amputation Coordination Assessment Gross Coordination Gross Coordination Impaired Sensation Assessment Sensation Gross Sensation Right LE Impaired,Left LE Impaired Comments Sensation Comments No feeling in feet and toes M6 PT-IP Treatment Start: 05/27/23 07:59 Freq: NEEDED Status: Active Protocol: Document 05/28/23 10:06 TS (Rec: 05/28/23 10:26 TS [id number]) Physical Therapy Treatment Education Education Provided Safety M7 PT-IP Assessment and Plan Start: 05/27/23 07:59 Freq: NEEDED Status: Active Protocol: Document 05/29/23 13:54 AB (Rec: 05/29/23 14:05 AB [id number]) PT Summary Assessment and Plan Potential Rehabilitation Potential Good Status of Condition at Evaluation Stable Summary Impairments Strength,Activity Tolerance Progress Towards Goals Progressing Toward Goals Assessment Summary The pt demonstrates improving tolerance to activity, improved gait mechanics and LE strength and endurance, as he is able to ambulate longer distances compared to previous treatment sessions and with improved balance and stability . The pt demonstrates good recall of education provided today regarding asafety with transfers and ambulation, as he is able to implement in subsequent trials. He continues to benefit from skilled PT during his hospital stay in order to continue improving his remaining deficits to increase his level of function. At end of session, the pt returned to his bed, with his call light within reach and all needs met . Goals Bed Mobility Goal Independent Transfer Goal Independent,Front Wheeled Walker Gait Goal Independent,Front Wheel Walker Gait Distance 50 Days to Meet Goals 5 Frequency of Treatment Frequency Of Treatment Once a Day Treatment Plan Physical Therapy Treatment Plan Bed Mobility Training,Transfer Training,Gait Training, Therapeutic Exercise,Balance Retraining,Post Op Education, Discharge Planning, Neuromuscular Re-ed Weight Bearing Status Weight Bearing Status Weight Bear as Tolerated Recommendations To Nursing Amount of Assist Needed Standby Assistance Discharge Recommendations PT Discharge Recommendations Home with Assistance,Home Health Transportation Needs at Discharge Private Vehicle
--- NOTE | 2023-05-29 17:41 | PM.PN.1 ---
Subjective Subjective Interval history: Patient is awaiting outpatient IV abx to be arranged. He has no concerns. WBC bumped to 12 today. On IV ancef, PICC placed yesterday. Exam Vital Signs (past 8 hours): Oxygen Delivery Method Room Air Oxygen Flow Rate 0 Narrative Exam Narrative: General:? Patient is well developed and well nourished, in no distress at this time. HEENT:? Normocephalic, atraumatic, extraocular muscles intact, oral pharynx is clear and mucous membranes are moist. Neck: supple and symmetric, trachea is midline, no cervical adenopathy. Negative for JVD Chest:? Normal AP diameter and contour without kyphoscoliosis, no tachypnea, equal chest rise bilaterally. Lungs:? CTA b/l no wheezing rhonchi or rales. Cardio:?RRR no m/r/g. Abdomen: S NT ND. No CVA tenderness. Musculoskeletal:? Muscle strength and tone are equal within normal limits, no deformity. Extremities: No edema. R foot bandages c/d/ileft foot with prior 3rd digit amputation well healing. Skin:? Pale,? Warm to touch,dry and intact without rashes, ulcerations or petechiae.? Neuro:? Alert and orientated x3,? sensation to light touch diminished in lower extremities, no gross deficits noted of cranial nerves. Psych:? Patient has a well-kept appearance, appropriate affect, mental status attitude thought context and judgment are appropriate for age. Objective Labs 05/29/23 06:12 05/29/23 06:12 Labs: Laboratory Results - last 24 hr 05/29/23 05/29/23 06:12 06:12 WBC 12.0 H RBC 3.98 L Hgb 12.2 L Hct 36.7 L MCV 92.3 MCH 30.7 MCHC 33.3 RDW 14.8 Plt Count 222 Neut % (Auto) 58.7 Lymph % (Auto) 25.3 [place] % (Auto) 9.3 Eos % (Auto) 5.8 H Baso % (Auto) 0.9 Neut # (Auto) 7100 H Lymph # (Auto) 3000 [place] # (Auto) 1100 H Eos # (Auto) 700 H Baso # (Auto) 100 Sodium 136 L Potassium 4.0 Chloride 106 Carbon Dioxide 23 BUN 31 H Creatinine 0.92 Estimated GFR > 60 BUN/Creatinine Ratio 33.7 H Glucose 201 H Calcium 8.7 PFSH Medical History Aphasia Chronic back pain CVA (cerebral vascular accident) (~2020) Depression Diabetes (~2009) Diabetic peripheral neuropathy associated with type 2 diabetes mellitus Essential hypertension Fall at home Gait instability Hyperlipidemia Hypertension Knowledge deficit on spinal cord stimulator Surgical History Anesthesia Back pain with history of spinal surgery History of cholecystectomy (~1989) Social History marital status: household members: spouse and children lives independently: Yes Smoking Status: Former smoker alcohol intake: never Assessment & Plan Assessment & Plan narrative: 1. Right 1st toe osteomyelitis, diabetic foot infection with cellulitis and dry gangrene - now POD #2 s/p partial R 1st toe amputation - mild elevations in ESR and CRP on admission, with XR imaging evidence of osteo. - intraop wound cultures growing MSSA - spoke with Dr. 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 Type 2 Diabetes on insulin, controlled -A1c 6% -A1c 5.8% as of 2 months ago. -hold oral medications for now, ordered for sliding scale plus lantus 10u nightly 3. LI, resolved -likely secondary to infection -hold glimperide, metformin for now -okay to restart lisinopril 4. 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 Hypertension -okay to restart lisinopril 6. Depression -continue duloxetine 7. Chronic back pain, s/p spinal stimulator. Code: Full, surrogate spouse Dispo: Pending outpatient IV abx setup and possible need for foot MRI if uptrending WBC. Quality VTE Deep Vein Thrombosis/Pulmonary Embolism Present on Admission: No
[2023-05-29 20:00] VITALS: BP 146/74; PULSE 72; RESP 16; TEMP 36; O2SAT 98
[2023-05-29] MEDS: INSULIN GLARGINE 100 UNIT/ML 3ML PEN 10 UNIT SUBCUT (21:02)
[2023-05-29] MEDS: ATORVASTATIN 20 MG TABLET 40 MG PO (21:02)
[2023-05-29] MEDS: SODIUM CHLORIDE 0.9% FLUSH 10 ML IV (21:39)
[2023-05-30] MEDS: CEFAZOLIN 2 GM/100 ML PREMIX 100 ML IV ×3 (06:14→22:27)
[2023-05-30 07:00] VITALS: BP 133/64; PULSE 68; RESP 17; TEMP 36.2; O2SAT 97
[2023-05-30] MEDS: INSULIN LISPRO 100 UNIT/ML 3ML VIAL SUBCUT ×4 (08:01→20:28)
[2023-05-30] MEDS: MUPIROCIN 22 GM OINT 1 APPLIC TOP ×3 (08:03→20:27)
[2023-05-30] MEDS: DULOXETINE 30 MG CAPSULE 60 MG PO (08:04)
[2023-05-30] MEDS: ASPIRIN EC 81 MG TABLET PO (08:04)
[2023-05-30] MEDS: CLOPIDOGREL 75 MG TABLET PO (08:05)
[2023-05-30] MEDS: FENOFIBRATE, MICRONIZED 67 MG CAPSULE 134 MG PO (08:05)
[2023-05-30] MEDS: GABAPENTIN 600 MG TABLET PO ×3 (08:05→20:26)
[2023-05-30 08:08] LABS: Hematocrit 36.9 % (41-53); Hemoglobin 12.4 g/dL (13.5-17.5); Mean Corpuscular HGB Conc 33.7 % (30-36); Mean Corpuscular Hemoglobin 30.8 PG (26-34); Mean Corpuscular Volume 91.4 fL (80-100); Platelet Count 242 X10^3/uL (150-400); Red Blood Cell Count 4.03 X10^6/uL (4.5-5.9); Red Cell Distribution Width 14.7 % (11.6-14.8); White Blood Cell Count 11.8 X10^3/uL (4.5-11.0)
[2023-05-30 08:23] LABS: BUN Creatinine Ratio 29.6 (6-22); Blood Urea Nitrogen 29 mg/dL (9-20); Carbon Dioxide 23 mmol/L (22-32); Chloride 106 mmol/L (98-107); Estimated Glomerular Filt Rate > 60 mL/min (>60); Glucose 200 mg/dL (80-110); HEMOLYSIS < 15 (0-50); Potassium 4.3 mmol/L (3.4-5.1); Sodium 137 mmol/L (137-145)
[2023-05-30 09:00] VITALS: BP 133/64; PULSE 68
[2023-05-30] MEDS: SODIUM CHLORIDE 0.9% FLUSH 10 ML IV ×3 (09:00→22:27)
[2023-05-30] MEDS: lisinopriL 5 MG TABLET PO (09:00)
--- NOTE | 2023-05-30 09:42 | PT.IPTN ---
Current Diagnoses Diabetes mellitus due to underlying condition with foot ulcer (05/26/23) Type 2 diabetes mellitus with diabetic polyneuropathy (05/26/23) Type 2 diabetes mellitus without complications (05/26/23) Non-pressure chronic ulcer of other part of unspecified foot with unspecified severity (05/26/23) Other acute osteomyelitis, right ankle and foot (05/26/23) Osteomyelitis, unspecified (05/26/23) Surgery Performed Operation Date: 05/26/23 19:15 Actual Procedures p partial amputation great toe(Right) - Isabela Castañeda MD Physical Therapy Treatment Note M2 PT-IP Current Condition Start: 05/27/23 07:59 Freq: NEEDED Status: Active Protocol: Document 05/27/23 12:20 MB (Rec: 05/27/23 13:01 MB [id number]) Physical Therapy Current Condition Current Condition Evaluation Date 05/27/23 Treatment Diagnosis R partial great toe amputation , another right toe amputation recently Onset Date Amputation 05/26/23 M3 PT-IP Subjective Start: 05/27/23 07:59 Freq: NEEDED Status: Active Protocol: Document 05/30/23 09:42 AW (Rec: 05/30/23 10:59 AW [id number]) Subjective Physical Therapy Visit Type Type Treatment Note Visit Start Time 09:18 Visit Stop Time 09:42 Total Visit Minutes 24 Number of RAMP BOSS Visits 0 Physical Therapy Visit Comments Patient Comments Pt is agreeable to work with PT Patient Goals Pt hoping to go home soon. Therapy Pain Assessment Pain When Pain Assessed At Rest Pain Present Pain Present Denied Pain M4 PT-IP Mobility and Gait Start: 05/27/23 07:59 Freq: NEEDED Status: Active Protocol: Document 05/30/23 09:42 AW (Rec: 05/30/23 10:59 AW [id number]) PT-Transfer Assessment Sit to and From Stand Sit to and from Stand Standby Assistance Equipment Transfer Assistive Device Front Wheeled Walker Transfers Transfer Destination Chair,Toilet Transfer Ability Level of Assist Standby Assistance Comments Mobility Comments Fitted pt with forefoot- offloading shoe RLE. Pt required SBA for transfers due to different elevation RLE. Gait Assessment Gait Gait Assistance Required: Standby Assistance Distance (Feet) 150 Able to Maintain Weight Bearing Status Yes During Gait Assistive Devices Assistive Device Front Wheeled Walker Orthotic/Prosthetic Devices or Brace: No Gait Deviations General Gait Pattern Decreased Stride Length,Flexed Trunk Factors Limiting Gait Function Factors Limiting Gait Function Decreased Sensation,Decreased Strength,Poor Balance Comments Gait Comments Pt adjusting to offloading shoe but requiring no more than SBA with no overt LOB. PT-Balance Assessment Sitting Balance and Reactions Static Sitting Balance Ability Normal Dynamic Sitting Balance Ability Normal Standing Balance and Reactions Static Standing Balance Ability Good Dynamic Standing Balance Ability Good Device Used FWW Comments Other Balance Tests/Deviations/Treatment Pt benefits from use of FWW : especially while wearing offloading shoe. 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 He does not know the current month, date, or day of week. He does not know the town. He is oriented to hospital and is aware of his partial amputation of right great toe. Gross Range of Motion Upper Extremity ROM Assessment Within Functional Limits Lower Extremity ROM Assessment Bilaterally Impaired Impairments Pt with B feet with toe amputations. Strength Lower Extremity Strength Assessment Bilaterally Impaired Comments Strength Comments No MMT ankles and toes given diabetic wounds, amputation Coordination Assessment Gross Coordination Gross Coordination Impaired Sensation Assessment Sensation Gross Sensation Right LE Impaired,Left LE Impaired Comments Sensation Comments No feeling in feet and toes M6 PT-IP Treatment Start: 05/27/23 07:59 Freq: NEEDED Status: Active Protocol: Document 05/30/23 09:42 AW (Rec: 05/30/23 10:59 AW [id number]) Physical Therapy Treatment Education Education Provided Safety Equipment Issued Equipment Type and Company Forefoot offloading shoe/ [employer] Other Treatments Other Treatment Performed Fit pt with offloading shoe per ortho orders. Educated pt on need for offloading shoe during all mobility to promote forefoot healing. M7 PT-IP Assessment and Plan Start: 05/27/23 07:59 Freq: NEEDED Status: Active Protocol: Document 05/30/23 09:42 AW (Rec: 05/30/23 10:59 AW [id number]) PT Summary Assessment and Plan Summary Impairments Strength,Balance,Sensation, Transfers,Gait,Activity Tolerance Progress Towards Goals Progressing Toward Goals Assessment Summary Pt is mobilizing well but needing slight increase in assist (but no more than SBA) while adjusting to wearing offloading shoe. PT continues to recommend pt discharge home with assist and home PT to reinforce education on offloading shoe and to progress strength and gait in pt's nikolski environment. Goals Bed Mobility Goal Independent Transfer Goal Independent,Front Wheeled Walker Gait Goal Independent,Front Wheel Walker Gait Distance 50 Days to Meet Goals 5 Frequency of Treatment Frequency Of Treatment Once a Day Treatment Plan Physical Therapy Treatment Plan Bed Mobility Training,Transfer Training,Gait Training, Therapeutic Exercise,Balance Retraining,Post Op Education, Discharge Planning, Neuromuscular Re-ed Other Recommendations and Next Treatment training completed this visit, Focus recommend nursing reinforce use of post-op shoe and protection of right foot during gait, limit gait to basic ADL's to protect his foot Weight Bearing Status Weight Bearing Status Weight Bear as Tolerated Recommendations To Nursing Amount of Assist Needed Standby Assistance Discharge Recommendations PT Discharge Recommendations Home with Assistance,Home Health Transportation Needs at Discharge Private Vehicle
--- NOTE | 2023-05-30 11:46 | CM.DPC ---
Addendum entered by CHUN Staples 05/30/23 13:00: ADD: SW received a return call from [facility] admissions confirming they can accept pt tomorrow if medically stable but have to order in pt's IV-Abx and request pt's afternoon dose be given a little earlier, around 1300, and then they can transport pt to their facility and provide his evening dose. SW updated RN and MD and left msg for pt's spouse. Plan: SW to follow for plan of d/c to [facility] tomorrow 05/31/23 after afternoon IV-Abx dose. CHUN Staples Original Note: DCP SNF Planning Per MD Ortho recommending at least 2 weeks IV-Abx Cefazolin Q8 with Ortho to follow. Per PT, fit pt's boot this morning and pt was able to ambulate with FWW fairly well. HARJINDER called [facility] and he confirms they received the referral over the weekend and will review and work it up now for insurance coverage. [facility] called back and due to pt's Medicare, pt has a high copay of about $450 for the first week and then if HH can cover the RN care then could be dropped to around $350 the second week. [facility] received a call from spouse who confirms that out of pocket expense is too much for pt to d/c home with home infusion. HARJINDER met bedside with pt and updated on the cost of home infusion and he also confirms that the cost is too expensive and SW discussed the need for SNF and pt confirms he does not want [facility] but would be agreeable to referral to [facility] and agreeable with SW calling his Dtr or spouse to update on above. HARJINDER called spouse Alysa [phone] and she confirms that she spoke to [facility] and confirms they cannot afford home infusion at this time and spouse requests referral to [facility] as well. HARJINDER called [facility] admissions with new referral and updated pt may be stable for d/c today or tomorrow for ongoing IV-Abx and PT/OT. [facility] willing to review. PASRR completed. Plan: [facility] and then additional SNF referrals today if [facility] cannot accept. CHUN Staplse
--- NOTE | 2023-05-30 17:23 | PC.NURSE ---
Addendum entered by Maria Ines Lindo R.N. 05/30/23 17:24: Day shift: Changed pt's dressing today per orders. Wound is more excoriated today with notable redness around the bottom of the big toe. This was not present yesterday. Sutures remain in place, though wound was not open to the extent yesterday that it is today. Notified MD Radford who came to assess and recommended I notify surgery. Notified MD Eliezer Castañeda. Washed wound and redressed. Original Note:
--- NOTE | 2023-05-30 17:51 | P.PN_ITS ---
Subjective Subjective Date Patient Seen: 05/30/23 Time Patient Seen: 08:00 Interval history: He has no complaints. His pain is well controlled. He can not afford outpatient infusion of antibiotics Exam Vital Signs (past 8 hours): Oxygen Delivery Method Room Air Oxygen Flow Rate 0 Narrative Exam Narrative: General:?no acute distress Lungs:?clear bilaterally Cardio:?regular rate and rhythm Abdomen: soft, nontender Extremities: No edema. R foot bandages c/d/i intact, great toe proximal to distal amputation has erythema and swelling Objective Labs 05/30/23 08:00 05/30/23 08:00 Labs: Laboratory Results - last 24 hr 05/30/23 05/30/23 08:00 08:00 WBC 11.8 H RBC 4.03 L Hgb 12.4 L Hct 36.9 L MCV 91.4 MCH 30.8 MCHC 33.7 RDW 14.7 Plt Count 242 Sodium 137 Potassium 4.3 Chloride 106 Carbon Dioxide 23 BUN 29 H Creatinine 0.98 Estimated GFR > 60 BUN/Creatinine Ratio 29.6 H Glucose 200 H Calcium 9.0 PFSH Medical History Aphasia Chronic back pain CVA (cerebral vascular accident) (~2020) Depression Diabetes (~2009) Diabetic peripheral neuropathy associated with type 2 diabetes mellitus Essential hypertension Fall at home Gait instability Hyperlipidemia Hypertension Knowledge deficit on spinal cord stimulator Surgical History Anesthesia Back pain with history of spinal surgery History of cholecystectomy (~1989) Social History marital status: household members: spouse and children lives independently: Yes Smoking Status: Former smoker alcohol intake: never Assessment & Plan Assessment & Plan narrative: 1. Right 1st toe osteomyelitis, diabetic foot infection with cellulitis and dry gangrene - now post op s/p partial R 1st toe amputation - initially had mild elevations in ESR and CRP on admission, with XR imaging evidence of osteo. - intraop wound cultures growing MSSA - spoke with Dr. 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 Type 2 Diabetes on insulin, controlled -A1c 6% -A1c 5.8% as of 2 months ago. -hold oral medications for now, ordered for sliding scale plus lantus 10u nightly 3. LI, resolved -likely secondary to infection -hold glimperide, metformin for now -okay to restart lisinopril 4. 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 Hypertension -okay to restart lisinopril 6. Depression -continue duloxetine 7. Chronic back pain, s/p spinal stimulator. Code: Full, surrogate spouse Quality VTE Deep Vein Thrombosis/Pulmonary Embolism Present on Admission: No
--- NOTE | 2023-05-30 19:28 | PM.PNPO.1 ---
Subjective Subjective Date Patient Seen: 05/30/23 Time Patient Seen: 08:15 Interval history: Patient is upright in his chair sitting comfortably eating breakfast this morning. He states he has no pain. Denies chest pain, shortness of breath, nausea, vomiting. Exam Vital Signs (past 8 hours): Oxygen Delivery Method Room Air Oxygen Flow Rate 0 Narrative Exam Narrative: Awake, alert, oriented, no acute distress. Bandage to left great toe removed for exam and replaced afterward. Left great toe partially amputated. Tip of left great toe with some mild surrounding erythema. No new necrotic area, no fluctuance. Nonpainful to palpation. Objective Labs 05/30/23 08:00 05/30/23 08:00 Labs: Laboratory Results - last 24 hr 05/30/23 05/30/23 08:00 08:00 WBC 11.8 H RBC 4.03 L Hgb 12.4 L Hct 36.9 L MCV 91.4 MCH 30.8 MCHC 33.7 RDW 14.7 Plt Count 242 Sodium 137 Potassium 4.3 Chloride 106 Carbon Dioxide 23 BUN 29 H Creatinine 0.98 Estimated GFR > 60 BUN/Creatinine Ratio 29.6 H Glucose 200 H Calcium 9.0 PFSH Medical History Aphasia Chronic back pain CVA (cerebral vascular accident) (~2020) Depression Diabetes (~2009) Diabetic peripheral neuropathy associated with type 2 diabetes mellitus Essential hypertension Fall at home Gait instability Hyperlipidemia Hypertension Knowledge deficit on spinal cord stimulator Surgical History Anesthesia Back pain with history of spinal surgery History of cholecystectomy (~1989) Social History marital status: household members: spouse and children lives independently: Yes Smoking Status: Former smoker alcohol intake: never Assessment & Plan Post-op Postoperative Procedures: Procedures Operation Date: 05/26/23 19:15 Actual Procedure Side Surgeon p partial amputation great toe Right Isabela Castañeda MD Postoperative day: 4 Postoperative status: doing well Postoperative status narrative: Patient is doing reasonably well. White count with slight decrease. Exam is unchanged. Postoperative plan narrative: Continue IV antibiotics - Cultures are positive for MSSA. Repeat CBC daily for now. He needs to continue on IV antibiotics. His exam is relatively benign today as was yesterday. Per Dr. Castañeda if he has progressive elevating white blood cell count may consider supplemental workup with an MRI scan of his right foot with focus on his toe specifically looking at the IP joint. WBAT in postop shoe. Daily dressing change. Will continue to follow to determine if toe requires additional operative intervention. Quality VTE Deep Vein Thrombosis/Pulmonary Embolism Present on Admission: No
[2023-05-30 20:00] VITALS: BP 105/55; PULSE 76; RESP 18; TEMP 36.3; O2SAT 98
[2023-05-30] MEDS: ATORVASTATIN 20 MG TABLET 40 MG PO (20:26)
[2023-05-30] MEDS: INSULIN GLARGINE 100 UNIT/ML 3ML PEN 15 UNIT SUBCUT (20:27)
[2023-05-31] MEDS: SODIUM CHLORIDE 0.9% FLUSH 10 ML IV ×3 (05:20→08:50)
[2023-05-31 05:31] LABS: Hematocrit 34.9 % (41-53); Hemoglobin 11.8 g/dL (13.5-17.5); Mean Corpuscular HGB Conc 33.9 % (30-36); Mean Corpuscular Hemoglobin 30.9 PG (26-34); Mean Corpuscular Volume 91.3 fL (80-100); Platelet Count 238 X10^3/uL (150-400); Red Blood Cell Count 3.82 X10^6/uL (4.5-5.9); Red Cell Distribution Width 15.1 % (11.6-14.8); White Blood Cell Count 10.1 X10^3/uL (4.5-11.0)
[2023-05-31 05:47] LABS: BUN Creatinine Ratio 30.5 (6-22); Blood Urea Nitrogen 32 mg/dL (9-20); Calcium 8.9 mg/dL (8.4-10.2); Carbon Dioxide 27 mmol/L (22-32); Chloride 105 mmol/L (98-107); Estimated Glomerular Filt Rate > 60 mL/min (>60); Glucose 163 mg/dL (80-110); HEMOLYSIS < 15 (0-50); Potassium 4.3 mmol/L (3.4-5.1); Sodium 138 mmol/L (137-145)
[2023-05-31] MEDS: SODIUM CHLORIDE 0.9% 250 ML 21 ML IV (06:31)
[2023-05-31] MEDS: CEFAZOLIN 2 GM/100 ML PREMIX 100 ML IV ×2 (06:43→12:59)
[2023-05-31 07:00] VITALS: BP 123/61; PULSE 72; RESP 20; TEMP 36; O2SAT 98
--- NOTE | 2023-05-31 07:54 | P.PN_ITS ---
Subjective Subjective Date Patient Seen: 05/31/23 Time Patient Seen: 07:54 Interval history: Patient denies pain. No fever or chills. Exam Vital Signs (past 8 hours): Oxygen Delivery Method Room Air Oxygen Flow Rate 0 Narrative Exam Narrative: 67-year-old male resting comfortably and in bedside chair in no apparent dis tress. Dressing clean, dry and intact Objective Labs 05/31/23 05:15 05/31/23 05:15 Labs: Laboratory Results - last 24 hr 05/30/23 05/30/23 05/31/23 08:00 08:00 05:15 WBC 11.8 H 10.1 RBC 4.03 L 3.82 L Hgb 12.4 L 11.8 L Hct 36.9 L 34.9 L MCV 91.4 91.3 MCH 30.8 30.9 MCHC 33.7 33.9 RDW 14.7 15.1 H Plt Count 242 238 Sodium 137 Potassium 4.3 Chloride 106 Carbon Dioxide 23 BUN 29 H Creatinine 0.98 Estimated GFR > 60 BUN/Creatinine Ratio 29.6 H Glucose 200 H Calcium 9.0 05/31/23 05:15 WBC RBC Hgb Hct MCV MCH MCHC RDW Plt Count Sodium 138 Potassium 4.3 Chloride 105 Carbon Dioxide 27 BUN 32 H Creatinine 1.05 Estimated GFR > 60 BUN/Creatinine Ratio 30.5 H Glucose 163 H Calcium 8.9 PFSH Medical History Aphasia Chronic back pain CVA (cerebral vascular accident) (~2020) Depression Diabetes (~2009) Diabetic peripheral neuropathy associated with type 2 diabetes mellitus Essential hypertension Fall at home Gait instability Hyperlipidemia Hypertension Knowledge deficit on spinal cord stimulator Surgical History Anesthesia Back pain with history of spinal surgery History of cholecystectomy (~1989) Social History marital status: household members: spouse and children lives independently: Yes Smoking Status: Former smoker alcohol intake: never Assessment & Plan Post-op Postoperative Procedures: Procedures Operation Date: 05/26/23 19:15 Actual Procedure Side Surgeon p partial amputation great toe Right Isabela Castañeda MD Postoperative status narrative: Status post partial amputation right great toe Postoperative plan narrative: Weightbearing as tolerated in postop shoe. Daily dressing changes Continue IV antibiotics and switch to oral if clinically improving Disposition per hospitalist to be determined Quality VTE Deep Vein Thrombosis/Pulmonary Embolism Present on Admission: No
[2023-05-31] MEDS: MUPIROCIN 22 GM OINT 1 APPLIC TOP ×2 (08:48→13:04)
[2023-05-31] MEDS: INSULIN LISPRO 100 UNIT/ML 3ML VIAL SUBCUT ×2 (08:49→12:11)
[2023-05-31 08:50] VITALS: BP 121/63
[2023-05-31] MEDS: DULOXETINE 30 MG CAPSULE 60 MG PO (08:50)
[2023-05-31] MEDS: ASPIRIN EC 81 MG TABLET PO (08:50)
[2023-05-31] MEDS: lisinopriL 5 MG TABLET PO (08:50)
[2023-05-31] MEDS: CLOPIDOGREL 75 MG TABLET PO (08:50)
[2023-05-31] MEDS: FENOFIBRATE, MICRONIZED 67 MG CAPSULE 134 MG PO (08:50)
[2023-05-31] MEDS: GABAPENTIN 600 MG TABLET PO ×2 (08:50→13:06)
--- NOTE | 2023-05-31 11:09 | P.DS_ITS ---
History of Present Illness History of Present Illness Date Patient Seen: 05/26/23 Time Patient Seen: 14:30 Chief complaint: rt grt toe has a bone infection Narrative: 67-year-old gentleman with a known history of poorly controlled diabetes who has had previous toe amputations including a right 2nd great toe and left 3rd toe due to diabetic foot ulcers in the past. Says that he noticed the tip of his right toe went black a couple days ago. He presented to an urgent care clinic and he was noted to have a necrotic area at the distal tip of his toe. X-rays showed evidence of some bone loss at the distal tip of his toe. He was admitted for a diabetic foot ulcer and probable osteomyelitis of his right great toe and placed on IV antibiotics. Discharge Providers Provider Date of admission: 05/26/23 00:18 Discharge Date: 05/31/23 Primary care physician: Eriberto Candelaria DO Consults: 05/26/23 00:19 Consult to Orthopedic Surgery Routine Comment: Consulting Provider: Isabela Castañeda Reason for consultation: Osteomyelitis Has provider been notified: Yes 05/26/23 18:20 Consult to Discharge Planning Routine Comment: Consult to Physical Therapy Evaluate & Treat Comment: Physician Instructions: Evaluate and Treat 05/28/23 14:08 Consult to APPLICATION SERVICES MANAGER - Botany Teacher Routine Comment: needs IV outpatient abx 05/29/23 11:31 Consult to Physical Therapy Evaluate & Treat Comment: Right foot postoperative shoe Physician Instructions: Evaluate and Treat Discharge provider: Janusz Radford MD Summary Hospital Course Discharge Diagnosis: 1. Right 1st toe osteomyelitis, diabetic foot infection/cellulitis 2. Type 2 Diabetes on insulin 3. LI 4. 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 Hypertension 6. Depression 7. Chronic back pain, s/p spinal stimulator Hospital Course: Mr. Montano was admitted with diabetic foot infection and xray imaging concerning for osteomyelitis. He ultimately went to the OR on 05/26 and did undergo partial right 1st toe amputation. There may be some remaining infection, so he was continued on antibiotics after surgery. Wound cultures ultimately showed MSSA. He was discharged with plan for 2 more weeks of IV cefazolin 2gm q8h which would continue through 06/09 and he should follow up with orthopedic surgeon Dr. Isabela Castañeda by 06/09 to determine how he is healing and if he will need additional antibiotics. He did have LI which resolved. He is discharged to SNF in order to receive IV antibiotics. Exam Vital Signs (past 8 hours): - 05/31/23 08:50 05/31/23 07:00 Temperature 96.8 F L Pulse Rate 72 Respiratory Rate 20 Blood Pressure 121/63 123/61 Pulse Oximetry 98 Oxygen Flow Rate 0 Oxygen Delivery Method Room Air Oxygen Flow Rate 0 Narrative Exam Narrative: General:?no acute distress Lungs:?clear bilaterally Cardio:?regular rate and rhythm Abdomen: soft, nontender Extremities: No edema. R foot bandages c/d/i intact, great toe proximal to distal amputation has erythema and swelling Objective Labs 05/31/23 05:15 05/31/23 05:15 Labs: Laboratory Results - last 24 hr 05/31/23 05/31/23 05:15 05:15 WBC 10.1 RBC 3.82 L Hgb 11.8 L Hct 34.9 L MCV 91.3 MCH 30.9 MCHC 33.9 RDW 15.1 H Plt Count 238 Sodium 138 Potassium 4.3 Chloride 105 Carbon Dioxide 27 BUN 32 H Creatinine 1.05 Estimated GFR > 60 BUN/Creatinine Ratio 30.5 H Glucose 163 H Calcium 8.9 PFSH Medical History Aphasia Chronic back pain CVA (cerebral vascular accident) (~2020) Depression Diabetes (~2009) Diabetic peripheral neuropathy associated with type 2 diabetes mellitus Essential hypertension Fall at home Gait instability Hyperlipidemia Hypertension Knowledge deficit on spinal cord stimulator Surgical History Anesthesia Back pain with history of spinal surgery History of cholecystectomy (~1989) Social History marital status: household members: spouse and children lives independently: Yes Smoking Status: Former smoker alcohol intake: never Discharge Plan Discharge Plan Patient Disposition: SNF Discharge orders & Medications Prescriptions: New cefazolin 2 gram recon soln 2 g IV Q8H Qty: 25 0RF Continued mupirocin 2 % ointment 1 applic topical TID Qty: 22 0RF insulin lispro [Humalog KwikPen Insulin] 100 unit/mL insulin pen 1 sliding scale dose SUBCUT USEASDIRECTD Qty: 15 11RF Rx Instructions: use as directed per sliding scale up to 10 units, 3 times/day glimepiride 4 mg tablet 4 mg PO BID Qty: 180 3RF Rx Instructions: take with a meal (DME) Diabetic Shoes 10 wide See Rx Instructions .Route .MEDSUPPLY Qty: 2 1RF Rx Instructions: As directed aspirin 81 mg tablet,delayed release (DR/EC) 81 mg PO DAILY fenofibrate nanocrystallized 145 mg tablet 145 mg PO DAILY atorvastatin 40 mg tablet 40 mg PO DAILY clopidogrel 75 mg tablet 75 mg PO DAILY gabapentin 600 mg tablet 600 mg PO TID lisinopril 5 mg tablet 5 mg PO DAILY (DME) 4 wheel walker with seat See Rx Instructions .Route .MEDSUPPLY Qty: 1 0RF Rx Instructions: As directed metformin 1,000 mg tablet 1,000 mg PO BID Patient Comments: TAKE 1 TABLET BY MOUTH TWICE DAILY WITH MEALS duloxetine 60 mg capsule,delayed release(DR/EC) 60 mg PO DAILY Patient Comments: TAKE 1 CAPSULE BY MOUTH ONCE DAILY Follow up/Referrals: Eriberto Candelaria DO [Primary Care Provider] - Isabela Castañeda MD [Physician] - 2 Weeks (follow up Dr. Castañeda in 2 weeks, on 06/09) Diet/Activity/Treatments Diet: Carb-consistent/Diabetic Visit Report/Discharge Packet Stand Alone Forms: Patient Portal/API Discharge Data Primary Care Provider: Eriberto Candelaria Quality VTE Deep Vein Thrombosis/Pulmonary Embolism Present on Admission: No
--- NOTE | 2023-05-31 11:17 | PT.IPTN ---
Current Diagnoses Diabetes mellitus due to underlying condition with foot ulcer (05/26/23) Type 2 diabetes mellitus with diabetic polyneuropathy (05/26/23) Type 2 diabetes mellitus without complications (05/26/23) Non-pressure chronic ulcer of other part of unspecified foot with unspecified severity (05/26/23) Other acute osteomyelitis, right ankle and foot (05/26/23) Osteomyelitis, unspecified (05/26/23) Surgery Performed Operation Date: 05/26/23 19:15 Actual Procedures p partial amputation great toe(Right) - Isabela Castañeda MD Physical Therapy Treatment Note M2 PT-IP Current Condition Start: 05/27/23 07:59 Freq: NEEDED Status: Active Protocol: Document 05/27/23 12:20 MB (Rec: 05/27/23 13:01 MB [id number]) Physical Therapy Current Condition Current Condition Evaluation Date 05/27/23 Treatment Diagnosis R partial great toe amputation , another right toe amputation recently Onset Date Amputation 05/26/23 M3 PT-IP Subjective Start: 05/27/23 07:59 Freq: NEEDED Status: Active Protocol: Document 05/31/23 11:30 TS (Rec: 05/31/23 11:44 TS [id number]) Subjective Physical Therapy Visit Type Type Treatment Note Visit Start Time 11:17 Visit Stop Time 11:29 Total Visit Minutes 12 Number of DIRECTOR OF CARDIAC CATH LAB Visits 1 Physical Therapy Visit Comments Patient Comments Pt found resting in chair, post-op shoe donned, is agreeable to work with PT Patient Goals Pt hoping to go home soon. M4 PT-IP Mobility and Gait Start: 05/27/23 07:59 Freq: NEEDED Status: Active Protocol: Document 05/31/23 11:30 TS (Rec: 05/31/23 11:44 TS [id number]) PT-Bed Mobility Assessment Supine to Sit Supine to Sit Independent Sit to Supine Sit to Supine Independent Scooting Scooting to Edge of Bed Independent PT-Transfer Assessment Sit to and From Stand Sit to and from Stand Standby Assistance Equipment Transfer Assistive Device None,Gait Belt Comments Mobility Comments Pt performed sit to stand x1 with no AD, pt impulsive to move before therapist was ready with FWW. Pt ambulated with FWW 200'SBA with step thru gait, no buckling or LOB, pt reports pain in R knee, no discomfort in R foot. Back in room pt performed bed mobility sit to supine Ind, supine to sit Ind. Sit to stand SBA with FWW, uses BUE support on FWW to come into standing. Pt was left back in chair with call light nearby, chair alarm on, all needs met. Gait Assessment Gait Gait Assistance Required: Standby Assistance Distance (Feet) 200 Able to Maintain Weight Bearing Status Yes During Gait Assistive Devices Assistive Device Front Wheeled Walker Orthotic/Prosthetic Devices or Brace: No Gait Deviations General Gait Pattern Decreased Stride Length,Flexed Trunk Factors Limiting Gait Function Factors Limiting Gait Function Decreased Sensation,Decreased Strength,Poor Balance Comments Gait Comments Pt unsteady with post-op shoe, has no LOB. PT-Balance Assessment Sitting Balance and Reactions Static Sitting Balance Ability Normal Dynamic Sitting Balance Ability Normal Standing Balance and Reactions Static Standing Balance Ability Good Dynamic Standing Balance Ability Good Device Used FWW M5 PT-IP Objective Assessments Start: 05/27/23 07:59 Freq: NEEDED Status: Active Protocol: Document 05/27/23 12:20 MB (Rec: 05/27/23 13:01 MB [id number]) Orientation Orientation/Cognition Level of Alertness Confusional State Orientation Name Language Function Ability Ukrainian as Second Language Safety Awareness Decreased Safety Awareness Memory Description Short Term Impaired,Metal Tank Builder Impaired Comments When pt does not understand Ukrainian, PT communicates in Wolof and pt is able to state his year of but not the month or date. He does not know the current month, date, or day of week. He does not know the town. He is oriented to hospital and is aware of his partial amputation of right great toe. Gross Range of Motion Upper Extremity ROM Assessment Within Functional Limits Lower Extremity ROM Assessment Bilaterally Impaired Impairments Pt with B feet with toe amputations. Strength Lower Extremity Strength Assessment Bilaterally Impaired Comments Strength Comments No MMT ankles and toes given diabetic wounds, amputation Coordination Assessment Gross Coordination Gross Coordination Impaired Sensation Assessment Sensation Gross Sensation Right LE Impaired,Left LE Impaired Comments Sensation Comments No feeling in feet and toes M6 PT-IP Treatment Start: 05/27/23 07:59 Freq: NEEDED Status: Active Protocol: Document 05/31/23 11:30 TS (Rec: 05/31/23 11:44 TS [id number]) Physical Therapy Treatment Education Education Provided Safety Equipment Issued Equipment Type and Company Forefoot offloading shoe/ [employer] M7 PT-IP Assessment and Plan Start: 05/27/23 07:59 Freq: NEEDED Status: Active Protocol: Document 05/31/23 11:30 TS (Rec: 05/31/23 11:44 TS [id number]) PT Summary Assessment and Plan Potential Rehabilitation Potential Good Summary Impairments Strength,Balance,Sensation, Transfers,Gait,Activity Tolerance Progress Towards Goals Progressing Toward Goals Assessment Summary Pt continues to perform bed mobility Ind with no cueing. He performed sit to stand x2, x1 with no AD SBA, pt impulsive to stand before therapist was ready with FWW, x1 w/FWW from bed SBA with BUE support on FWW. He progressed his ambulation to ~200' SBA with FWW and post-op show donned. PT is recommending return home with assist and HHPT. Goals Bed Mobility Goal Independent Transfer Goal Independent,Front Wheeled Walker Gait Goal Independent,Front Wheel Walker Gait Distance 50 Days to Meet Goals 5 Frequency of Treatment Frequency Of Treatment Once a Day Treatment Plan Physical Therapy Treatment Plan Bed Mobility Training,Transfer Training,Gait Training, Therapeutic Exercise,Balance Retraining,Post Op Education, Discharge Planning, Neuromuscular Re-ed Weight Bearing Status Weight Bearing Status Weight Bear as Tolerated Recommendations To Nursing Amount of Assist Needed Standby Assistance Discharge Recommendations PT Discharge Recommendations Home with Assistance,Home Health Transportation Needs at Discharge Private Vehicle
--- NOTE | 2023-05-31 13:42 | CM.DPC ---
DCP Discharge SNF Per MD, pt is medically stable to d/c to SNF today for ongoing IV-Abx course and strengthening. HARJINDER confirmed with RN and Pharmacist that pt's 1500 IV Abx dose could be given around 1300 today for better discharge to SNF time. HARJINDER called [facility] and updated on pt discharge and afternoon dose of IV-Abx at 1300 and [facility] can transport pt around 1430 and provided the RN report number. GENE Rebolledo kindly faxed d/c summ, signed med sheet, scripts, MD orders and PASRR to [facility] to review. HARJINDER updated RN and provided report number and called spouse and left msg with plan of discharge to [facility] today. HARJINDER updated SHOE DRESSER and therapeutic riding instructor. Plan: Patient to d/c to [facility] today via facility van at 1430 prior to return home with family assist after IV-Abx course and Ortho recommendations. Amanda Patel MSW
== END 2023-05-31 14:35 | disposition home or self-care (01) | DRG 475 ==
LOC: ED 22:09 → AC 05-26 00:19
PROVIDERS: Internal Medicine; Orthopaedic Surgery; Admitting Provider Family Medicine; Emergency Provider Emergency Medicine; PCP Family Medicine; Referring Provider Emergency Medicine; Visit Provider Family Medicine
PROC: 0Y6M0Z9 Detachment at Right Foot, Partial 1st Ray, Open Approach (ICD-10-PCS; principal; 2023-05-26 19:15)
DX: M86.171 Other acute osteomyelitis, right ankle and foot (principal); E11.52 Type 2 diabetes mellitus with diabetic peripheral angiopathy with gangrene; I96 Gangrene, not elsewhere classified; N17.9 Acute kidney failure, unspecified; E11.40 Type 2 diabetes mellitus with diabetic neuropathy, unspecified; I10 Essential (primary) hypertension; F32.A Depression, unspecified; B95.61 Methicillin susceptible Staphylococcus aureus infection as the cause of diseases classified elsewhere; E11.628 Type 2 diabetes mellitus with other skin complications; L03.031 Cellulitis of right toe; E78.5 Hyperlipidemia, unspecified; Z79.84 Long term (current) use of oral hypoglycemic drugs; Z79.4 Long term (current) use of insulin; Z87.891 Personal history of nicotine dependence; L08.9 Local infection of the skin and subcutaneous tissue, unspecified; Z89.421 Acquired absence of other right toe(s)
CPT/HCPCS: 36415; 36573; 36592; 73660; 80048; 80053; 82962; 83036; 83605; 84145; 85025; 85027; 85610; 85651; 86140; 87040; 87070; 87075; 87077; 87147; 87186; 87205; 97116; 97161; 97530; 99283; 99285; J0690; J0696; J1642; J1650; J1815; J3010

== ENCOUNTER → 2024-01-10 13:09 | Outpatient (CLI) | payer MEDICARE, OTHER, SELFPAY ==
[2023-05-26 00:27] VITALS: BMI 25.8
== END ==
LOC: WC 13:13
PROVIDERS: PCP Family Medicine; Referring Provider Family Medicine; Visit Provider Surgery
DX: L97.512 Non-pressure chronic ulcer of other part of right foot with fat layer exposed (principal); E11.621 Type 2 diabetes mellitus with foot ulcer; E11.42 Type 2 diabetes mellitus with diabetic polyneuropathy; I73.9 Peripheral vascular disease, unspecified; R60.0 Localized edema
CPT/HCPCS: 11042; 87070; 87075; 87077; 87186; 87205; 99214

== ENCOUNTER → 2024-01-18 10:05 | Outpatient (CLI) | payer MEDICARE, OTHER, SELFPAY ==
[2023-05-26 00:27] VITALS: BMI 25.8
--- NOTE | 2024-01-18 10:09 | DI.RAD.S_ITS ---
PROCEDURE: XR FOOT RT MIN 3V INDICATIONS: Non-healing ulcer of R great toe TECHNIQUE: 3 views of the foot were acquired. COMPARISON: [facility], CR, XR TOE RT MIN 2V, 05/25/2023, 12:34. [facility], CR, XR FOOT RT MIN 3V, 02/01/2023, 11:03. FINDINGS: Bones: Irregularity at the 1st digit distal phalanx which is worsened compared to 05/25/2023. Small ossicles. Prior resection 2nd digit phalanges. No fractures or dislocations. No suspicious bony lesions. Small plantar calcaneal spur. Soft tissues: No tibiotalar joint effusion. Achilles tendon appears normal. IMPRESSION: Worsening irregularity at the 1st digit distal phalanx. Suspect chronic osteomyelitis. Recommend clinical correlation and correlation with prior surgical history. Small ossicles adjacent to the distal phalanx which could represent fracture fragments. Dictated by: Mesfin Rebolledo M.D. on 01/18/2024 at 17:13 Approved by: Mesfin Rebolledo M.D. on 01/18/2024 at 17:18
[2024-01-18 11:42] LABS: Add Manual Diff / Slide Review NO; Basophils Absolute Auto 100 /uL (0-100); Basophils Percent Auto 0.8 % (0-2); Eosinophils Absolute Auto 500 /uL (0-450); Eosinophils Percent Auto 4.3 % (2-4); Hematocrit 42.8 % (41-53); Hemoglobin 14.4 g/dL (13.5-17.5); Lymphocytes Absolute Auto 4000 /uL (1100-4500); Lymphocytes Percent Auto 33.8 % (25-40); Mean Corpuscular HGB Conc 33.6 % (30-36); Mean Corpuscular Hemoglobin 31.3 PG (26-34); Mean Corpuscular Volume 93.2 fL (80-100); Monocytes Absolute Auto 1000 /uL (0-900); Monocytes Percent Auto 8.2 % (3-14); Neutrophils Absolute Auto 6300 /uL (1500-7000); Neutrophils Percent Auto 52.9 % (50-75); Platelet Count 236 X10^3/uL (150-400); Red Blood Cell Count 4.59 X10^6/uL (4.5-5.9); Red Cell Distribution Width 15.1 % (11.6-14.8)
[2024-01-18 11:55] LABS: Hemoglobin A1C% w Est Avg Glu 6.7 % (4.0-6.0)
[2024-01-18 12:01] LABS: Alanine Aminotransferase 19 IU/L (<50); Albumin 4.2 g/dL (3.5-5.0); Albumin Globulin Ratio 1.3 (1.0-2.8); Alkaline Phosphatase 69 U/L (38-126); Aspartate Aminotransferase 24 IU/L (17-59); Bilirubin Total 0.6 mg/dL (0.2-1.3); Blood Urea Nitrogen 30 mg/dL (9-20); Calcium 10.1 mg/dL (8.4-10.2); Carbon Dioxide 21 mmol/L (22-32); Chloride 107 mmol/L (98-107); Estimated Glomerular Filt Rate > 60 mL/min (>60); Globulin 3.2 g/dL (1.7-4.1); Glucose 133 mg/dL (80-110); HEMOLYSIS 27 (0-50); Potassium 4.8 mmol/L (3.4-5.1); Sodium 139 mmol/L (137-145); Total Protein 7.4 g/dL (6.3-8.2)
== END ==
PROVIDERS: PCP Family Medicine; Referring Provider Surgery; Visit Provider Surgery
DX: E11.22 Type 2 diabetes mellitus with diabetic chronic kidney disease (principal); I12.9 Hypertensive chronic kidney disease with stage 1 through stage 4 chronic kidney disease, or unspecified chronic kidney disease; N18.30 Chronic kidney disease, stage 3 unspecified; E11.621 Type 2 diabetes mellitus with foot ulcer; L97.512 Non-pressure chronic ulcer of other part of right foot with fat layer exposed; E11.42 Type 2 diabetes mellitus with diabetic polyneuropathy; I73.9 Peripheral vascular disease, unspecified; L84 Corns and callosities; R60.0 Localized edema; Z79.2 Long term (current) use of antibiotics
CPT/HCPCS: 11042; 36415; 73630; 80053; 83036; 85025

== ENCOUNTER → 2024-01-18 10:29 | Outpatient (CLI) | payer MEDICARE, OTHER, SELFPAY ==
[2023-05-26 00:27] VITALS: BMI 25.8
== END ==
LOC: WC 10:39
PROVIDERS: PCP Family Medicine; Referring Provider Orthopaedic Surgery; Visit Provider Surgery
DX: E11.621 Type 2 diabetes mellitus with foot ulcer (principal); L97.512 Non-pressure chronic ulcer of other part of right foot with fat layer exposed; E11.42 Type 2 diabetes mellitus with diabetic polyneuropathy; I73.9 Peripheral vascular disease, unspecified; L84 Corns and callosities; R60.0 Localized edema; Z79.2 Long term (current) use of antibiotics
CPT/HCPCS: 11042

== ENCOUNTER → 2024-01-25 09:23 | Outpatient (CLI) | payer MEDICARE, OTHER, SELFPAY ==
[2023-05-26 00:27] VITALS: BMI 25.8
== END ==
LOC: WC 09:24
PROVIDERS: PCP Family Medicine; Referring Provider Orthopaedic Surgery; Visit Provider Surgery
DX: E11.621 Type 2 diabetes mellitus with foot ulcer (principal); L97.512 Non-pressure chronic ulcer of other part of right foot with fat layer exposed; R60.0 Localized edema; L84 Corns and callosities; E11.42 Type 2 diabetes mellitus with diabetic polyneuropathy; I73.9 Peripheral vascular disease, unspecified
CPT/HCPCS: 11042; 99213

== ENCOUNTER → 2024-02-01 13:45 | Outpatient (CLI) | payer MEDICARE, OTHER, SELFPAY ==
[2023-05-26 00:27] VITALS: BMI 25.8
== END ==
LOC: WC 13:49
PROVIDERS: PCP Family Medicine; Referring Provider Orthopaedic Surgery; Visit Provider Surgery
DX: E11.621 Type 2 diabetes mellitus with foot ulcer (principal); E11.42 Type 2 diabetes mellitus with diabetic polyneuropathy; L97.512 Non-pressure chronic ulcer of other part of right foot with fat layer exposed; L84 Corns and callosities; R60.0 Localized edema; I73.9 Peripheral vascular disease, unspecified; Z91.199 Patient's noncompliance with other medical treatment and regimen due to unspecified reason
CPT/HCPCS: 11042

== ENCOUNTER → 2024-02-01 14:32 | Outpatient (CLI) | payer MEDICARE, OTHER, SELFPAY ==
[2023-05-26 00:27] VITALS: BMI 25.8
--- NOTE | 2024-02-01 14:34 | DI.US.S_ITS ---
PROCEDURE: US ARTERIAL DUPLEX LE BI INDICATIONS: Non-healing wound of R great toe TECHNIQUE: Color and pulse Doppler interrogation was performed of both lower extremity arterial systems, with image documentation. COMPARISON: None. FINDINGS: Right lower extremity: Common femoral artery: 48 cm/sec, with biphasic flow. Deep femoral artery: 67 cm/sec, with biphasic flow. Proximal superficial femoral artery: 117 cm/sec, with biphasic flow. Mid superficial femoral artery: 118 cm/sec, with biphasic (above baseline) flow. Distal superficial femoral artery: 54 cm/sec, with biphasic (above baseline) flow. Popliteal artery: 343 cm/sec, with biphasic (above baseline) flow. Posterior tibial artery: 26 cm/sec, with monophasic flow. Anterior tibial artery/dorsalis pedis: 48 cm/sec, with monophasic flow. Monreal-scale imaging description: Scattered atherosclerotic plaque, notably in the distal SFA. Left lower extremity: Common femoral artery: 28 cm/sec, with biphasic flow. Deep femoral artery: 84 cm/sec, with biphasic flow. Proximal superficial femoral artery: 84 cm/sec, with biphasic flow. Mid superficial femoral artery: 101 cm/sec, with biphasic flow. Distal superficial femoral artery: 103 cm/sec, with biphasic flow. Popliteal artery: 73 cm/sec, with biphasic flow. Posterior tibial artery: 36 cm/sec, with biphasic flow. Anterior tibial artery/dorsalis pedis: 27 cm/sec, with biphasic flow. Monreal-scale imaging description: Scattered atherosclerotic plaque IMPRESSION: 1. Right lower extremity demonstrates a popliteal artery stenosis of approximately 50-99% with elevated velocity of 343 cm/S and elevated velocity ratio of 6.4. Distal to the popliteal artery there are monophasic waveforms. If clinically warranted, consider referral to Interventional Radiology for endovascular intervention (Epic: Ambulatory Referral to Interventional Radiology). 2. Left lower extremity demonstrates multiphasic waveforms with no velocity shift to suggest a hemodynamically significant stenosis. Dictated by: Vince Stevenson M.D. on 02/01/2024 at 19:42 Approved by: Vince Stevenson M.D. on 02/01/2024 at 19:47
== END ==
LOC: US 14:33
PROVIDERS: PCP Family Medicine; Referring Provider Surgery; Visit Provider Surgery
DX: E11.621 Type 2 diabetes mellitus with foot ulcer (principal); L97.519 Non-pressure chronic ulcer of other part of right foot with unspecified severity; E11.51 Type 2 diabetes mellitus with diabetic peripheral angiopathy without gangrene; R68.89 Other general symptoms and signs; Z79.4 Long term (current) use of insulin; E11.42 Type 2 diabetes mellitus with diabetic polyneuropathy; L97.512 Non-pressure chronic ulcer of other part of right foot with fat layer exposed; L84 Corns and callosities; R60.0 Localized edema; I73.9 Peripheral vascular disease, unspecified; Z91.199 Patient's noncompliance with other medical treatment and regimen due to unspecified reason
CPT/HCPCS: 11042; 93925

== ENCOUNTER → 2024-02-08 13:35 | Outpatient (CLI) | payer MEDICARE, OTHER, SELFPAY ==
[2023-05-26 00:27] VITALS: BMI 25.8
== END ==
LOC: WC 13:36
PROVIDERS: PCP Family Medicine; Referring Provider Orthopaedic Surgery; Visit Provider Surgery
DX: E11.621 Type 2 diabetes mellitus with foot ulcer (principal); E11.42 Type 2 diabetes mellitus with diabetic polyneuropathy; L97.512 Non-pressure chronic ulcer of other part of right foot with fat layer exposed; L84 Corns and callosities; R60.0 Localized edema; I73.9 Peripheral vascular disease, unspecified; M21.6X1 Other acquired deformities of right foot
CPT/HCPCS: 11042

== ENCOUNTER → 2024-12-20 11:39 | Outpatient (CLI) | payer MEDICARE, OTHER, SELFPAY ==
[2023-05-26 00:27] VITALS: BMI 25.8
[2024-12-20 13:27] LABS: Hematocrit 44.6 % (41-53); Hemoglobin 14.8 g/dL (13.5-17.5); Mean Corpuscular HGB Conc 33.3 % (30-36); Mean Corpuscular Hemoglobin 32.4 PG (26-34); Mean Corpuscular Volume 97.4 fL (80-100); Platelet Count 258 X10^3/uL (150-400); Red Blood Cell Count 4.58 X10^6/uL (4.5-5.9); White Blood Cell Count 10.9 X10^3/uL (4.5-11.0)
[2024-12-20 13:31] LABS: Hemoglobin A1C% w Est Avg Glu 6.3 % (4.0-6.0)
[2024-12-20 13:48] LABS: Alanine Aminotransferase 27 IU/L (<50); Albumin 4.7 g/dL (3.5-5.0); Albumin Globulin Ratio 1.6 (1.0-2.8); Alkaline Phosphatase 99 U/L (38-126); Aspartate Aminotransferase 28 IU/L (17-59); BUN Creatinine Ratio 23.6 (6-22); Bilirubin Total 0.6 mg/dL (0.2-1.3); Blood Urea Nitrogen 39 mg/dL (9-20); Calcium 9.7 mg/dL (8.4-10.2); Carbon Dioxide 24 mmol/L (22-32); Chloride 101 mmol/L (98-107); Cholesterol 120 mg/dL (140-199); Estimated Glomerular Filt Rate 44 mL/min (>60); Glucose 159 mg/dL (80-110); HDL Cholesterol 50 mg/dL (40-60); HEMOLYSIS < 15 (0-50); LDL Cholesterol Calculated 35 mg/dL (<100); Potassium 5.1 mmol/L (3.4-5.1); Sodium 138 mmol/L (137-145); Total Protein 7.7 g/dL (6.3-8.2); Triglycerides 177 mg/dL (35-150)
[2024-12-20 14:15] LABS: Prostate Specific Antigen Scrn 1.75 ng/mL (0.1-4.0)
[2024-12-20 15:48] LABS: Hep C Virus Ab w/Reflex Quant NEGATIVE s/c (NEGATIVE)
== END ==
PROVIDERS: PCP Family Medicine; Referring Provider Family Medicine; Visit Provider Family Medicine
DX: Z00.00 Encounter for general adult medical examination without abnormal findings (principal); E11.22 Type 2 diabetes mellitus with diabetic chronic kidney disease; Z12.5 Encounter for screening for malignant neoplasm of prostate; N18.30 Chronic kidney disease, stage 3 unspecified; I63.9 Cerebral infarction, unspecified
CPT/HCPCS: 36415; 80053; 80061; 83036; 85027; 86803; G0103

== ENCOUNTER 2025-01-02 15:38 | Emergency (ER) | payer MEDICARE, OTHER, SELFPAY ==
[2023-05-26 00:27] VITALS: BMI 25.8
[2025-01-02] VITALS (19 sets, daily range): BP systolic 113–185; BP diastolic 60–86; PULSE 74–124; RESP 19–23; TEMP 36.3; O2SAT 95–99
--- NOTE | 2025-01-02 16:05 | DI.RAD.S_ITS ---
PROCEDURE: XR CHEST 1V INDICATIONS: altered mental status TECHNIQUE: One view of the chest was acquired. COMPARISON: [facility], CR, XR CHEST FOR PICC 1V, 05/29/2023, 0:25. FINDINGS: Surgical changes and devices: Stimulator leads are seen in the region of mid thoracic spine. Surgical clips are also seen in right upper quadrant. Lungs and pleura: Mild pulmonary vascular congestion. No definite focal infiltrate. Scarring/atelectasis in right upper lung field is seen. No pleural effusions or pneumothorax. Mediastinum: Mediastinal contours appear normal. Heart size is normal. Bones and chest wall: No suspicious bony lesions. Overlying soft tissues appear unremarkable. IMPRESSION: No focal infiltrate, pleural effusion or pneumothorax. Mild pulmonary vascular congestion. Chronic scarring/atelectasis in right upper lobe. Dictated by: Kirill Hurtado M.D. on 01/02/2025 at 16:42 Approved by: Kirill Hurtado M.D. on 01/02/2025 at 16:43
[2025-01-02 16:23] LABS: Ur Creatinine Normal (Normal); Ur Specific Gravity Normal (Normal); Urine pH Normal (Normal)
[2025-01-02 16:24] LABS: Urine Amphetamines Negative (Negative); Urine Barbiturates Negative (Negative); Urine Benzodiazepines Negative (Negative); Urine Cocaine Negative (Negative); Urine MDMA Negative (Negative); Urine Methadone Negative (Negative); Urine Methamphetamines Negative (Negative); Urine Opiates Negative (Negative); Urine Oxycodone Negative (Negative); Urine Phencyclidine Negative (Negative); Urine THC Negative (Negative); Urine Tricyclic Antidepressant Negative (Negative)
--- NOTE | 2025-01-02 16:27 | EKG_ITS ---
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
[2025-01-02 16:37] LABS: Amorphous Sediment Urine 1+; Bacteria Urine None Seen; Hyaline Casts Urine 5-10/LPF; RBC Urine 0-1/HPF (0-5/HPF); Squamous Epithelial Cell Urine 1-5 /HPF (0-5/HPF); Urine Volume 10mL (spun); WBC Urine 0-1/HPF (0-5/HPF)
[2025-01-02 16:38] LABS: Culture Indicated Urine Cult Not Indicated
--- NOTE | 2025-01-02 16:51 | PC.NURSE ---
Pt's and grandchildren report history of altered mental status, at baseline, and getting worse. Pt is becoming difficult to redirect, family states he is becoming aggressive towards them when he doesn't get his way. Pt left home today at 1330 in [place] with the plan of walking to the [facility] in [place]. Pt has hx of CVA. Family worries he will walk away from their home and get lost and/or injured.
[2025-01-02 16:56] LABS: Add Manual Diff / Slide Review NO; Basophils Absolute Auto 100 /uL (0-100); Basophils Percent Auto 0.6 % (0-2); Eosinophils Absolute Auto 100 /uL (0-450); Eosinophils Percent Auto 0.7 % (2-4); Hematocrit 45.6 % (41-53); Hemoglobin 15.2 g/dL (13.5-17.5); Lymphocytes Absolute Auto 2200 /uL (1100-4500); Lymphocytes Percent Auto 17.3 % (25-40); Mean Corpuscular HGB Conc 33.4 % (30-36); Mean Corpuscular Hemoglobin 32.1 PG (26-34); Mean Corpuscular Volume 96.2 fL (80-100); Monocytes Absolute Auto 800 /uL (0-900); Neutrophils Absolute Auto 9500 /uL (1500-7000); Neutrophils Percent Auto 75.4 % (50-75); Platelet Count 245 X10^3/uL (150-400); Red Blood Cell Count 4.74 X10^6/uL (4.5-5.9); Red Cell Distribution Width 13.6 % (11.6-14.8); White Blood Cell Count 12.7 X10^3/uL (4.5-11.0)
--- NOTE | 2025-01-02 16:59 | PC.NURSE ---
Pt has upcoming appointment with Dr. Candelaria on Thursday 01/04.
[2025-01-02 17:19] LABS: Ammonia (NH3) < 9 umol/L (9-30)
[2025-01-02 17:20] LABS: Alanine Aminotransferase 30 IU/L (<50); Albumin 4.6 g/dL (3.5-5.0); Albumin Globulin Ratio 1.3 (1.0-2.8); Alkaline Phosphatase 62 U/L (38-126); Aspartate Aminotransferase 34 IU/L (17-59); BUN Creatinine Ratio 21.2 (6-22); Bilirubin Total 0.7 mg/dL (0.2-1.3); Blood Urea Nitrogen 32 mg/dL (9-20); Calcium 9.9 mg/dL (8.4-10.2); Carbon Dioxide 19 mmol/L (22-32); Chloride 107 mmol/L (98-107); Estimated Glomerular Filt Rate 49 mL/min (>60); Globulin 3.5 g/dL (1.7-4.1); Glucose 155 mg/dL (80-110); HEMOLYSIS 27 (0-50); Potassium 4.5 mmol/L (3.4-5.1); Sodium 139 mmol/L (137-145); Total Protein 8.1 g/dL (6.3-8.2)
--- NOTE | 2025-01-02 18:14 | ED_ITS ---
HPI - Altered Mental Status <Joe Modishaina, DO - Last Filed: 01/03/25 01:15> General Chief Complaint: Altered Mental Status Stated Complaint: AMS Time Seen by Provider: 01/02/25 18:14 Source: patient Mode of arrival: Ambulatory History of Present Illness HPI narrative: 69-year-old female with a past medical history of hyperlipidemia diabetes hypertension CKD CVA presents to the emergency department from home with family for evaluation of increased confusion agitation over the past week. According to family patient allegedly tried to jump out of a moving car has had increased agitation with family members. At time of initial evaluation patient is alert to self place intermittently to time cooperative and not complaining of any symptoms such as headache visual disturbances chest pain shortness breath fever chills nausea vomiting abdominal pain or any other GI/ symptoms time. He states he has not really sure why he is here, according to family they are in the process of buying a house and are having difficulty caring for him, they state that they are afraid that he is going to hurt himself or get lost. They are requesting help for either placement or help at home given patient with worsening agitation and confusion. Family at bedside states they live with the just the son-in-law states that they tried to help out as much as possible but are unable to help given increasing needs that the patient is having. Related Data Home Medications Medication Instructions Recorded Confirmed aspirin 81 mg tablet,delayed 81 mg PO DAILY 11/24/22 12/20/24 release Previous Rx's Medication Instructions Recorded 4 wheel walker with seat #1 ea 11/24/22 insulin lispro 100 unit/mL 1 sliding scale dose SUBCUT 02/08/23 subcutaneous pen (Humalog KwikPen USEASDIRECTD #15 mL (U-100) Insulin) Diabetic Shoes #2 ea 04/25/23 glimepiride 2 mg tablet 2 mg PO BID #180 tabs 11/27/24 atorvastatin 40 mg tablet 40 mg PO DAILY #90 tabs 12/20/24 clopidogrel 75 mg tablet 75 mg PO DAILY #90 tabs 12/20/24 duloxetine 60 mg capsule,delayed 60 mg PO DAILY #90 caps 12/20/24 release fenofibrate nanocrystallized 145 145 mg PO DAILY #90 tabs 12/20/24 mg tablet gabapentin 600 mg tablet 600 mg PO TID #270 tabs 12/20/24 lisinopril 5 mg tablet 5 mg PO DAILY #90 tabs 12/20/24 metformin 1,000 mg tablet 1,000 mg PO BID #180 tabs 12/20/24 Allergies Allergy/AdvReac Type Severity Reaction Status Date / Time codeine AdvReac Gastrointestinal Verified 12/20/24 11:24 Upset Review of Systems <Joe Quinones DO - Last Filed: 01/03/25 01:15> Review of Systems Narrative: General: Denies fever, chills, weight loss HEENT: Denies headache, eye drainage, eye irritation, head trauma, sore throat, voice change Cardiovascular: Denies any chest pain, palpitations, tachycardia Respiratory: Denies any shortness of breath, cough, wheeze, stridor GI/: Denies any abdominal pain, nausea, vomiting, diarrhea, bright red blood per rectum, melanotic stools, urinary frequency, urinary retention, dysuria, hematuria MSK: Denies any joint pain, muscle pains, swelling Skin: Denies any rashes, lesions, discoloration Neuro: Denies any headache, lightheadedness, dizziness, fainting, weakness Psych: Increased confusion, Denies SI/HI Patient History <Joe Quinones DO - Last Filed: 01/03/25 01:15> Medical History (Updated 01/03/25 @ 12:32 by Darren Robles MD) Encounter for subsequent annual wellness visit (AWV) in Medicare patient CKD stage 3 due to type 2 diabetes mellitus Hyperlipidemia Aphasia Fall at home Gait instability Diabetic peripheral neuropathy associated with type 2 diabetes mellitus Depression Knowledge deficit on spinal cord stimulator Chronic back pain Essential hypertension CVA (cerebral vascular accident) (~2020) Hypertension Diabetes (~2009) Surgical History Anesthesia History of cholecystectomy (~1989) Back pain with history of spinal surgery Social History marital status: household members: spouse and children lives independently: Yes Smoking Status: Former smoker alcohol intake: never Smoking Status: Former smoker alcohol intake frequency: 0-2 drinks per day Exam <Joe Quinones DO - Last Filed: 01/03/25 01:15> Narrative Exam Narrative: General: Cooperative, comfortable, well-developed, not in acute distress HEENT: Normocephalic, atraumatic, PERRLA, normal sclera, eyelids normal, Neck: Active full range of motion, atraumatic Chest: Normal to inspection, negative crepitus, no overlying erythema ecchymosis Respiratory: Normal respiratory effort, not in acute respiratory distress, clear to auscultation bilaterally negative cough, wheeze, tachypnea, rhonchi, rales Cardiology: Regular rate rhythm negative gallop, murmur, rubs GI/: Normal to inspection, soft, nonrigid, no tenderness to palpation, exam deferred MSK: Full range of active range of motion of all 4 extremities, atraumatic Skin: No rashes lesions noted Neuro: Alert to self place intermittently to time, moving all 4 extremities spontaneously, NIH of 0, no focal deficits, Psych: Cooperative, negative suicidal or homicidal ideations Initial Vital Signs Initial Vital Signs: Vital Signs Temperature 97.3 F L 01/02/25 15:43 Pulse Rate 112 H 01/02/25 15:43 Respiratory Rate 20 01/02/25 15:43 Blood Pressure 138/84 01/02/25 15:43 Pulse Oximetry 99 01/02/25 15:43 Oxygen Delivery Method Room Air 01/02/25 15:43 <Darren Robles MD - Last Filed: 01/03/25 14:57> Initial Vital Signs Initial Vital Signs: Vital Signs Temperature 97.3 F L 01/02/25 15:43 Pulse Rate 112 H 01/02/25 15:43 Respiratory Rate 01/02/25 15:43 Blood Pressure 138/84 01/02/25 15:43 Pulse Oximetry 99 01/02/25 15:43 Oxygen Delivery Method Room Air 01/02/25 15:43 Course <Joe Quinones DO - Last Filed: 01/03/25 01:15> Orders Ordered: Discontinued Medications Atorvastatin Calcium (Atorvastatin 20 Mg Tablet) 40 mg PO DAILY [facility] Last Admin: 01/03/25 09:12 Dose: 40 mg Documented By: MECHE Clopidogrel Bisulfate (Clopidogrel 75 Mg Tablet) 75 mg PO DAILY [facility] Last Admin: 01/03/25 09:12 Dose: 75 mg Documented By: MECHE Insulin Human Lispro (Insulin Lispro 100 Unit/Ml 3ml Vial) 0 unit SUBCUT ACHS [facility]; Protocol Last Admin: 01/03/25 12:02 Dose: 4 unit Documented By: MECHE Co-signed By: MARGUERITE Admin: 01/03/25 08:51 Dose: Not Given Documented By: MECHE Lidocaine/Prilocaine (Lidocaine/Prilocaine 30 Gm) 1 applic TOP NOW ONE Stop: 01/02/25 23:21 Last Admin: 01/02/25 23:26 Dose: Not Given Documented By: MARI Lisinopril (Lisinopril 5 Mg Tablet) 5 mg PO DAILY [facility] Lisinopril (Lisinopril 20 Mg Tablet) 5 mg PO DAILY [facility] Last Admin: 01/03/25 09:11 Dose: 5 mg Documented By: MECHE Olanzapine (Olanzapine 2.5 Mg Tablet) 2.5 mg PO NOW ONE Stop: 01/03/25 13:01 Last Admin: 01/03/25 12:53 Dose: 2.5 mg Documented By: MARGUERITE Vital Signs Vital signs: Vital Signs - 8 hr 01/03/25 08:46 01/03/25 08:47 01/03/25 08:47 Temperature Pulse Rate 73 69 Respiratory Rate Blood Pressure 166/73 H Pulse Oximetry 98 98 Oxygen Delivery Method 01/03/25 08:48 01/03/25 09:11 01/03/25 13:10 Temperature 98.1 F Pulse Rate 67 69 88 Respiratory Rate 16 20 Blood Pressure 166/73 H 166/73 H 148/71 H Pulse Oximetry 98 97 Oxygen Delivery Method Room Air <Darren Robles MD - Last Filed: 01/03/25 14:57> Orders Ordered: Discontinued Medications Atorvastatin Calcium (Atorvastatin 20 Mg Tablet) 40 mg PO DAILY [facility] Last Admin: 01/03/25 09:12 Dose: 40 mg Documented By: EMCHE Clopidogrel Bisulfate (Clopidogrel 75 Mg Tablet) 75 mg PO DAILY [facility] Last Admin: 01/03/25 09:12 Dose: 75 mg Documented By: MECHE Insulin Human Lispro (Insulin Lispro 100 Unit/Ml 3ml Vial) 0 unit SUBCUT ACHS [facility]; Protocol Last Admin: 01/03/25 12:02 Dose: 4 unit Documented By: MECHE Co-signed By: CTS Admin: 01/03/25 08:51 Dose: Not Given Documented By: MECHE Lidocaine/Prilocaine (Lidocaine/Prilocaine 30 Gm) 1 applic TOP NOW ONE Stop: 01/02/25 23:21 Last Admin: 01/02/25 23:26 Dose: Not Given Documented By: MARI Lisinopril (Lisinopril 5 Mg Tablet) 5 mg PO DAILY [facility] Lisinopril (Lisinopril 20 Mg Tablet) 5 mg PO DAILY [facility] Last Admin: 01/03/25 09:11 Dose: 5 mg Documented By: MECHE Olanzapine (Olanzapine 2.5 Mg Tablet) 2.5 mg PO NOW ONE Stop: 01/03/25 13:01 Last Admin: 01/03/25 12:53 Dose: 2.5 mg Documented By: CTS Vital Signs Vital signs: Vital Signs - 8 hr 01/03/25 08:46 01/03/25 08:47 01/03/25 08:47 Temperature Pulse Rate 73 69 Respiratory Rate Blood Pressure 166/73 H Pulse Oximetry 98 98 Oxygen Delivery Method 01/03/25 08:48 01/03/25 09:11 01/03/25 13:10 Temperature 98.1 F Pulse Rate 67 69 88 Respiratory Rate 16 20 Blood Pressure 166/73 H 166/73 H 148/71 H Pulse Oximetry 98 97 Oxygen Delivery Method Room Air MDM - Altered Mental Status <Joe Quinones DO - Last Filed: 01/03/25 01:15> Differential Diagnosis Differential diagnosis: Likely altered mental status, dementia, hyponatremia and other (Pneumonia, electrolyte abnormality, urinary tract infection, ACS) Lab Data 01/02/25 16:40 01/02/25 16:40 Labs: Lab Results 01/02/25 01/02/25 01/02/25 Range/Units 16:03 16:40 18:55 WBC 12.7 H (4.5-11.0) X10^3/uL RBC 4.74 (4.5-5.9) X10^6/uL Hgb 15.2 (13.5-17.5) g/dL Hct 45.6 (41-53) % MCV 96.2 (80-100) fL MCH 32.1 (26-34) PG MCHC 33.4 (30-36) % RDW 13.6 (11.6-14.8) % Plt Count 245 (150-400) X10^3/uL Neut % (Auto) 75.4 H (50-75) % Lymph % (Auto) 17.3 L (25-40) % Fannin % (Auto) 6.0 (3-14) % Eos % (Auto) 0.7 L (2-4) % Baso % (Auto) 0.6 (0-2) % Neut # (Auto) 9500 H (9843-8545) /uL Lymph # (Auto) 2200 (4746-1620) /uL Fannin # (Auto) 800 (0-900) /uL Eos # (Auto) 100 (0-450) /uL Baso # (Auto) 100 (0-100) /uL Sodium 139 (137-145) mmol/L Potassium 4.5 (3.4-5.1) mmol/L Chloride 107 (98-107) mmol/L Carbon Dioxide 19 L (22-32) mmol/L BUN 32 H (9-20) mg/dL Creatinine 1.51 H (0.66-1.25) mg/dL Estimated GFR 49 L (>60) mL/min BUN/Creatinine Ratio 21.2 (6-22) Glucose 155 H (80-110) mg/dL Calcium 9.9 (8.4-10.2) mg/dL Total Bilirubin 0.7 (0.2-1.3) mg/dL AST 34 (17-59) IU/L ALT 30 (<50) IU/L Alkaline Phosphatase 62 (38-126) U/L Ammonia < 9 L (9-30) umol/L Total Creatine Kinase (55-170) U/L Troponin I (0.01-0.034) ng/mL Total Protein 8.1 (6.3-8.2) g/dL Albumin 4.6 (3.5-5.0) g/dL Globulin 3.5 (1.7-4.1) g/dL Albumin/Globulin Ratio 1.3 (1.0-2.8) Urine RBC 0-1/hpf D (0-5/HPF) Urine WBC 0-1/hpf (0-5/HPF) Ur Squamous Epith Cells 1-5 /hpf (0-5/HPF) Amorphous Sediment 1+ Urine Bacteria None seen (None) Hyaline Casts 5-10/lpf (None) Ur Culture Indicated? Cult not indicated Vol Urine Centrifuged 10ml (spun) U Opiates 300ng/mL cut Negative (Negative) Ur Oxycodone Screen Negative (Negative) Urine Methadone Screen Negative (Negative) Ur Barbiturates Screen Negative (Negative) U Tricyclic Antidepress Negative (Negative) Ur Phencyclidine Scrn Negative (Negative) Ur Amphetamines Screen Negative (Negative) U Methamphetamines Scrn Negative (Negative) Ur MDMA Scrn (Ecstasy) Negative (Negative) U Benzodiazepines Scrn Negative (Negative) Urine Cocaine Screen Negative (Negative) U Marijuana (THC) Screen Negative (Negative) Urine pH Normal (Normal) Urine Specific Dickens Normal (Normal) Ur Creatinine Normal (Normal) SARS-CoV-2 (PCR) Negative (Negative) Influenza A (RT-PCR) Flu a negative (NEGATIVE) Influenza B (RT-PCR) Flu b negative (NEGATIVE) RSV (PCR) Negative (Negative) 01/03/25 Range/Units 01:24 WBC (4.5-11.0) X10^3/uL RBC (4.5-5.9) X10^6/uL Hgb (13.5-17.5) g/dL Hct (41-53) % MCV (80-100) fL MCH (26-34) PG MCHC (30-36) % RDW (11.6-14.8) % Plt Count (150-400) X10^3/uL Neut % (Auto) (50-75) % Lymph % (Auto) (25-40) % Fannin % (Auto) (3-14) % Eos % (Auto) (2-4) % Baso % (Auto) (0-2) % Neut # (Auto) (2662-7817) /uL Lymph # (Auto) (4367-0597) /uL Fannin # (Auto) (0-900) /uL Eos # (Auto) (0-450) /uL Baso # (Auto) (0-100) /uL Sodium (137-145) mmol/L Potassium (3.4-5.1) mmol/L Chloride (98-107) mmol/L Carbon Dioxide (22-32) mmol/L BUN (9-20) mg/dL Creatinine (0.66-1.25) mg/dL Estimated GFR (>60) mL/min BUN/Creatinine Ratio (6-22) Glucose (80-110) mg/dL Calcium (8.4-10.2) mg/dL Total Bilirubin (0.2-1.3) mg/dL AST (17-59) IU/L ALT (<50) IU/L Alkaline Phosphatase (38-126) U/L Ammonia (9-30) umol/L Total Creatine Kinase 271 H (55-170) U/L Troponin I < 0.012 (0.01-0.034) ng/mL Total Protein (6.3-8.2) g/dL Albumin (3.5-5.0) g/dL Globulin (1.7-4.1) g/dL Albumin/Globulin Ratio (1.0-2.8) Urine RBC (0-5/HPF) Urine WBC (0-5/HPF) Ur Squamous Epith Cells (0-5/HPF) Amorphous Sediment Urine Bacteria (None) Hyaline Casts (None) Ur Culture Indicated? Vol Urine Centrifuged U Opiates 300ng/mL cut (Negative) Ur Oxycodone Screen (Negative) Urine Methadone Screen (Negative) Ur Barbiturates Screen (Negative) U Tricyclic Antidepress (Negative) Ur Phencyclidine Scrn (Negative) Ur Amphetamines Screen (Negative) U Methamphetamines Scrn (Negative) Ur MDMA Scrn (Ecstasy) (Negative) U Benzodiazepines Scrn (Negative) Urine Cocaine Screen (Negative) U Marijuana (THC) Screen (Negative) Urine pH (Normal) Urine Specific Dickens (Normal) Ur Creatinine (Normal) SARS-CoV-2 (PCR) (Negative) Influenza A (RT-PCR) (NEGATIVE) Influenza B (RT-PCR) (NEGATIVE) RSV (PCR) (Negative) Point of Care Testing Glucose POC 239 Urine Dip Bedside Urine Glucose 500 mg/dl Bedside Urine Bilirubin - Negative Bedside Urine Ketone - Negative Urine Specific Dickens 1.025 Bedside Urine Occult Blood - Negative Bedside Urine pH 6.0 Bedside Urine Protein +/- 15 Bedside Urine Urobilinogen - Negative Bedside Urine Nitrite - Negative Bedside Urine Leukocytes - Negative Esterase Imaging Data Chest x-ray: Radiologist's Impression: [address] [address] XRay Report Signed Patient: Сергей Montano MR#: [id number] : 1955 Acct:[id number] Age/Sex: 69 / M Date of Service: 01/02/25 Loc: ED Accession Number: [id number] Procedure: XR chest 1V Ordering Provider: Fortino Eli MD PROCEDURE: XR CHEST 1V INDICATIONS: altered mental status TECHNIQUE: One view of the chest was acquired. COMPARISON: [facility], CR, XR CHEST FOR PICC 1V, 05/29/2023, 0:25. FINDINGS: Surgical changes and devices: Stimulator leads are seen in the region of mid thoracic spine. Surgical clips are also seen in right upper quadrant. Lungs and pleura: Mild pulmonary vascular congestion. No definite focal infiltrate. Scarring/atelectasis in right upper lung field is seen. No pleural effusions or pneumothorax. Mediastinum: Mediastinal contours appear normal. Heart size is normal. Bones and chest wall: No suspicious bony lesions. Overlying soft tissues appear unremarkable. IMPRESSION: No focal infiltrate, pleural effusion or pneumothorax. Mild pulmonary vascular congestion. Chronic scarring/atelectasis in right upper lobe. CT scan - head: Radiologist's Impression: [address] [address] [address] Scan Report Signed Patient: Сергей Montano MR#: [id number] : 1955 Acct:[id number] Age/Sex: 69 / M Date of Service: 01/02/25 Loc: ED Accession Number: [id number] Procedure: CT head/brain wo con Ordering Provider: Joe Quinones D.O. PROCEDURE: CT HEAD/BRAIN WO CON INDICATIONS: ams TECHNIQUE: Noncontrast 4.5 mm thick angled axial sections acquired from the foramen magnum to the vertex, with coronal and sagittal reformats. For radiation dose reduction, the following was used: automated exposure control, adjustment of mA and/or kV according to patient size. COMPARISON: [facility], CT, CT HEAD/BRAIN WO CON, 07/12/2022, 16:46. FINDINGS: Image quality: Diagnostic. CSF spaces: Basal cisterns are patent. No extra-axial fluid collections. The ventricles are symmetric in size and shape. Brain: No intracranial bleeds or masses. There is cerebral volume loss for age, with resultant ventricular and sulcal prominence. Benign calcification in the right posterior parietal cortex. No overlying edema or significant mass effect. There are periventricular and deep white matter chronic small vessel ischemic changes. There is intracranial internal carotid artery atherosclerosis. Skull and face: Calvarium and visualized facial bones appear intact, without suspicious lesions. Sinuses: Visualized sinuses and mastoids are clear. IMPRESSION: No acute intracranial pathology. Incidental note of right posterior parietal intraparenchymal calcification, stable. ECG Data Interpretation: EKG interpreted ED physician sinus tachycardia at 101 beats per minute QTC 484, left axis deviation, nonspecific ST changes no STEMI MDM Narrative Medical decision making narrative: Patient is a 69-year-old male with a past medical history of hyperlipidemia, diabetes, hypertension, CKD, CVA, comes into the ED from home with family for evaluation of increased confusion agitation, they state that he has been ongoing and for the past several weeks months but worsening over the past week. They state that he has had episodes of increased agitation states that he has a allegedly tried to jump out of a moving vehicle. States that he keeps trying to leave the house and wander around. At time of evaluation patient is alert to self place intermittently to time, he denies any symptoms at this time. According to family they are having difficulty taking care of him, they are afraid that patient is going to end up hurting himself. They also state that he is having intermittent episodes of aggression towards them and are worried that they are going to get hurt. Patient does live with his who is also elderly. The family member at bedside is the son-in-law who states that he tried to come and help as much as possible but they are having difficulty with this because they are attempting to buy a house. Patient had lab work imaging performed here in the emergency department, CT scan without any acute findings, chest x-ray without any acute cardiopulmonary abnormalities, EKG nonischemic in nature, urinalysis not consistent with acute urinary tract infection, lab work with WBC 12.7, creatinine 1.51, GFR 49 urine drug screen negative respiratory panel negative for COVID flu RSV. Patient medically cleared at this time. Family state that they do not feel comfortable taking the patient home and is requesting social work consult. Patient's home meds ordered, social work consult placed 0700: Patient was signed out to Dr. Robles, patient medically cleared home meds ordered diet ordered patient on sliding scale, patient pending social work consult <Darren Robles MD - Last Filed: 01/03/25 14:57> Lab Data Labs: Lab Results 01/02/25 01/02/25 01/02/25 Range/Units 16:03 16:40 18:55 WBC 12.7 H (4.5-11.0) X10^3/uL RBC 4.74 (4.5-5.9) X10^6/uL Hgb 15.2 (13.5-17.5) g/dL Hct 45.6 (41-53) % MCV 96.2 (80-100) fL MCH 32.1 (26-34) PG MCHC 33.4 (30-36) % RDW 13.6 (11.6-14.8) % Plt Count 245 (150-400) X10^3/uL Neut % (Auto) 75.4 H (50-75) % Lymph % (Auto) 17.3 L (25-40) % Fannin % (Auto) 6.0 (3-14) % Eos % (Auto) 0.7 L (2-4) % Baso % (Auto) 0.6 (0-2) % Neut # (Auto) 9500 H (3208-0522) /uL Lymph # (Auto) 2200 (2929-0549) /uL Fannin # (Auto) 800 (0-900) /uL Eos # (Auto) 100 (0-450) /uL Baso # (Auto) 100 (0-100) /uL Sodium 139 (137-145) mmol/L Potassium 4.5 (3.4-5.1) mmol/L Chloride 107 (98-107) mmol/L Carbon Dioxide 19 L (22-32) mmol/L BUN 32 H (9-20) mg/dL Creatinine 1.51 H (0.66-1.25) mg/dL Estimated GFR 49 L (>60) mL/min BUN/Creatinine Ratio 21.2 (6-22) Glucose 155 H (80-110) mg/dL Calcium 9.9 (8.4-10.2) mg/dL Total Bilirubin 0.7 (0.2-1.3) mg/dL AST 34 (17-59) IU/L ALT 30 (<50) IU/L Alkaline Phosphatase 62 (38-126) U/L Ammonia < 9 L (9-30) umol/L Total Creatine Kinase (55-170) U/L Troponin I (0.01-0.034) ng/mL Total Protein 8.1 (6.3-8.2) g/dL Albumin 4.6 (3.5-5.0) g/dL Globulin 3.5 (1.7-4.1) g/dL Albumin/Globulin Ratio 1.3 (1.0-2.8) Urine RBC 0-1/hpf D (0-5/HPF) Urine WBC 0-1/hpf (0-5/HPF) Ur Squamous Epith Cells 1-5 /hpf (0-5/HPF) Amorphous Sediment 1+ Urine Bacteria None seen (None) Hyaline Casts 5-10/lpf (None) Ur Culture Indicated? Cult not indicated Vol Urine Centrifuged 10ml (spun) U Opiates 300ng/mL cut Negative (Negative) Ur Oxycodone Screen Negative (Negative) Urine Methadone Screen Negative (Negative) Ur Barbiturates Screen Negative (Negative) U Tricyclic Antidepress Negative (Negative) Ur Phencyclidine Scrn Negative (Negative) Ur Amphetamines Screen Negative (Negative) U Methamphetamines Scrn Negative (Negative) Ur MDMA Scrn (Ecstasy) Negative (Negative) U Benzodiazepines Scrn Negative (Negative) Urine Cocaine Screen Negative (Negative) U Marijuana (THC) Screen Negative (Negative) Urine pH Normal (Normal) Urine Specific Dickens Normal (Normal) Ur Creatinine Normal (Normal) SARS-CoV-2 (PCR) Negative (Negative) Influenza A (RT-PCR) Flu a negative (NEGATIVE) Influenza B (RT-PCR) Flu b negative (NEGATIVE) RSV (PCR) Negative (Negative) 01/03/25 Range/Units 01:24 WBC (4.5-11.0) X10^3/uL RBC (4.5-5.9) X10^6/uL Hgb (13.5-17.5) g/dL Hct (41-53) % MCV (80-100) fL MCH (26-34) PG MCHC (30-36) % RDW (11.6-14.8) % Plt Count (150-400) X10^3/uL Neut % (Auto) (50-75) % Lymph % (Auto) (25-40) % Fannin % (Auto) (3-14) % Eos % (Auto) (2-4) % Baso % (Auto) (0-2) % Neut # (Auto) (7313-1861) /uL Lymph # (Auto) (5592-1739) /uL Fannin # (Auto) (0-900) /uL Eos # (Auto) (0-450) /uL Baso # (Auto) (0-100) /uL Sodium (137-145) mmol/L Potassium (3.4-5.1) mmol/L Chloride (98-107) mmol/L Carbon Dioxide (22-32) mmol/L BUN (9-20) mg/dL Creatinine (0.66-1.25) mg/dL Estimated GFR (>60) mL/min BUN/Creatinine Ratio (6-22) Glucose (80-110) mg/dL Calcium (8.4-10.2) mg/dL Total Bilirubin (0.2-1.3) mg/dL AST (17-59) IU/L ALT (<50) IU/L Alkaline Phosphatase (38-126) U/L Ammonia (9-30) umol/L Total Creatine Kinase 271 H (55-170) U/L Troponin I < 0.012 (0.01-0.034) ng/mL Total Protein (6.3-8.2) g/dL Albumin (3.5-5.0) g/dL Globulin (1.7-4.1) g/dL Albumin/Globulin Ratio (1.0-2.8) Urine RBC (0-5/HPF) Urine WBC (0-5/HPF) Ur Squamous Epith Cells (0-5/HPF) Amorphous Sediment Urine Bacteria (None) Hyaline Casts (None) Ur Culture Indicated? Vol Urine Centrifuged U Opiates 300ng/mL cut (Negative) Ur Oxycodone Screen (Negative) Urine Methadone Screen (Negative) Ur Barbiturates Screen (Negative) U Tricyclic Antidepress (Negative) Ur Phencyclidine Scrn (Negative) Ur Amphetamines Screen (Negative) U Methamphetamines Scrn (Negative) Ur MDMA Scrn (Ecstasy) (Negative) U Benzodiazepines Scrn (Negative) Urine Cocaine Screen (Negative) U Marijuana (THC) Screen (Negative) Urine pH (Normal) Urine Specific Dickens (Normal) Ur Creatinine (Normal) SARS-CoV-2 (PCR) (Negative) Influenza A (RT-PCR) (NEGATIVE) Influenza B (RT-PCR) (NEGATIVE) RSV (PCR) (Negative) Point of Care Testing Glucose POC 239 Urine Dip Bedside Urine Glucose 500 mg/dl Bedside Urine Bilirubin - Negative Bedside Urine Ketone - Negative Urine Specific Dickens 1.025 Bedside Urine Occult Blood - Negative Bedside Urine pH 6.0 Bedside Urine Protein +/- 15 Bedside Urine Urobilinogen - Negative Bedside Urine Nitrite - Negative Bedside Urine Leukocytes - Negative Esterase MDM Narrative Medical decision making narrative: Patient is a 69-year-old male with a past medical history of hyperlipidemia, diabetes, hypertension, CKD, CVA, comes into the ED from home with family for evaluation of increased confusion agitation, they state that he has been ongoing and for the past several weeks months but worsening over the past week. They state that he has had episodes of increased agitation states that he has a allegedly tried to jump out of a moving vehicle. States that he keeps trying to leave the house and wander around. At time of evaluation patient is alert to self place intermittently to time, he denies any symptoms at this time. According to family they are having difficulty taking care of him, they are afraid that patient is going to end up hurting himself. They also state that he is having intermittent episodes of aggression towards them and are worried that they are going to get hurt. Patient does live with his who is also elderly. The family member at bedside is the son-in-law who states that he tried to come and help as much as possible but they are having difficulty with this because they are attempting to buy a house. Patient had lab work imaging performed here in the emergency department, CT scan without any acute findings, chest x-ray without any acute cardiopulmonary abnormalities, EKG nonischemic in nature, urinalysis not consistent with acute urinary tract infection, lab work with WBC 12.7, creatinine 1.51, GFR 49 urine drug screen negative respiratory panel negative for COVID flu RSV. Patient medically cleared at this time. Family state that they do not feel comfortable taking the patient home and is requesting social work consult. Patient's home meds ordered, social work consult placed 0700: Patient was signed out to Dr. Robles, patient medically cleared home meds ordered diet ordered patient on sliding scale, patient pending social work consult 01/03/25, 0700, Travis. Sign-out from Dr. Quinones. 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 Reportedly tried to jump in front of a moving vehicle. Intermittent aggression. CT head no acute changes. Chest x-ray, EKG, labs including urinalysis unremarkable. COVID/flu/RSV negative. Medically cleared for secondary social studies teacher evaluation. Family not comfortable taking patient home at this time, requesting secondary social studies teacher consultation which has been requested. account services analyst will be available later this morning. Assumed interim care. 1230, case discussed with PCP Dr. Candelaria, advises Zyprexa 2.5 mg p.o. now, who will see patient at 1:30 p.m. appointment tomorrow to discuss further medications to use if needed. Discharge Plan Departure Patient Disposition: Home Clinical Impression: Agitation Activity Restrictions/Additional Instructions: Reported agitation. Imaging and lab workup here unremarkable. Not agitated while observed overnight nor this morning. Case discussed with PCP Dr. Candelaria who suggested and Zyprexa 2.5 mg oral dose at night before bed to use if needed, dose dispensed to use once home or at night tonight. Follow up with Dr. Felder 130 p.m. appointment tomorrow as planned. Return to this/nearest emergency department for any change worsening symptoms or any concerns prior. Prescriptions: No Action insulin lispro [Humalog KwikPen Insulin] 100 unit/mL insulin pen 1 sliding scale dose SUBCUT USEASDIRECTD Qty: 15 11RF Rx Instructions: use as directed per sliding scale up to 10 units, 3 times/day (DME) Diabetic Shoes 10 wide See Rx Instructions .Route .MEDSUPPLY Qty: 2 1RF Rx Instructions: As directed glimepiride 2 mg tablet 2 mg PO BID Qty: 180 3RF aspirin 81 mg tablet,delayed release (DR/EC) 81 mg PO DAILY Hold Instructions: Home Medication placed on hold at Doctor's office (DME) 4 wheel walker with seat See Rx Instructions .Route .MEDSUPPLY Qty: 1 0RF Rx Instructions: As directed clopidogrel 75 mg tablet 75 mg PO DAILY Qty: 90 3RF atorvastatin 40 mg tablet 40 mg PO DAILY Qty: 90 3RF duloxetine 60 mg capsule,delayed release(DR/EC) 60 mg PO DAILY Qty: 90 3RF fenofibrate nanocrystallized 145 mg tablet 145 mg PO DAILY Qty: 90 3RF gabapentin 600 mg tablet 600 mg PO TID Qty: 270 3RF lisinopril 5 mg tablet 5 mg PO DAILY Qty: 90 3RF metformin 1,000 mg tablet 1,000 mg PO BID Qty: 180 3RF Referrals: Eriberot Candelaria DO [Primary Care Provider] - Stand Alone Forms: Patient Portal/API/Survey
[2025-01-02 19:46] LABS: COVID-19 CEPHEID 4-PLEX PCR Negative (Negative); Influenza A - CEPHEID Flu A NEGATIVE (NEGATIVE); Influenza B - CEPHEID Flu B NEGATIVE (NEGATIVE); Respiratory Syncytial Virus Negative (Negative)
[2025-01-03] VITALS (15 sets, daily range): BP systolic 109–166; BP diastolic 55–73; PULSE 62–88; RESP 14–20; TEMP 36.7; O2SAT 94–98
[2025-01-03 01:40] LABS: Creatine Kinase 271 U/L (55-170)
[2025-01-03 01:52] LABS: Troponin I < 0.012 ng/mL (0.01-0.034)
[2025-01-03] MEDS: lisinopriL 20 MG TABLET 5 MG PO (09:11)
[2025-01-03] MEDS: CLOPIDOGREL 75 MG TABLET PO (09:12)
[2025-01-03] MEDS: ATORVASTATIN 20 MG TABLET 40 MG PO (09:12)
[2025-01-03] MEDS: INSULIN LISPRO 100 UNIT/ML 3ML VIAL SUBCUT (12:02)
--- NOTE | 2025-01-03 12:52 | CM.SWNOTE ---
ED INTERDISCIPLINARY PROFESSOR Note Patient is 69 y/o male who presents to ED via POV with family due to concern for patient's increase in agitation in the last week. Per family, patient was trying to get out of moving vehicle, and more agitated with family members. It is reported that patient cannot drive anymore and patient [place] walk [place] the [place] from their home in [place]. It is reported that family has noticed similar behavior over that last 6 months. Patient's PCP is Dr. Candelaria, patient had PCP appt on 12/20/24, patient has appt for tomorrow 01/04/25, patient has Medicare and [facility] insurance. INTERDISCIPLINARY PROFESSOR enters room to meet with patient, present in room is patient's spouse, granddaughter (identifies as daughter), granddaughter's partner and another family member. Patient presents as A/O to person, place and self. Patient does not converse in conversation and allows family to speak for patient, patient gives consent for his family talking about him. Patient presents as calm and content. There has been no observed agitation over the evening or throughout this morning as patient has been boarding in the ED for the last 20 hours. It is reported that patient's spouse was at a SNF rehab 6 months ago, patient's dog 3 months ago and patient does not have his driving privileges anymore and has been frustrated about that. Patient's family endorses that they believe having patient's truck on the property was a trigger for him, they state that they removed it from the property. Family states that they have also secured the gate at home so patient cannot leave the property. Patient resides with spouse and daughter and son in law. It is reported that spouse has been recovering from surgery, daughter works and son in law is injured. It is reported that patient ambulates with a cane, manages toileting and showering ADLs but does not feed himself unless food is presented. Patient ambulates independently with cane in ED. Family reports that when patient was frustrated he was throwing things, hitting them with his cane, tried to hotwire a car all in attempt to leave because he wanted to go to the casino. Family presents with concern about their ability to manage his behaviors and care for him. It is reported that these behaviors were not discussed with Dr. Candelaria in recent appt. INTERDISCIPLINARY PROFESSOR discusses that there is no medical admission to the hospital at this time, family indicates understanding. INTERDISCIPLINARY PROFESSOR discusses caregiver resources and longwall machine operator helper care options, it is reported that patient and family are limited with finances. INTERDISCIPLINARY PROFESSOR discusses applying for Medicaid, patient's spouse states that they tried to apply for Medicaid but spouse did not have financial documentation to provide, patient's spouse states that she has further documentation now. INTERDISCIPLINARY PROFESSOR encourages spouse to apply for Medicaid for patient and spouse. Patient has hx of SNF rehab stays at [facility] and [facility] in 2022 as well as hx of [facility]. INTERDISCIPLINARY PROFESSOR calls Dr. Candelaria's office regarding medications for patient's new behaviors, Dr. Candelaria consults with ED provider Dr. Robles and it is agreed for patient to try 2.5 mg of Zyprexa. Patient has appt tomorrow at [address] Candelaria. INTERDISCIPLINARY PROFESSOR provides patient and family with senior resource guide, VA resources, caregiver resources, family caregiver support resources and encourages spouse to re-apply for Medicaid, seek support from [facility] and nonprofits for support. Plan: patient to d/c to home with family upon medical clearance, patient to try new rx in ED, patient to f/u with PCP appt tomorrow, patient and family to follow up with resources provided and apply for Medicaid. YOSEF Polanco
[2025-01-03] MEDS: OLANZapine 2.5 MG TABLET PO (12:53)
== END 2025-01-03 13:13 | disposition home or self-care (01) ==
PROVIDERS: Emergency Medicine; Student in an Organized Health Care Education/Training Program; Emergency Provider Emergency Medicine; PCP Family Medicine
DX: R45.1 Restlessness and agitation (principal); I10 Essential (primary) hypertension; E11.9 Type 2 diabetes mellitus without complications
CPT/HCPCS: 0241U; 36415; 70450; 71045; 80053; 80305; 81003; 81015; 82140; 82550; 82962; 84484; 85025; 93005; 93010; 96372; 99284; J1815

== ENCOUNTER → 2025-02-05 13:28 | Outpatient (CLI) | payer MEDICARE, OTHER, SELFPAY ==
[2023-05-26 00:27] VITALS: BMI 25.8
[2025-02-05 14:08] LABS: BUN Creatinine Ratio 28.6 (6-22); Blood Urea Nitrogen 46 mg/dL (9-20); Carbon Dioxide 23 mmol/L (22-32); Chloride 104 mmol/L (98-107); Creatine Kinase 296 U/L (55-170); Estimated Glomerular Filt Rate 45 mL/min (>60); Glucose 168 mg/dL (70-99); HEMOLYSIS < 15 (0-50); Sodium 140 mmol/L (137-145)
== END ==
PROVIDERS: PCP Family Medicine; Referring Provider Family Medicine; Visit Provider Family Medicine
DX: E11.22 Type 2 diabetes mellitus with diabetic chronic kidney disease (principal); N18.30 Chronic kidney disease, stage 3 unspecified; R74.8 Abnormal levels of other serum enzymes
CPT/HCPCS: 36415; 80048; 82550

== ENCOUNTER → 2025-02-22 14:53 | Outpatient (CLI) | payer MEDICARE, OTHER, SELFPAY ==
[2023-05-26 00:27] VITALS: BMI 25.8
--- NOTE | 2025-02-22 14:54 | DI.RAD.S_ITS ---
PROCEDURE: XR TIBIA FUBULA RT 2V INDICATIONS: rt leg pain TECHNIQUE: 2 views of the tibia and fibula were acquired. COMPARISON: None. FINDINGS: Bones: No fractures or dislocations. No suspicious bony lesions. Soft tissues: No suspicious soft tissue calcifications or masses. IMPRESSION: No acute bony abnormality. Dictated by: Jeancarlos Elizalde M.D. on 02/22/2025 at 16:34 Approved by: Jeancarlos Elizalde M.D. on 02/22/2025 at 16:34
--- NOTE | 2025-02-22 14:58 | DI.US.S_ITS ---
PROCEDURE: US PERIPH VENOUS LOW EXTREM RT INDICATIONS: LEG PAIN TECHNIQUE: Real-time imaging, as well as color and pulse Doppler interrogation, were performed of the lower extremity deep veins from the inguinal ligament to the popliteal fossa, with documentation of the visualized calf veins. COMPARISON: None. FINDINGS: The common femoral, femoral, popliteal, and the visualized calf veins are normally compressible, and free of intraluminal thrombus. Color and pulse Doppler demonstrate normal phasic intraluminal flow. There is normal augmentation response to distal compression maneuver. IMPRESSION: No findings of lower extremity deep venous thrombosis. Dictated by: Anali Osuna M.D. on 02/22/2025 at 16:41 Approved by: Anali Osuna M.D. on 02/22/2025 at 16:42
[2025-02-22 17:09] LABS: Add Manual Diff / Slide Review NO; Basophils Absolute Auto 100 /uL (0-100); Basophils Percent Auto 0.8 % (0-2); Eosinophils Absolute Auto 100 /uL (0-450); Eosinophils Percent Auto 0.7 % (2-4); Hematocrit 40.6 % (41-53); Hemoglobin 13.3 g/dL (13.5-17.5); Lymphocytes Absolute Auto 1900 /uL (1100-4500); Lymphocytes Percent Auto 11.4 % (25-40); Mean Corpuscular HGB Conc 32.8 % (30-36); Mean Corpuscular Hemoglobin 31.7 PG (26-34); Mean Corpuscular Volume 96.6 fL (80-100); Monocytes Absolute Auto 1300 /uL (0-900); Monocytes Percent Auto 7.8 % (3-14); Neutrophils Absolute Auto 13200 /uL (1500-7000); Neutrophils Percent Auto 79.3 % (50-75); Platelet Count 317 X10^3/uL (150-400); Red Cell Distribution Width 13.1 % (11.6-14.8); White Blood Cell Count 16.7 X10^3/uL (4.5-11.0)
[2025-02-22 17:27] LABS: BUN Creatinine Ratio 29.7 (6-22); Blood Urea Nitrogen 41 mg/dL (9-20); C-Reactive Protein Quant 7.7 mg/dL (<1.0); Calcium 9.8 mg/dL (8.4-10.2); Carbon Dioxide 24 mmol/L (22-32); Chloride 100 mmol/L (98-107); Creatine Kinase 338 U/L (55-170); Estimated Glomerular Filt Rate 55 mL/min (>60); Glucose 256 mg/dL (70-99); HEMOLYSIS < 15 (0-50); Potassium 5.1 mmol/L (3.4-5.1); Sodium 135 mmol/L (137-145)
[2025-02-22 19:09] LABS: Erythrocyte Sedimentation Rate 59 MM/HR (0-15)
== END ==
PROVIDERS: PCP Family Medicine; Referring Provider Family Medicine; Visit Provider Family Medicine
DX: R74.8 Abnormal levels of other serum enzymes (principal); M79.604 Pain in right leg
CPT/HCPCS: 36415; 73590; 80048; 82550; 85025; 85651; 86140; 93971

== ENCOUNTER 2025-02-22 21:32 | Inpatient (IN) | payer MEDICARE, OTHER, SELFPAY ==
[2023-05-26 00:27] VITALS: BMI 25.8
[2025-02-22 21:37] VITALS: BP 142/76; PULSE 119; RESP 16; TEMP 37.3; O2SAT 97; BMI 23.6
--- NOTE | 2025-02-22 21:41 | DI.RAD.S_ITS ---
PROCEDURE: XR CHEST 1V INDICATIONS: suspected sepsis TECHNIQUE: One view of the chest was acquired. COMPARISON: [facility], CR, XR CHEST 1V, 01/02/2025, 16:15. [facility], CR, XR CHEST FOR PICC 1V, 05/29/2023, 0:25. [facility], CR, XR CHEST 1V, 12/27/2022, 14:10. [facility], CR, XR CHEST FOR PICC 1V, 12/27/2022, 12:21. FINDINGS: Surgical changes and devices: There is stimulator device leads overlying the thoracic spine. Right upper quadrant surgical clips. Lungs and pleura: Low lung volumes. Left retrocardiac opacification. No pleural effusions or pneumothorax. Mediastinum: Chronic left to right deviation of the upper thoracic trachea, which may be secondary to a tortuous aortic arch or right-sided hilar retraction Bones and chest wall: No suspicious bony lesions. Overlying soft tissues appear unremarkable. IMPRESSION: Possible left retrocardiac pneumonia. Dictated by: Paco Damian M.D. on 02/22/2025 at 23:29 Approved by: Paco Damian M.D. on 02/22/2025 at 23:31
--- NOTE | 2025-02-22 21:59 | EKG_ITS ---
[facility] [address] [place] [address] Test Date: 2025-02-22 Pat Name: Сергей Montano Department: [facility] Room: Gender: Male Accounting Consultant: DENNIS: 1955 Requested By: Order Number: [id number] Reading MD: Measurements Intervals Bradford Rate: 105 P: 10 NH: 132 QRS: -53 QRSD: 134 T: 34 QT: 370 QTc: 489 Interpretive Statements Sinus tachycardia Right bundle branch block Left anterior fascicular block Bifascicular block Minimal voltage criteria for LVH, may be normal variant ( R in aVL ) Septal infarct , age undetermined
--- NOTE | 2025-02-22 22:11 | DI.RAD.S_ITS ---
PROCEDURE: XR FOOT RT MIN 3V INDICATIONS: blackened area on right foot near toes. TECHNIQUE: 3 views of the foot were acquired. COMPARISON: [facility], CR, XR FOOT RT MIN 3V, 01/18/2024, 10:19. [facility], CR, XR FOOT RT MIN 3V, 02/01/2023, 11:03. [facility], CR, XR FOOT RT MIN 3V, 12/21/2022, 15:41. [facility], CR, XR FOOT LT MIN 3V, 08/23/2020, 8:56. FINDINGS: Status post partial amputation of the 1st digit to the proximal phalangeal base, 2nd digit to the metatarsal head, and 3rd digit to the proximal phalangeal base. Partial amputation of the 4th and 5th digits with exposed distal edith. Diffuse osseous demineralization. The Lisfranc interval is preserved on the nonweightbearing view. No periosteal reaction or osseous erosions. No radiographic evidence of subcutaneous emphysema. Achilles calcaneal plantar calcaneal enthesopathy. IMPRESSION: Likely osteomyelitis of the 4th and 5th digit distal edith. Dictated by: Paco Damian M.D. on 02/22/2025 at 23:31 Approved by: Paco Damian M.D. on 02/22/2025 at 23:33
[2025-02-22 22:23] LABS: Add Manual Diff / Slide Review NO; Basophils Absolute Auto 100 /uL (0-100); Basophils Percent Auto 0.8 % (0-2); Eosinophils Absolute Auto 0 /uL (0-450); Eosinophils Percent Auto 0.2 % (2-4); Hematocrit 37.7 % (41-53); Hemoglobin 12.4 g/dL (13.5-17.5); Lymphocytes Absolute Auto 2300 /uL (1100-4500); Lymphocytes Percent Auto 12.9 % (25-40); Mean Corpuscular HGB Conc 32.8 % (30-36); Mean Corpuscular Hemoglobin 31.3 PG (26-34); Mean Corpuscular Volume 95.4 fL (80-100); Monocytes Absolute Auto 1500 /uL (0-900); Monocytes Percent Auto 8.2 % (3-14); Neutrophils Absolute Auto 14000 /uL (1500-7000); Neutrophils Percent Auto 77.9 % (50-75); Platelet Count 310 X10^3/uL (150-400); Red Blood Cell Count 3.95 X10^6/uL (4.5-5.9); Red Cell Distribution Width 13.5 % (11.6-14.8)
[2025-02-22 22:29] LABS: INR 1.2 (0.9-1.3); Prothrombin Time 13.4 SECONDS (9.4-12.5)
[2025-02-22 22:31] LABS: PTT Partial Thromboplastin Tim 38 SECONDS (25.1-36.5)
[2025-02-22 22:33] LABS: Alanine Aminotransferase 21 IU/L (<50); Albumin 3.8 g/dL (3.5-5.0); Albumin Globulin Ratio 1.1 (1.0-2.8); Alkaline Phosphatase 88 U/L (38-126); Aspartate Aminotransferase 23 IU/L (17-59); BUN Creatinine Ratio 32.8 (6-22); Bilirubin Total 0.4 mg/dL (0.2-1.3); Blood Urea Nitrogen 39 mg/dL (9-20); Calcium 9.3 mg/dL (8.4-10.2); Carbon Dioxide 23 mmol/L (22-32); Chloride 100 mmol/L (98-107); Estimated Glomerular Filt Rate > 60 mL/min (>60); Globulin 3.5 g/dL (1.7-4.1); Glucose 198 mg/dL (70-99); HEMOLYSIS 31 (0-50); Lactate (Lactic Acid) 1.6 mmol/L (0.7-2.1); Lipase 107 U/L (23-300); Potassium 4.6 mmol/L (3.4-5.1); Sodium 132 mmol/L (137-145); Total Protein 7.3 g/dL (6.3-8.2)
[2025-02-22] MEDS: SODIUM CHLORIDE 0.9% 1,000 ML 1000 ML IV (22:39)
[2025-02-22 22:49] LABS: Procalcitonin 0.167 ng/mL (<0.5)
[2025-02-22] MEDS: cefTRIAXone 1,000 MG in SODIUM CHLORIDE 0.9% 100 ML 200 MG IV (23:08)
--- NOTE | 2025-02-22 23:22 | ED.WOUNDLAC ---
HPI - Wound/Laceration General Chief Complaint: Wound/Laceration Stated Complaint: Septic Toe on RT foot Time Seen by Provider: 02/22/25 22:09 Source: family Mode of arrival: Wheelchair History of Present Illness HPI narrative: 69-year-old male with history of diabetes and PVD, and multiple right toe amputations, seen in the past by vascular surgery at [facility], toe amputations due to infection in the past, has lateral 2 toes, some discomfort in the calf earlier today, saw PCP Rashi, apparently they pulled on the sock to about the heel level but not all the way off, when they went home tonight there is blackening of the 4th toe, and redness and swelling to the 5th toe. He does not feel feverish. Does no redness streaking up the leg. Related Data Home Medications Medication Instructions Recorded Confirmed aspirin 81 mg tablet,delayed 81 mg PO DAILY 11/24/22 02/22/25 release Previous Rx's Medication Instructions Recorded 4 wheel walker with seat #1 ea 11/24/22 insulin lispro 100 unit/mL 1 sliding scale dose SUBCUT 02/08/23 subcutaneous pen (Humalog KwikPen USEASDIRECTD #15 mL (U-100) Insulin) Diabetic Shoes #2 ea 04/25/23 glimepiride 2 mg tablet 2 mg PO BID #180 tabs 11/27/24 atorvastatin 40 mg tablet 40 mg PO DAILY #90 tabs 12/20/24 clopidogrel 75 mg tablet 75 mg PO DAILY #90 tabs 12/20/24 duloxetine 60 mg capsule,delayed 60 mg PO DAILY #90 caps 12/20/24 release fenofibrate nanocrystallized 145 145 mg PO DAILY #90 tabs 12/20/24 mg tablet gabapentin 600 mg tablet 600 mg PO TID #270 tabs 12/20/24 lisinopril 5 mg tablet 5 mg PO DAILY #90 tabs 12/20/24 metformin 1,000 mg tablet 1,000 mg PO BID #180 tabs 12/20/24 olanzapine 2.5 mg tablet (Zyprexa) 2.5 mg PO DAILY PRN agitation #30 01/04/25 tabs hydrocodone 5 mg-acetaminophen 325 1 tab PO Q8H pain #20 tabs 02/22/25 mg tablet Allergies Allergy/AdvReac Type Severity Reaction Status Date / Time codeine AdvReac Gastrointestinal Verified 02/22/25 14:09 Upset Patient History Medical History (Updated 02/23/25 @ 00:06 by Darren Robles MD) Encounter for subsequent annual wellness visit (AWV) in Medicare patient CKD stage 3 due to type 2 diabetes mellitus Hyperlipidemia Aphasia Fall at home Gait instability Diabetic peripheral neuropathy associated with type 2 diabetes mellitus Depression Knowledge deficit on spinal cord stimulator Chronic back pain Essential hypertension CVA (cerebral vascular accident) (~2020) Hypertension Diabetes (~2009) Surgical History Anesthesia History of cholecystectomy (~1989) Back pain with history of spinal surgery Social History marital status: household members: spouse lives independently: Yes Smoking Status: Unknown if ever smoked alcohol intake: never alcohol intake frequency: 0-2 drinks per day Exam Narrative Exam Narrative: GENERAL: Well-developed patient, in mild distress. HEAD: Atraumatic. Normocephalic. EYES: Pupils equal round and reactive. Extraocular motions intact. No scleral icterus. No injection or drainage. ENT: Nose without bleeding, purulent drainage. Throat without erythema, tonsillar hypertrophy or exudate. Airway patent. NECK: Trachea midline. Non tender CARDIOVASCULAR: Regular rate and rhythm without murmurs, gallops, or rubs. RESPIRATORY: Clear to auscultation. Breath sounds equal bilaterally. No wheezes, rales, or rhonchi. GASTROINTESTINAL: Abdomen soft, non-tender, nondistended. EXTREMITIES: Right foot prior amputations great toe through 3rd toe, sites seem intact closed without redness or discomfort or swelling. Fourth toe with blackened distal and, 5th toe with redness and erythema. No obvious redness or erythema to the remainder of the foot. No lymphangitic streaking. Prior amputation left toe noted, without obvious redness or swelling, no foot swelling on the left side. BACK: Nontender without deformity or crepitance. No flank tenderness. NEURO: AOx3. Motor functions grossly nonfocal SKIN: No rash or erythema of visible areas Initial Vital Signs Initial Vital Signs: Vital Signs Temperature 99.2 F 02/22/25 21:37 Pulse Rate 119 H 02/22/25 21:37 Respiratory Rate 16 02/22/25 21:37 Blood Pressure 142/76 H 02/22/25 21:37 Pulse Oximetry 97 02/22/25 21:37 Oxygen Delivery Method Room Air 02/22/25 21:37 Course Orders Ordered: ED Orders 02/22/25 21:41 XR chest 1V Stat EKG-12 Lead Stat RT Consult Eval and Treat NOW 02/22/25 22:05 CRP [C-Reactive Protein Quant] Stat Complete Blood Count AUTO DIFF Stat Comprehensive Metabolic Panel Stat ESR [Erythrocyte Sedimentation Rate] Stat Lactate (Lactic Acid) Stat Lipase Stat PTT Partial Thromboplastin Jose Stat Procalcitonin Stat Procalcitonin Stat Prothrombin Time INR Stat 02/22/25 22:11 XR foot RT min 3V Stat 02/22/25 22:30 Blood Culture Stat 02/23/25 00:01 CT LE RT w con Stat 02/23/25 01:03 Urine Culture Stat Urine Microscopic Stat Acetaminophen (Acetaminophen 650 Mg Supp) 650 mg IL Q6HR PRN PRN Reason: Fever/Mild Pain (1-3) Bisacodyl (Bisacodyl 10 Mg Supp) 10 mg IL DAILY PRN PRN Reason: Constipation Hydromorphone HCl (Hydromorphone 0.5 Mg Inj) 0.5 mg IV Q2H PRN PRN Reason: Pain, Severe (7-10) Dextrose (D10w) 100 mls @ 1,200 mls/hr IV PRN PRN PRN Reason: Hypoglycemia Ceftriaxone Sodium 1,000 mg/ (Sodium Chloride) 100 mls @ 200 mls/hr IV Q24H ASHLEY Vancomycin HCl/Dextrose (Vancomycin) 1,500 mg in 300 mls @ 200 mls/hr IV Q24H ASHLEY Sodium Chloride (Normal Saline 0.9%) 1,000 mls @ 100 mls/hr IV CONT ASHLEY Insulin Human Lispro (Insulin Lispro 100 Unit/Ml 3ml Vial) 0 unit SUBCUT Q6H [facility]; Protocol Last Admin: 02/23/25 03:42 Dose: Not Given Documented By: AM Ketorolac Tromethamine (Ketorolac 30 Mg/Ml Vial) 15 mg IV Q8H PRN PRN Reason: moderate pain Stop: 02/28/25 02:54 Last Admin: 02/23/25 04:24 Dose: 15 mg Documented By: AM Naloxone HCl (Naloxone 0.4 Mg/Ml Vial) 0.2 mg IV Q2MIN PRN PRN Reason: Opiate Reversal Ondansetron HCl (Ondansetron 4 Mg/2 Ml Inj) 4 mg IV NOW PRN PRN Reason: Nausea And Vomiting Ondansetron HCl (Ondansetron 4 Mg Odt) 4 mg PO NOW PRN PRN Reason: Nausea And Vomiting Ondansetron HCl (Ondansetron 4 Mg/2 Ml Inj) 4 mg IV Q8HR PRN PRN Reason: Nausea And Vomiting Vancomycin HCl (Vancomycin Per Pharmacy) 1 request MISC NOW PRN PRN Reason: osteomyelitis Discontinued Medications Sodium Chloride (Normal Saline 0.9%) 1,000 mls @ 1,000 mls/hr IV BOLUS ONE Stop: 02/22/25 22:40 Last Infusion: 02/22/25 23:16 Dose: Infused Documented By: Admin: 02/22/25 22:39 Dose: 1,000 mls/hr Documented By: JARET Ceftriaxone Sodium 1,000 mg/ (Sodium Chloride) 100 mls @ 200 mls/hr IV NOW ONE Stop: 02/22/25 22:44 Last Infusion: 02/22/25 23:41 Dose: Infused Documented By: Admin: 02/22/25 23:08 Dose: 200 mls/hr Documented By: JARET Vancomycin HCl 2,000 mg/ (Sodium Chloride) 500 mls @ 250 mls/hr IV NOW ONE Stop: 02/22/25 23:21 Last Infusion: 02/23/25 02:33 Dose: Infused Documented By: Admin: 02/23/25 00:06 Dose: 250 mls/hr Documented By: GIA Vital Signs Vital signs: Vital Signs - 8 hr 02/22/25 23:30 02/22/25 23:30 02/23/25 00:00 Temperature Pulse Rate 92 H Respiratory Rate Blood Pressure 161/73 H 148/70 H Pulse Oximetry 98 Oxygen Delivery Method 02/23/25 00:00 02/23/25 00:43 02/23/25 01:00 Temperature Pulse Rate 92 H 93 H 86 Respiratory Rate Blood Pressure Pulse Oximetry 97 81 L 97 Oxygen Delivery Method 02/23/25 01:13 02/23/25 01:13 02/23/25 01:19 Temperature 98.4 F 98.4 F Pulse Rate 84 Respiratory Rate 25 H Blood Pressure 128/57 L Pulse Oximetry 98 Oxygen Delivery Method Room Air 02/23/25 01:30 02/23/25 01:30 02/23/25 02:00 Temperature Pulse Rate 87 86 Respiratory Rate 27 H 20 Blood Pressure 137/65 Pulse Oximetry 97 97 Oxygen Delivery Method 02/23/25 02:01 02/23/25 02:01 Temperature Pulse Rate 84 Respiratory Rate 29 H Blood Pressure 151/67 H Pulse Oximetry 97 Oxygen Delivery Method MDM - Wound/Laceration Lab Data Attestation: I reviewed the patient's lab results. Lab results narrative: White blood cell count 68833, hemoglobin 12.4, platelets 310,000. Glucose 198. BUN 39 with creatinine 1.19. Serum CO2 23. Sodium 132, potassium 4.6. Liver functions unremarkable. Lipase normal. Lactate and procalcitonin on not elevated. 02/22/25 22:05 02/22/25 22:05 Labs: Lab Results 02/22/25 02/22/25 02/23/25 Range/Units 22:05 22:05 01:03 WBC 18.0 H (4.5-11.0) X10^3/uL RBC 3.95 L (4.5-5.9) X10^6/uL Hgb 12.4 L (13.5-17.5) g/dL Hct 37.7 L (41-53) % MCV 95.4 (80-100) fL MCH 31.3 (26-34) PG MCHC 32.8 (30-36) % RDW 13.5 (11.6-14.8) % Plt Count 310 (150-400) X10^3/uL Neut % (Auto) 77.9 H (50-75) % Lymph % (Auto) 12.9 L (25-40) % [place] % (Auto) 8.2 (3-14) % Eos % (Auto) 0.2 L (2-4) % Baso % (Auto) 0.8 (0-2) % Neut # (Auto) 29873 H (5879-0363) /uL Lymph # (Auto) 2300 (9178-4876) /uL [place] # (Auto) 1500 H (0-900) /uL Eos # (Auto) 0 (0-450) /uL Baso # (Auto) 100 (0-100) /uL ESR 56 H (0-15) MM/HR PT 13.4 H (9.4-12.5) SECONDS INR 1.2 (0.9-1.3) APTT 38 H (25.1-36.5) SECONDS Sodium 132 L (137-145) mmol/L Potassium 4.6 (3.4-5.1) mmol/L Chloride 100 (98-107) mmol/L Carbon Dioxide 23 (22-32) mmol/L BUN 39 H (9-20) mg/dL Creatinine 1.19 (0.66-1.25) mg/dL Estimated GFR > 60 (>60) mL/min BUN/Creatinine Ratio 32.8 H (6-22) Glucose 198 H (70-99) mg/dL Lactate 1.6 (0.7-2.1) mmol/L Calcium 9.3 (8.4-10.2) mg/dL Total Bilirubin 0.4 (0.2-1.3) mg/dL AST 23 (17-59) IU/L ALT 21 (<50) IU/L Alkaline Phosphatase 88 (38-126) U/L C-Reactive Protein 13.5 H (<1.0) mg/dL Total Protein 7.3 (6.3-8.2) g/dL Albumin 3.8 (3.5-5.0) g/dL Globulin 3.5 (1.7-4.1) g/dL Albumin/Globulin Ratio 1.1 (1.0-2.8) Lipase 107 (23-300) U/L Procalcitonin 0.167 0.164 (<0.5) ng/mL Urine RBC None seen (0-5/HPF) Urine WBC None seen (0-5/HPF) Ur Squamous Epith Cells None seen (0-5/HPF) Urine Bacteria None seen (None) Vol Urine Centrifuged 10ml (spun) Imaging Data Extremity x-ray #1: Radiologist's Impression: Close Foot X-Ray (Signed) Paco Damian - 02/22/25 Chest X-Ray (Signed) Paco Damian - 02/22/25 Launch?[address] [address] XRay Report Signed Patient: Сергей Montano MR#: [id number] : 1955 Acct:[id number] Age/Sex: 69 / M Date of Service: 02/22/25 Loc: ED Accession Number: [id number] Procedure: XR foot RT min 3V Ordering Provider: Darren Robles MD PROCEDURE: XR FOOT RT MIN 3V INDICATIONS: blackened area on right foot near toes. TECHNIQUE: 3 views of the foot were acquired. COMPARISON: [facility], CR, XR FOOT RT MIN 3V, 01/18/2024, 10:19. [facility], CR, XR FOOT RT MIN 3V, 02/01/2023, 11:03. [facility], CR, XR FOOT RT MIN 3V, 12/21/2022, 15:41. [facility], CR, XR FOOT LT MIN 3V, 08/23/2020, 8:56. FINDINGS: Status post partial amputation of the 1st digit to the proximal phalangeal base, 2nd digit to the metatarsal head, and 3rd digit to the proximal phalangeal base. Partial amputation of the 4th and 5th digits with exposed distal edith. Diffuse osseous demineralization. The Lisfranc interval is preserved on the nonweightbearing view. No periosteal reaction or osseous erosions. No radiographic evidence of subcutaneous emphysema. Achilles calcaneal plantar calcaneal enthesopathy. IMPRESSION: Likely osteomyelitis of the 4th and 5th digit distal edith. Dictated by: Paco Damian M.D. on 02/22/2025 at 23:31 Approved by: Paco Damian M.D. on 02/22/2025 at 23:33 Chest x-ray: Radiologist's Impression: Close Foot X-Ray (Signed) Paco Damian - 02/22/25 Chest X-Ray (Signed) Paco Damian - 02/22/25 Launch?[place] [address] XRay Report Signed Patient: Сергей Montano MR#: [id number] : 1955 Acct:[id number] Age/Sex: 69 / M Date of Service: 02/22/25 Loc: ED Accession Number: [id number] Procedure: XR chest 1V Ordering Provider: Darren Robles MD PROCEDURE: XR CHEST 1V INDICATIONS: suspected sepsis TECHNIQUE: One view of the chest was acquired. COMPARISON: [facility], CR, XR CHEST 1V, 01/02/2025, 16:15. [facility], CR, XR CHEST FOR PICC 1V, 05/29/2023, 0:25. [facility], CR, XR CHEST 1V, 12/27/2022, 14:10. [facility], CR, XR CHEST FOR PICC 1V, 12/27/2022, 12:21. FINDINGS: Surgical changes and devices: There is stimulator device leads overlying the thoracic spine. Right upper quadrant surgical clips. Lungs and pleura: Low lung volumes. Left retrocardiac opacification. No pleural effusions or pneumothorax. Mediastinum: Chronic left to right deviation of the upper thoracic trachea, which may be secondary to a tortuous aortic arch or right-sided hilar retraction Bones and chest wall: No suspicious bony lesions. Overlying soft tissues appear unremarkable. IMPRESSION: Possible left retrocardiac pneumonia. Dictated by: Paco Damian M.D. on 02/22/2025 at 23:29 Approved by: Paco Damian M.D. on 02/22/2025 at 23:31 CT foot with IV contrast: Radiologist's Impression: [place] [address] CT Scan Report Signed Patient: Сергей Montano MR#: [id number] : 1955 Acct:[id number] Age/Sex: 69 / M Date of Service: 02/23/25 Loc: ED Accession Number: [id number] Procedure: CT LE RT w con Ordering Provider: Darren Robles MD PROCEDURE: CT LE RT W CON INDICATIONS: ct right foot eval for osteo/abscess TECHNIQUE: After the administration of intravenous contrast, 3 mm axial sections acquired of the right foot , with coronal and sagittal reformats. For radiation dose reduction, the following was used: automated exposure control, adjustment of mA and/or kV according to patient size. COMPARISON: [facility], CR, XR FOOT RT MIN 3V, 02/22/2025, 22:09. FINDINGS: Image quality: Excellent. Bones: Status post partial amputation of the 1st digit to the level of the proximal phalangeal base, 2nd digit to the level of the metatarsal head, and 3rd digit to the level of the proximal phalangeal base. Status post partial amputation of the 4th digit to the level of the distal phalangeal base with intraosseous foci of air (343). Possible chronic fracture at the base of the 5th digit distal phalanx (354). No other foci of osseous erosions or periosteal reaction. Joints: Mild 1st MTP osteoarthritis. Mild scattered midfoot osteoarthritis. The tibiotalar and subtalar joints are preserved. No significant joint effusion. The Lisfranc interval is preserved. Muscles: Mild diffuse muscle atrophy and fatty replacement. Tendons: The visualized flexor and extensor tendon contours are within normal limits. The Achilles tendon contour is within normal limits. Vessels: Poor opacification of the tibialis posterior and dorsalis pedis vasculature. Diffuse vascular calcifications. Other soft tissues: Diffuse soft tissue edema overlying the dorsum of the lateral foot. No drainable fluid collection or abscess. IMPRESSION: 1. Osteomyelitis of the 4th digit distal phalangeal tuft with likely cellulitis, but without a drainable abscess. 2. Severe atherosclerosis of the lower extremity arterial vasculature with poor opacification. Dictated by: Paco Damian M.D. on 02/23/2025 at 1:33 Approved by: Paco Damian M.D. on 02/23/2025 at 1:39 ECG Data Attestation: I personally reviewed and interpreted this ECG as follows: Interpretation: 2159, sinus tachycardia with ventricular rate 105, left anterior fascicular block. IL 132, QRS 134, QTC 489. [facility] Narrative Medical decision making narrative: 69-year-old male with prior toe amputations, left leg pain earlier today, seen in clinic, apparently non visualization of the ends of the foot, on exam seems to have blackening of the 4th toe, redness to the 5th toe. Sinus tachycardia mild noted. Possible sepsis. Labs sent. Blood cultures requested. CRP, procalcitonin, ESR, lactate pending. X-ray right foot suspicious for osteomyelitis changes of the 4th toe and the 5th toe. See radiology report. Blood cultures. IV vancomycin, IV ceftriaxone. Procalcitonin, ESR, CRP mild elevations. Lactate not elevated. Chest x-ray shows retrocardiac infiltrate possible pneumonia, see radiology report. We will add oral doxycycline. Renal function adequate. CT right foot ordered with IV contrast. Anticipate admission with orthopedic consultation for possible amputation, we will evaluate for drainable fluid collection. CT right foot with IV contrast shows osteomyelitis changes of the 4th digit with some tuft cellulitis like changes. No mention of cellulitis or osteomyelitis to the 5th toe. See radiology report. Case discussed with Orthopedic surgery Dr. Castañeda, willing to consult, possible amputation of the necrotic toe at this time, keep NPO. Patient aware, he does not want to be transferred to [facility] vascular surgery capable facility at this time. We will consult hospitalist regarding admission. 0220, case discussed with hospitalist Dr. Carmen who accepts patient for admission Critical Care Time Critical Care Time Critical Care Time: Yes Total Critical Care Time: 35 Attestation: The high probability of a clinically significant, sudden or life threatening deterioration of the [musculoskeletal] system(s) required my full and direct attention, intervention and personal management. The aggregate critical care time was [35] minutes. This time is in addition to time spent performing reported procedures but includes the following: [x] Data Review and interpretation [x] Patient assessment and monitoring of vital signs [x] Documentation [x] Medication orders and management Discharge Plan Departure Patient Disposition: Admitted As Inpatient Clinical Impression: Acute osteomyelitis of toe of left foot, Pneumonia Admit Date/Time: 02/23/25 02:24 Admit Provider: Ron Asencio
[2025-02-22 23:30] VITALS: BP 161/73; PULSE 92; O2SAT 98
[2025-02-22 23:53] LABS: Erythrocyte Sedimentation Rate 56 MM/HR (0-15)
--- NOTE | 2025-02-22 23:58 | PC.WOUNDPHOT ---
R foot, 4th digit
[2025-02-23] VITALS (23 sets, daily range): BP systolic 119–171; BP diastolic 55–88; PULSE 71–93; RESP 16–29; TEMP 36.3–37.9; O2SAT 81–99; BMI 27.5; BMI 26.6
--- NOTE | 2025-02-23 | PATH_ITS ---
[facility] Accession Number: [id number] No. of containers..01 Tissue . 01 Material submitted: . toe - FOURTH TOE RIGHT FOOT . 01 Diagnosis: FOURTH TOE RIGHT FOOT, AMPUTATION: Cutaneous ulcer with abscess and bacterial organisms. Underlying bone with evidence of acute osteomyelitis. Soft tissue en face margin intact with neutrophilic inflammation and bacterial organisms. Articular surface en face margin with viable bone and cartilage with adjacent neutrophilic inflammation in the fibroconnective tissue. [facility] 03/01/2025 1013 Local . 01 Electronically signed: . Chepe North MD, Dermatopathologist NPI- [id number] . 01 Gross description: . Received in formalin with two identifiers and fourth toe right foot, is a disarticulated digit, 5.7 cm in length by 2.0 cm in diameter with pyle-flores sloughing skin. A blackened lesion encompasses the distal tip of the digit measuring 2.7 x 2.3 cm and is located 1.3 cm from nearest soft tissue margin. The soft tissue margin is inked blue while the articular surface is inked orange, and sectioning reveals pyle-flores soft tissue and red to flores osseous tissue that is easy to section with a scalpel. Clerk Cashier sections are submitted as follows: . A1: Soft tissue margin en face. A2: Articular surface en face. A3: Cross section with blacked skin and underlying bone. . Specimen decalcified. ([id number]) /MRV 02/26/2025 1851 Local . 01 Pathologist provided ICD-10: M86.9 . 01 CPT . 542336, 723007 Specimen Comment: A courtesy copy of this report has been sent to [facility] Pathology Performed at: [address] [facility] [address] [address], [place], [place] [id number] MD Blue Marte MD Phone: [phone]
--- NOTE | 2025-02-23 00:01 | DI.CT.S_ITS ---
PROCEDURE: CT LE RT W CON INDICATIONS: ct right foot eval for osteo/abscess TECHNIQUE: After the administration of intravenous contrast, 3 mm axial sections acquired of the right foot , with coronal and sagittal reformats. For radiation dose reduction, the following was used: automated exposure control, adjustment of mA and/or kV according to patient size. COMPARISON: [facility], CR, XR FOOT RT MIN 3V, 02/22/2025, 22:09. FINDINGS: Image quality: Excellent. Bones: Status post partial amputation of the 1st digit to the level of the proximal phalangeal base, 2nd digit to the level of the metatarsal head, and 3rd digit to the level of the proximal phalangeal base. Status post partial amputation of the 4th digit to the level of the distal phalangeal base with intraosseous foci of air (). Possible chronic fracture at the base of the 5th digit distal phalanx (54). No other foci of osseous erosions or periosteal reaction. Joints: Mild 1st MTP osteoarthritis. Mild scattered midfoot osteoarthritis. The tibiotalar and subtalar joints are preserved. No significant joint effusion. The Lisfranc interval is preserved. Muscles: Mild diffuse muscle atrophy and fatty replacement. Tendons: The visualized flexor and extensor tendon contours are within normal limits. The Achilles tendon contour is within normal limits. Vessels: Poor opacification of the tibialis posterior and dorsalis pedis vasculature. Diffuse vascular calcifications. Other soft tissues: Diffuse soft tissue edema overlying the dorsum of the lateral foot. No drainable fluid collection or abscess. IMPRESSION: 1. Osteomyelitis of the 4th digit distal phalangeal tuft with likely cellulitis, but without a drainable abscess. 2. Severe atherosclerosis of the lower extremity arterial vasculature with poor opacification. Dictated by: Paco Damian M.D. on 02/23/2025 at 1:33 Approved by: Paco Damian M.D. on 02/23/2025 at 1:39
[2025-02-23 00:04] LABS: Procalcitonin 0.164 ng/mL (<0.5)
[2025-02-23 00:05] LABS: C-Reactive Protein Quant 13.5 mg/dL (<1.0)
[2025-02-23] MEDS: VANCOMYCIN 2,000 MG in SODIUM CHLORIDE 0.9% 500 ML 250 MG IV (00:06)
--- NOTE | 2025-02-23 02:56 | P.HP_ITS ---
History of Present Illness History of Present Illness Date Patient Seen: 02/23/25 Time Patient Seen: 04:00 Chief complaint: black tip of the 4th Rt toe Narrative: 69 y/o with PMH of DM, PAD, HLD, prior multiple toes amputations, who presented to ED with dark discolored right 4th toe, one of the 2 remaining ones besides the 5th. Previously had amputated first [address] showing osteomyelitis of Rt toe distal tuft. CXR with suspected infiltrate [facility] Medical History (Updated 02/23/25 @ 00:06 by Darren Robles MD) Encounter for subsequent annual wellness visit (AWV) in Medicare patient CKD stage 3 due to type 2 diabetes mellitus Hyperlipidemia Aphasia Fall at home Gait instability Diabetic peripheral neuropathy associated with type 2 diabetes mellitus Depression Knowledge deficit on spinal cord stimulator Chronic back pain Essential hypertension CVA (cerebral vascular accident) (~2020) Hypertension Diabetes (~2009) Surgical History Anesthesia History of cholecystectomy (~1989) Back pain with history of spinal surgery Social History marital status: household members: spouse lives independently: Yes Smoking Status: Unknown if ever smoked alcohol intake: never Meds Home Medications and Allergies Home Medications Medication Instructions Recorded Confirmed Type 4 wheel walker with seat #1 ea 11/24/22 02/22/25 Rx aspirin 81 mg tablet,delayed 81 mg PO DAILY 11/24/22 02/22/25 History release insulin lispro 100 unit/mL 1 sliding scale dose SUBCUT 02/08/23 02/22/25 Rx subcutaneous pen (Humalog KwikPen USEASDIRECTD #15 mL (U-100) Insulin) Diabetic Shoes #2 ea 04/25/23 02/22/25 Rx glimepiride 2 mg tablet 2 mg PO BID #180 tabs 11/27/24 02/22/25 Rx atorvastatin 40 mg tablet 40 mg PO DAILY #90 tabs 12/20/24 02/22/25 Rx clopidogrel 75 mg tablet 75 mg PO DAILY #90 tabs 12/20/24 02/22/25 Rx duloxetine 60 mg capsule,delayed 60 mg PO DAILY #90 caps 12/20/24 02/22/25 Rx release fenofibrate nanocrystallized 145 145 mg PO DAILY #90 tabs 12/20/24 02/22/25 Rx mg tablet gabapentin 600 mg tablet 600 mg PO TID #270 tabs 12/20/24 02/22/25 Rx lisinopril 5 mg tablet 5 mg PO DAILY #90 tabs 12/20/24 02/22/25 Rx metformin 1,000 mg tablet 1,000 mg PO BID #180 tabs 12/20/24 02/22/25 Rx olanzapine 2.5 mg tablet (Zyprexa) 2.5 mg PO DAILY PRN agitation #30 01/04/25 02/22/25 Rx tabs hydrocodone 5 mg-acetaminophen 325 1 tab PO Q8H pain #20 tabs 02/22/25 02/22/25 Rx mg tablet Allergies Allergy/AdvReac Type Severity Reaction Status Date / Time codeine AdvReac Gastrointestinal Verified 02/22/25 14:09 Upset Review of Systems Review of Systems Narrative: poor historian due to aphasia, able to confirm that he has some tenderness of Rt 4th toe, mild pain and chronic numbness of both feet Exam Vital Signs (past 8 hours): - 02/22/25 21:37 02/22/25 23:30 02/22/25 23:30 Temperature 99.2 F Pulse Rate 119 H 92 H Respiratory Rate 16 Blood Pressure 142/76 H 161/73 H Pulse Oximetry 97 98 Oxygen Delivery Method Room Air 02/23/25 00:00 02/23/25 00:00 02/23/25 00:43 Temperature Pulse Rate 92 H 93 H Respiratory Rate Blood Pressure 148/70 H Pulse Oximetry 97 81 L Oxygen Delivery Method 02/23/25 01:00 02/23/25 01:13 02/23/25 01:13 Temperature 98.4 F Pulse Rate 86 84 Respiratory Rate 25 H Blood Pressure 128/57 L Pulse Oximetry 97 98 Oxygen Delivery Method Room Air 02/23/25 01:19 02/23/25 01:30 02/23/25 01:30 Temperature 98.4 F Pulse Rate 87 Respiratory Rate 27 H Blood Pressure 137/65 Pulse Oximetry 97 Oxygen Delivery Method 02/23/25 02:00 02/23/25 02:01 02/23/25 02:01 Temperature Pulse Rate 86 84 Respiratory Rate 20 29 H Blood Pressure 151/67 H Pulse Oximetry 97 97 Oxygen Delivery Method 02/23/25 02:30 02/23/25 02:30 Temperature Pulse Rate 86 Respiratory Rate 26 H Blood Pressure 171/74 H Pulse Oximetry 97 Oxygen Delivery Method Oxygen Delivery Method Room Air Narrative Exam Narrative: General - in no distress Ext - necrotic distal 4th toe tip Neuro - aphasia Psych - anxiety GI - w/o distension CVS - RRR RS - normal respiratory effort Objective ECG Impression: Sinus tachycardia 105, LVH, RBBB, LAHB Imaging xray foot: Radiologist's impression: Rt foot - OM of 4th and 5th toes CT foot: Radiologist's impression: OM of distal tuft of Rt 4th toe Chest x-ray: Radiologist's impression: Poissible left retrocardiac pneumonia Labs 02/22/25 22:05 02/22/25 22:05 Labs: Laboratory Results - last 24 hr 02/22/25 02/22/25 22:05 22:05 WBC 18.0 H RBC 3.95 L Hgb 12.4 L Hct 37.7 L MCV 95.4 MCH 31.3 MCHC 32.8 RDW 13.5 Plt Count 310 Neut % (Auto) 77.9 H Lymph % (Auto) 12.9 L [place] % (Auto) 8.2 Eos % (Auto) 0.2 L Baso % (Auto) 0.8 Neut # (Auto) 59713 H Lymph # (Auto) 2300 [place] # (Auto) 1500 H Eos # (Auto) 0 Baso # (Auto) 100 ESR 56 H PT 13.4 H INR 1.2 APTT 38 H Sodium 132 L Potassium 4.6 Chloride 100 Carbon Dioxide 23 BUN 39 H Creatinine 1.19 Estimated GFR > 60 BUN/Creatinine Ratio 32.8 H Glucose 198 H Lactate 1.6 Calcium 9.3 Total Bilirubin 0.4 AST 23 ALT 21 Alkaline Phosphatase 88 C-Reactive Protein 13.5 H Total Protein 7.3 Albumin 3.8 Globulin 3.5 Albumin/Globulin Ratio 1.1 Lipase 107 Procalcitonin 0.167 0.164 Assessment & Plan Assessment and plan (1) Acute osteomyelitis of toe of left foot: Status: Acute (2) CKD stage 3 due to type 2 diabetes mellitus: Status: Acute (3) Diabetic peripheral neuropathy associated with type 2 diabetes mellitus: Status: Acute (4) Aphasia: Status: Acute (5) Essential hypertension: Status: Acute (6) Hyperlipidemia: Qualifiers: Hyperlipidemia type: mixed hyperlipidemia Qualified Code(s): E78.2 - Mixed hyperlipidemia Status: Acute Assessment & Plan narrative: Lt 4th toe OM - NPO for OR - IVFs - pain management - Vancomycin, Rocephin PAD - ASA, Plavix, fenofibrate DM / neuropathy - metformin, Amaryl, Neurontin on hold while NPO - SS Hx of CVA / Aphasia - Zyprexa 2.5 mg daily prn - ASA, Plavix, fenofibrate Depression / Anxiety - duloxetine Questionable PNA - on Rocephin DVT prophylaxis - SCDs Patient consented to a real time, audio-video telemedicine visit with electronic stethoscope and RN assisting during the exam. Patient located at [place], [place]. Provider located in [place]. Time-Based Coding :: [TOTAL MINUTES] spent with patient and on the chart (including review of chart, obtaining history, exam, reviewing outside data, placing orders, documenting exam and treatment plan, and counseling patient) on [DATE].
[2025-02-23 03:37] LABS: Bacteria Urine None Seen; RBC Urine None Seen (0-5/HPF); Squamous Epithelial Cell Urine None Seen (0-5/HPF); Urine Volume 10mL (spun); WBC Urine None Seen (0-5/HPF)
[2025-02-23] MEDS: KETOROLAC 30 MG/ML VIAL 15 MG IV (04:24)
--- NOTE | 2025-02-23 04:56 | PC.NURSE ---
Addendum entered by Tra Cruz R.N. 02/23/25 07:21: wound photos taken with [employer] Original Note: Unable to verify home medications with patient. Patient oriented to call light, room, and bed, updated on plan of care with verbal understanding.
[2025-02-23] MEDS: SODIUM CHLORIDE 0.9% 1,000 ML 100 ML IV (06:41)
[2025-02-23 08:21] LABS: Add Manual Diff / Slide Review NO; Basophils Absolute Auto 100 /uL (0-100); Basophils Percent Auto 0.7 % (0-2); Eosinophils Absolute Auto 100 /uL (0-450); Eosinophils Percent Auto 0.8 % (2-4); Hematocrit 33.4 % (41-53); Hemoglobin 11.1 g/dL (13.5-17.5); Lymphocytes Absolute Auto 2300 /uL (1100-4500); Lymphocytes Percent Auto 14.8 % (25-40); Mean Corpuscular HGB Conc 33.4 % (30-36); Mean Corpuscular Hemoglobin 31.7 PG (26-34); Mean Corpuscular Volume 94.9 fL (80-100); Monocytes Absolute Auto 1200 /uL (0-900); Monocytes Percent Auto 7.8 % (3-14); Neutrophils Absolute Auto 11700 /uL (1500-7000); Neutrophils Percent Auto 75.9 % (50-75); Platelet Count 264 X10^3/uL (150-400); Red Blood Cell Count 3.52 X10^6/uL (4.5-5.9); Red Cell Distribution Width 13.4 % (11.6-14.8); White Blood Cell Count 15.5 X10^3/uL (4.5-11.0)
[2025-02-23 08:33] LABS: BUN Creatinine Ratio 25.4 (6-22); Blood Urea Nitrogen 30 mg/dL (9-20); Calcium 8.6 mg/dL (8.4-10.2); Carbon Dioxide 22 mmol/L (22-32); Chloride 104 mmol/L (98-107); Estimated Glomerular Filt Rate > 60 mL/min (>60); Glucose 128 mg/dL (70-99); HEMOLYSIS < 15 (0-50); Potassium 4.1 mmol/L (3.4-5.1); Sodium 133 mmol/L (137-145)
--- NOTE | 2025-02-23 08:37 | PM.HP.IH.1 ---
History of Present Illness History of Present Illness Date Patient Seen: 02/23/25 Time Patient Seen: 08:10 Chief complaint: black tip of the 4th Rt toe Narrative: Night hospitalist note: 69 y/o with PMH of DM, PAD, HLD, prior multiple toes amputations, who presented to ED with dark discolored right 4th toe, one of the 2 remaining ones besides the 5th. Previously had amputated first [address] showing osteomyelitis of Rt toe distal tuft. CXR with suspected infiltrate Interim history: The patient reports feels comfortable, without complaints. No chest pain, shortness for breath, coughing, fevers, chills or recent respiratory symptoms. [facility] Medical History Aphasia Chronic back pain CKD stage 3 due to type 2 diabetes mellitus CVA (cerebral vascular accident) (~2020) Depression Diabetes (~2009) Diabetic peripheral neuropathy associated with type 2 diabetes mellitus Encounter for subsequent annual wellness visit (AWV) in Medicare patient Essential hypertension Fall at home Gait instability Hyperlipidemia Hypertension Knowledge deficit on spinal cord stimulator Surgical History Anesthesia Back pain with history of spinal surgery History of cholecystectomy (~1989) Social History marital status: household members: spouse lives independently: Yes Smoking Status: Unknown if ever smoked alcohol intake: never Meds Home Medications and Allergies Home Medications Medication Instructions Recorded Confirmed Type 4 wheel walker with seat #1 ea 11/24/22 02/22/25 Rx aspirin 81 mg tablet,delayed 81 mg PO DAILY 11/24/22 02/22/25 History release insulin lispro 100 unit/mL 1 sliding scale dose SUBCUT 02/08/23 02/22/25 Rx subcutaneous pen (Humalog KwikPen USEASDIRECTD #15 mL (U-100) Insulin) Diabetic Shoes #2 ea 04/25/23 02/22/25 Rx glimepiride 2 mg tablet 2 mg PO BID #180 tabs 11/27/24 02/22/25 Rx atorvastatin 40 mg tablet 40 mg PO DAILY #90 tabs 12/20/24 02/22/25 Rx clopidogrel 75 mg tablet 75 mg PO DAILY #90 tabs 12/20/24 02/22/25 Rx duloxetine 60 mg capsule,delayed 60 mg PO DAILY #90 caps 12/20/24 02/22/25 Rx release fenofibrate nanocrystallized 145 145 mg PO DAILY #90 tabs 12/20/24 02/22/25 Rx mg tablet gabapentin 600 mg tablet 600 mg PO TID #270 tabs 12/20/24 02/22/25 Rx lisinopril 5 mg tablet 5 mg PO DAILY #90 tabs 12/20/24 02/22/25 Rx metformin 1,000 mg tablet 1,000 mg PO BID #180 tabs 12/20/24 02/22/25 Rx olanzapine 2.5 mg tablet (Zyprexa) 2.5 mg PO DAILY PRN agitation #30 01/04/25 02/22/25 Rx tabs hydrocodone 5 mg-acetaminophen 325 1 tab PO Q8H pain #20 tabs 02/22/25 02/22/25 Rx mg tablet Allergies Allergy/AdvReac Type Severity Reaction Status Date / Time codeine AdvReac Gastrointestinal Verified 02/22/25 14:09 Upset Review of Systems Review of Systems ROS: Yes All systems reviewed with the patient and are negative except as otherwise documented Exam Vital Signs (past 8 hours): - 02/23/25 00:43 02/23/25 01:00 02/23/25 01:13 Temperature 98.4 F Pulse Rate 93 H 86 84 Respiratory Rate 25 H Blood Pressure Pulse Oximetry 81 L 97 98 Oxygen Delivery Method Room Air Oxygen Flow Rate 02/23/25 01:13 02/23/25 01:19 02/23/25 01:30 Temperature 98.4 F Pulse Rate Respiratory Rate Blood Pressure 128/57 L 137/65 Pulse Oximetry Oxygen Delivery Method Oxygen Flow Rate 02/23/25 01:30 02/23/25 02:00 02/23/25 02:01 Temperature Pulse Rate 87 86 Respiratory Rate 27 H 20 Blood Pressure 151/67 H Pulse Oximetry 97 97 Oxygen Delivery Method Oxygen Flow Rate 02/23/25 02:01 02/23/25 02:30 02/23/25 02:30 Temperature Pulse Rate 84 86 Respiratory Rate 29 H 26 H Blood Pressure 171/74 H Pulse Oximetry 97 97 Oxygen Delivery Method Oxygen Flow Rate 02/23/25 03:25 Temperature 99.3 F Pulse Rate 88 Respiratory Rate 18 Blood Pressure 119/87 Pulse Oximetry 96 Oxygen Delivery Method Oxygen Flow Rate 0 Oxygen Delivery Method Room Air Oxygen Flow Rate 0 Narrative Exam Narrative: GENERAL: This is a well-nourished, well-developed patient, in no apparent distress. EYES: Pupils equal round and reactive. Extraocular motions intact. No scleral icterus. No injection or drainage. ENT: Mucous membranes pink and moist. NECK: Trachea midline. No JVD, bruits or lymphadenopathy. Supple, nontender, no meningeal signs. CARDIOVASCULAR: Regular rate and rhythm without murmurs, gallops, or rubs. RESPIRATORY: Clear to auscultation. GASTROINTESTINAL: Abdomen soft, non-tender, nondistended. EXTREMITIES: No clubbing, cyanosis, or edema. MUSCULOSKELETAL: Previous right foot toe 1-3 amputations noted, well healed. Black right 4th toe. 2-3 second distal foot capillary refill. 1+ posterior tibialis, absent dorsalis pedis pulse. NEUROLOGIC: Alert, oriented, speech fluent, full upper and lower motor strength, no focal deficits evident. DERMATOLOGIC: Black right 4th toe with proximal erythema. Objective ECG Impression: Sinus tachycardia at 105bpm Right bundle branch block Left anterior fascicular block Bifascicular block Minimal voltage criteria for LVH, may be normal variant ( R in aVL ) Septal infarct , age undetermined No change from 01/02/2025 Imaging Right foot xray 02/22/2025:: Radiologist's impression: Status post partial amputation of the 1st digit to the proximal phalangeal base, 2nd digit to the metatarsal head, and 3rd digit to the proximal phalangeal base. Partial amputation of the 4th and 5th digits with exposed distal edith. Diffuse osseous demineralization. The Lisfranc interval is preserved on the nonweightbearing view. No periosteal reaction or osseous erosions. No radiographic evidence of subcutaneous emphysema. Achilles calcaneal plantar calcaneal enthesopathy. RIght lower extremity CT 02/22/2025:: Radiologist's impression: 1. Osteomyelitis of the 4th digit distal phalangeal tuft with likely cellulitis, but without a drainable abscess. 2. Severe atherosclerosis of the lower extremity arterial vasculature with poor opacification. Labs 02/23/25 08:16 02/23/25 08:16 Labs: Laboratory Results - last 24 hr 02/22/25 02/22/25 02/23/25 22:05 22:05 01:03 WBC 18.0 H RBC 3.95 L Hgb 12.4 L Hct 37.7 L MCV 95.4 MCH 31.3 MCHC 32.8 RDW 13.5 Plt Count 310 Neut % (Auto) 77.9 H Lymph % (Auto) 12.9 L [place] % (Auto) 8.2 Eos % (Auto) 0.2 L Baso % (Auto) 0.8 Neut # (Auto) 58304 H Lymph # (Auto) 2300 [place] # (Auto) 1500 H Eos # (Auto) 0 Baso # (Auto) 100 ESR 56 H PT 13.4 H INR 1.2 APTT 38 H Sodium 132 L Potassium 4.6 Chloride 100 Carbon Dioxide 23 BUN 39 H Creatinine 1.19 Estimated GFR > 60 BUN/Creatinine Ratio 32.8 H Glucose 198 H Lactate 1.6 Calcium 9.3 Total Bilirubin 0.4 AST 23 ALT 21 Alkaline Phosphatase 88 C-Reactive Protein 13.5 H Total Protein 7.3 Albumin 3.8 Globulin 3.5 Albumin/Globulin Ratio 1.1 Lipase 107 Procalcitonin 0.167 0.164 Urine RBC None seen Urine WBC None seen Ur Squamous Epith Cells None seen Urine Bacteria None seen Vol Urine Centrifuged 10ml (spun) 02/23/25 08:16 WBC 15.5 H RBC 3.52 L Hgb 11.1 L Hct 33.4 L MCV 94.9 MCH 31.7 MCHC 33.4 RDW 13.4 Plt Count 264 Neut % (Auto) 75.9 H Lymph % (Auto) 14.8 L [place] % (Auto) 7.8 Eos % (Auto) 0.8 L Baso % (Auto) 0.7 Neut # (Auto) 32714 H Lymph # (Auto) 2300 [place] # (Auto) 1200 H Eos # (Auto) 100 Baso # (Auto) 100 ESR PT INR APTT Sodium 133 L Potassium 4.1 Chloride 104 Carbon Dioxide 22 BUN 30 H Creatinine 1.18 Estimated GFR > 60 BUN/Creatinine Ratio 25.4 H Glucose 128 H Lactate Calcium 8.6 Total Bilirubin AST ALT Alkaline Phosphatase C-Reactive Protein Total Protein Albumin Globulin Albumin/Globulin Ratio Lipase Procalcitonin Urine RBC Urine WBC Ur Squamous Epith Cells Urine Bacteria Vol Urine Centrifuged Assessment & Plan Assessment & Plan narrative: Lt 4th toe osteomyelitis - NPO for OR - IVFs - pain management - Vancomycin, Rocephin PAD - ASA, Plavix, fenofibrate DM / neuropathy - metformin, Amaryl, Neurontin on hold while NPO - SS insulin coverage Hx of CVA / Aphasia - Zyprexa 2.5 mg daily prn - ASA, Plavix, fenofibrate Depression / Anxiety - duloxetine Questionable PNA - on Rocephin DVT prophylaxis - SCDs Code status: Full code Quality MIPS - Admit I confirm the patient?s Advance Care Plan is present, Code status is documented, Surrogate decision maker is in patient?s record [If Yes, STOP here]: Yes MIPS - Meds 'Current medications' to include all prescriptions, [id number] products, herbals, cannabis/cannabidiol products, and vitamin/mineral/dietary (nutritional) supplements. I have utilized all available resources to obtain, update, or review the patient?s current medications. [If Yes, STOP here]: Yes [employer] Document charge(s): No Charge Codes Initial inpatient/observation care: 12605
--- NOTE | 2025-02-23 11:39 | P.HP_ITS ---
History of Present Illness History of Present Illness Date Patient Seen: 02/23/25 Time Patient Seen: 11:41 Date of Onset of Symptoms: 02/19/25 Chief complaint: black tip of the 4th Rt toe Narrative: This is a 69-year-old gentleman with a known history of diabetes and peripheral vascular disorder who has had multiple toe amputations in the past. He has been followed by vascular up in [place] and has had a angioplasty in the past. His was unsure whether that was on the left or the right leg. She recently moved and was not checking his feet on a daily basis but she notes that he was a little more clingy about 4 days ago. He did not necessarily have fevers or chills. He does ambulate at home and lives with his . He has some confusion which is variable depending upon the day. His has power of medical commercial attorney. She looked at his right foot noted that his 4th toe was black and brought him to the emergency room for evaluation. [facility] Medical History Encounter for subsequent annual wellness visit (AWV) in Medicare patient CKD stage 3 due to type 2 diabetes mellitus Hyperlipidemia Aphasia Fall at home Gait instability Diabetic peripheral neuropathy associated with type 2 diabetes mellitus Depression Knowledge deficit on spinal cord stimulator Chronic back pain Essential hypertension CVA (cerebral vascular accident) (~2020) Hypertension Diabetes (~2009) Surgical History Anesthesia History of cholecystectomy (~1989) Back pain with history of spinal surgery Social History marital status: household members: spouse lives independently: Yes Smoking Status: Unknown if ever smoked alcohol intake: never Meds Home Medications and Allergies Home Medications Medication Instructions Recorded Confirmed Type 4 wheel walker with seat #1 ea 11/24/22 02/22/25 Rx aspirin 81 mg tablet,delayed 81 mg PO DAILY 11/24/22 02/22/25 History release insulin lispro 100 unit/mL 1 sliding scale dose SUBCUT 02/08/23 02/22/25 Rx subcutaneous pen (Humalog KwikPen USEASDIRECTD #15 mL (U-100) Insulin) Diabetic Shoes #2 ea 04/25/23 02/22/25 Rx glimepiride 2 mg tablet 2 mg PO BID #180 tabs 11/27/24 02/22/25 Rx atorvastatin 40 mg tablet 40 mg PO DAILY #90 tabs 12/20/24 02/22/25 Rx clopidogrel 75 mg tablet 75 mg PO DAILY #90 tabs 12/20/24 02/22/25 Rx duloxetine 60 mg capsule,delayed 60 mg PO DAILY #90 caps 12/20/24 02/22/25 Rx release fenofibrate nanocrystallized 145 145 mg PO DAILY #90 tabs 12/20/24 02/22/25 Rx mg tablet gabapentin 600 mg tablet 600 mg PO TID #270 tabs 12/20/24 02/22/25 Rx lisinopril 5 mg tablet 5 mg PO DAILY #90 tabs 12/20/24 02/22/25 Rx metformin 1,000 mg tablet 1,000 mg PO BID #180 tabs 12/20/24 02/22/25 Rx olanzapine 2.5 mg tablet (Zyprexa) 2.5 mg PO DAILY PRN agitation #30 01/04/25 02/22/25 Rx tabs hydrocodone 5 mg-acetaminophen 325 1 tab PO Q8H pain #20 tabs 02/22/25 02/22/25 Rx mg tablet Allergies Allergy/AdvReac Type Severity Reaction Status Date / Time codeine AdvReac Gastrointestinal Verified 02/22/25 14:09 Upset Review of Systems Review of Systems Narrative: He did not have a fall and has not had any specific new complaints of chest pain abdominal pain or pulmonary issues. He seemed to be about it his normal state of confusion. He has not had recorded fevers or chills. Exam Vital Signs (past 8 hours): Oxygen Delivery Method Room Air Oxygen Flow Rate 0 Narrative Exam Narrative: HEENT is resting comfortably in bed he is easily arousable he answers questions he does have some confusion, lungs are clear, cor regular rate and rhythm, abdomen soft and benign, examination of the right lower extremity shows a healed surgical amputation of the great toe 2nd toe and 3rd toe with no sores there is necrosis of the 4th toe with erythema and some drainage and a foul odor, the right 5th toe appears to be intact, there is some swelling on the dorsum of his foot no evidence of crepitus or severe erythema, the left foot shows a healed surgical amputation of the 3rd toe, no open sores on the left leg or foot, he has some capillary refill in bilateral lower extremities, pulses are decreased and not palpable Objective Labs 02/23/25 08:16 02/23/25 08:16 Labs: Laboratory Results - last 24 hr 02/22/25 02/22/25 02/23/25 22:05 22:05 01:03 WBC 18.0 H RBC 3.95 L Hgb 12.4 L Hct 37.7 L MCV 95.4 MCH 31.3 MCHC 32.8 RDW 13.5 Plt Count 310 Neut % (Auto) 77.9 H Lymph % (Auto) 12.[address] [place] % (Auto) 8.2 Eos % (Auto) 0.2 L Baso % (Auto) 0.8 Neut # (Auto) 03746 H Lymph # (Auto) 2300 [place] # (Auto) 1500 H Eos # (Auto) 0 Baso # (Auto) 100 ESR 56 H PT 13.4 H INR 1.2 APTT 38 H Sodium 132 L Potassium 4.6 Chloride 100 Carbon Dioxide 23 BUN 39 H Creatinine 1.19 Estimated GFR > 60 BUN/Creatinine Ratio 32.8 H Glucose 198 H Lactate 1.6 Calcium 9.3 Total Bilirubin 0.4 AST 23 ALT 21 Alkaline Phosphatase 88 C-Reactive Protein 13.5 H Total Protein 7.3 Albumin 3.8 Globulin 3.5 Albumin/Globulin Ratio 1.1 Lipase 107 Procalcitonin 0.167 0.164 Urine RBC None seen Urine WBC None seen Ur Squamous Epith Cells None seen Urine Bacteria None seen Vol Urine Centrifuged 10ml (spun) 02/23/25 08:16 WBC 15.5 H RBC 3.52 L Hgb 11.1 L Hct 33.4 L MCV 94.9 MCH 31.7 MCHC 33.4 RDW 13.4 Plt Count 264 Neut % (Auto) 75.9 H Lymph % (Auto) 14.[address] [place] [place] % (Auto) 7.8 Eos % (Auto) 0.8 L Baso % (Auto) 0.7 Neut # (Auto) 16410 H Lymph # (Auto) 2300 [place] # (Auto) 1200 H Eos # (Auto) 100 Baso # (Auto) 100 ESR PT INR APTT Sodium 133 L Potassium 4.1 Chloride 104 Carbon Dioxide 22 BUN 30 H Creatinine 1.18 Estimated GFR > 60 BUN/Creatinine Ratio 25.4 H Glucose 128 H Lactate Calcium 8.6 Total Bilirubin AST ALT Alkaline Phosphatase C-Reactive Protein Total Protein Albumin Globulin Albumin/Globulin Ratio Lipase Procalcitonin Urine RBC Urine WBC Ur Squamous Epith Cells Urine Bacteria Vol Urine Centrifuged Assessment & Plan Assessment and plan (1) Acute osteomyelitis of toe of left foot: Status: Acute (2) CKD stage 3 due to type 2 diabetes mellitus: Status: Acute (3) CVA (cerebral vascular accident): Qualifiers: CVA mechanism: unspecified Qualified Code(s): I63.9 - Cerebral infarction, unspecified Status: Acute (4) Diabetic foot ulcer associated with diabetes mellitus due to underlying condition: Qualifiers: Diabetic foot ulcer location: toe Laterality: right Non-pressure ulcer stage: unspecified non-pressure ulcer stage Qualified Code(s): E08.621 - Diabetes mellitus due to underlying condition with foot ulcer; L97.519 - Non- pressure chronic ulcer of other part of right foot with unspecified severity Status: Acute (5) Osteomyelitis: Qualifiers: Laterality: right Osteomyelitis location: foot Osteomyelitis type: o ther Qualified Code(s): M86.8X7 - Other osteomyelitis, ankle and foot Status: Acute (6) Cellulitis: Status: Acute Plan He has a necrotic 4th toe on the right foot. He has a significant diabetic foot ulcer. He also has substantial peripheral vascular disease and kidney disease. I have recommended a right foot amputation of the 4th toe. The procedure options risks benefits and complications were discussed in detail. I explained to him in his that our plan will be to leave the wound partially open so that it can drink some as needed. Concerns regarding severity of diabetic foot ulcers and risk for proximal spreading risks to his limb and chance of spreading of the infection was discussed in detail. He clearly has a necrotic toe and need surgical intervention. We will plan on performing the procedure later today. Time-Based Coding :: [TOTAL MINUTES] spent with patient and on the chart (including review of chart, obtaining history, exam, reviewing outside data, placing orders, documenting exam and treatment plan, and counseling patient) on [DATE].
--- NOTE | 2025-02-23 16:33 | CM.DANOTE ---
Initial DCP Assessment Note Pt is a 69 yo male, resident of [place], [facility] of DM, PAD, HLD, prior multiple toes amputations, who presented to ED with dark discolored right 4th toe, Patient is scheduled with Dr Castañeda for amputation of right fourth toe. PCP: Eriberto Candelaria Payer: [employer] Reviewed chart, pt discussed in multidisciplinary rounds this morning. Amputation today by Dr Castañeda. Patient lives independently with sp. Established with Dr Vega, outpatient wound care and Dr Wei, PCP. CM team will plan to follow clinical course closely. Patient would benefit from reassessment of need s/p toe amputation. My benefit from HH if agreeable. CHUN Chong Discharge Planning/Care Management Discharge Assessment Start: 02/23/25 02:43 Freq: Status: Active Protocol: Document 02/23/25 16:28 PHILLIP (Rec: 02/23/25 16:33 PHILLIP [id number]) Discharge Planning Assessment Assigned Property Disposal Officer CHUN Cm DPOA/Assigned Designee Name Jennifer Santos- spouse Contact Information [phone] Advance Directives? No Advance Directives on File No History Provided By Medical Record Has Patient been admitted in last 30 No days? Prior Living Arrangements House Household Members spouse Type of transporation used prior to Drives own vehicle admit Independent with ADL's Yes Is patient alert and oriented? Yes Barriers to Discharge Yes Comment Reassess needs post toe amp Discharge Plan Home Transportation Arrangement Family Additional Comment Follow for needs
--- NOTE | 2025-02-23 17:26 | P.OP_ITS ---
Operative Date/Time/Diagnoses Date of procedure: 02/23/25 Time of procedure: 18:54 Pre-op diagnosis: Necrotic right 4th toe, diabetic foot ulcer Post-op diagnosis: same Procedure & Clinicians Procedure: Amputation right foot 4th toe, irrigation and debridement right foot with removal of skin subcutaneous tissues tendon and bone Same procedure as scheduled: Yes Indications: This is a 69-year-old gentleman with known peripheral vascular disease and diabetes came in with a necrotic right 4th toe. Has a history of prior toe amputations on his right foot the 1st 2nd and 3rd have been previously amputated. On the left foot the middle toe has been amputated. He has clear evidence of a necrotic toe and he was brought to the operating room for an amputation. Surgeon: Isabela Castañeda Click Yes if Unassisted: Yes Anesthesia Type: MAC +/- and Local Operative Notes Findings: Necrotic left 4th toe, evidence of infection, infection in the MTP joint Closure Type: non-primary Specimen(s): other (Toe to pathology, deep culture and sensitivity) Estimated Blood Loss (mL): 10 Blood products transfused: none Tourniquet time (min): 0 Procedure in detail: Patient was brought to the operating room. He underwent induction of a anes thesia. His right lower extremity was prepped draped standard sterile fashion. A high-thigh tourniquet was applied but not elevated. He was given IV antibiotics preoperatively. A time-out was performed. The patient clearly had a necrotic 4th toe. An fishmouth incision was made in the region of the MTP joint. Dissection was carried out through skin and subcutaneous tissues. The extensor and flexor tendon as well as digital neurovascular bundles were carefully transected. There was evidence of infection in the MTP joint. Cultures were sent from the deep tissue and the MTP joint. The toe was amputated without difficulty. The toe was sent to pathology. Cultures were taken. The wound was meticulously irrigated with normal saline. Some additional necrotic tissue was carefully removed with an excisional irrigation and debridement resecting some necrotic tissue on dorsum and plantar aspect of the foot predominantly the tendons. A Iodoform NU gauze was gently packed into the woun d. The wound was loosely closed with a single nylon. The wound was dressed sterilely. Patient was transferred to recovery room in satisfactory condition. Complications none. Complications: none Post-operative Condition: stable Disposition: Acute Care Plan for aftercare: Weight-bearing in a postop shoe that unloads the forefoot. Continue antibiotics. Dressing change Tuesday. Home when safe or possible revision as needed
[2025-02-23] MEDS: cefTRIAXone 1,000 MG in SODIUM CHLORIDE 0.9% 100 ML 200 MG IV (18:45)
--- NOTE | 2025-02-23 18:47 | SUR.OPER ---
Supine on padded OR bed, head on pillow, arms secured on padded arm boards at <90 degrees abduction, legs uncrossed, safety belt at thigh, tape over blanket over lower legs. bump placed under right hip with blankets.
[2025-02-23] MEDS: LACTATED RINGERS 1,000 ML 42 ML IV (19:30)
--- NOTE | 2025-02-23 19:44 | SUR.PHASEI ---
Dr Castañeda at bedside. Viewed drainage on dressing to right foot. Order to reinforce with gauze and tiffany wrap.
--- NOTE | 2025-02-23 20:08 | SUR.PHASEI ---
Pt transfered to room 207 in bed. at bedside. SBAR to PUMA BALL.
[2025-02-23] MEDS: LACTATED RINGERS 1,000 ML 100 ML IV (20:10)
[2025-02-23] MEDS: SENNOSIDES 8.6 MG TABLET 17.2 MG PO (21:42)
[2025-02-23] MEDS: DOCUSATE 100 MG CAPSULE PO (21:42)
[2025-02-23] MEDS: ASPIRIN EC 81 MG TABLET PO (21:42)
[2025-02-23] MEDS: METFORMIN HCL 500 MG TABLET 1000 MG PO (21:42)
--- NOTE | 2025-02-24 00:03 | PC.NURSE ---
Addendum entered by Ade Pires R.N. 02/24/25 01:30: patient refuses catheter and glydo jet, was able to void 600ml in urinal. will continue to monitor I&O and bladdrer scan as needed Original Note: patient incontinent of urine. Patient was attempting to get out of bed to void, but was soaked in urine. bladder scan performed for 657 ml. attempted straight cath but was unable to pass catheter. patient was thrashing about in the bed , when the catheter tip was removed from the penis, the tip ot the catheter was bloody. MD notified, and orders were given to use glydo jet and place indwelling catheter.
[2025-02-24] MEDS: HYDROCODONE/ACET 5/325 TABLET 1 TAB PO (00:23)
[2025-02-24] MEDS: ACETAMINOPHEN 325 MG TABLET 650 MG PO ×3 (01:17→20:23)
[2025-02-24 03:00] VITALS: BP 133/86; PULSE 86; RESP 19; TEMP 36.7; O2SAT 96
[2025-02-24 06:15] LABS: Add Manual Diff / Slide Review NO; Basophils Absolute Auto 100 /uL (0-100); Basophils Percent Auto 0.3 % (0-2); Eosinophils Absolute Auto 0 /uL (0-450); Hematocrit 36.9 % (41-53); Hemoglobin 12.3 g/dL (13.5-17.5); Lymphocytes Absolute Auto 1600 /uL (1100-4500); Lymphocytes Percent Auto 9.6 % (25-40); Mean Corpuscular HGB Conc 33.4 % (30-36); Mean Corpuscular Hemoglobin 31.7 PG (26-34); Mean Corpuscular Volume 94.9 fL (80-100); Monocytes Absolute Auto 1000 /uL (0-900); Monocytes Percent Auto 5.8 % (3-14); Neutrophils Absolute Auto 14200 /uL (1500-7000); Neutrophils Percent Auto 84.3 % (50-75); Platelet Count 277 X10^3/uL (150-400); Red Blood Cell Count 3.89 X10^6/uL (4.5-5.9); Red Cell Distribution Width 13.5 % (11.6-14.8); White Blood Cell Count 16.9 X10^3/uL (4.5-11.0)
[2025-02-24 06:25] LABS: BUN Creatinine Ratio 23.3 (6-22); Blood Urea Nitrogen 27 mg/dL (9-20); Calcium 8.9 mg/dL (8.4-10.2); Carbon Dioxide 23 mmol/L (22-32); Chloride 106 mmol/L (98-107); Estimated Glomerular Filt Rate > 60 mL/min (>60); Glucose 249 mg/dL (70-99); HEMOLYSIS < 15 (0-50); Potassium 4.7 mmol/L (3.4-5.1); Sodium 136 mmol/L (137-145)
--- NOTE | 2025-02-24 07:19 | PM.PN.IH.1 ---
Subjective Subjective Date Patient Seen: 02/24/25 Time Patient Seen: 09:15 Interval history: Narrative: 69 y/o with PMH of DM, PAD, HLD, prior multiple toes amputations, who presented to ED with dark discolored right 4th toe, one of the 2 remaining ones besides the 5th. Previously had amputated first [address] showing osteomyelitis of Rt toe distal tuft. CXR with suspected infiltrate The patient reports feels comfortable, without complaints. No chest pain, shortness for breath, coughing, fevers, chills or recent respiratory symptoms. Interim history: 02/24: The patient has no complaints. He underwent right 4th toe amputation without incident yesterday. He has a dressing change planned on 02/26, nonweightbearing status at this point. Blood sugars are in the 200s range. Exam Vital Signs (past 8 hours): - 02/24/25 03:00 Temperature 98.0 F Pulse Rate 86 Respiratory Rate 19 Blood Pressure 133/86 Pulse Oximetry 96 Oxygen Flow Rate 0 Oxygen Delivery Method Room Air Oxygen Flow Rate 0 Narrative Exam Narrative: GENERAL: This is a well-nourished, well-developed patient, in no apparent distress. EYES: Pupils equal round and reactive. Extraocular motions intact. No scleral icterus. No injection or drainage. ENT: Mucous membranes pink and moist. NECK: Trachea midline. No JVD, bruits or lymphadenopathy. Supple, nontender, no meningeal signs. CARDIOVASCULAR: Regular rate and rhythm without murmurs, gallops, or rubs. RESPIRATORY: Clear to auscultation. GASTROINTESTINAL: Abdomen soft, non-tender, nondistended. EXTREMITIES: No clubbing, cyanosis, or edema. MUSCULOSKELETAL: Right foot bandage in place, clean, dry and intact. NEUROLOGIC: Alert, oriented, speech fluent, full upper and lower motor strength, no focal deficits evident. DERMATOLOGIC: No rash or skin lesions. Objective ECG Impression: Sinus tachycardia at 105bpm Right bundle branch block Left anterior fascicular block Bifascicular block Minimal voltage criteria for LVH, may be normal variant ( R in aVL ) Septal infarct , age undetermined No change from 01/02/2025 Imaging Right foot xray 02/22/2025:: Radiologist's impression: Status post partial amputation of the 1st digit to the proximal phalangeal base, 2nd digit to the metatarsal head, and 3rd digit to the proximal phalangeal base. Partial amputation of the 4th and 5th digits with exposed distal edith. Diffuse osseous demineralization. The Lisfranc interval is preserved on the nonweightbearing view. No periosteal reaction or osseous erosions. No radiographic evidence of subcutaneous emphysema. Achilles calcaneal plantar calcaneal enthesopathy. RIght lower extremity CT 02/22/2025:: Radiologist's impression: 1. Osteomyelitis of the 4th digit distal phalangeal tuft with likely cellulitis, but without a drainable abscess. 2. Severe atherosclerosis of the lower extremity arterial vasculature with poor opacification. Labs 02/24/25 05:40 02/24/25 08:15 Labs: Laboratory Results - last 24 hr 02/23/25 02/24/25 08:16 05:40 WBC 15.5 H 16.9 H RBC 3.52 L 3.89 L Hgb 11.1 L 12.3 L Hct 33.4 L 36.9 L MCV 94.9 94.9 MCH 31.7 31.7 MCHC 33.4 33.4 RDW 13.4 13.5 Plt Count 264 277 Neut % (Auto) 75.9 H 84.3 H Lymph % (Auto) 14.8 L 9.6 L [place] % (Auto) 7.8 5.8 Eos % (Auto) 0.8 L 0.0 L Baso % (Auto) 0.7 0.3 Neut # (Auto) 43640 H 27905 H Lymph # (Auto) 2300 1600 [place] # (Auto) 1200 H 1000 H Eos # (Auto) 100 0 Baso # (Auto) 100 100 Sodium 133 L 136 L Potassium 4.1 4.7 Chloride 104 106 Carbon Dioxide 22 23 BUN 30 H 27 H Creatinine 1.18 1.16 Estimated GFR > 60 > 60 BUN/Creatinine Ratio 25.4 H 23.3 H Glucose 128 H 249 H D Calcium 8.6 8.9 PFSH Medical History Aphasia Chronic back pain CKD stage 3 due to type 2 diabetes mellitus CVA (cerebral vascular accident) (~2020) Depression Diabetes (~2009) Diabetic peripheral neuropathy associated with type 2 diabetes mellitus Encounter for subsequent annual wellness visit (AWV) in Medicare patient Essential hypertension Fall at home Gait instability Hyperlipidemia Hypertension Knowledge deficit on spinal cord stimulator Surgical History Anesthesia Back pain with history of spinal surgery History of cholecystectomy (~1989) Social History marital status: household members: spouse lives independently: Yes Smoking Status: Unknown if ever smoked alcohol intake: never Assessment & Plan Assessment & Plan narrative: Lt 4th toe osteomyelitis - s/p toe amputation 02/23 with infection at MTP level noted - dressing change plan Tuesday - pain management - continue IV Vancomycin, Rocephin PAD - ASA, Plavix, fenofibrate DM / neuropathy - continue metformin, Neurontin, stopping glimepiride while in the hospital - well controlled at baseline, last hemoglobin A1c 6.3% on 12/20/2024 -SS insulin coverage Hx of CVA / Aphasia - Zyprexa 2.5 mg daily prn - ASA, Plavix, fenofibrate Depression / Anxiety - duloxetine Questionable PNA - on Rocephin DVT prophylaxis - SCDs Code status: Full code Disposition: Continue IV antibiotics. Dressing change on 02/26. Possible discharge home at that time. PROFEE Scanning Tech Document charge(s): No Charge Codes Subsequent inpatient/observation care: [id number]
[2025-02-24 08:00] VITALS: BP 110/50; PULSE 54; RESP 16; TEMP 36.6; O2SAT 98
[2025-02-24] MEDS: INSULIN LISPRO 100 UNIT/ML 3ML VIAL SUBCUT ×4 (08:13→20:25)
[2025-02-24] MEDS: ATORVASTATIN 20 MG TABLET 40 MG PO (08:14)
[2025-02-24] MEDS: FENOFIBRATE, MICRONIZED 67 MG CAPSULE 201 MG PO (08:14)
[2025-02-24] MEDS: CLOPIDOGREL 75 MG TABLET PO (08:14)
[2025-02-24] MEDS: GABAPENTIN 600 MG TABLET PO ×3 (08:15→20:23)
[2025-02-24] MEDS: DULOXETINE 30 MG CAPSULE 60 MG PO (08:15)
[2025-02-24] MEDS: METFORMIN HCL 500 MG TABLET 1000 MG PO ×2 (08:15→20:23)
[2025-02-24] MEDS: ASPIRIN EC 81 MG TABLET PO ×2 (08:15→20:23)
[2025-02-24] MEDS: DOCUSATE 100 MG CAPSULE PO ×2 (08:15→20:24)
[2025-02-24] MEDS: lisinopriL 5 MG TABLET PO (08:15)
[2025-02-24] MEDS: polyethylene glycoL 3350 17 GM POWD.PACK PO (08:16)
[2025-02-24 08:34] LABS: BUN Creatinine Ratio 24.8 (6-22); Blood Urea Nitrogen 29 mg/dL (9-20); Calcium 8.8 mg/dL (8.4-10.2); Carbon Dioxide 21 mmol/L (22-32); Chloride 106 mmol/L (98-107); Estimated Glomerular Filt Rate > 60 mL/min (>60); Glucose 229 mg/dL (70-99); HEMOLYSIS < 15 (0-50); Potassium 4.6 mmol/L (3.4-5.1); Sodium 137 mmol/L (137-145)
[2025-02-24 11:00] VITALS: BP 128/78; PULSE 70; RESP 18; TEMP 36.1; O2SAT 95
--- NOTE | 2025-02-24 11:44 | PT.IIE ---
Current Diagnoses Diabetes mellitus due to underlying condition with foot ulcer (02/23/25) Type 2 diabetes mellitus with diabetic chronic kidney disease (02/23/25) Type 2 diabetes mellitus with diabetic polyneuropathy (02/23/25) Mixed hyperlipidemia (02/23/25) Essential (primary) hypertension (02/23/25) Cerebral infarction, unspecified (02/23/25) Cellulitis, unspecified (02/23/25) Non-pressure chronic ulcer of other part of right foot with unspecified severity (02/23/25) Other acute osteomyelitis, left ankle and foot (02/23/25) Other osteomyelitis, ankle and foot (02/23/25) Chronic kidney disease, stage 3 unspecified (02/23/25) Aphasia (02/23/25) Surgery Performed Operation Date: 02/23/25 17:30 Actual Procedures p Amputation 4th toe, right foot(Right) - Isabela Castañeda MD Surgical History (Last Reviewed 02/24/25 @ 07:21 by Mik Jimenez MD) Anesthesia Back pain with history of spinal surgery History of cholecystectomy (~1989) Medical History (Last Reviewed 02/24/25 @ 07:21 by Mik Jimenez MD) Aphasia Chronic back pain CKD stage 3 due to type 2 diabetes mellitus CVA (cerebral vascular accident) (~2020) Depression Diabetes (~2009) Diabetic peripheral neuropathy associated with type 2 diabetes mellitus Encounter for subsequent annual wellness visit (AWV) in Medicare patient Essential hypertension Fall at home Gait instability Hyperlipidemia Hypertension Knowledge deficit on spinal cord stimulator Physical Therapy Inpatient Evaluation/Re-Eval M1 PT/OT-IP Prior Functional Status Start: 02/24/25 08:35 Freq: NEEDED Status: Active Protocol: Document 02/24/25 11:03 MB (Rec: 02/24/25 11:44 MB Desktop) Medical Review Prior Functional Status Medical History Reviewed Yes Communication Unsure baseline diet, pt is hypoverbal and presents with confusion, unsure his primary language and he refuses heel seat pounder when PT offers. Mobility and Gait It appears that pt gait trains with cane at home and he has a walker Activities of Daily Living and IADL's Does not report Prior Functional Level (Other details) PT asks pt if he lives in [place] with and daughter and he states, yes. Otherwise, unable to report which town he lives in and he does not provide clear PLOF information Social History Household Members spouse Living Arrangements House Number of Floors (Floors) One Floor Number of Stairs To Enter/Railing? Pt reports one step up to enter Home Environment Walk in Shower Home Equipment Front Wheel Walker,Straight Cane,Hand Held Shower M2 PT-IP Current Condition Start: 02/24/25 08:35 Freq: NEEDED Status: Active Protocol: Document 02/24/25 11:03 MB (Rec: 02/24/25 11:44 MB Desktop) Physical Therapy Current Condition Current Condition Evaluation Date 02/24/25 Treatment Diagnosis Necrotic 4th right toe s/p amputation M3 PT-IP Subjective Start: 02/24/25 08:35 Freq: NEEDED Status: Active Protocol: Document 02/24/25 11:03 MB (Rec: 02/24/25 11:44 MB Desktop) Subjective Physical Therapy Visit Type Type Initial Evaluation Visit Start Time 11:03 Visit Stop Time 11:26 Notes PT calls and receives telephone order for WBAT in forefoot offloading shoe and PT obtains and provides for pt . PT writes order in EMR. Number of ASSEMBLY STOCK SUPERVISOR Visits 0 Physical Therapy Visit Comments Patient Comments Pt denies pain, is hypoverbal, pt with history of CVA, falls , diabetic foot ulcers and toe amputations, unclear if Kazakh is first language, refuses heel seat pounder Therapy Pain Assessment Pain When Pain Assessed At Rest Pain Present Pain Present Denied Pain M4 PT-IP Mobility and Gait Start: 02/24/25 08:35 Freq: NEEDED Status: Active Protocol: Document 02/24/25 11:03 MB (Rec: 02/24/25 11:44 MB Desktop) PT-Bed Mobility Assessment Rolling Type of Rolling Roll to Right Level of Assist Standby Assistance Supine to Sit Supine to Sit Standby Assistance Scooting Scooting to Edge of Bed Standby Assistance PT-Transfer Assessment Sit to and From Stand Sit to and from Stand Minimal Assistance,1 Person Assistance,Use of Upper Extremities Equipment Transfer Assistive Device Gait Belt,Front Wheeled Walker Orthotic/Prosthetic Devices or Brace: Yes Transfers Transfer Destination Chair,Toilet Transfer Technique Step-to gait with RW, forefoot off load shoe Transfer Ability Level of Assist Minimal Assistance,1 Person Assistance,Use of Upper Extremities Comments Mobility Comments Cues to put weight on back of right foot/to rearfoot and to push up from the bed, rail in BR and not to reach for the walker Gait Assessment Gait Gait Assistance Required: Minimum Assistance Distance (Feet) 15 Able to Maintain Weight Bearing Status Yes During Gait Assistive Devices Assistive Device Gait Belt,Front Wheeled Walker Orthotic/Prosthetic Devices or Brace: Yes Gait Deviations General Gait Pattern Decreased Stride Length, Decreased Feet Clearance, Flexed Trunk,Step-to Gait Factors Limiting Gait Function Factors Limiting Gait Function Decreased Activity Tolerance, Difficulty Following Directions,Incoordination, Limited Range of Motion,Poor Balance,Poor Safety Awareness Comments Gait Comments Cues for forward gait: RW, then right foot bearing weight on rearfoot in forefoot offloading shoe, then left foot. For backwards walking: left foot, then right foot rearfoot WB then RW. Pt has trouble following commands, 15 'x1, 10'x1 Max A to help with briefs with toileting, cues for hand placement for sit to stand PT-Balance Assessment Sitting Balance and Reactions Static Sitting Balance Ability Good Dynamic Sitting Balance Ability Good Standing Balance and Reactions Static Standing Balance Ability Fair Dynamic Standing Balance Ability Fair Device Used RW, forefoot offloading shoe M5 PT-IP Objective Assessments Start: 02/24/25 08:35 Freq: NEEDED Status: Active Protocol: Document 02/24/25 11:03 MB (Rec: 02/24/25 11:44 MB Desktop) Orientation Orientation/Cognition Level of Alertness Confusional State Orientation Name,Birthday,Situation Safety Awareness Decreased Safety Awareness Memory Description Short Term Impaired,Climatology Professor Impaired Gross Range of Motion Upper Extremity ROM Impairments Defer to OT Lower Extremity ROM Assessment Bilaterally Impaired Strength Comments Strength Comments R foot is dressed and edematous post-op, B hip extensor and ankle weakness functionally Coordination Assessment Assessment Coordination Comments NT Sensation Assessment Comments Sensation Comments Impaired sensation in setting of diabetic wounds and amputations and no c/o pain M6 PT-IP Treatment Start: 02/24/25 08:35 Freq: NEEDED Status: Active Protocol: Document 02/24/25 11:03 MB (Rec: 02/24/25 11:44 MB Desktop) Physical Therapy Treatment Education Education Provided Weight Bearing Status,Safety M7 PT-IP Assessment and Plan Start: 02/24/25 08:35 Freq: NEEDED Status: Active Protocol: Document 02/24/25 11:03 MB (Rec: 05/11/25 11:44 MB Desktop) PT Summary Assessment and Plan Potential Rehabilitation Potential Fair Status of Condition at Evaluation Evolving Summary Impairments ROM,Strength,Balance, Coordination,Sensation, Cognition,Bed Mobility, Transfers,Gait,Activity Tolerance Assessment Summary Pt is a 69 y/o male presenting with right diabetic foot ulcer and s/p 4th toe amputation. PT receives telephone order from Dr. Castañeda for WBAT in forefoot offloading shoe, which PT obtains, and initiates training with pt today. Pt with confusion, poor insight and command-following. He has a history of stroke and it is possible that Kazakh is his second language and he declines heel seat pounder today. Pt will benefit from further gait training with post-op shoe and rollator, 24 hour assistance, PT at d/c. Goals Bed Mobility Goal Independent Transfer Goal Standby Assistance,Front Wheeled Walker Gait Goal Standby Assistance,Front Wheel Walker Gait Distance 50 Other Goals Limit gait distance post-op amputation to promote healing Pt will ascend and descend 1 step with RW and post-op shoe with no more than CGA to allow safe home entrance. Days to Meet Goals 5 Frequency of Treatment Frequency Of Treatment Once a Day Treatment Plan Physical Therapy Treatment Plan Bed Mobility Training,Transfer Training,Gait Training, Therapeutic Exercise,Discharge Planning,Hot or Cold Pack, Neuromuscular Re-ed, Coordination Retraining,Manual Therapy Other Recommendations and Next Treatment Ongoing RW and step-to gait Focus training practice with post-op shoe Weight Bearing Status Allowed Weight Bearing Amount (enter % WBAT right foot in forefoot or #) (%) offloading shoe Recommendations To Nursing Amount of Assist Needed 1 Person Assist Discharge Recommendations PT Discharge Recommendations Home with 09/05 Assist Available,Home Health,Home vs SNF Other Discharge Recommendations Unsure if pt will need IV antibiotics at d/c, home vs SNF Transportation Needs at Discharge Private Vehicle - PT assist 1
[2025-02-24] MEDS: VANCOMYCIN 1,500 MG/300 ML PIGGYBACK 200 MG IV (11:52)
[2025-02-24 12:35] LABS: BUN Creatinine Ratio 24.8 (6-22); Blood Urea Nitrogen 30 mg/dL (9-20); Calcium 9.2 mg/dL (8.4-10.2); Carbon Dioxide 21 mmol/L (22-32); Chloride 105 mmol/L (98-107); Estimated Glomerular Filt Rate > 60 mL/min (>60); Glucose 222 mg/dL (70-99); HEMOLYSIS < 15 (0-50); Potassium 4.9 mmol/L (3.4-5.1); Sodium 137 mmol/L (137-145)
--- NOTE | 2025-02-24 12:41 | P.PN_ITS ---
Subjective Subjective Interval history: He has minimal pain. He has been getting up to the bathroom. He has not had a fever. Exam Vital Signs (past 8 hours): - 02/24/25 08:00 02/24/25 11:00 Temperature 97.8 F 97.0 F L Pulse Rate 54 L 70 Respiratory Rate 16 18 Blood Pressure 110/50 L 128/78 Pulse Oximetry 98 95 Oxygen Flow Rate 0 0 Oxygen Delivery Method Room Air Oxygen Flow Rate 0 Narrative Exam Narrative: Resting comfortably in bed, no proximal erythema dressing intact Objective Labs 02/24/25 05:40 02/24/25 11:45 Labs: Laboratory Results - last 24 hr 02/24/25 02/24/25 02/24/25 05:40 08:15 11:45 WBC 16.9 H RBC 3.89 L Hgb 12.3 L Hct 36.9 L MCV 94.9 MCH 31.7 MCHC 33.4 RDW 13.5 Plt Count 277 Neut % (Auto) 84.3 H Lymph % (Auto) 9.6 L [place] % (Auto) 5.8 Eos % (Auto) 0.0 L Baso % (Auto) 0.3 Neut # (Auto) 23957 H Lymph # (Auto) 1600 [place] # (Auto) 1000 H Eos # (Auto) 0 Baso # (Auto) 100 Sodium 136 L 137 137 Potassium 4.7 4.6 4.9 Chloride 106 106 105 Carbon Dioxide 23 21 L 21 L BUN 27 H 29 H 30 H Creatinine 1.16 1.17 1.21 Estimated GFR > 60 > 60 > 60 BUN/Creatinine Ratio 23.3 H 24.8 H 24.8 H Glucose 249 H D 229 H 222 H Calcium 8.9 8.8 9.2 PFSH Medical History Aphasia Chronic back pain CKD stage 3 due to type 2 diabetes mellitus CVA (cerebral vascular accident) (~2020) Depression Diabetes (~2009) Diabetic peripheral neuropathy associated with type 2 diabetes mellitus Encounter for subsequent annual wellness visit (AWV) in Medicare patient Essential hypertension Fall at home Gait instability Hyperlipidemia Hypertension Knowledge deficit on spinal cord stimulator Surgical History Anesthesia Back pain with history of spinal surgery History of cholecystectomy (~1989) Social History marital status: household members: spouse lives independently: Yes Smoking Status: Unknown if ever smoked alcohol intake: never Assessment & Plan Post-op Postoperative Procedures: Procedures Operation Date: 02/23/25 17:30 Actual Procedure Side Surgeon p Amputation 4th toe, right foot Right Isabela Velvet Castañeda MD Postoperative day: 1 Postoperative status: doing well Postoperative status narrative: He is doing reasonably well postoperatively. He is going to continue on IV antibiotics. We will do a wound check on Tuesday. I would recommend he continue IV antibiotics till then. Intraoperative findings were of gross pus.
[2025-02-24] MEDS: cefTRIAXone 1,000 MG in SODIUM CHLORIDE 0.9% 100 ML 200 MG IV (13:35)
[2025-02-24 16:00] VITALS: BP 142/80; PULSE 80; RESP 18; TEMP 36.2; O2SAT 97
[2025-02-24 16:03] LABS: BUN Creatinine Ratio 28.7 (6-22); Blood Urea Nitrogen 33 mg/dL (9-20); Carbon Dioxide 21 mmol/L (22-32); Chloride 106 mmol/L (98-107); Estimated Glomerular Filt Rate > 60 mL/min (>60); Glucose 220 mg/dL (70-99); HEMOLYSIS < 15 (0-50); Potassium 4.8 mmol/L (3.4-5.1); Sodium 136 mmol/L (137-145)
--- NOTE | 2025-02-24 16:46 | CM.DPC ---
DCP Note Continued This EXTENSION CLERK attempted to meet with patient twice per EXTENSION CLERK consult regarding financial concerns, patient was unavailable to meet with EXTENSION CLERK. Per RN and GUEST RELATIONS RECEPTIONIST there was no family at bedside today and patient has been resting most of the day. Patient has surgery last night and was evaluated by PT today, at this time SNF rehab vs. Home with 09/05 care & HH is recommended. Per EMR, patient is currently on IV antibiotics and patient will receive wound care on Tuesday02/26/25. Patient is awaiting OT and MEAT PACKAGER eval. It is reported that patient presents with some confusion, it is the opinion of this EXTENSION CLERK that patient would benefit from SLUMs assessment. Per RN, patient is A/O to place and self and person but does not know why he is at the hospital and does not remember having the surgery yesterday. This EXTENSION CLERK met with patient and family a few months ago and provided senior service resources and encouraged patient and spouse to apply for Medicaid. Plan: follow up with family, DCP to f/u with POC, f/u with PT/OT/MEAT PACKAGER. SNF rehab vs. Home with assistance and HH. YOSEF Polanco
[2025-02-24 19:38] VITALS: BP 148/82; PULSE 78; RESP 18; TEMP 36.1; O2SAT 96
[2025-02-24] MEDS: SENNOSIDES 8.6 MG TABLET 17.2 MG PO (20:23)
[2025-02-24] MEDS: SODIUM CHLORIDE 0.9% FLUSH 10 ML IV (20:41)
[2025-02-25] MEDS: ACETAMINOPHEN 325 MG TABLET 650 MG PO ×4 (02:59→21:30)
[2025-02-25 04:39] VITALS: BP 122/74; PULSE 63; RESP 18; TEMP 36.5; O2SAT 98
[2025-02-25 06:08] LABS: Add Manual Diff / Slide Review NO; Basophils Absolute Auto 100 /uL (0-100); Basophils Percent Auto 0.8 % (0-2); Eosinophils Absolute Auto 300 /uL (0-450); Eosinophils Percent Auto 1.9 % (2-4); Hematocrit 33.3 % (41-53); Hemoglobin 11.1 g/dL (13.5-17.5); Lymphocytes Absolute Auto 3000 /uL (1100-4500); Lymphocytes Percent Auto 20.4 % (25-40); Mean Corpuscular HGB Conc 33.3 % (30-36); Mean Corpuscular Hemoglobin 31.8 PG (26-34); Mean Corpuscular Volume 95.4 fL (80-100); Monocytes Absolute Auto 800 /uL (0-900); Monocytes Percent Auto 5.6 % (3-14); Neutrophils Absolute Auto 10500 /uL (1500-7000); Neutrophils Percent Auto 71.3 % (50-75); Platelet Count 303 X10^3/uL (150-400); Red Cell Distribution Width 13.5 % (11.6-14.8); White Blood Cell Count 14.7 X10^3/uL (4.5-11.0)
[2025-02-25 06:21] LABS: BUN Creatinine Ratio 26.4 (6-22); Blood Urea Nitrogen 32 mg/dL (9-20); Calcium 9.1 mg/dL (8.4-10.2); Carbon Dioxide 26 mmol/L (22-32); Chloride 105 mmol/L (98-107); Estimated Glomerular Filt Rate > 60 mL/min (>60); Glucose 166 mg/dL (70-99); HEMOLYSIS < 15 (0-50); Potassium 4.4 mmol/L (3.4-5.1); Sodium 136 mmol/L (137-145)
--- NOTE | 2025-02-25 07:24 | P.PN_ITS ---
Subjective Subjective Interval history: Summary: Toe osteo and lung infiltrate. S: He was doing well. He has no pain. He hopes he can go home tomorrow after he was dressing change, if possible. No other problems. Exam Vital Signs (past 8 hours): - 02/25/25 04:39 Temperature 97.7 F Pulse Rate 63 Respiratory Rate 18 Blood Pressure 122/74 Pulse Oximetry 98 Oxygen Flow Rate 0 Oxygen Delivery Method Room Air Oxygen Flow Rate 0 Narrative Exam Narrative: NAD, alert and oriented. Fluent speech. Lungs are clear, normal rate and effort. Heart is regular, no murmur gallop or rub. Abdomen is soft, non distended. Extremities are free of edema. Foot is wrapped. Objective ECG Impression: Sinus tachycardia at 105bpm Right bundle branch block Left anterior fascicular block Bifascicular block Minimal voltage criteria for LVH, may be normal variant ( R in aVL ) Septal infarct , age undetermined No change from 01/02/2025 Imaging Foot X-ray:: Radiologist's impression: Status post partial amputation of the 1st digit to the proximal phalangeal base, 2nd digit to the metatarsal head, and 3rd digit to the proximal phalangeal base. Partial amputation of the 4th and 5th digits with exposed distal edith. Diffuse osseous demineralization. The Lisfranc interval is preserved on the nonweightbearing view. No periosteal reaction or osseous erosions. No radiographic evidence of subcutaneous emphysema. Achilles calcaneal plantar calcaneal enthesopathy. RIght lower extremity CT 02/22/2025:: Radiologist's impression: 1. Osteomyelitis of the 4th digit distal phalangeal tuft with likely cellulitis, but without a drainable abscess. 2. Severe atherosclerosis of the lower extremity arterial vasculature with poor opacification. Labs 02/25/25 05:50 02/25/25 05:50 Labs: Laboratory Results - last 24 hr 02/24/25 02/24/25 02/24/25 08:15 11:45 15:41 WBC RBC Hgb Hct MCV MCH MCHC RDW Plt Count Neut % (Auto) Lymph % (Auto) [place] % (Auto) Eos % (Auto) Baso % (Auto) Neut # (Auto) Lymph # (Auto) [place] # (Auto) Eos # (Auto) Baso # (Auto) Sodium 137 137 136 L Potassium 4.6 4.9 4.8 Chloride 106 105 106 Carbon Dioxide 21 L 21 L 21 L BUN 29 H 30 H 33 H Creatinine 1.17 1.21 1.15 Estimated GFR > 60 > 60 > 60 BUN/Creatinine Ratio 24.8 H 24.8 H 28.7 H Glucose 229 H 222 H 220 H Calcium 8.8 9.2 9.0 02/25/25 05:50 WBC 14.7 H RBC 3.50 L Hgb 11.1 L Hct 33.3 L MCV 95.4 MCH 31.8 MCHC 33.3 RDW 13.5 Plt Count 303 Neut % (Auto) 71.3 Lymph % (Auto) 20.4 L [place] % (Auto) 5.6 Eos % (Auto) 1.9 L Baso % (Auto) 0.8 Neut # (Auto) 34744 H Lymph # (Auto) 3000 [place] # (Auto) 800 Eos # (Auto) 300 Baso # (Auto) 100 Sodium 136 L Potassium 4.4 Chloride 105 Carbon Dioxide 26 BUN 32 H Creatinine 1.21 Estimated GFR > 60 BUN/Creatinine Ratio 26.4 H Glucose 166 H Calcium 9.1 PFSH Medical History Encounter for subsequent annual wellness visit (AWV) in Medicare patient CKD stage 3 due to type 2 diabetes mellitus Hyperlipidemia Aphasia Fall at home Gait instability Diabetic peripheral neuropathy associated with type 2 diabetes mellitus Depression Knowledge deficit on spinal cord stimulator Chronic back pain Essential hypertension CVA (cerebral vascular accident) (~2020) Hypertension Diabetes (~2009) Surgical History Anesthesia History of cholecystectomy (~1989) Back pain with history of spinal surgery Social History marital status: household members: spouse lives independently: Yes Smoking Status: Unknown if ever smoked alcohol intake: never Assessment & Plan Assessment & Plan narrative: 1. Lt 4th toe osteomyelitis, present on admission and active. - s/p toe amputation 02/23 with infection at MTP level noted - dressing change plan Tuesday - pain management - continue IV Vancomycin, Rocephin 2. PAD, present on admission and stable. - ASA, Plavix, fenofibrate 3. DM / neuropathy, present on admission and stable. - continue metformin, Neurontin, stopping glimepiride while in the hospital - well controlled at baseline, last hemoglobin A1c 6.3% on 12/20/2024 -SS insulin coverage Hx of CVA / Aphasia, present on admission and stable. - Zyprexa 2.5 mg daily prn - ASA, Plavix, fenofibrate Depression / Anxiety, present on admission and stable. - duloxetine Questionable PNA, present on admission and stable. - on Rocephin PLAN: -Continue IV antibiotics. -Possible discharge tomorrow after dressing change. Hopefully oral antibiotics will be sufficient. THANIA: 02/26. DVT prophylaxis - SCDs Code status: Full code Disposition: Continue IV antibiotics. Dressing change on 02/26. Possible discharge home at that time. Time-Based Coding :: [TOTAL MINUTES] spent with patient and on the chart (including review of chart, obtaining history, exam, reviewing outside data, placing orders, documenting exam and treatment plan, and counseling patient) on [DATE].
[2025-02-25] MEDS: INSULIN LISPRO 100 UNIT/ML 3ML VIAL SUBCUT ×4 (07:55→21:30)
[2025-02-25 08:00] VITALS: BP 147/87; PULSE 59; RESP 16; TEMP 36.2; O2SAT 99
[2025-02-25] MEDS: DOCUSATE 100 MG CAPSULE PO ×2 (08:36→21:27)
[2025-02-25] MEDS: GABAPENTIN 600 MG TABLET PO ×3 (08:36→21:27)
[2025-02-25] MEDS: CLOPIDOGREL 75 MG TABLET PO (08:36)
[2025-02-25] MEDS: polyethylene glycoL 3350 17 GM POWD.PACK PO (08:36)
[2025-02-25] MEDS: DULOXETINE 30 MG CAPSULE 60 MG PO (08:36)
[2025-02-25] MEDS: ASPIRIN EC 81 MG TABLET PO ×2 (08:36→21:27)
[2025-02-25] MEDS: ATORVASTATIN 20 MG TABLET 40 MG PO (08:37)
[2025-02-25] MEDS: SODIUM CHLORIDE 0.9% FLUSH 10 ML IV ×2 (08:37→21:27)
[2025-02-25] MEDS: lisinopriL 5 MG TABLET PO (08:37)
[2025-02-25] MEDS: METFORMIN HCL 500 MG TABLET 1000 MG PO ×2 (08:37→21:27)
[2025-02-25] MEDS: FENOFIBRATE, MICRONIZED 67 MG CAPSULE 201 MG PO (08:37)
--- NOTE | 2025-02-25 09:35 | SLP.IPNOTE ---
Speech orders D/C's per MD approval. Nursing reports Pt exhibits no swallowing,speech or cognitive concerns warranting ST. ST recommends another order be placed if Pt exhibits any changes.
--- NOTE | 2025-02-25 10:16 | OT.IP.EVAL ---
Current Diagnoses Diabetes mellitus due to underlying condition with foot ulcer (02/23/25) Type 2 diabetes mellitus with diabetic chronic kidney disease (02/23/25) Type 2 diabetes mellitus with diabetic polyneuropathy (02/23/25) Mixed hyperlipidemia (02/23/25) Essential (primary) hypertension (02/23/25) Cerebral infarction, unspecified (02/23/25) Cellulitis, unspecified (02/23/25) Non-pressure chronic ulcer of other part of right foot with unspecified severity (02/23/25) Other acute osteomyelitis, left ankle and foot (02/23/25) Other osteomyelitis, ankle and foot (02/23/25) Chronic kidney disease, stage 3 unspecified (02/23/25) Aphasia (02/23/25) Surgery Performed Operation Date: 02/23/25 17:30 Actual Procedures p Amputation 4th toe, right foot(Right) - Isabela Castañeda MD Past Medical History (Last Reviewed 02/25/25 @ 07:27 by Kavon Gudino MD) Aphasia Chronic back pain CKD stage 3 due to type 2 diabetes mellitus CVA (cerebral vascular accident) (~2020) Depression Diabetes (~2009) Diabetic peripheral neuropathy associated with type 2 diabetes mellitus Encounter for subsequent annual wellness visit (AWV) in Medicare patient Essential hypertension Fall at home Gait instability Hyperlipidemia Hypertension Knowledge deficit on spinal cord stimulator Surgical History (Last Reviewed 02/25/25 @ 07:27 by Kavon Gudino MD) Anesthesia Back pain with history of spinal surgery History of cholecystectomy (~1989) Occupational Therapy Inpatient Evaluation/Re-Eval M1 PT/OT-IP Prior Functional Status Start: 02/24/25 08:35 Freq: NEEDED Status: Active Protocol: Document 02/25/25 10:19 CGR (Rec: 02/25/25 10:38 CGR Desktop) Medical Review Prior Functional Status Medical History Reviewed Yes Communication Unsure baseline diet, pt is hypoverbal and presents with confusion, unsure his primary language and he refuses official court interpreter when PT offers. Mobility and Gait It appears that pt gait trains with cane at home and he has a walker Activities of Daily Living and IADL's Pt states that he was IND in all ADLS and his does all of the cooking, cleaning, and driving. He spends his time watching TV. Prior Functional Level (Other details) Pt lives in [place] with his and granddaughter who is in her 30s. Social History Household Members spouse Living Arrangements House Number of Floors (Floors) One Floor Number of Stairs To Enter/Railing? Pt reports one step up to enter Home Environment Walk in Shower Home Equipment Front Wheel Walker,Straight Cane,Hand Held Shower Employment Status Retired Additional Social History Comment Pt has a flat bed M2 OT-IP Current Condition Start: 02/25/25 10:19 Freq: Status: Active Protocol: Document 02/25/25 10:19 CGR (Rec: 02/25/25 10:38 CGR Desktop) Occupational Therapy Current Condition Current Condition Evaluation Date 02/25/25 Treatment Diagnosis R foot 4th toe amputation 02/23 Diagnosis Onset Date 02/23/25 Weight Bearing Status Weight Bearing Status Weight Bear as Tolerated Allowed Weight Bearing Amount (enter % with offloading shoe or #) (%) M3 OT- IP Subjective and Pain Start: 02/25/25 10:19 Freq: Status: Active Protocol: Document 02/25/25 10:19 CGR (Rec: 02/25/25 10:38 CGR Desktop) OT- Subjective Occupational Therapy Visit Type Type Initial Evaluation Visit Start Time 10:00 Visit Stop Time 10:16 Notes Planned to perform SLUMS but physical therapy arrived. Will plan for SLUMS tomorrow if able. OT Pain Assessment Pain When Pain Assessed At Rest Pain Present Pain Present Denied Pain M4 OT- IP ADL's Start: 02/25/25 10:19 Freq: Status: Active Protocol: Document 02/25/25 10:19 CGR (Rec: 02/25/25 10:38 CGR Desktop) OT [id number] Comments OT Self-Feeding Comments not meal time OT ADL-Grooming General Evaluation Grooming Ability Minimal Assistance Comments OT Grooming Comments washing hands, pt needed encouragement to wash hands after toileting and assist with using the soap dispenser. OT ADL-Oral Care Comments Oral Care Comments Not performed, pt states he doesn't have teeth and declined brush to clean out mouth. OT ADL-Dressing General Eval Lower Body Dressing Ability Independent Areas Needing Assistance Shoes Comments OT Dressing Comments Pt donned offloading shoe OT ADL-Toileting General Evaluation Toileting Ability Independent Comments OT Toileting Comments standing for urination, pt used the walker properly over the toilet without VC. OT ADL-Bathing Comments OT Bathing Comments not performed M5 OT- IP IADL's Start: 02/25/25 10:19 Freq: Status: Active Protocol: Document 02/25/25 10:19 CGR (Rec: 02/25/25 10:38 CGR Desktop) OT-Instrumental Activities of Daily Living Deficits IADL Deficits Identified Deficits Home Safety Awareness Awareness of Need for Assistance at Home Decreased Awareness Ability to Problem Solve Emergency Unable to Problem Solve Situations Medication Management Medication Management Caregiver Administers Money Management Money Management Caregiver Provides Assistance Meal Preparation Meal Preparation Caregiver Provides Assist Central Office Worker Central Office Worker Caregiver Provides Assist Driving Driving Comments Pt does not drive M6 OT- IP Functional Cognition Start: 02/25/25 10:19 Freq: Status: Active Protocol: Document 02/25/25 10:19 CGR (Rec: 02/25/25 10:38 CGR Desktop) Cognitive Factors Limiting Selfcare Function Cognitive Ability Level of Alertness Alert,Confusional State Patient Orientation Name,Month,Year,Place, Situation Attention Span Ability Capable of Focused Attention Ability to Follow Commands Able to Follow One Step Commands with Increased Time, Able to Follow One Step Commands with Repetition Cognitive Comments Cognitive Assessment Comments Pt would benefit from SLUMS assessment OT- Vision and Hearing OT- Hearing Assessment OT- Hearing Assessment WFL OT- Vision Assessment Visual Acuity WFL Visual Attentiveness WFL Occular Pursuits WFL Visual Convergence WFL M7 OT- IP Mobility and Balance Start: 02/25/25 10:19 Freq: Status: Active Protocol: Document 02/25/25 10:19 CGR (Rec: 02/25/25 10:38 CGR Desktop) OT- Bed Mobility Assessment Supine to Sit Supine to Sit Assist Independent Scooting Scooting to Edge of Bed Independent OT-Transfer Assessment Sit to and From Stand Sit to and from Stand Standby Assistance Transfers Transfer Ability Standby Assistance Technique Transfer Destination Bed,Chair Transfer Technique Stand Step Pivot Devices Transfer Assistive Devices Gait Belt,Front Wheeled Walker Comments Mobility Comments Pt needed mod cues throughout the session especially for sit to stand and stand to sit for safe reaching for surface and for pushing off of surface. OT- Gait Assessment Comments Gait Ability Comments Defer to P.T. OT- Balance Assessment Sitting Balance and Reactions Static Sitting Balance Ability Normal Dynamic Sitting Balance Ability Normal M8 OT- IP Objective Assessments Start: 02/25/25 10:19 Freq: Status: Active Protocol: Document 02/25/25 10:19 CGR (Rec: 02/25/25 10:38 CGR Desktop) OT Gross Range of Motion Upper Extremity Range of Motion Assessment Within Functional Limits OT Strength Upper Extremity Strength Assessment Within Functional Limits Comments Strength Comments 4+/5 to 5/5 throughout OT- Coordination Assessment Upper Extremity Finger to Nose Test Within Functional Limits Finger Tapping Test Within Functional Limits OT-Muscle Tone Assessment Muscle Tone WNL Yes OT Sensation Assessment Edema Edema Absent M9 OT- IP Assessment and Plan Start: 02/25/25 10:19 Freq: Status: Active Protocol: Document 02/25/25 10:19 CGR (Rec: 02/25/25 10:38 CGR Desktop) OT Summary Assessment and Plan Potential Rehabilitation Potential Good Analytic Complexity at Evaluation Low Summary OT Impairments Balance,Functional Cognition, Functional Mobility,Grooming, Activity Tolerance Progress Towards Goals Progressing Toward Goals Assessment Summary Pt presents as a low complexity evaluation s/p admit for R foot 4th toe amputation performed on . Pt is agreeable and participates in all activities . Pt appears confused at times , like when washing hands specifically on how to get soap. Pt would benefit from a formal cog assessment but is otherwise likely close to his baseline. Pt left sitting in chair with P.T. planning to work with patient. Will plan for SLUMS at next visit if able. Recommend d/c home with family if pt's wound can be managed in home setting. Goals Dressing Goal Independent Shower Transfer Goal Independent OT-Other Goals SLUMS Days to Meet Goals 3 Frequency of Treatment Other frequency 5x per week Treatment Plan OT Treatment Plan ADL Training,Functional Cognition Training,Functional Mobility,Patient/Family Education,Discharge Planning Other Treatment Recommendations and Next SLUMS, sit to stand safety Treatment Focus training, shower Discharge Recommendations OT Discharge Recommendations Home with 09/05 Assist Available Transportation Needs at Discharge Private Vehicle
--- NOTE | 2025-02-25 10:20 | DIET.CONS ---
Dietary Consultation Note Admission Date: 02/23/2025 02:24 Assessment: 69 y M admitted for toe osteomyelitis, s/p toe amputation. Consulted for soft foods. PMH of DM2 managed with metformin, glimepiride and lispro. Last A1c 6.3% on 12/20/24 and hx of A1c% under 7% since 2022. PMH of multiple toe amputations and CKD3. Spoke to RN who reports all PO intakes today have been 100% and pt tolerating food well. EMR reviewed, per PRODUCTION ASSISTANT note, pt having no swallowing issues on regular diet. No PRODUCTION ASSISTANT needs. DFM reviewed, pt doing regular food textures with 100% recorded PO intakes. No recent significant weight loss seen in chart. Ht: 167.64 cm Wt: 75 kg BMI: 27.5 UBW: 73.936 kg on 02/05/25, 77.564 kg on 12/20/24, 76.317 kg on 11/13/24 Last BM: () MNA: Bharat Score: 20 Diet: 02/23/25 Dinner Carbohydrate Consistent Diet Diet Modifications: Carbohydrate level: Large (4 CHO) Reflex DM orders: No Food Texture: Level 7 - Regular Liquid Consistency: Level 0 - Thin Nutrition Percent Meal Consumed 100% 02/24/25 18:00 Percent Meal Consumed 100% 02/24/25 15:00 Percent Meal Consumed 50% 02/24/25 08:00 Labs: RBC 3.50 X10^6/uL (4.5-5.9) L 02/25/25 05:50 Hgb 11.1 g/dL (13.5-17.5) L 02/25/25 05:50 Hct 33.3 % (41-53) L 02/25/25 05:50 Creatinine 1.21 mg/dL (0.66-1.25) 02/25/25 05:50 Lactate 1.6 mmol/L (0.7-2.1) 02/22/25 22:05 Nutrition Diagnosis: Increased nutrient needs (protein) r/t healing aeb toe amputation Interventions: -Pt meeting >75% of protein needs through food based on DFM and recorded PO intakes EER: [id number] kcals (23-25 kcals/kg per BMI) 75 g protein (1 g/kg healing with CKD) Monitoring/Evaluations: PO intakes Electronically Signed by: Trisha Hazel 02/25/25 10:20 [address] [address]
--- NOTE | 2025-02-25 10:39 | PT.IPTN ---
Current Diagnoses Diabetes mellitus due to underlying condition with foot ulcer (02/23/25) Type 2 diabetes mellitus with diabetic chronic kidney disease (02/23/25) Type 2 diabetes mellitus with diabetic polyneuropathy (02/23/25) Mixed hyperlipidemia (02/23/25) Essential (primary) hypertension (02/23/25) Cerebral infarction, unspecified (02/23/25) Cellulitis, unspecified (02/23/25) Non-pressure chronic ulcer of other part of right foot with unspecified severity (02/23/25) Other acute osteomyelitis, left ankle and foot (02/23/25) Other osteomyelitis, ankle and foot (02/23/25) Chronic kidney disease, stage 3 unspecified (02/23/25) Aphasia (02/23/25) Surgery Performed Operation Date: 02/23/25 17:30 Actual Procedures p Amputation 4th toe, right foot(Right) - Isabela Castañeda MD Physical Therapy Treatment Note M2 PT-IP Current Condition Start: 02/24/25 08:35 Freq: NEEDED Status: Active Protocol: Document 02/24/25 11:03 MB (Rec: 02/24/25 11:44 MB Desktop) Physical Therapy Current Condition Current Condition Evaluation Date 02/24/25 Treatment Diagnosis Necrotic 4th right toe s/p amputation M3 PT-IP Subjective Start: 02/24/25 08:35 Freq: NEEDED Status: Active Protocol: Document 02/25/25 10:13 MB (Rec: 02/25/25 10:39 MB Desktop) Subjective Physical Therapy Visit Type Type Treatment Note Visit Start Time 10:13 Visit Stop Time 10:23 Number of FROG OR OYSTER FARMWORKER Visits 0 Physical Therapy Visit Comments Patient Comments Pt is agreeable to PT, finishing up with OT. Therapy Pain Assessment Pain When Pain Assessed At Rest Pain Present Pain Present Denied Pain M4 PT-IP Mobility and Gait Start: 02/24/25 08:35 Freq: NEEDED Status: Active Protocol: Document 02/25/25 10:13 MB (Rec: 02/25/25 10:39 MB Desktop) PT-Transfer Assessment Sit to and From Stand Sit to and from Stand Contact Guard Assistance,1 Person Assistance,Use of Upper Extremities Equipment Transfer Assistive Device Gait Belt,Front Wheeled Walker Orthotic/Prosthetic Devices or Brace: Yes Transfers Transfer Destination Chair Transfer Technique Step-to gait with RW, forefoot off load shoe Transfer Ability Level of Assist Contact Guard Assistance,1 Person Assistance,Use of Upper Extremities Comments Mobility Comments Cues to put weight on back of right foot/to rearfoot and to push up from the chair and not to reach for walker, pt tends to tip forward on the post-op shoe Gait Assessment Gait Gait Assistance Required: Contact Guard Assist Distance (Feet) 15 Able to Maintain Weight Bearing Status Yes During Gait Assistive Devices Assistive Device Gait Belt,Front Wheeled Walker Orthotic/Prosthetic Devices or Brace: Yes Gait Deviations General Gait Pattern Decreased Stride Length, Decreased Feet Clearance, Flexed Trunk,Step-to Gait Factors Limiting Gait Function Factors Limiting Gait Function Decreased Activity Tolerance, Difficulty Following Directions,Incoordination, Limited Range of Motion,Poor Balance,Poor Safety Awareness Comments Gait Comments Cues for forward gait: RW, then right foot bearing weight on rearfoot in forefoot offloading shoe, then left foot. For backwards walking: left foot, then right foot rearfoot WB then RW. pt does better with forward gait today , 15'x2 Stair Climbing Assessment Evaluation Level of Assist On Stairs Contact Guard Assistance,1 Person Assistance Devices Stair Climbing Assistive Devices Front Wheel Walker Technique/Endurance Stair Climbing Direction Ascend and Descend Stair Climbing Technique Step to Step Number of Steps Climbed 1 Stair Climbing Set # Repetitions (reps) 2 Comments Stair Climbing Comments Cues to step close to step and to move walker first and then ascend first with left foot and descend first with right foot flat, to keep weight in rearfoot and back of post-op shoe, pt with decreased insight and safety awareness, tends to try to step up and off side of step where there isn't enough room and where there is a wheel PT-Balance Assessment Sitting Balance and Reactions Static Sitting Balance Ability Good Dynamic Sitting Balance Ability Good Standing Balance and Reactions Static Standing Balance Ability Fair Dynamic Standing Balance Ability Fair Device Used RW, forefoot offloading shoe M5 PT-IP Objective Assessments Start: 02/24/25 08:35 Freq: NEEDED Status: Active Protocol: Document 02/24/25 11:03 MB (Rec: 02/24/25 11:44 MB Desktop) Orientation Orientation/Cognition Level of Alertness Confusional State Orientation Name,Birthday,Situation Safety Awareness Decreased Safety Awareness Memory Description Short Term Impaired,Hydrocrane Operator Impaired Gross Range of Motion Upper Extremity ROM Impairments Defer to OT Lower Extremity ROM Assessment Bilaterally Impaired Strength Comments Strength Comments R foot is dressed and edematous post-op, B hip extensor and ankle weakness functionally Coordination Assessment Assessment Coordination Comments NT Sensation Assessment Comments Sensation Comments Impaired sensation in setting of diabetic wounds and amputations and no c/o pain M6 PT-IP Treatment Start: 02/24/25 08:35 Freq: NEEDED Status: Active Protocol: Document 02/24/25 11:03 MB (Rec: 02/24/25 11:44 MB Desktop) Physical Therapy Treatment Education Education Provided Weight Bearing Status,Safety M7 PT-IP Assessment and Plan Start: 02/24/25 08:35 Freq: NEEDED Status: Active Protocol: Document 02/25/25 10:13 MB (Rec: 02/25/25 10:39 MB Desktop) PT Summary Assessment and Plan Potential Rehabilitation Potential Fair Status of Condition at Evaluation Evolving Summary Impairments ROM,Strength,Balance, Coordination,Sensation, Cognition,Bed Mobility, Transfers,Gait,Activity Tolerance Progress Towards Goals Slow Progress due to Pain,Slow Progress due to Medical Issues,Slow Progress - Other Assessment Summary Pt mobilizes better today and does con't to present with decreased safety awareness with stepping, transfers. Con' t with cues for rearfoot weight bearing, step pattern and pushing up from the chair and reaching back for it. Goals Bed Mobility Goal Independent Transfer Goal Standby Assistance,Front Wheeled Walker Gait Goal Standby Assistance,Front Wheel Walker Gait Distance 50 Other Goals Limit gait distance post-op amputation to promote healing Pt will ascend and descend 1 step with RW and post-op shoe with no more than CGA to allow safe home entrance. Days to Meet Goals 5 Frequency of Treatment Frequency Of Treatment Once a Day Treatment Plan Physical Therapy Treatment Plan Bed Mobility Training,Transfer Training,Gait Training, Therapeutic Exercise,Discharge Planning,Hot or Cold Pack, Neuromuscular Re-ed, Coordination Retraining,Manual Therapy Other Recommendations and Next Treatment Ongoing RW and step-to gait Focus training practice with post-op shoe Weight Bearing Status Allowed Weight Bearing Amount (enter % WBAT right foot in forefoot or #) (%) offloading shoe Recommendations To Nursing Amount of Assist Needed 1 Person Assist Discharge Recommendations PT Discharge Recommendations Home with 09/05 Assist Available,Home Health,Home vs SNF Other Discharge Recommendations Unsure if pt will need IV antibiotics at d/c, home vs SNF Transportation Needs at Discharge Private Vehicle - PT assist 1
[2025-02-25] MEDS: VANCOMYCIN 1,500 MG/300 ML PIGGYBACK 200 MG IV (11:43)
[2025-02-25] MEDS: cefTRIAXone 1,000 MG in SODIUM CHLORIDE 0.9% 100 ML 200 MG IV (13:45)
--- NOTE | 2025-02-25 15:08 | CM.DPNOTE ---
DCP Cont Patient is s/p fourth toe amputation. Therapies have cleared patient for return home. Spoke with spouse Jennifer Santos P [phone] for addtl information about patient. Patient and spouse just moved into a house with their son and soon to have another renter to assist with the mortgage payment. Spouse does not drive unless she has to, family typically drives patient/sp. Spouse provides assist with most ADLs since patient's CVA. Patient/sp have been together since 1979- Spouse is a [employer], 100% service connected and receives VA benefits, patient receives [employer] secondary insurance through spouse, no other VA benefits. Discussed discharge plan; spouse plans to take patient home with assist from she, her son and her granddaughter- who assists when able- Family to transport home. Spouse requests [facility] RN to help with any wound care needs. Spouse okay with addtl disciplines if recommended. Discussed Medicaid benefits; spouse has applied before and had difficulty navigating the requirements with [facility]. Spouse is apprehensive about putting any personal information online and thus is asking to drop off material to an office instead. Patient/sp's granddaughter is helping them both navigate this medicaid application and other intermediate school teacher care resources as she has a professional background in residential care. Spouse denies addtl resource needs from this CM team. Emailed F, order and clinicals to Krysten at [facility]. Requested RN/PT/OT/SENIOR FRONT END DEVELOPER/ASSOCIATE MEDIA DIRECTOR (for continued resource referral). According to bedside RN, Ortho is planning on returning to bedside 02/26 to evaluate the wound and provide updated wound care orders. It is likely that between spouse and HH RN, wound care needs can be managed without establishing with outpatient wound care. Plan: Discharge home w/family is anticipated over the next 24-48 hrs. [facility] RN/PT/OT/SENIOR FRONT END DEVELOPER/ASSOCIATE MEDIA DIRECTOR , likely on po abx. CM team following clinical course closely. PHILLIP
[2025-02-25 16:00] VITALS: BP 139/75; PULSE 62; RESP 16; TEMP 36.1; O2SAT 95
[2025-02-25 20:00] VITALS: BP 141/80; PULSE 75; RESP 18; TEMP 36; O2SAT 97
[2025-02-25] MEDS: SENNOSIDES 8.6 MG TABLET 17.2 MG PO (21:27)
[2025-02-26] MEDS: ACETAMINOPHEN 325 MG TABLET 650 MG PO ×3 (03:34→20:33)
[2025-02-26 04:00] VITALS: BP 152/77; PULSE 69; RESP 17; TEMP 36; O2SAT 97
[2025-02-26 06:30] LABS: Hematocrit 35.5 % (41-53); Hemoglobin 11.9 g/dL (13.5-17.5); Mean Corpuscular HGB Conc 33.6 % (30-36); Mean Corpuscular Hemoglobin 31.9 PG (26-34); Mean Corpuscular Volume 94.9 fL (80-100); Platelet Count 351 X10^3/uL (150-400); Red Blood Cell Count 3.74 X10^6/uL (4.5-5.9); Red Cell Distribution Width 13.5 % (11.6-14.8); White Blood Cell Count 12.4 X10^3/uL (4.5-11.0)
[2025-02-26 06:45] LABS: BUN Creatinine Ratio 22.4 (6-22); Blood Urea Nitrogen 24 mg/dL (9-20); Calcium 9.3 mg/dL (8.4-10.2); Carbon Dioxide 25 mmol/L (22-32); Chloride 105 mmol/L (98-107); Estimated Glomerular Filt Rate > 60 mL/min (>60); Glucose 163 mg/dL (70-99); HEMOLYSIS < 15 (0-50); Potassium 4.6 mmol/L (3.4-5.1); Sodium 139 mmol/L (137-145)
[2025-02-26 08:00] VITALS: BP 132/71; PULSE 67; RESP 17; TEMP 36.6; O2SAT 98
[2025-02-26] MEDS: INSULIN LISPRO 100 UNIT/ML 3ML VIAL SUBCUT ×4 (09:08→20:53)
--- NOTE | 2025-02-26 09:30 | OT.IP.TRT ---
Current Diagnoses Diabetes mellitus due to underlying condition with foot ulcer (02/23/25) Type 2 diabetes mellitus with diabetic chronic kidney disease (02/23/25) Type 2 diabetes mellitus with diabetic polyneuropathy (02/23/25) Mixed hyperlipidemia (02/23/25) Essential (primary) hypertension (02/23/25) Cerebral infarction, unspecified (02/23/25) Cellulitis, unspecified (02/23/25) Non-pressure chronic ulcer of other part of right foot with unspecified severity (02/23/25) Other acute osteomyelitis, left ankle and foot (02/23/25) Other osteomyelitis, ankle and foot (02/23/25) Chronic kidney disease, stage 3 unspecified (02/23/25) Aphasia (02/23/25) Surgery Performed Operation Date: 02/23/25 17:30 Actual Procedures p Amputation 4th toe, right foot(Right) - Isabela Castañead MD Occupational Therapy Treatment Note M2 OT-IP Current Condition Start: 02/25/25 10:19 Freq: Status: Active Protocol: Document 02/25/25 10:19 CGR (Rec: 02/25/25 10:38 CGR Desktop) Occupational Therapy Current Condition Current Condition Evaluation Date 02/25/25 Treatment Diagnosis R foot 4th toe amputation 02/23 Diagnosis Onset Date 02/23/25 Weight Bearing Status Weight Bearing Status Weight Bear as Tolerated Allowed Weight Bearing Amount (enter % with offloading shoe or #) (%) M3 OT- IP Subjective and Pain Start: 02/25/25 10:19 Freq: Status: Active Protocol: Document 02/26/25 10:53 CCC (Rec: 02/26/25 11:01 CCC Desktop) OT- Subjective Occupational Therapy Visit Type Type Treatment Note Visit Start Time 09:30 Visit Stop Time 09:42 Occupational Therapy Visit Comments Patient Comments Pt eating breakfast and agreed to do SLUMS. Patient/Caregiver Goals TO go home. OT Pain Assessment Pain When Pain Assessed At Rest Pain Present Pain Present Denied Pain M4 OT- IP ADL's Start: 02/25/25 10:19 Freq: Status: Active Protocol: Document 02/25/25 10:19 CGR (Rec: 02/25/25 10:38 CGR Desktop) OT [id number] Comments OT Self-Feeding Comments not meal time OT ADL-Grooming General Evaluation Grooming Ability Minimal Assistance Comments OT Grooming Comments washing hands, pt needed encouragement to wash hands after toileting and assist with using the soap dispenser. OT ADL-Oral Care Comments Oral Care Comments Not performed, pt states he doesn't have teeth and declined brush to clean out mouth. OT ADL-Dressing General Eval Lower Body Dressing Ability Independent Areas Needing Assistance Shoes Comments OT Dressing Comments Pt donned offloading shoe OT ADL-Toileting General Evaluation Toileting Ability Independent Comments OT Toileting Comments standing for urination, pt used the walker properly over the toilet without VC. OT ADL-Bathing Comments OT Bathing Comments not performed M5 OT- IP IADL's Start: 02/25/25 10:19 Freq: Status: Active Protocol: Document 02/25/25 10:19 CGR (Rec: 02/25/25 10:38 CGR Desktop) OT-Instrumental Activities of Daily Living Deficits IADL Deficits Identified Deficits Home Safety Awareness Awareness of Need for Assistance at Home Decreased Awareness Ability to Problem Solve Emergency Unable to Problem Solve Situations Medication Management Medication Management Caregiver Administers Money Management Money Management Caregiver Provides Assistance Meal Preparation Meal Preparation Caregiver Provides Assist Purchasing Assistant Purchasing Assistant Caregiver Provides Assist Driving Driving Comments Pt does not drive M6 OT- IP Functional Cognition Start: 02/25/25 10:19 Freq: Status: Active Protocol: Document 02/26/25 10:53 CCC (Rec: 02/26/25 11:01 CCC Desktop) Cognitive Factors Limiting Selfcare Function Cognitive Ability Level of Alertness Alert Patient Orientation Name,Month,Year,Place, Situation Attention Span Ability Capable of Focused Attention Ability to Follow Commands Able to Follow One Step Commands with Increased Time, Able to Follow One Step Commands with Repetition Memory Description Short Term Impaired,Working Impaired Cognitive Tests SLUMS Pt scored 8/30 on the SLUMS which implies dementia. Pt's decreased cognition also may be affected from prior CVA. Pt states has difficulty with getting his words out and with his STM. Pt states his assists him with most of his needs. Pt able to states the year, state we are in, able to add 3 +20, able to recall 3/5 objects after time passed, and able to identify the largest space. Pt states not able to write and is bad with numbers. Cognitive Comments Cognitive Assessment Comments Pt scored 8/30 on the SLUMS. Pt may benefit from SLUMS again when feeling better. M7 OT- IP Mobility and Balance Start: 02/25/25 10:19 Freq: Status: Active Protocol: Document 02/25/25 10:19 CGR (Rec: 02/25/25 10:38 CGR Desktop) OT- Bed Mobility Assessment Supine to Sit Supine to Sit Assist Independent Scooting Scooting to Edge of Bed Independent OT-Transfer Assessment Sit to and From Stand Sit to and from Stand Standby Assistance Transfers Transfer Ability Standby Assistance Technique Transfer Destination Bed,Chair Transfer Technique Stand Step Pivot Devices Transfer Assistive Devices Gait Belt,Front Wheeled Walker Comments Mobility Comments Pt needed mod cues throughout the session especially for sit to stand and stand to sit for safe reaching for surface and for pushing off of surface. OT- Gait Assessment Comments Gait Ability Comments Defer to P.T. OT- Balance Assessment Sitting Balance and Reactions Static Sitting Balance Ability Normal Dynamic Sitting Balance Ability Normal M8 OT- IP Objective Assessments Start: 02/25/25 10:19 Freq: Status: Active Protocol: Document 02/25/25 10:19 CGR (Rec: 02/25/25 10:38 CGR Desktop) OT Gross Range of Motion Upper Extremity Range of Motion Assessment Within Functional Limits OT Strength Upper Extremity Strength Assessment Within Functional Limits Comments Strength Comments 4+/5 to 5/5 throughout OT- Coordination Assessment Upper Extremity Finger to Nose Test Within Functional Limits Finger Tapping Test Within Functional Limits OT-Muscle Tone Assessment Muscle Tone WNL Yes OT Sensation Assessment Edema Edema Absent M9 OT- IP Assessment and Plan Start: 02/25/25 10:19 Freq: Status: Active Protocol: Document 02/26/25 10:53 [facility] (Rec: 02/26/25 11:01 [facility] Desktop) OT Summary Assessment and Plan Potential Rehabilitation Potential Good Analytic Complexity at Evaluation Low Summary OT Impairments Balance,Functional Cognition, Functional Mobility,Grooming, Activity Tolerance Progress Towards Goals Progressing Toward Goals Assessment Summary Pt scored 8/30 on the SLUMS which implies dementia. Pt states since his CVA in the past, has had difficulties with his STM, numbers, and problem solving. Pt's assist pt with most needs at home. Pt to go home with 24/7 available assist. Goals Dressing Goal Independent Shower Transfer Goal Independent Days to Meet Goals 2 Frequency of Treatment Frequency Of Treatment Once a Day Treatment Plan OT Treatment Plan ADL Training,Functional Cognition Training,Functional Mobility,Patient/Family Education,Discharge Planning Other Treatment Recommendations and Next shower Treatment Focus Discharge Recommendations OT Discharge Recommendations Home with 24/ Assist Available Transportation Needs at Discharge Private Vehicle
[2025-02-26 10:02] VITALS: BP 144/81; PULSE 87
[2025-02-26] MEDS: lisinopriL 5 MG TABLET PO (10:02)
[2025-02-26] MEDS: FENOFIBRATE, MICRONIZED 67 MG CAPSULE 201 MG PO (10:02)
[2025-02-26] MEDS: GABAPENTIN 600 MG TABLET PO ×3 (10:03→20:34)
[2025-02-26] MEDS: CLOPIDOGREL 75 MG TABLET PO (10:03)
[2025-02-26] MEDS: ATORVASTATIN 20 MG TABLET 40 MG PO (10:03)
[2025-02-26] MEDS: DULOXETINE 30 MG CAPSULE 60 MG PO (10:04)
[2025-02-26] MEDS: METFORMIN HCL 500 MG TABLET 1000 MG PO ×2 (10:04→20:33)
[2025-02-26] MEDS: ASPIRIN EC 81 MG TABLET PO ×2 (10:05→20:33)
[2025-02-26] MEDS: SODIUM CHLORIDE 0.9% FLUSH 10 ML IV (10:05)
--- NOTE | 2025-02-26 10:28 | CM.DPC ---
DCP Cont. Reviewed EMR and team rounds for status updates. Per Hospitalist, pt will have a dressing change by Ortho today, and will be switched to oral antibiotics. Likely he will then d/c home later this afternoon. Family to transport.
--- NOTE | 2025-02-26 10:45 | PT.IPTN ---
Current Diagnoses Diabetes mellitus due to underlying condition with foot ulcer (02/23/25) Type 2 diabetes mellitus with diabetic chronic kidney disease (02/23/25) Type 2 diabetes mellitus with diabetic polyneuropathy (02/23/25) Mixed hyperlipidemia (02/23/25) Essential (primary) hypertension (02/23/25) Cerebral infarction, unspecified (02/23/25) Cellulitis, unspecified (02/23/25) Non-pressure chronic ulcer of other part of right foot with unspecified severity (02/23/25) Other acute osteomyelitis, left ankle and foot (02/23/25) Other osteomyelitis, ankle and foot (02/23/25) Chronic kidney disease, stage 3 unspecified (02/23/25) Aphasia (02/23/25) Surgery Performed Operation Date: 02/23/25 17:30 Actual Procedures p Amputation 4th toe, right foot(Right) - Isabela Castañeda MD Physical Therapy Treatment Note M2 PT-IP Current Condition Start: 02/24/25 08:35 Freq: NEEDED Status: Active Protocol: Document 02/24/25 11:03 MB (Rec: 02/24/25 11:44 MB Desktop) Physical Therapy Current Condition Current Condition Evaluation Date 02/24/25 Treatment Diagnosis Necrotic 4th right toe s/p amputation M3 PT-IP Subjective Start: 02/24/25 08:35 Freq: NEEDED Status: Active Protocol: Document 02/26/25 10:45 AB (Rec: 02/26/25 12:54 AB [id number]) Subjective Physical Therapy Visit Type Type Treatment Note Visit Start Time 10:45 Visit Stop Time 11:10 Number of RELIEF OPERATOR Visits 0 Physical Therapy Visit Comments Patient Comments agreeable to do PT Therapy Pain Assessment Pain Present Pain Present Denied Pain M4 PT-IP Mobility and Gait Start: 02/24/25 08:35 Freq: NEEDED Status: Active Protocol: Document 02/26/25 10:45 AB (Rec: 02/26/25 12:54 AB [id number]) PT-Bed Mobility Assessment Supine to Sit Supine to Sit Standby Assistance PT-Transfer Assessment Sit to and From Stand Sit to and from Stand Contact Guard Assistance,1 Person Assistance,Use of Upper Extremities Equipment Transfer Assistive Device Gait Belt,Front Wheeled Walker Orthotic/Prosthetic Devices or Brace: No Transfers Transfer Destination Chair Transfer Technique ambulated Transfer Ability Level of Assist Contact Guard Assistance,1 Person Assistance,Use of Upper Extremities Comments Mobility Comments pt in bed and agreeable to do PT. completed supine to sit SBA. assisted with donning post-op shoe. educated pt on maintaining weight on heel side of RLE when standing and ambulating. pt completed sit to stand CGA and ambulated ~ 30 ft using fWW CGA and cues for safety. pt completed up/ down platform step using FWW min A and cues. completed x 2 set. pt ambulated back to his room and agreed to sit up on the chair. positioned pt on the chair. call light and table placed within reach. Gait Assessment Gait Gait Assistance Required: Contact Guard Assist Distance (Feet) 30 Able to Maintain Weight Bearing Status Yes During Gait Assistive Devices Assistive Device Gait Belt,Front Wheeled Walker Orthotic/Prosthetic Devices or Brace: No Gait Deviations General Gait Pattern Decreased Stride Length, Decreased Feet Clearance, Narrow Based Gait Factors Limiting Gait Function Factors Limiting Gait Function Decreased Activity Tolerance, Decreased Sensation,Decreased Strength,Difficulty Following Directions,Poor Balance,Poor Safety Awareness Stair Climbing Assessment Evaluation Level of Assist On Stairs Minimal Assistance Devices Stair Climbing Assistive Devices Front Wheel Walker Technique/Endurance Stair Climbing Direction Ascend and Descend Stair Climbing Technique Step to Step Number of Steps Climbed 1 Stair Climbing Set # Repetitions (reps) 2 M5 PT-IP Objective Assessments Start: 02/24/25 08:35 Freq: NEEDED Status: Active Protocol: Document 02/24/25 11:03 MB (Rec: 02/24/25 11:44 MB Desktop) Orientation Orientation/Cognition Level of Alertness Confusional State Orientation Name,Birthday,Situation Safety Awareness Decreased Safety Awareness Memory Description Short Term Impaired,Custodial Impaired Gross Range of Motion Upper Extremity ROM Impairments Defer to OT Lower Extremity ROM Assessment Bilaterally Impaired Strength Comments Strength Comments R foot is dressed and edematous post-op, B hip extensor and ankle weakness functionally Coordination Assessment Assessment Coordination Comments NT Sensation Assessment Comments Sensation Comments Impaired sensation in setting of diabetic wounds and amputations and no c/o pain M6 PT-IP Treatment Start: 02/24/25 08:35 Freq: NEEDED Status: Active Protocol: Document 02/26/25 10:45 AB (Rec: 02/26/25 12:54 AB [id number]) Physical Therapy Treatment Education Education Provided Weight Bearing Status,Safety M7 PT-IP Assessment and Plan Start: 02/24/25 08:35 Freq: NEEDED Status: Active Protocol: Document 02/26/25 10:45 AB (Rec: 02/26/25 12:54 AB [id number]) PT Summary Assessment and Plan Potential Rehabilitation Potential Good Summary Impairments Pain,ROM,Strength,Balance, Coordination,Sensation,Tone, Cognition,Bed Mobility, Transfers,Gait,Activity Tolerance Progress Towards Goals Slow Progress due to Medical Issues,Slow Progress due to Activity Tolerance Assessment Summary pt requiring CGA with ambulation using FWW and min A for stair climbing using FWW. pt plans to go home and has his spouse and son to assist him at home. Goals Bed Mobility Goal Independent Transfer Goal Standby Assistance,Front Wheeled Walker Gait Goal Standby Assistance,Front Wheel Walker Gait Distance 50 Other Goals Limit gait distance post-op amputation to promote healing Pt will ascend and descend 1 step with RW and post-op shoe with no more than CGA to allow safe home entrance. Days to Meet Goals 5 Frequency of Treatment Frequency Of Treatment Once a Day Treatment Plan Physical Therapy Treatment Plan Bed Mobility Training,Transfer Training,Gait Training, Therapeutic Exercise,Discharge Planning,Hot or Cold Pack, Neuromuscular Re-ed, Coordination Retraining,Manual Therapy Weight Bearing Status Allowed Weight Bearing Amount (enter % WBAT right foot in forefoot or #) (%) offloading shoe Recommendations To Nursing Amount of Assist Needed 1 Person Assist Discharge Recommendations PT Discharge Recommendations Home with 09/05 Assist Available,Home Health Transportation Needs at Discharge Private Vehicle - PT assist 1
[2025-02-26] MEDS: CEFAZOLIN 2 GM/100 ML PREMIX 100 ML IV ×2 (13:01→20:34)
--- NOTE | 2025-02-26 15:44 | PM.PN.1 ---
Subjective Subjective Interval history: Subjective: Doing well, no pain. No fevers. He is tolerating his IV antibiotics. Exam Vital Signs (past 8 hours): - 02/26/25 08:00 02/26/25 10:02 Temperature 97.9 F Pulse Rate 67 87 Respiratory Rate 17 Blood Pressure 132/71 144/81 H Pulse Oximetry 98 Oxygen Flow Rate 0 Oxygen Delivery Method Room Air Oxygen Flow Rate 0 Narrative Exam Narrative: NAD, alert and oriented. Fluent speech. Lungs are clear, normal rate and effort. Heart is regular, no murmur gallop or rub. Abdomen is soft, non distended. Extremities are free of edema. Right foot is wrapped. Objective Labs 02/26/25 06:00 02/26/25 06:00 Labs: Laboratory Results - last 24 hr 02/26/25 06:00 WBC 12.4 H RBC 3.74 L Hgb 11.9 L Hct 35.5 L MCV 94.9 MCH 31.9 MCHC 33.6 RDW 13.5 Plt Count 351 Sodium 139 Potassium 4.6 Chloride 105 Carbon Dioxide 25 BUN 24 H Creatinine 1.07 Estimated GFR > 60 BUN/Creatinine Ratio 22.4 H Glucose 163 H Calcium 9.3 PFSH Medical History Encounter for subsequent annual wellness visit (AWV) in Medicare patient CKD stage 3 due to type 2 diabetes mellitus Hyperlipidemia Aphasia Fall at home Gait instability Diabetic peripheral neuropathy associated with type 2 diabetes mellitus Depression Knowledge deficit on spinal cord stimulator Chronic back pain Essential hypertension CVA (cerebral vascular accident) (~2020) Hypertension Diabetes (~2009) Surgical History Anesthesia History of cholecystectomy (~1989) Back pain with history of spinal surgery Social History marital status: household members: spouse lives independently: Yes Smoking Status: Unknown if ever smoked alcohol intake: never Assessment & Plan Assessment & Plan narrative: 1. Lt 4th toe osteomyelitis, present on admission and active. - s/p toe amputation 02/23 with infection at MTP level noted 2. PAD, present on admission and stable. 3. DM / neuropathy, present on admission and stable. 4. Hx of CVA / Aphasia, present on admission and stable. 5. Depression / Anxiety, present on admission and stable. 6. Possible PNA, present on admission and stable. PLAN: -Continue IV antibiotics. -Possible discharge tomorrow after dressing change. -Ortho will do dressing change. Time-Based Coding :: [TOTAL MINUTES] spent with patient and on the chart (including review of chart, obtaining history, exam, reviewing outside data, placing orders, documenting exam and treatment plan, and counseling patient) on [DATE].
[2025-02-26 16:00] VITALS: BP 153/90; PULSE 83; RESP 16; TEMP 36.4; O2SAT 98
--- NOTE | 2025-02-26 19:42 | PM.PNPO.1 ---
Subjective Subjective Interval history: He notes he is doing reasonably well. He has no significant foot pain Exam Vital Signs (past 8 hours): - 02/26/25 16:00 Temperature 97.5 F L Pulse Rate 83 Respiratory Rate 16 Blood Pressure 153/90 H Pulse Oximetry 98 Oxygen Flow Rate 0 Oxygen Delivery Method Room Air Oxygen Flow Rate 0 Narrative Exam Narrative: He was resting comfortably in bed, his packing was removed from his 4th toe, there was no active drainage, there is no significant swelling on the dorsum of his foot, the plantar flap appears viable, Objective Labs 02/26/25 06:00 02/26/25 06:00 Labs: Laboratory Results - last 24 hr 02/26/25 06:00 WBC 12.4 H RBC 3.74 L Hgb 11.9 L Hct 35.5 L MCV 94.9 MCH 31.9 MCHC 33.6 RDW 13.5 Plt Count 351 Sodium 139 Potassium 4.6 Chloride 105 Carbon Dioxide 25 BUN 24 H Creatinine 1.07 Estimated GFR > 60 BUN/Creatinine Ratio 22.4 H Glucose 163 H Calcium 9.3 PFSH Medical History Encounter for subsequent annual wellness visit (AWV) in Medicare patient CKD stage 3 due to type 2 diabetes mellitus Hyperlipidemia Aphasia Fall at home Gait instability Diabetic peripheral neuropathy associated with type 2 diabetes mellitus Depression Knowledge deficit on spinal cord stimulator Chronic back pain Essential hypertension CVA (cerebral vascular accident) (~2020) Hypertension Diabetes (~2009) Surgical History Anesthesia History of cholecystectomy (~1989) Back pain with history of spinal surgery Social History marital status: household members: spouse lives independently: Yes Smoking Status: Unknown if ever smoked alcohol intake: never Assessment & Plan Post-op Postoperative Procedures: Procedures Operation Date: 02/23/25 17:30 Actual Procedure Side Surgeon p Amputation 4th toe, right foot Right Isabela Castañeda MD Postoperative day: 3 Postoperative status: doing well Postoperative status narrative: He is doing reasonably well postoperatively. He still has a slightly elevated white count. I have recommended wet-to-dry dressing changes and I think we should continue with IV antibiotics. I would like him to be seen by the wound care team. He will need to be discharged with dressing changes and antibiotics at the time of discharge. It was too early to think about wound closure and he may need granulation tissue prior to potential wound closure.
[2025-02-26 20:00] VITALS: BP 123/74; PULSE 69; RESP 17; TEMP 36.1; O2SAT 97
[2025-02-26] MEDS: SENNOSIDES 8.6 MG TABLET 17.2 MG PO (20:32)
[2025-02-26] MEDS: DOCUSATE 100 MG CAPSULE PO (20:33)
[2025-02-27 04:00] VITALS: BP 138/70; PULSE 72; RESP 17; TEMP 36.1; O2SAT 99
[2025-02-27] MEDS: CEFAZOLIN 2 GM/100 ML PREMIX 100 ML IV ×3 (05:44→21:33)
[2025-02-27 05:56] LABS: Hematocrit 36.5 % (41-53); Hemoglobin 12.1 g/dL (13.5-17.5); Mean Corpuscular HGB Conc 33.1 % (30-36); Mean Corpuscular Hemoglobin 31.4 PG (26-34); Mean Corpuscular Volume 94.9 fL (80-100); Platelet Count 382 X10^3/uL (150-400); Red Blood Cell Count 3.84 X10^6/uL (4.5-5.9); Red Cell Distribution Width 13.7 % (11.6-14.8)
[2025-02-27 06:07] LABS: BUN Creatinine Ratio 24.8 (6-22); Blood Urea Nitrogen 29 mg/dL (9-20); Calcium 9.7 mg/dL (8.4-10.2); Carbon Dioxide 26 mmol/L (22-32); Chloride 104 mmol/L (98-107); Estimated Glomerular Filt Rate > 60 mL/min (>60); Glucose 167 mg/dL (70-99); HEMOLYSIS < 15 (0-50); Potassium 4.6 mmol/L (3.4-5.1); Sodium 137 mmol/L (137-145)
--- NOTE | 2025-02-27 07:02 | PM.PN.1 ---
Subjective Subjective Interval history: Summary: 69 y/o with PMH of DM, PAD, HLD, prior multiple toes amputations, who presented to ED with dark discolored right 4th toe, one of the 2 remaining ones besides the 5th. Previously had amputated first [address] showing osteomyelitis of Rt toe distal tuft. CXR with suspected infiltrate The patient reports feels comfortable, without complaints. No chest pain, shortness for breath, coughing, fevers, chills or recent respiratory symptoms. Interim history: 02/24: The patient has no complaints. He underwent right 4th toe amputation without incident yesterday. He has a dressing change planned on 02/26, nonweightbearing status at this point. Blood sugars are in the 200s range. : IV antibiotics and dressing change on 02/26. Ortho (Garry) requests wound care consult and continued IV Abx. S: He was comfortable, denies pain. Orthopedics has requested continued IV antibiotics through February 28. Wound her consult was placed today and they will see him on the morning of February 28. RN will change the wound dressing today and take pictures for media. Exam Vital Signs (past 8 hours): - 02/27/25 04:00 Temperature 96.9 F L Pulse Rate 72 Respiratory Rate 17 Blood Pressure 138/70 Pulse Oximetry 99 Oxygen Flow Rate 0 Oxygen Delivery Method Room Air Oxygen Flow Rate 0 Narrative Exam Narrative: NAD, alert and oriented. Fluent speech. Lungs are clear, normal rate and effort. Heart is regular, no murmur gallop or rub. Abdomen is soft, non distended. Extremities are free of edema. Right foot wrapped. Objective ECG Impression: Sinus tachycardia at 105bpm Right bundle branch block Left anterior fascicular block Bifascicular block Minimal voltage criteria for LVH, may be normal variant ( R in aVL ) Septal infarct , age undetermined No change from 01/02/2025 Imaging Multiple studies: : Radiologist's impression: Right foot xray 02/22/2025:: Radiologist's impression: Status post partial amputation of the 1st digit to the proximal phalangeal base, 2nd digit to the metatarsal head, and 3rd digit to the proximal phalangeal base. Partial amputation of the 4th and 5th digits with exposed distal edith. Diffuse osseous demineralization. The Lisfranc interval is preserved on the nonweightbearing view. No periosteal reaction or osseous erosions. No radiographic evidence of subcutaneous emphysema. Achilles calcaneal plantar calcaneal enthesopathy. RIght lower extremity CT 02/22/2025:: Radiologist's impression: 1. Osteomyelitis of the 4th digit distal phalangeal tuft with likely cellulitis, but without a drainable abscess. 2. Severe atherosclerosis of the lower extremity arterial vasculature with poor opacification. Labs 02/27/25 05:20 02/27/25 05:20 Labs: Laboratory Results - last 24 hr 02/27/25 05:20 WBC 12.0 H RBC 3.84 L Hgb 12.1 L Hct 36.5 L MCV 94.9 MCH 31.4 MCHC 33.1 RDW 13.7 Plt Count 382 Sodium 137 Potassium 4.6 Chloride 104 Carbon Dioxide 26 BUN 29 H Creatinine 1.17 Estimated GFR > 60 BUN/Creatinine Ratio 24.8 H Glucose 167 H Calcium 9.7 PFSH Medical History Encounter for subsequent annual wellness visit (AWV) in Medicare patient CKD stage 3 due to type 2 diabetes mellitus Hyperlipidemia Aphasia Fall at home Gait instability Diabetic peripheral neuropathy associated with type 2 diabetes mellitus Depression Knowledge deficit on spinal cord stimulator Chronic back pain Essential hypertension CVA (cerebral vascular accident) (~2020) Hypertension Diabetes (~2009) Surgical History Anesthesia History of cholecystectomy (~1989) Back pain with history of spinal surgery Social History marital status: household members: spouse lives independently: Yes Smoking Status: Unknown if ever smoked alcohol intake: never Assessment & Plan Assessment & Plan narrative: 1. Lt 4th toe osteomyelitis, present on admission and active. - s/p toe amputation 02/23 with infection at MTP level noted 2. PAD, present on admission and stable. 3. DM / neuropathy, present on admission and stable. 4. Hx of CVA / Aphasia, present on admission and stable. 5. Depression / Anxiety, present on admission and stable. 6. Possible PNA, present on admission and stable. PLAN: -Continue IV antibiotics (Cefazolin IV Q8). Cx with Strep group b -Wound care consult. Will see AM 02/28. -anticipate discharge on February 28 after wound care consultation and outpatient wound care plan. Likely will be on cephalexin 500 q.i.d. for an additional 7-10 days. THANIA: February 28. Time-Based Coding :: [TOTAL MINUTES] spent with patient and on the chart (including review of chart, obtaining history, exam, reviewing outside data, placing orders, documenting exam and treatment plan, and counseling patient) on [DATE].
[2025-02-27 08:00] VITALS: BP 152/82; PULSE 68; RESP 16; TEMP 36.4; O2SAT 98
[2025-02-27] MEDS: INSULIN LISPRO 100 UNIT/ML 3ML VIAL SUBCUT ×4 (08:02→22:05)
[2025-02-27] MEDS: SODIUM CHLORIDE 0.9% FLUSH 10 ML IV ×2 (09:00→22:06)
[2025-02-27] MEDS: METFORMIN HCL 500 MG TABLET 1000 MG PO ×2 (10:03→21:32)
[2025-02-27] MEDS: DULOXETINE 30 MG CAPSULE 60 MG PO (10:03)
[2025-02-27] MEDS: GABAPENTIN 600 MG TABLET PO ×3 (10:04→21:32)
[2025-02-27 10:05] VITALS: BP 154/89; PULSE 78
[2025-02-27] MEDS: lisinopriL 5 MG TABLET PO (10:05)
[2025-02-27] MEDS: CLOPIDOGREL 75 MG TABLET PO (10:05)
[2025-02-27] MEDS: ATORVASTATIN 20 MG TABLET 40 MG PO (10:07)
[2025-02-27] MEDS: FENOFIBRATE, MICRONIZED 67 MG CAPSULE 201 MG PO (10:08)
[2025-02-27] MEDS: ASPIRIN EC 81 MG TABLET PO ×2 (10:08→21:32)
[2025-02-27] MEDS: DOCUSATE 100 MG CAPSULE PO ×2 (10:14→21:33)
--- NOTE | 2025-02-27 11:18 | PT.IPTN ---
Current Diagnoses Diabetes mellitus due to underlying condition with foot ulcer (02/23/25) Type 2 diabetes mellitus with diabetic chronic kidney disease (02/23/25) Type 2 diabetes mellitus with diabetic polyneuropathy (02/23/25) Mixed hyperlipidemia (02/23/25) Essential (primary) hypertension (02/23/25) Cerebral infarction, unspecified (02/23/25) Cellulitis, unspecified (02/23/25) Non-pressure chronic ulcer of other part of right foot with unspecified severity (02/23/25) Other acute osteomyelitis, left ankle and foot (02/23/25) Other osteomyelitis, ankle and foot (02/23/25) Chronic kidney disease, stage 3 unspecified (02/23/25) Aphasia (02/23/25) Surgery Performed Operation Date: 02/23/25 17:30 Actual Procedures p Amputation 4th toe, right foot(Right) - Isabela Castañeda MD Physical Therapy Treatment Note M2 PT-IP Current Condition Start: 02/24/25 08:35 Freq: NEEDED Status: Active Protocol: Document 02/24/25 11:03 MB (Rec: 02/24/25 11:44 MB Desktop) Physical Therapy Current Condition Current Condition Evaluation Date 02/24/25 Treatment Diagnosis Necrotic 4th right toe s/p amputation M3 PT-IP Subjective Start: 02/24/25 08:35 Freq: NEEDED Status: Active Protocol: Document 02/27/25 10:49 PG (Rec: 02/27/25 11:48 PG Laptop) Subjective Physical Therapy Visit Type Type Treatment Note Visit Start Time 10:49 Visit Stop Time 11:18 Notes Marielena ARANA led tx with permission of pt and direct supervision of Deepa ARANA Number of [employer] Visits 1 Physical Therapy Visit Comments Patient Comments agreeable to do PT BP in bed: 163/107 BP sitting EOB: 149/95 M4 PT-IP Mobility and Gait Start: 02/24/25 08:35 Freq: NEEDED Status: Active Protocol: Document 02/27/25 10:49 PG (Rec: 02/27/25 11:48 PG Laptop) PT-Bed Mobility Assessment Supine to Sit Supine to Sit Standby Assistance Scooting Scooting to Edge of Bed Standby Assistance PT-Transfer Assessment Sit to and From Stand Sit to and from Stand Contact Guard Assistance,1 Person Assistance,Use of Upper Extremities Equipment Transfer Assistive Device Gait Belt,Front Wheeled Walker Orthotic/Prosthetic Devices or Brace: Yes Transfers Transfer Destination Chair,Toilet Transfer Technique ambulated w/ FWW Transfer Ability Level of Assist Contact Guard Assistance,1 Person Assistance,Use of Upper Extremities Comments Mobility Comments pt in bed inclined, agreeable to do PT. With bed flat completed supine to sit SBA. Pt was able to don post op shoe with assistance holding his foot up. Continued educating pt on maintaining weight on heel side of RLE when standing and ambulating. Pt completed sit to stand CGA and ambulated about 30ft using FWW CGA. Stand to sit on toilet with CGA, pt required cues to reach wall rail for safety versus both UE 's on walker, self pericare in sitting including pants management. Continued working on stair management with CGA - [place]: 0-5% and cues for up with LLE and down with RLE. Decreased to SBA during gait, cues for proper hand management with safety sitting into the chair. Pt left up in chair with legs supported and calllight in reach, chair alarm donned with all needs in reach before left. Gait Assessment Gait Gait Assistance Required: Standby Assistance,Contact Guard Assist Distance (Feet) 30 Able to Maintain Weight Bearing Status Yes During Gait Assistive Devices Assistive Device Gait Belt,Front Wheeled Walker Orthotic/Prosthetic Devices or Brace: Yes Gait Deviations General Gait Pattern Decreased Stride Length, Decreased Feet Clearance, Narrow Based Gait Factors Limiting Gait Function Factors Limiting Gait Function Decreased Activity Tolerance, Decreased Sensation,Decreased Strength,Difficulty Following Directions,Poor Balance,Poor Safety Awareness Comments Gait Comments Cues for forward gait: Staying closer to gait for improved posture and stability, lift R toes to bear weight on rearfoot. Stair Climbing Assessment Evaluation Level of Assist On Stairs Contact Guard Assistance, Minimal Assistance,1 Person Assistance Technique/Endurance Stair Climbing Direction Ascend and Descend Stair Climbing Technique Step to Step Number of Steps Climbed 1 Stair Climbing Set # Repetitions (reps) 2 Comments Stair Climbing Comments Cues to ascend with LLE and descend with RLE, keeping weight in R foot in the rearfoot. CG to FWW for safety management on/off the step. PT-Balance Assessment Sitting Balance and Reactions Static Sitting Balance Ability Good Dynamic Sitting Balance Ability Good Standing Balance and Reactions Static Standing Balance Ability Good Dynamic Standing Balance Ability Good Device Used FWW, R forefoot offloading shoe M5 PT-IP Objective Assessments Start: 02/24/25 08:35 Freq: NEEDED Status: Active Protocol: Document 02/24/25 11:03 MB (Rec: 02/24/25 11:44 MB Desktop) Orientation Orientation/Cognition Level of Alertness Confusional State Orientation Name,Birthday,Situation Safety Awareness Decreased Safety Awareness Memory Description Short Term Impaired,Usp Impaired Gross Range of Motion Upper Extremity ROM Impairments Defer to OT Lower Extremity ROM Assessment Bilaterally Impaired Strength Comments Strength Comments R foot is dressed and edematous post-op, B hip extensor and ankle weakness functionally Coordination Assessment Assessment Coordination Comments NT Sensation Assessment Comments Sensation Comments Impaired sensation in setting of diabetic wounds and amputations and no c/o pain M6 PT-IP Treatment Start: 02/24/25 08:35 Freq: NEEDED Status: Active Protocol: Document 02/27/25 10:49 PG (Rec: 02/27/25 11:48 PG Laptop) Physical Therapy Treatment Education Education Provided Weight Bearing Status,Safety M7 PT-IP Assessment and Plan Start: 02/24/25 08:35 Freq: NEEDED Status: Active Protocol: Document 02/27/25 10:49 PG (Rec: 02/27/25 11:48 PG Laptop) PT Summary Assessment and Plan Potential Rehabilitation Potential Good Status of Condition at Evaluation Evolving Summary Impairments ROM,Strength,Balance, Coordination,Sensation,Tone, Cognition,Bed Mobility, Transfers,Gait,Activity Tolerance Progress Towards Goals Slow Progress due to Medical Issues,Slow Progress due to Activity Tolerance Assessment Summary Pt progressed in mobility with decreased support, CGA > SBA with ambulation using FWW and CGA -5%A for stair climbing using FWW still requires safety cues for proper handle management and foot sequencing with stair management. Recommending HHPT to progress strength, safety, and balance. Pt is able to go home w spouse to support him 09/05 availability when medically cleared. Goals Bed Mobility Goal Independent Transfer Goal Standby Assistance,Front Wheeled Walker Gait Goal Standby Assistance,Front Wheel Walker Gait Distance 50 Other Goals Limit gait distance post-op amputation to promote healing Pt will ascend and descend 1 step with RW and post-op shoe with no more than CGA to allow safe home entrance. Days to Meet Goals 5 Frequency of Treatment Frequency Of Treatment Once a Day Treatment Plan Physical Therapy Treatment Plan Bed Mobility Training,Transfer Training,Gait Training, Therapeutic Exercise,Discharge Planning,Hot or Cold Pack, Neuromuscular Re-ed, Coordination Retraining,Manual Therapy Other Recommendations and Next Treatment Ongoing RW and step-to gait Focus training practice with post-op shoe, continue safety sequencing on stairs. Weight Bearing Status Allowed Weight Bearing Amount (enter % WBAT right foot in forefoot or #) (%) offloading shoe Recommendations To Nursing Amount of Assist Needed 1 Person Assist Discharge Recommendations PT Discharge Recommendations Home with 09/05 Assist Available,Home Health Transportation Needs at Discharge Private Vehicle - PT assist 1
--- NOTE | 2025-02-27 12:56 | CM.DPC ---
DCP Cont. Reviewed EMR and team rounds for status updates. Per Hospitalist, pt will need 1-more day of IV ABO's before he will be ready for home d/c. [facility] is accepting, and will provide the wound care for him postoperatively. F/F faxed, will fax d/c summary at d/c to [facility].
--- NOTE | 2025-02-27 14:29 | OT.IPNOTE ---
1st time check on pt eating lunch and second time nursing about to change his dressing out. To check on pt tomorrow for possible shower.
[2025-02-27] MEDS: ACETAMINOPHEN 325 MG TABLET 650 MG PO ×2 (15:27→21:34)
[2025-02-27 16:00] VITALS: BP 126/70; PULSE 90; RESP 16; TEMP 36.2; O2SAT 97
[2025-02-27 20:00] VITALS: BP 114/66; PULSE 78; RESP 17; TEMP 36.3; O2SAT 96
--- NOTE | 2025-02-27 20:09 | P.PN_ITS ---
Subjective Subjective Interval history: He notes he is doing well with therapy. He continues to be afebrile. He has minimal foot pain. Exam Vital Signs (past 8 hours): - 02/27/25 16:00 Temperature 97.2 F L Pulse Rate 90 Respiratory Rate 16 Blood Pressure 126/70 Pulse Oximetry 97 Oxygen Flow Rate 0 Oxygen Delivery Method Room Air Oxygen Flow Rate 0 Narrative Exam Narrative: His dressing is dry. He is wound was checked there is slight drainage. Has no erythema on the dorsum of his foot. Objective Labs 02/27/25 05:20 02/27/25 05:20 Labs: Laboratory Results - last 24 hr 02/27/25 05:20 WBC 12.0 H RBC 3.84 L Hgb 12.1 L Hct 36.5 L MCV 94.9 MCH 31.4 MCHC 33.1 RDW 13.7 Plt Count 382 Sodium 137 Potassium 4.6 Chloride 104 Carbon Dioxide 26 BUN 29 H Creatinine 1.17 Estimated GFR > 60 BUN/Creatinine Ratio 24.8 H Glucose 167 H Calcium 9.7 PFSH Medical History Encounter for subsequent annual wellness visit (AWV) in Medicare patient CKD stage 3 due to type 2 diabetes mellitus Hyperlipidemia Aphasia Fall at home Gait instability Diabetic peripheral neuropathy associated with type 2 diabetes mellitus Depression Knowledge deficit on spinal cord stimulator Chronic back pain Essential hypertension CVA (cerebral vascular accident) (~2020) Hypertension Diabetes (~2009) Surgical History Anesthesia History of cholecystectomy (~1989) Back pain with history of spinal surgery Social History marital status: household members: spouse lives independently: Yes Smoking Status: Unknown if ever smoked alcohol intake: never Assessment & Plan Post-op Postoperative Procedures: Procedures Operation Date: 02/23/25 17:30 Actual Procedure Side Surgeon p Amputation 4th toe, right foot Right Isabela Castañeda MD Postoperative day: 4 Postoperative status narrative: He was doing okay. I have recommended that he be seen by the wound clinic. He has a vascular surgeon he was seen up in [place] and I think he needs to return to them to see if there is any chance of improving the blood flow to his foot.
[2025-02-27] MEDS: SENNOSIDES 8.6 MG TABLET 17.2 MG PO (21:32)
[2025-02-27] MEDS: INSULIN GLARGINE 100 UNIT/ML 3ML PEN SUBCUT (22:05)
[2025-02-28 04:00] VITALS: BP 136/78; PULSE 67; RESP 17; TEMP 36.1; O2SAT 99
[2025-02-28 06:20] LABS: Hematocrit 35.2 % (41-53); Mean Corpuscular HGB Conc 34.2 % (30-36); Mean Corpuscular Hemoglobin 32.3 PG (26-34); Mean Corpuscular Volume 94.4 fL (80-100); Platelet Count 410 X10^3/uL (150-400); Red Blood Cell Count 3.73 X10^6/uL (4.5-5.9); Red Cell Distribution Width 13.4 % (11.6-14.8); White Blood Cell Count 13.1 X10^3/uL (4.5-11.0)
[2025-02-28 06:34] LABS: BUN Creatinine Ratio 27.8 (6-22); Blood Urea Nitrogen 35 mg/dL (9-20); Calcium 9.7 mg/dL (8.4-10.2); Carbon Dioxide 26 mmol/L (22-32); Chloride 105 mmol/L (98-107); Estimated Glomerular Filt Rate > 60 mL/min (>60); Glucose 132 mg/dL (70-99); HEMOLYSIS < 15 (0-50); Potassium 4.9 mmol/L (3.4-5.1); Sodium 137 mmol/L (137-145)
--- NOTE | 2025-02-28 07:42 | PM.PNPO.1 ---
Subjective Subjective Interval history: He is doing well he is resting comfortably in bed. Exam Vital Signs (past 8 hours): - 02/28/25 04:00 Temperature 97.0 F L Pulse Rate 67 Respiratory Rate 17 Blood Pressure 136/78 Pulse Oximetry 99 Oxygen Flow Rate 0 Oxygen Delivery Method Room Air Oxygen Flow Rate 0 Narrative Exam Narrative: There is no erythema and there is slight granulation tissue at the base of his wound. Decreased drainage Objective Labs 02/28/25 05:57 02/28/25 05:57 Labs: Laboratory Results - last 24 hr 02/28/25 05:57 WBC 13.1 H RBC 3.73 L Hgb 12.0 L Hct 35.2 L MCV 94.4 MCH 32.3 MCHC 34.2 RDW 13.4 Plt Count 410 H Sodium 137 Potassium 4.9 Chloride 105 Carbon Dioxide 26 BUN 35 H Creatinine 1.26 H Estimated GFR > 60 BUN/Creatinine Ratio 27.8 H Glucose 132 H Calcium 9.7 PFSH Medical History Encounter for subsequent annual wellness visit (AWV) in Medicare patient CKD stage 3 due to type 2 diabetes mellitus Hyperlipidemia Aphasia Fall at home Gait instability Diabetic peripheral neuropathy associated with type 2 diabetes mellitus Depression Knowledge deficit on spinal cord stimulator Chronic back pain Essential hypertension CVA (cerebral vascular accident) (~2020) Hypertension Diabetes (~2009) Surgical History Anesthesia History of cholecystectomy (~1989) Back pain with history of spinal surgery Social History marital status: household members: spouse lives independently: Yes Smoking Status: Unknown if ever smoked alcohol intake: never Assessment & Plan Post-op Postoperative Procedures: Procedures Operation Date: 02/23/25 17:30 Actual Procedure Side Surgeon p Amputation 4th toe, right foot Right Isabela Castañeda MD Postoperative day: 5 Postoperative status: doing well Postoperative plan narrative: He is doing reasonably well postoperatively. I think he can probably be discharged to home with oral antibiotics and dressing changes through the wound clinic. He has seen vascular in the past and can follow up with vascular just to make sure that he can not have improved blood supply. He should follow up in the Wound Clinic. He can follow up with us in 1-2 weeks.
--- NOTE | 2025-02-28 07:57 | P.DS_ITS ---
History of Present Illness History of Present Illness Date Patient Seen: 02/28/25 Chief complaint: black tip of the 4th Rt toe Narrative: History of present illness 69 y/o with PMH of DM, PAD, HLD, prior multiple toes amputations, who presented to ED with dark discolored right 4th toe, one of the 2 remaining ones besides the 5th. Previously had amputated first [address] showing osteomyelitis of Rt toe distal tuft. CXR with suspected infiltrate The patient reports feels comfortable, without complaints. No chest pain, shortness for breath, coughing, fevers, chills or recent respiratory symptoms. Hospital course: 02/24: The patient has no complaints. He underwent right 4th toe amputation without incident yesterday. He has a dressing change planned on 02/26, nonweightbearing status at this point. Blood sugars are in the 200s range. : IV antibiotics and dressing change on 02/26. Ortho (Garry) requests wound care consult and continued IV Abx. 02/27: He was comfortable, denies pain. Orthopedics has requested continued IV antibiotics through February 28. Wound her consult was placed today and they will see him on the morning of February 28. RN will change the wound dressing today and take pictures for media. 02/28: Patient discharged with oral antibiotics and to follow up with Orthopedic surgery Orthopedic surgery consultation excerpt: He is doing reasonably well postoperatively. I think he can probably be discharged to home with oral antibiotics and dressing changes through the wound clinic. He has seen vascular in the past and can follow up with vascular just to make sure that he can not have improved blood supply. He should follow up in the Wound Clinic. He can follow up with us in 1-2 weeks. Assessment and plan: 1. Lt 4th toe osteomyelitis, present on admission and active. -Discharge with oral cefdinir follow up with wound care and Orthopedic surgery - s/p toe amputation 02/23 with infection at MTP level noted 2. PAD, present on admission and stable. 3. DM / neuropathy, present on admission and stable. 4. Hx of CVA / Aphasia, present on admission and stable. 5. Depression / Anxiety, present on admission and stable. Time-Based Coding :: 35 minute spent with patient and on the chart (including review of chart, obtaining history, exam, reviewing outside data, placing orders, documenting exam and treatment plan, and counseling patient) on. Discharge Providers Provider Date of admission: 02/23/25 02:24 Discharge Date: 02/28/25 Primary care physician: Eriberto Candelaria DO Consults: 02/23/25 03:24 Consult to Dietitian, Adult Routine Comment: Reason For Exam: eats soft foods only at home, states issues swallo Consult to [employer] Routine Comment: [employer] Consult needed for:: Has no money Consult to Speech Therapy Evaluate & Treat Comment: Physician Instructions: Evaluate and treat 02/23/25 20:08 Consult to Discharge Planning Routine Comment: Consult to Occupational Therapy Evaluate & Treat Comment: Physician Instructions: Evaluate and treat Consult to Physical Therapy Evaluate & Treat Comment: heel weight bearing shoe Physician Instructions: Evaluate and Treat Consult to Physician Routine Comment: Consulting Provider: Isabela Castañeda Reason for consultation: dfu Has provider been notified: Yes 02/25/25 09:45 Consult to Home Health Routine Comment: Reason For Exam: Home health at discharge Discharge provider: Austin Gates MD Exam Vital Signs (past 8 hours): - 02/28/25 04:00 Temperature 97.0 F L Pulse Rate 67 Respiratory Rate 17 Blood Pressure 136/78 Pulse Oximetry 99 Oxygen Flow Rate 0 Oxygen Delivery Method Room Air Oxygen Flow Rate 0 Objective Labs 02/28/25 05:57 02/28/25 05:57 Labs: Laboratory Results - last 24 hr 02/28/25 05:57 WBC 13.1 H RBC 3.73 L Hgb 12.0 L Hct 35.2 L MCV 94.4 MCH 32.3 MCHC 34.2 RDW 13.4 Plt Count 410 H Sodium 137 Potassium 4.9 Chloride 105 Carbon Dioxide 26 BUN 35 H Creatinine 1.26 H Estimated GFR > 60 BUN/Creatinine Ratio 27.8 H Glucose 132 H Calcium 9.7 PFSH Medical History Encounter for subsequent annual wellness visit (AWV) in Medicare patient CKD stage 3 due to type 2 diabetes mellitus Hyperlipidemia Aphasia Fall at home Gait instability Diabetic peripheral neuropathy associated with type 2 diabetes mellitus Depression Knowledge deficit on spinal cord stimulator Chronic back pain Essential hypertension CVA (cerebral vascular accident) (~2020) Hypertension Diabetes (~2009) Surgical History Anesthesia History of cholecystectomy (~1989) Back pain with history of spinal surgery Social History marital status: household members: spouse lives independently: Yes Smoking Status: Unknown if ever smoked alcohol intake: never Discharge Plan Discharge Plan Patient Disposition: Home Discharge orders & Medications Prescriptions: New hydrocodone-acetaminophen 5-325 mg Tablet 1 tab PO Q4H PRN (Reason: Pain, Moderate (4-6)) Qty: 12 0RF cefdinir 300 mg capsule 300 mg PO BID Qty: 30 0RF Continued insulin lispro [Humalog KwikPen Insulin] 100 unit/mL insulin pen 1 sliding scale dose SUBCUT USEASDIRECTD Qty: 15 11RF Rx Instructions: use as directed per sliding scale up to 10 units, 3 times/day (DME) Diabetic Shoes 10 wide See Rx Instructions .Route .MEDSUPPLY Qty: 2 1RF Rx Instructions: As directed glimepiride 2 mg tablet 2 mg PO BID Qty: 180 3RF aspirin 81 mg tablet,delayed release (DR/EC) 81 mg PO DAILY Hold Instructions: Home Medication placed on hold at Doctor's office (DME) 4 wheel walker with seat See Rx Instructions .Route .MEDSUPPLY Qty: 1 0RF Rx Instructions: As directed olanzapine [Zyprexa] 2.5 mg tablet 2.5 mg PO DAILY PRN (Reason: agitation) Qty: 30 1RF hydrocodone-acetaminophen 5-325 mg tablet 1 tab PO Q8H Qty: 20 0RF clopidogrel 75 mg tablet 75 mg PO DAILY Qty: 90 3RF atorvastatin 40 mg tablet 40 mg PO DAILY Qty: 90 3RF Hold Instructions: Home Medication placed on hold at Doctor's office duloxetine 60 mg capsule,delayed release(DR/EC) 60 mg PO DAILY Qty: 90 3RF fenofibrate nanocrystallized 145 mg tablet 145 mg PO DAILY Qty: 90 3RF gabapentin 600 mg tablet 600 mg PO TID Qty: 270 3RF lisinopril 5 mg tablet 5 mg PO DAILY Qty: 90 3RF metformin 1,000 mg tablet 1,000 mg PO BID Qty: 180 3RF Follow up/Referrals: Eriberto Candelaria DO [Primary Care Provider] - 3-5 Days Isabela Castañeda MD [Physician] - 1 Week John,Judit, MD [Non-Staff] - 1 Week (needs redereeal) Visit Report/Discharge Packet Stand Alone Forms: Patient Portal/API, Stroke Signs & Symptoms Discharge Data Primary Care Provider: Eriberto Candelaria
[2025-02-28] MEDS: CEFAZOLIN 2 GM/100 ML PREMIX 100 ML IV (08:21)
[2025-02-28] MEDS: ATORVASTATIN 20 MG TABLET 40 MG PO (08:21)
[2025-02-28] MEDS: CLOPIDOGREL 75 MG TABLET PO (08:22)
[2025-02-28] MEDS: METFORMIN HCL 500 MG TABLET 1000 MG PO (08:22)
[2025-02-28] MEDS: FENOFIBRATE, MICRONIZED 67 MG CAPSULE 201 MG PO (08:22)
[2025-02-28] MEDS: ASPIRIN EC 81 MG TABLET PO (08:22)
--- NOTE | 2025-02-28 08:26 | CM.DPC ---
DCP Cont. Reviewed EMR and team rounds for status updates. Pt has been medically cleared for home d/c, his family will transport him home. No further CM d/c or assistance needs at this time.
[2025-02-28] MEDS: SODIUM CHLORIDE 0.9% FLUSH 10 ML IV (08:27)
[2025-02-28] MEDS: ACETAMINOPHEN 325 MG TABLET 650 MG PO (08:31)
[2025-02-28 08:33] VITALS: BP 136/78; PULSE 70
[2025-02-28] MEDS: lisinopriL 5 MG TABLET PO (08:33)
[2025-02-28] MEDS: GABAPENTIN 600 MG TABLET PO (08:33)
[2025-02-28 08:44] VITALS: BP 125/73; PULSE 73; RESP 16; TEMP 36.3; O2SAT 98
[2025-02-28] MEDS: INSULIN LISPRO 100 UNIT/ML 3ML VIAL SUBCUT (08:44)
[2025-02-28] MEDS: DULOXETINE 30 MG CAPSULE 60 MG PO (09:04)
--- NOTE | 2025-02-28 09:24 | DIET.PN1 ---
Dietary Progress Note Assessment: f/u Cutting meats to level 6, bite sized for better tolerance and focusing on softer foods. Pt with 100% recorded PO intakes. No further nutrition needs. Will continue to monitor PO intakes. Ht: 167.64 cm Wt: 75 kg BMI: 27.5 Last BM: 02/27/25 (02/27/25 18:00) MNA: Bharat Score: 18 Diet: 02/23/25 Dinner Carbohydrate Consistent Diet Diet Modifications: Carbohydrate level: Large (4 CHO) Reflex DM orders: No Food Texture: Level 7 - Regular Liquid Consistency: Level 0 - Thin Nutrition Percent Meal Consumed 100% 02/27/25 18:00 Percent Meal Consumed 100% 02/27/25 12:00 Percent Meal Consumed 100% 02/26/25 18:00 Percent Meal Consumed 100% 02/26/25 16:00 Labs: RBC 3.73 X10^6/uL (4.5-5.9) L 02/28/25 05:57 Hgb 12.0 g/dL (13.5-17.5) L 02/28/25 05:57 Hct 35.2 % (41-53) L 02/28/25 05:57 Creatinine 1.26 mg/dL (0.66-1.25) H 02/28/25 05:57 Lactate 1.6 mmol/L (0.7-2.1) 02/22/25 22:05 Electronically Signed by: Trisha Hazel 02/28/25 09:24 Clinical Dietitian [address] [address]
--- NOTE | 2025-02-28 09:31 | PT-IP ANOTE ---
FRONT SIGHT ATTACHER called pt's , permission given to Nurse. stated is on her way to now and plans to bring pt home by 10 am. She states is very familiar with her not feel need to work with PT on step mgt, CGT. She states hadn't heard from OT and if there is anything they recommend, welcome feedback. FR[employer] S[employer] ATT[employer]ER left message with PT/OT on conversation to stop by room [id number] am to check with pt/family. FRONT SIGHT ATTACHER isn't available til 1045 and pt's states will have left by then.
--- NOTE | 2025-02-28 10:35 | OT.IP.TRT ---
Current Diagnoses Diabetes mellitus due to underlying condition with foot ulcer (02/23/25) Type 2 diabetes mellitus with diabetic chronic kidney disease (02/23/25) Type 2 diabetes mellitus with diabetic polyneuropathy (02/23/25) Mixed hyperlipidemia (02/23/25) Essential (primary) hypertension (02/23/25) Cerebral infarction, unspecified (02/23/25) Cellulitis, unspecified (02/23/25) Non-pressure chronic ulcer of other part of right foot with unspecified severity (02/23/25) Other acute osteomyelitis, left ankle and foot (02/23/25) Other osteomyelitis, ankle and foot (02/23/25) Chronic kidney disease, stage 3 unspecified (02/23/25) Aphasia (02/23/25) Surgery Performed Operation Date: 02/23/25 17:30 Actual Procedures p Amputation 4th toe, right foot(Right) - Isabela Castañeda MD Occupational Therapy Treatment Note M2 OT-IP Current Condition Start: 02/25/25 10:19 Freq: Status: Active Protocol: Document 02/25/25 10:19 [facility] (Rec: 02/25/25 10:38 [facility]GR Desktop) Occupational Therapy Current Condition Current Condition Evaluation Date 02/25/25 Treatment Diagnosis R foot 4th toe amputation 02/23 Diagnosis Onset Date 02/23/25 Weight Bearing Status Weight Bearing Status Weight Bear as Tolerated Allowed Weight Bearing Amount (enter % with offloading shoe or #) (%) M3 OT- IP Subjective and Pain Start: 02/25/25 10:19 Freq: Status: Active Protocol: Document 02/28/25 10:57 [facility] (Rec: 02/28/25 11:12 CCC Desktop) OT- Subjective Occupational Therapy Visit Type Type Treatment Note Visit Start Time 10:12 Visit Stop Time 10:36 Occupational Therapy Visit Comments Patient Comments Pt agreed to get dressed and able to do caregiver training with pt's on a step. Patient/Caregiver Goals TO go home. OT Pain Assessment Pain When Pain Assessed At Rest Pain Present Pain Present Pain Reported Location right foot Intensity 6 Scale Used Numeric (0 - 10) M4 OT- IP ADL's Start: 02/25/25 10:19 Freq: Status: Active Protocol: Document 02/28/25 10:57 [facility] (Rec: 02/28/25 11:12 [facility] Desktop) OT [id number] Comments OT Self-Feeding Comments Not at meal time. OT ADL-Grooming Comments OT Grooming Comments Not performed. OT ADL-Oral Care Comments Oral Care Comments Not performed. OT ADL-Dressing Comments OT Dressing Comments Educated pt's to kenton his LLE first and take out last. In addition educated his to be sure to practice good body repairer while assisting the pt- M5 OT- IP IADL's Start: 02/25/25 10:19 Freq: Status: Active Protocol: Document 02/25/25 10:19 [facility] (Rec: 02/25/25 10:38 [facility] Desktop) OT-Instrumental Activities of Daily Living Deficits IADL Deficits Identified Deficits Home Safety Awareness Awareness of Need for Assistance at Home Decreased Awareness Ability to Problem Solve Emergency Unable to Problem Solve Situations Medication Management Medication Management Caregiver Administers Money Management Money Management Caregiver Provides Assistance Meal Preparation Meal Preparation Caregiver Provides Assist Director Of Business Continuity Director Of Business Continuity Caregiver Provides Assist Driving Driving Comments Pt does not drive M6 OT- IP Functional Cognition Start: 02/25/25 10:19 Freq: Status: Active Protocol: Document 02/28/25 10:57 [facility] (Rec: 02/28/25 11:12 [facility] Desktop) Cognitive Factors Limiting Selfcare Function Cognitive Comments Cognitive Assessment Comments Pt is a bit impulsive and needing continuous vc for safety. VC to keep the weight off his fore foot. M7 OT- IP Mobility and Balance Start: 02/25/25 10:19 Freq: Status: Active Protocol: Document 02/28/25 10:57 [facility] (Rec: 02/28/25 11:12 [facility] Desktop) OT-Transfer Assessment Sit to and From Stand Sit to and from Stand Standby Assistance Transfers Transfer Ability Contact Guard Assistance Technique Transfer Destination Bed Transfer Technique Stand Step Pivot Devices Transfer Assistive Devices Gait Belt,Front Wheeled Walker Comments Mobility Comments SBA to CGA to stand to the FWW and assist for balance as pt' s able to assist with the gait belt to do a step. Pt's able to show good safety. OT- Balance Assessment Sitting Balance and Reactions Static Sitting Balance Ability Normal Dynamic Sitting Balance Ability Normal Standing Balance and Reactions Static Standing Balance Ability Good Dynamic Standing Balance Ability Fair M8 OT- IP Objective Assessments Start: 02/25/25 10:19 Freq: Status: Active Protocol: Document 02/25/25 10:19 [facility] (Rec: 02/25/25 10:38 [facility] Desktop) OT Gross Range of Motion Upper Extremity Range of Motion Assessment Within Functional Limits OT Strength Upper Extremity Strength Assessment Within Functional Limits Comments Strength Comments 4+/5 to 5/5 throughout OT- Coordination Assessment Upper Extremity Finger to Nose Test Within Functional Limits Finger Tapping Test Within Functional Limits OT-Muscle Tone Assessment Muscle Tone WNL Yes OT Sensation Assessment Edema Edema Absent M9 OT- IP Assessment and Plan Start: 02/25/25 10:19 Freq: Status: Active Protocol: Document 02/28/25 10:57 [facility] (Rec: 02/28/25 11:12 [facility] Desktop) OT Summary Assessment and Plan Potential Rehabilitation Potential Good Analytic Complexity at Evaluation Low Summary OT Impairments Balance,Functional Cognition, Functional Mobility,Grooming, Activity Tolerance Progress Towards Goals Progressing Toward Goals Assessment Summary Pt's able to do caregiver training for step and ADL needs. Pt looking to go home when medically stable. Able to go over how to kenton/doff gait belt, dressing, bathing, and how to do a step. Goals Days to Meet Goals 1 Frequency of Treatment Frequency Of Treatment Once a Day Treatment Plan OT Treatment Plan ADL Training,Functional Cognition Training,Functional Mobility,Patient/Family Education,Discharge Planning Discharge Recommendations OT Discharge Recommendations Home with 09/05 Assist Available Transportation Needs at Discharge Private Vehicle
[2025-02-28] MEDS: HYDROCODONE/ACET 5/325 TABLET 1 TAB PO (10:53)
--- NOTE | 2025-02-28 11:25 | PC.NURSE ---
Addendum entered by Isis Salazar R.N. 02/28/25 11:31: Medications removed from pt drawer and returned to [facility] from pharmacy. Original Note: Changed pt dressing (wet to dry per MD orders). PIV removed, pt tolerated well. Provided pt discharge education on medications, follow up appts, and infection control. Pt and family members stated all questions answered. All belongings with patient and family members. No belongings in safe. Pt escorted via wheelchair by CR Elliott and family members to [facility].
== END 2025-02-28 11:28 | disposition home or self-care (01) | DRG 500 ==
LOC: ED 02-23 02:06 → AC 02-23 02:24
PROVIDERS: Hospitalist; Internal Medicine; Orthopaedic Surgery; Admitting Provider Internal Medicine; Emergency Provider Emergency Medicine; PCP Family Medicine; Referring Provider Emergency Medicine; Visit Provider Internal Medicine
PROC: 0Y6V0Z0 Detachment at Right 4th Toe, Complete, Open Approach (ICD-10-PCS; CPT 26951; principal; 2025-02-23 17:30)
DX: M86.171 Other acute osteomyelitis, right ankle and foot (principal); J18.9 Pneumonia, unspecified organism; M87.9 Osteonecrosis, unspecified; R74.8 Abnormal levels of other serum enzymes; E11.22 Type 2 diabetes mellitus with diabetic chronic kidney disease; N18.30 Chronic kidney disease, stage 3 unspecified; E11.42 Type 2 diabetes mellitus with diabetic polyneuropathy; I12.9 Hypertensive chronic kidney disease with stage 1 through stage 4 chronic kidney disease, or unspecified chronic kidney disease; E78.2 Mixed hyperlipidemia; I73.9 Peripheral vascular disease, unspecified; I69.320 Aphasia following cerebral infarction; F32.A Depression, unspecified; F41.9 Anxiety disorder, unspecified; E11.621 Type 2 diabetes mellitus with foot ulcer; L97.519 Non-pressure chronic ulcer of other part of right foot with unspecified severity; Z89.421 Acquired absence of other right toe(s); Z89.411 Acquired absence of right great toe; Z79.4 Long term (current) use of insulin; Z79.84 Long term (current) use of oral hypoglycemic drugs; Z79.02 Long term (current) use of antithrombotics/antiplatelets
CPT/HCPCS: 36415; 71045; 73590; 73630; 73701; 80048; 80053; 81003; 81015; 82550; 82962; 83605; 83690; 84145; 85025; 85027; 85610; 85651; 85730; 86140; 87040; 87070; 87075; 87077; 87086; 87147; 87186; 87205; 93005; 93010; 93971; 96365; 96366; 96367; 97116; 97129; 97162; 97165; 97530; 97535; 99284; 99291; J0690; J0696; J1100; J1815; J1885; J2405; J2704; J3010; Q9967

== ENCOUNTER → 2025-03-22 09:00 | Outpatient (CLI) | payer MEDICARE, OTHER, SELFPAY ==
[2025-02-23 03:16] VITALS: BMI 27.5
== END ==
LOC: WC 09:27
PROVIDERS: Family Provider Family Medicine; PCP Family Medicine; Referring Provider Nurse Practitioner Family; Visit Provider Physician Assistant
DX: E11.621 Type 2 diabetes mellitus with foot ulcer (principal); L97.512 Non-pressure chronic ulcer of other part of right foot with fat layer exposed; I10 Essential (primary) hypertension; E78.5 Hyperlipidemia, unspecified; Z86.73 Personal history of transient ischemic attack (TIA), and cerebral infarction without residual deficits; F32.A Depression, unspecified; R47.01 Aphasia
CPT/HCPCS: 11042; 99214

== ENCOUNTER → 2025-03-29 08:43 | Outpatient (CLI) | payer MEDICARE, OTHER, SELFPAY ==
[2025-02-23 03:16] VITALS: BMI 27.5
== END ==
LOC: WC 08:50
PROVIDERS: Family Provider Family Medicine; PCP Family Medicine; Referring Provider Family Medicine; Visit Provider Physician Assistant
DX: E11.621 Type 2 diabetes mellitus with foot ulcer (principal); E11.40 Type 2 diabetes mellitus with diabetic neuropathy, unspecified; L97.512 Non-pressure chronic ulcer of other part of right foot with fat layer exposed
CPT/HCPCS: 11042; 99213

== ENCOUNTER → 2025-04-02 11:31 | Outpatient (CLI) | payer MEDICARE, OTHER, SELFPAY ==
[2025-02-23 03:16] VITALS: BMI 27.5
--- NOTE | 2025-04-02 11:36 | DI.US.S_ITS ---
PROCEDURE: US ARTERIAL DUPLEX LE RT INDICATIONS: Abnormal PAOLO. Non healing wound on Right foot. TECHNIQUE: Color and pulse Doppler interrogation was performed of the right lower extremity arterial system, with image documentation. COMPARISON: [facility], , US ARTERIAL DUPLEX LE , 02/01/2024, 15:20. FINDINGS: Common femoral artery: 145 cm/sec, with biphasic flow. Deep femoral artery: 190 cm/sec, with triphasic flow. Proximal superficial femoral artery: 51 cm/sec, with biphasic flow. Mid superficial femoral artery: Occluded Distal superficial femoral artery: 14 cm/sec, with monophasic hyperemic flow. Popliteal artery: 15 cm/sec, with monophasic hyperemic flow. Posterior tibial artery: 22 cm/sec, with monophasic flow, partially occluded. Anterior tibial artery/dorsalis pedis: 24 cm/sec, with monophasic flow. 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 Focal occlusion also seen in the posterior tibial artery. About 50% narrowing is seen in the deep femoral artery. Dictated by: Ben Lopez M.D. on 04/02/2025 at 14:34 Approved by: Ben Lopez M.D. on 04/02/2025 at 14:37
== END ==
LOC: US 11:33
PROVIDERS: Family Provider Family Medicine; PCP Family Medicine; Referring Provider Physician Assistant; Visit Provider Physician Assistant
DX: L97.509 Non-pressure chronic ulcer of other part of unspecified foot with unspecified severity (principal); E08.621 Diabetes mellitus due to underlying condition with foot ulcer; I77.1 Stricture of artery
CPT/HCPCS: 93926

== ENCOUNTER → 2025-04-05 09:35 | Outpatient (CLI) | payer MEDICARE, OTHER, SELFPAY ==
[2025-02-23 03:16] VITALS: BMI 27.5
== END ==
LOC: WC 10:21
PROVIDERS: Family Provider Family Medicine; PCP Family Medicine; Referring Provider Family Medicine; Visit Provider Physician Assistant
DX: E11.621 Type 2 diabetes mellitus with foot ulcer (principal); L97.512 Non-pressure chronic ulcer of other part of right foot with fat layer exposed; E11.40 Type 2 diabetes mellitus with diabetic neuropathy, unspecified; E11.51 Type 2 diabetes mellitus with diabetic peripheral angiopathy without gangrene; I70.235 Atherosclerosis of native arteries of right leg with ulceration of other part of foot; Z98.62 Peripheral vascular angioplasty status; E11.22 Type 2 diabetes mellitus with diabetic chronic kidney disease; I12.9 Hypertensive chronic kidney disease with stage 1 through stage 4 chronic kidney disease, or unspecified chronic kidney disease; N18.30 Chronic kidney disease, stage 3 unspecified; Z89.411 Acquired absence of right great toe; Z89.421 Acquired absence of other right toe(s); Z89.422 Acquired absence of other left toe(s)
CPT/HCPCS: 11042; 99213

== ENCOUNTER → 2025-04-12 12:39 | Outpatient (CLI) | payer MEDICARE, OTHER, SELFPAY ==
[2025-02-23 03:16] VITALS: BMI 27.5
== END ==
LOC: WC 12:41
PROVIDERS: Family Provider Family Medicine; PCP Family Medicine; Referring Provider Family Medicine; Visit Provider Surgery
DX: T87.89 Other complications of amputation stump (principal); E11.40 Type 2 diabetes mellitus with diabetic neuropathy, unspecified; E11.621 Type 2 diabetes mellitus with foot ulcer; L97.512 Non-pressure chronic ulcer of other part of right foot with fat layer exposed; Z89.421 Acquired absence of other right toe(s); Z86.73 Personal history of transient ischemic attack (TIA), and cerebral infarction without residual deficits
CPT/HCPCS: 11042

== ENCOUNTER → 2025-05-03 11:49 | Outpatient (CLI) | payer MEDICARE, OTHER, SELFPAY ==
[2025-02-23 03:16] VITALS: BMI 27.5
== END ==
LOC: WC 11:58
PROVIDERS: Family Provider Family Medicine; PCP Family Medicine; Referring Provider Family Medicine; Visit Provider Physician Assistant
DX: E11.621 Type 2 diabetes mellitus with foot ulcer (principal); E11.42 Type 2 diabetes mellitus with diabetic polyneuropathy; T87.89 Other complications of amputation stump; L97.512 Non-pressure chronic ulcer of other part of right foot with fat layer exposed; Z89.421 Acquired absence of other right toe(s); Z89.411 Acquired absence of right great toe; S81.811A Laceration without foreign body, right lower leg, initial encounter; M86.18 Other acute osteomyelitis, other site; Z98.62 Peripheral vascular angioplasty status
CPT/HCPCS: 11042; 99214

== ENCOUNTER → 2025-05-07 10:30 | Outpatient (CLI) | payer MEDICARE, OTHER, SELFPAY ==
[2025-02-23 03:16] VITALS: BMI 27.5
[2025-05-07 11:26] LABS: Blood Urea Nitrogen 33 mg/dL (9-20); Calcium 10.1 mg/dL (8.4-10.2); Carbon Dioxide 25 mmol/L (22-32); Chloride 103 mmol/L (98-107); Creatine Kinase 445 U/L (55-170); Estimated Glomerular Filt Rate 53 mL/min (>60); Glucose 92 mg/dL (70-99); HEMOLYSIS < 15 (0-50); Potassium 4.9 mmol/L (3.4-5.1); Sodium 138 mmol/L (137-145)
[2025-05-07 11:27] LABS: Hemoglobin A1C% w Est Avg Glu 6.6 % (4.0-6.0)
== END ==
PROVIDERS: Family Provider Family Medicine; PCP Family Medicine; Referring Provider Family Medicine; Visit Provider Family Medicine
DX: E11.22 Type 2 diabetes mellitus with diabetic chronic kidney disease (principal); N18.30 Chronic kidney disease, stage 3 unspecified; E11.42 Type 2 diabetes mellitus with diabetic polyneuropathy; R74.8 Abnormal levels of other serum enzymes; Z79.4 Long term (current) use of insulin
CPT/HCPCS: 36415; 80048; 82550; 83036

== ENCOUNTER → 2025-07-12 13:15 | Outpatient (CLI) | payer MEDICARE, OTHER, SELFPAY ==
[2025-02-23 03:16] VITALS: BMI 27.5
--- NOTE | 2025-07-12 13:17 | DI.US.S_ITS ---
PROCEDURE: US RENAL COMPLETE INDICATIONS: STAGE 3 KIDNEY DISEASE TECHNIQUE: Real-time scanning was performed of the kidneys and bladder, with image documentation. Twenty-seven images. COMPARISON: None. FINDINGS: Kidneys: Kidneys are normal in size. Right kidney measures 8.3 cm long; left kidney measures 10.2 cm long. Diffuse increased echogenicity of the kidneys bilaterally commonly medical renal disease. No gross renal cortical thinning measuring approximately 1.3 cm thickness bilaterally. No hydronephrosis or nephrolithiasis. No suspicious solid mass lesions. Bladder: No abnormal bladder wall thickening or gross filling defect. Miscellaneous: No free pelvic fluid. IMPRESSION: Increased renal cortical echogenicity bilaterally commonly medical renal disease. No hydronephrosis. Dictated by: Felipe Hinds M.D. on 07/13/2025 at 14:49 Approved by: Felipe Hinds M.D. on 07/13/2025 at 14:52
== END ==
LOC: US 13:16
PROVIDERS: Family Provider Family Medicine; PCP Family Medicine; Referring Provider Student in an Organized Health Care Education/Training Program; Visit Provider Student in an Organized Health Care Education/Training Program
DX: N18.31 Chronic kidney disease, stage 3a (principal)
CPT/HCPCS: 76770

== ENCOUNTER → 2025-08-06 11:39 | Outpatient (CLI) | payer MEDICARE, OTHER, SELFPAY ==
[2025-02-23 03:16] VITALS: BMI 27.5
[2025-08-06 13:07] LABS: Hemoglobin A1C% w Est Avg Glu 6.6 % (4.0-6.0)
[2025-08-06 13:15] LABS: Blood Urea Nitrogen 30 mg/dL (9-20); Calcium 9.6 mg/dL (8.4-10.2); Carbon Dioxide 22 mmol/L (22-32); Chloride 103 mmol/L (98-107); Estimated Glomerular Filt Rate > 60 mL/min (>60); Glucose 169 mg/dL (70-99); HEMOLYSIS 25 (0-50); Potassium 5.1 mmol/L (3.4-5.1); Sodium 140 mmol/L (137-145)
== END ==
PROVIDERS: Family Provider Family Medicine; PCP Family Medicine; Referring Provider Family Medicine; Visit Provider Family Medicine
DX: E11.42 Type 2 diabetes mellitus with diabetic polyneuropathy (principal); E11.22 Type 2 diabetes mellitus with diabetic chronic kidney disease; N18.30 Chronic kidney disease, stage 3 unspecified
CPT/HCPCS: 36415; 80048; 83036